=== PATIENT | female | born 1940 | race Caucasian/White ===

== ENCOUNTER 2017-05-31 19:53 | Observation (INO) | payer MEDICARE, SELFPAY | END 2017-06-02 09:30 | disposition home or self-care (01) | PROVIDERS: Admitting Provider Internal Medicine Adolescent Medicine; Emergency Provider Emergency Medicine; Family Provider Emergency Medicine; Visit Provider Internal Medicine Adolescent Medicine | DX: I10 Essential (primary) hypertension (principal); B34.9 Viral infection, unspecified; I73.9 Peripheral vascular disease, unspecified; Z95.820 Peripheral vascular angioplasty status with implants and grafts | CPT/HCPCS: 36415; 71010; 74176; 80048; 80053; 82150; 82550; 82553; 83605; 83690; 84484; 85025; 87040; 87070; 87077; 87186; 87205; 87275; 87276; 93005; 93041; 96365; 96367; 96375; 99285; G0378; J2405 ==

== ENCOUNTER → 2017-06-29 14:18 | Outpatient (CLI) | payer MEDICARE, SELFPAY ==
--- NOTE | 2017-06-29 | XR_ITS ---
XR chest 2V Ordering Physician: David Disla MD Patient Age: 77 years: Female HISTORY: ITS.REASON: COUGH/CONGESTION F/U TECHNIQUE: PA and lateral chest COMPARISON : May 31, 2017 CXR portable January 2015 2 view CXR August [address] abdomen which includes lung bases May 31, 2017 FINDINGS mild interstitial coarsening bilaterally most evident towards bases again seen. Subtle additional a vague focal focal density towards the right lung base. This Measures roughly & 14 mm projected over the anterior right sixth rib... Questioned that this possibly could reflect a tiny patchy area of infiltrate towards the RML lobe on the PA and lateral view. The May CT showed a breast nodular density which is remain fairly stable. I would however suggest mammography ongoing in this patient to confirm stability of these breast densities. Heart is normal in size with the barbara and mediastinal structures otherwise unremarkable. The generous aortic knob is similar to previous studies. Unchanged.. Mild coarsening markings infrahilar regions been seen previously reflecting some mild chronic changes and mild chronic airway thickening. Mild hyperexpansion No pleural effusion. No pneumothorax. IMPRESSION: --- Subtle focal density projected over the anterior sixth rib right lung base.. Of questionable significance. Question possible minor patchy area infiltrate towards right right lung base. (Unlikely, Doubt new nodular density given the May 2017 CT included this area showed no no significant lung nodule. Only a stable breast nodule. However Would recommend ongoing mammography for the nodularity in breast) Mild chronic changes bilaterally with mild hyperexpansion.....
== END ==
PROVIDERS: PCP Emergency Medicine; Visit Provider Emergency Medicine
DX: R06.02 Shortness of breath (principal)
CPT/HCPCS: 71046

== ENCOUNTER → 2017-07-05 13:39 | Outpatient (CLI) | payer MEDICARE, SELFPAY | PROVIDERS: PCP Emergency Medicine; Visit Provider Emergency Medicine | DX: R05 Cough (principal) | CPT/HCPCS: 87070; 87077; 87184; 87186; 87205 ==

== ENCOUNTER 2017-07-08 14:31 | Inpatient (IN) | payer MEDICARE, SELFPAY ==
[2017-07-08 14:32] VITALS: BP 121/66; PULSE 78; RESP 18; TEMP 36.8; O2SAT 92; BMI 29.2
--- NOTE | 2017-07-08 15:01 | XR_ITS ---
XR chest 2V Ordering Physician: David Disla MD Patient Age: 77 years: Female HISTORY: ITS.REASON: productive cough TECHNIQUE: PA lateral chest COMPARISON :Previous 2 view chest 01/27/2015 & 06/29/2017 Compared to the recent2017 CXR study there is interval increased markings towards the lung bases. Suggest recurrent basilar interstitial infiltrate compatible with minimal interstitial pneumonia superimposed on chronic changes. No pleural effusions evident the heart is normal in size but the pulmonary vascularity appears upper normal. Suggest correlating with BNP.. I could not exclude subtle interstitial edema or subtle CHF this appearance at lung bases.. Heart barbara and mediastinal structures otherwise unremarkable. The chest wall and T-spine intact. IMPRESSION------- : Bibasilar infiltrates superimposed upon chronic changes. Most likely bibasilar lower lobe pneumonia on right more so than left However Cannot exclude additional mild interstitial edema w/ subtle CHF.. Warrants correlation with BNP
[2017-07-08 15:34] LABS: Basophils # 0.1 K/mm3 (0-0.2); Basophils % 0.7 % (0.1-2.0); Eosinophils # 0.5 K/mm3 (0.0-0.4); Hematocrit 37.1 % (37.0-47.0); Hemoglobin 11.7 g/dL (12.2-16.2); Lymphocytes # 1.5 K/mm3 (0.7-4.5); Lymphocytes % 19.3 K/mm3 (10-50); Mean Corpuscular HGB Conc 31.5 g/dL (31.8-35.4); Mean Corpuscular Hemoglobin 26.9 pg (27.0-31.2); Mean Corpuscular Volume 85.4 fl (81-99); Mean Platelet Volume 7.8 fl (7.4-10.4); Monocytes # 0.4 K/mm3 (0.1-1.0); Monocytes % 5.8 % (1.7-9.3); Neutrophils # 5.2 K/mm3 (1.8-7.8); Neutrophils % 68.1 % (37.0-80.0); Platelet Count 392 K/mm3 (142-424); Red Blood Count 4.34 M/mm3 (4.20-5.40); Red Cell Distribution Width 14.2 % (11.5-17.5); White Blood Count 7.7 K/mm3 (4.8-10.8)
[2017-07-08 15:51] LABS: Lactic Acid 1.1 mmol/L (0.4-2.0)
--- NOTE | 2017-07-08 15:54 | HMH.EDSOB ---
ED Disposition Clinical Impression: CAP (community acquired pneumonia) Disposition: Admitted as Observation Condition on Discharge: Good Referrals: David Disla MD [Primary Care Provider] - - Critical Care Critical Care Time: No Attestation: On 07/08/17, the high probability of a clinically significant, sudden or life threatening deterioration of the following system(s) required my full and direct attention, intervention and personal management. The time I documented below is in addition to time spent performing reported procedures but includes the following listed in this critical care notation. Medical Decision Making - Medical Records Medical records reviewed: Yes: I reviewed the patient's medical records. Vital Signs: 07/08/17 14:32 Temperature 98.3 F Temperature Source Oral Pulse Rate [Right Brachial] 78 Respiratory Rate 18 Blood Pressure [Right Arm] 121/66 Blood Pressure Mean [Right Arm] 84 Blood Pressure Source [Right Arm] Automatic Cuff Blood Pressure Position [Right Arm] Sitting 02 Sat by Pulse Oximetry 92 L Oxygen Delivery Method Room Air - Lab Data Lab results reviewed: Yes: I reviewed the patient's lab results. Lab Results 07/08/17 15:10: WBC 7.7, RBC 4.34, Hgb 11.7 L, Hct 37.1, MCV 85.4, MCH 26.9 L, MCHC 31.5 L, RDW 14.2, Plt Count 392, MPV 7.8, Neut % (Auto) 68.1, Lymph % (Auto) 19.3, [place] % (Auto) 5.8, Eos % (Auto) 6.0, Baso % (Auto) 0.7, Neut # (Auto) 5.2, Lymph # (Auto) 1.5, [place] # (Auto) 0.4, Eos # (Auto) 0.5 H, Baso # (Auto) 0.1 07/08/17 15:10: Lactic Acid 1.1 Result diagrams: 07/08/17 15:10 Orders (Tests/Meds): ED MEDICATIONS Discontinued Medications Generic Name Dose Route Start Last Admin Trade Name Freq PRN Reason Stop Dose Admin Albuterol/Ipratropium 3 ml 07/08/17 15:48 Duoneb 3ml Neb IH 07/08/17 15:49 ONCE ONE Methylprednisolone Sodium Succinate 125 mg 07/08/17 15:48 07/08/17 15:52 Solu-Medrol 125mg/2ml Vial IV 07/08/17 15:49 125 mg ONCE ONE Administration ORDERS Category Date Time Status XR chest 2V Stat Exams 07/08/17 15:01 Taken B-Type Natriuretic Peptide Stat Lab 07/08/17 15:10 Received Cardiac Enzymes Stat Lab 07/08/17 15:10 Received Comprehensive Metabolic Panel Stat Lab 07/08/17 15:10 Received ESR [Erythrocyte Sedimentation Rate] Stat Lab 07/08/17 15:52 Ordered Blood Culture Stat Micro 07/08/17 15:10 Received Sputum Culture & Gram Stain Stat Micro 07/08/17 15:53 Ordered - Radiology Data #1 Image(s): Chest Image Reviewed: Yes I reviewed the patient's radiology image Preliminary Findings: Abnormal (bilat cap) - Donis Inquiry Pt receiving controlled substance: No Resp/SOB HPI - General Chief Complaint: Weakness Stated Complaint: poss pnuemonia Time Seen by Provider: 07/08/17 15:55 Mode of Arrival: Ambulatory Source of Information: Patient, Relative, Medical Record Limitations: No Limitations Description of Symptoms (Recalled from ER Triage Doc. by RN): PT c/o nausea and vomiting for the past couple of weeks with increased SOA, prouctive cough. - History of Present Illness this is a wf who has prod cough with sob w/o hemoptysis but has wt loss and dec po intake MD Complaint: shortness of breath, cough Onset (ago): day(s) Severity: moderate Relieving factors: nothing Exacerbating factors: exertion, coughing Associated symptoms: pain with inspiration, cough Treatment prior to arrival: none - Related Data Home Medications Medication Instructions Recorded Confirmed amlodipine 10 mg tablet 10 mg PO BID tab 06/06/17 aspirin 81 mg tablet,delayed 81 mg PO QDAY 06/06/17 release carvedilol 12.5 mg tablet 12.5 mg PO BID 06/06/17 lisinopril 20 1 tab PO BID tab 06/06/17 mg-hydrochlorothiazide 12.5 mg tablet nitroglycerin 0.4 mg sublingual 0.4 mg SUBLINGUAL Q5-15M PRN 06/06/17 tablet zolpidem 10 mg tablet 10 mg PO QHS PRN tab 06/06/17 Allergies
--- NOTE | 2017-07-08 15:58 | ED_ITS ---
ED Disposition Clinical Impression: CAP (community acquired pneumonia) Disposition: Admitted as Observation Condition on Discharge: Good Referrals: David Disla MD [Primary Care Provider] - - Critical Care Critical Care Time: No Attestation: On 07/08/17, the high probability of a clinically significant, sudden or life threatening deterioration of the following system(s) required my full and direct attention, intervention and personal management. The time I documented below is in addition to time spent performing reported procedures but includes the following listed in this critical care notation. Medical Decision Making - Medical Records Medical records reviewed: Yes: I reviewed the patient's medical records. Vital Signs: 07/08/17 14:32 Temperature 98.3 F Temperature Source Oral Pulse Rate [Right Brachial] 78 Respiratory Rate 18 Blood Pressure [Right Arm] 121/66 Blood Pressure Mean [Right Arm] 84 Blood Pressure Source [Right Arm] Automatic Cuff Blood Pressure Position [Right Arm] Sitting 02 Sat by Pulse Oximetry 92 L Oxygen Delivery Method Room Air - Lab Data Lab results reviewed: Yes: I reviewed the patient's lab results. Lab Results 07/08/17 15:10: WBC 7.7, RBC 4.34, Hgb 11.7 L, Hct 37.1, MCV 85.4, MCH 26.9 L, MCHC 31.5 L, RDW 14.2, Plt Count 392, MPV 7.8, Neut % (Auto) 68.1, Lymph % (Auto ) 19.3, [place] % (Auto) 5.8, Eos % (Auto) 6.0, Baso % (Auto) 0.7, Neut # (Auto) 5.2, Lymph # (Auto) 1.5, [place] # (Auto) 0.4, Eos # (Auto) 0.5 H, Baso # (Auto) 0.1 07/08/17 15:10: Lactic Acid 1.1 Result diagrams: 07/08/17 15:10 Orders (Tests/Meds): ED MEDICATIONS Discontinued Medications Generic Name Dose Route Start Last Admin Trade Name Freq PRN Reason Stop Dose Admin Albuterol/Ipratropium 3 ml 07/08/17 15:48 Duoneb 3ml Neb IH 07/08/17 15:49 ONCE ONE Methylprednisolone Sodium Succinate 125 mg 07/08/17 15:48 07/08/17 15:52 Solu-Medrol 125mg/2ml Vial IV 07/08/17 15:49 125 mg ONCE ONE Administration ORDERS Category Date Time Status XR chest 2V Stat Exams 07/08/17 15:01 Taken B-Type Natriuretic Peptide Stat Lab 07/08/17 15:10 Received Cardiac Enzymes Stat Lab 07/08/17 15:10 Received Comprehensive Metabolic Panel Stat Lab 07/08/17 15:10 Received ESR [Erythrocyte Sedimentation Rate] Stat Lab 07/08/17 15:52 Ordered Blood Culture Stat Micro 07/08/17 15:10 Received Sputum Culture & Gram Stain Stat Micro 07/08/17 15:53 Ordered - Radiology Data #1 Image(s): Chest Image Reviewed: Yes I reviewed the patient's radiology image Preliminary Findings: Abnormal (bilat cap) - Donis Inquiry Pt receiving controlled substance: No Resp/SOB HPI - General Chief Complaint: Weakness Stated Complaint: poss pnuemonia Time Seen by Provider: 07/08/17 15:55 Mode of Arrival: Ambulatory Source of Information: Patient, Relative, Medical Record Limitations: No Limitations Description of Symptoms (Recalled from ER Triage Doc. by RN): PT c/o nausea and vomiting for the past couple of weeks with increased SOA, prouctive cough. - History of Present Illness this is a wf who has prod cough with sob w/o hemoptysis but has wt loss and dec po intake MD Complaint: shortness of breath, cough
[2017-07-08 16:01] VITALS: PULSE 61; PULSE 65
[2017-07-08 16:02] VITALS: BP 136/73; PULSE 84; RESP 18; O2SAT 92
[2017-07-08 16:06] LABS: Alanine Aminotransferase 18 U/L (12-78); Albumin Level 2.9 gm/dL (3.4-5.0); Albumin/Globulin Ratio 0.6 (1.1-1.8); Alkaline Phosphatase 97 U/L (46-116); Anion Gap 13.8 mEq/L (5-15); Aspartate Amino Transferase 14 U/L (15-37); Bilirubin,Total 0.4 mg/dL (0.2-1.0); Blood Urea Nitrogen 29 mg/dL (7-18); Calcium 8.9 mg/dL (8.5-10.1); Carbon Dioxide 29 mmol/L (21.0-32.0); Chloride 103 mmol/L (98-107); Creatine Kinase 14 U/L (26-192); Creatinine Clearance Estimated 44 mL/min (0-300); Creatinine,Serum 1.35 mg/dL (0.55-1.02); Estimated Glomerular Filt Rate 38 ml/min (>60); GFR (African American) 46 ML/MIN (>60); Globulin 5.2 gm/dl (1.3-3.2); Glucose 134 mg/dL (74-106); Potassium 3.8 mmoL/L (3.5-5.1); Sodium 142 mmol/L (136-145); Total Protein,Serum 8.1 gm/dL (6.4-8.2); Troponin I < 0.02 ng/ml (0.00-0.06)
[2017-07-08 16:09] LABS: CKMB Relative Index 3.6 U/L (0-4.0); Creatine Kinase MB < 0.5 mg/ml (0.0-3.6)
[2017-07-08 16:31] VITALS: BP 113/76; PULSE 75; RESP 20; TEMP 36.8; O2SAT 92
[2017-07-08 16:44] VITALS: BMI 29.0
[2017-07-08 17:30] LABS: Erythrocyte Sedimentation Rate > 120 mm/hr (0-30)
[2017-07-08 19:45] VITALS: O2SAT 96
[2017-07-08 20:00] VITALS: BP 113/62; PULSE 68; RESP 18; TEMP 36.3; O2SAT 96
[2017-07-09] VITALS: BP 114/56
[2017-07-09 04:00] VITALS: BP 130/69; PULSE 61; RESP 18; TEMP 36.4; O2SAT 92
--- NOTE | 2017-07-09 06:55 | PC.NURSE ---
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 THIS HAS BEEN GOING ON AT HOME AND I USUALLY PUT ICE PACKS ON THOSE PLACES AND IT DOES HELP. RN ADMINISTERED TYLENOL AND PROVIDED PT WITH ICE PACKS. ON REASSESSMENT PT STILL C/O PAIN, RATING IT AT A 5/10 ON 0-[address] SALGUERO WAS NOTIFIED ON REASSESSMENT AROUND 2014, STATED I WILL PUT SOMETHING IN. AT 2229, ORDERS STILL NOT PUT IN, RN CALLED DR. SALGUERO AGAIN, NO RESPONSE AT THIS TIME. AT 2239, RN RECEIVED A CALL FROM DR. SALGUERO. PT WAS REQUESTING MEDICATION TO HELP WITH PAIN IN BETWEEN SHOULDER BLADES AND CHEST, FOR COUGH, AND FOR SLEEPING MEDICATION. WAS INFORMED THAT PATIENT TAKES AMBIEN 10MG AT HS FOR SLEEP. MD ORDERED NORCO 5MG-325MG AND AMBIEN 10 MG PO ONE TIME ONLY AND TESSLON PERLE Q4H PRN. MEDICATED PT FOLLOWING ORDERS RETRIEVED, ON REASSESSMENT PT NOTED SLEEPING. SCATTERED RHONCHI NOTED ON AUSCULTATION OF LUNG SOUNDS. TOLERATED RA WELL. VSS. WILL CONTINUE TO MONITOR.
[2017-07-09 07:25] LABS: Basophils % 0.2 % (0.1-2.0); Eosinophils % 0.2 % (0.1-12.0); Hematocrit 30.9 % (37.0-47.0); Lymphocytes # 0.8 K/mm3 (0.7-4.5); Lymphocytes % 17.2 K/mm3 (10-50); Mean Corpuscular HGB Conc 31.5 g/dL (31.8-35.4); Mean Corpuscular Hemoglobin 27.1 pg (27.0-31.2); Mean Platelet Volume 8.3 fl (7.4-10.4); Monocytes # 0.1 K/mm3 (0.1-1.0); Monocytes % 2.1 % (1.7-9.3); Neutrophils # 3.8 K/mm3 (1.8-7.8); Neutrophils % 80.2 % (37.0-80.0); Platelet Count 307 K/mm3 (142-424); Red Cell Distribution Width 14.2 % (11.5-17.5); White Blood Count 4.7 K/mm3 (4.8-10.8)
[2017-07-09 07:27] LABS: Anion Gap 12.3 mEq/L (5-15); Blood Urea Nitrogen 34 mg/dL (7-18); Carbon Dioxide 26 mmol/L (21.0-32.0); Chloride 106 mmol/L (98-107); Creatinine Clearance Estimated 43 mL/min (0-300); Creatinine,Serum 1.37 mg/dL (0.55-1.02); Estimated Glomerular Filt Rate 38 ml/min (>60); GFR (African American) 45 ML/MIN (>60); Glucose 210 mg/dL (74-106); Magnesium 2.1 mg/dL (1.4-2.2); Potassium 4.3 mmoL/L (3.5-5.1); Sodium 140 mmol/L (136-145)
[2017-07-09 07:49] LABS: Hemoglobin 9.8 g/dL (12.2-16.2)
[2017-07-09 08:43] VITALS: BP 141/71; PULSE 69; RESP 18; TEMP 36.3; O2SAT 94
--- NOTE | 2017-07-09 08:48 | HMH.HP ---
*Admission Date: 07/08/17 *Chief complaint: cough *History of present illness: this wf with progressive sob with prod cough over the last few days with dec po intake - she was seen in the ed and noted to have cap bilat on xray - she reports occ chest pain and has 31 lb wt loss since mar 26- [facility] History I have reviewed the patient's past medical history: Yes Medical History: Reports:: Hypertension, Myocardial Infarction Denies:: Cancer, Diabetes Mellitus Type 1, Diabetes Mellitus Type 2, Internal Pacemaker, MRSA Other Medical History: Reports: Thyroid Disease Laterality Cases: Left: Arthroscopy Shoulder, Other Other Surgeries: Yes: Hernia Repair, Other. No: Pacemaker Amputation: No Fractures: No - *Social History Educational Level: Attended High School Smoking Status: Former smoker Tobacco Type: cigarettes #Yrs smoked (if former smoker): 10 Alcohol Intake: never Substance Use Type: denies use Occupational Status: retired Housing: house Household Members: none - Psychiatric History Expresses thoughts of harming self/others: None Suicide Plan Description: No Plan *Family Hx:: Coronary Artery Disease, Heart Attack Review of Systems - Review of Systems Review of systems:: pertinent systems reviewed and negative unless documented below - Constitutional Reports lack of energy, Reports weight loss, Denies fever(s) - Eyes Denies change in vision - ENT Denies sore throat - *Cardiovascular Denies chest pain at rest - *Respiratory Reports cough, Reports shortness of breath, Reports pain with cough, Denies coughing up blood - *Gastrointestinal Denies abdominal pain, Denies nausea - *Musculoskeletal Denies joint pain, Denies joint swelling - Integumentary/Breasts Denies rash - *Neurologic Denies seizure-like activity Meds Home Medications Medication Instructions Recorded Confirmed Type amlodipine 10 mg tablet 10 mg PO BID tab 06/06/17 History aspirin 81 mg tablet,delayed 81 mg PO QDAY 06/06/17 History release carvedilol 12.5 mg tablet 12.5 mg PO BID 06/06/17 History lisinopril 20 1 tab PO BID tab 06/06/17 History mg-hydrochlorothiazide 12.5 mg tablet nitroglycerin 0.4 mg sublingual 0.4 mg SUBLINGUAL Q5-15M PRN 06/06/17 History tablet zolpidem 10 mg tablet 10 mg PO QHS PRN tab 06/06/17 History Allergies Allergy/AdvReac Type Severity Reaction Status Date / Time No Known Allergies Allergy Verified 06/11/17 15:56 Exam Vital signs and Labs for Last 24 Hours: Temp Pulse Resp BP Pulse Ox 97.4 F L 69 18 141/71 94 L 07/09/17 08:43 07/09/17 08:43 07/09/17 08:43 07/09/17 08:43 07/09/17 08:43 Laboratory Results - last 24 hr 07/09/17 06:20: WBC 4.7 L D, RBC 3.60 L, Hgb 9.8 L D, Hct 30.9 L, MCV 86.0, MCH 27.1, MCHC 31.5 L, RDW 14.2, Plt Count 307, MPV 8.3, Neut % (Auto) 80.2 H, Lymph % (Auto) 17.2, [place] % (Auto) 2.1, Eos % (Auto) 0.2, Baso % (Auto) 0.2, Neut # (Auto) 3.8, Lymph # (Auto) 0.8, [place] # (Auto) 0.1, Eos # (Auto) 0.0, Baso # (Auto) 0.0 07/09/17 06:20: Sodium 140, Potassium 4.3, Chloride 106, Carbon Dioxide 26, Anion Gap 12.3, BUN 34 H, Creatinine 1.37 H, Estimated Creat Clear 43, Estimated GFR 38 L, Est GFR ( Amer) 45 L, Glucose 210 H D, Magnesium 2.1 I & O for Last 24 hours: Intake & Output 07/06/17 07/07/17 07/08/17 07/09/17 11:59 11:59 11:59 11:59 Intake Total 1080 / 1080 Balance 1080 / 1080 Weight 169 lb 4 oz Microbiology Reports for the Last 24 Hours: Microbiology 07/08/17 22:55 Sputum - Expectorated Sputum Gram Stain - Final - Constitutional no acute distress - *Routine HEENT Exam Head: Present: normocephalic Eye: Present: EOMI, PERRL ENT: Present: mucous membranes dry - *Routine Neck Exam Present: supple. Absent: JVD - *Routine Respiratory Exam Present: decreased breath sounds, prolonged expiratory phase, distant breath sounds. Absent: respiratory distress - *Routine Cardiovascular Ex
--- NOTE | 2017-07-09 08:51 | P.HP_ITS ---
*Admission Date: 07/08/17 *Chief complaint: cough *History of present illness: this wf with progressive sob with prod cough over the last few days with dec po intake - she was seen in the ed and noted to have cap bilat on xray - she reports occ chest pain and has 31 lb wt loss since mar 26- [facility] History I have reviewed the patient's past medical history: Yes Medical History: Reports:: Hypertension, Myocardial Infarction Denies:: Cancer, Diabetes Mellitus Type 1, Diabetes Mellitus Type 2, Internal Pacemaker, MRSA Other Medical History: Reports: Thyroid Disease Laterality Cases: Left: Arthroscopy Shoulder, Other Other Surgeries: Yes: Hernia Repair, Other. No: Pacemaker Amputation: No Fractures: No - *Social History Educational Level: Attended High School Smoking Status: Former smoker Tobacco Type: cigarettes #Yrs smoked (if former smoker): 10 Alcohol Intake: never Substance Use Type: denies use Occupational Status: retired Housing: house Household Members: none - Psychiatric History Expresses thoughts of harming self/others: None Suicide Plan Description: No Plan *Family Hx:: Coronary Artery Disease, Heart Attack Review of Systems - Review of Systems Review of systems:: pertinent systems reviewed and negative unless documented below - Constitutional Reports lack of energy, Reports weight loss, Denies fever(s) - Eyes Denies change in vision - ENT Denies sore throat - *Cardiovascular Denies chest pain at rest - *Respiratory Reports cough, Reports shortness of breath, Reports pain with cough, Denies coughing up blood - *Gastrointestinal Denies abdominal pain, Denies nausea - *Musculoskeletal Denies joint pain, Denies joint swelling - Integumentary/Breasts Denies rash - *Neurologic Denies seizure-like activity Meds Home Medications Medication Instructions Recorded Confirmed Type amlodipine 10 mg tablet 10 mg PO BID tab 06/06/17 History aspirin 81 mg tablet,delayed 81 mg PO QDAY 06/06/17 History release carvedilol 12.5 mg tablet 12.5 mg PO BID 06/06/17 History lisinopril 20 1 tab PO BID tab 06/06/17 History mg-hydrochlorothiazide 12.5 mg tablet nitroglycerin 0.4 mg sublingual 0.4 mg SUBLINGUAL Q5-15M PRN 06/06/17 History tablet zolpidem 10 mg tablet 10 mg PO QHS PRN tab 06/06/17 History Allergies Allergy/AdvReac Type Severity Reaction Status Date / Time No Known Allergies Allergy Verified 06/11/17 15:56 Exam Vital signs and Labs for Last 24 Hours: Temp Pulse Resp BP Pulse Ox 97.4 F L 69 18 141/71 94 L 07/09/17 08:43 07/09/17 08:43 07/09/17 08:43 07/09/17 08:43 07/09/17 08:43 Laboratory Results - last 24 hr 07/09/17 06:20: WBC 4.7 L D, RBC 3.60 L, Hgb 9.8 L D, Hct 30.9 L, MCV 86.0, MCH 27.1, MCHC 31.5 L, RDW 14.2, Plt Count 307, MPV 8.3, Neut % (Auto) 80.2 H, Lymph % (Auto) 17.2, [place] % (Auto) 2.1, Eos % (Auto) 0.2, Baso % (Auto) 0.2, Neut # (Auto) 3.8, Lymph # (Auto) 0.8, [place] # (Auto) 0.1, Eos # (Auto) 0.0, Baso # (Auto) 0.0 07/09/17 06:20: Sodium 140, Potassium 4.3, Chloride 106, Carbon Dioxide 26, Anion Gap 12.3, BUN 34 H, Creatinine 1.37 H, Estimated Creat Clear 43, Estimated GFR 38 L, Est GFR ( Amer) 45 L, Glucose 210 H D, Magnesium 2.1 I & O for Last 24 hours: Intake & Output 07/06/17 07/07/17 07/08/17 07/09/17 1
--- NOTE | 2017-07-09 09:26 | P.CONPHA_ITS ---
[facility] Pharmacy VTE Monitoring - Patient Demographics Admission date: 07/08/17 Report Date: 07/09/17 Time: 09:26 Allergies/Adverse Reactions: Patient Allergies No Known Allergies Allergy (Verified 06/11/17 15:56) Height: 1.63 m Weight: 76.771 kg Patient Problems: Current Active Problems CAP (community acquired pneumonia) (Acute) - VTE Risk Labs: VTE Related Lab Results Hgb 9.8 g/dL (12.2-16.2) L D 07/09/17 06:20 Hct 30.9 % (37.0-47.0) L 07/09/17 06:20 Plt Count 307 K/mm3 (142-424) 07/09/17 06:20 BUN 34 mg/dL (7-18) H 07/09/17 06:20 Creatinine 1.37 mg/dL (0.55-1.02) H 07/09/17 06:20 Estimated Creat Clear 43 mL/min (0-300) 07/09/17 06:20 Was VTE Risk Assessment Performed: No VTE Score: 4 VTE Risk Level: Low Risk - Prophylaxis VTE Prophylaxis Ordered?: Yes Types of VTE Prophylaxis: TEDS Knee High Location of Applied Device: Bilateral Lower Extremeties - VTE Diagnosis Confirmed Treatment or plan recommended: Continue Current Treatment
[2017-07-09 12:00] VITALS: BP 113/71; PULSE 75; RESP 18; TEMP 36.4; O2SAT 96
[2017-07-09 16:15] VITALS: BP 125/61; PULSE 70; RESP 18; TEMP 36.7; O2SAT 95
--- NOTE | 2017-07-09 18:36 | PC.NURSE ---
PT HAS HAD NO CHANGES FROM PREVIOUS ASSESSMENT. IV PATENT. V/S/S. PT AMBULATED IN ROOM TODAY AND HAD SOME COUGHING AFTERWARDS AND SOME SHORTNESS OF AIR. CALL LIGHT IN REACH. WILL CONTINUE TO MONITOR PT CONDITION. WILL GIVE REPORT TO ONCOMING NURSE.
[2017-07-09 20:00] VITALS: BP 157/70; PULSE 76; RESP 22; TEMP 36.7; O2SAT 95
[2017-07-10] VITALS: BP 128/59; PULSE 70; RESP 18; TEMP 36.9; O2SAT 95
[2017-07-10 04:00] VITALS: BP 136/62; PULSE 68; RESP 20; TEMP 36.4; O2SAT 93
--- NOTE | 2017-07-10 04:38 | PC.NURSE ---
REQUESTED PRN COUGH AND SLEEPING MEDICATION, LOOSE COUGH NOTED, MEDICATED PER MAR. RESTED WELL THIS SHIFT FOLLOWING ADMINISTRATION OF SLEEPING MEDICATION. LUNG SOUNDS NOTED CLEAR PER AUSCULTATION. TOLERATED RA. VSS. WILL CONTINUE TO MONITOR.
--- NOTE | 2017-07-10 07:58 | PC.NURSE ---
ON LAST ROUND, PT NOTED COUGHING, C/O WOODY AND CHEST PRESSURE AND BEGAN TO GAG, PRN NAUSEA, COUGH AND PAIN MEDICATION ADMINISTERED PER MAR. PROVIDED PT WITH COLD WASH CLOTH FOR C/O WOODY, PT DENIED NEED FOR ICE PACKS. ON REASSESSMENT, PT STATED I FEEL BETTER AND I DO NOT HAVE THAT CHEST PRESSURE. REPORTED EVENTS TO ONCOMING RN AND WILL CONTINUE TO MONITOR.
[2017-07-10 08:00] VITALS: BP 146/69; PULSE 65; RESP 18; TEMP 36.5; O2SAT 94
--- NOTE | 2017-07-10 08:02 | PC.NURSE ---
REPORT GIVEN TO Rosita GARIBAY RN
--- NOTE | 2017-07-10 08:42 | CT_ITS ---
CT chest wo con HISTORY: Cough, abnormal chest x-ray follow-up ITS.REASON: abn cxr ORDERING PHYSICIAN: David Disla MD PATIENT AGE: 77 years TECHNIQUE: Axial images obtained. Sagittal and coronal reformatted images are also generated and reviewed. CONTRAST: None COMPARISON: X-ray of 07/08/[address] of 08/14/2016 FINDINGS: There is normal heart size. There are diffuse coronary artery calcification consistent with coronary artery disease. No mediastinal or hilar mass. Small hiatal hernia is present. Mild paraseptal emphysematous changes. There is hyperinflation with attenuation of the peripheral pulmonary vessels consistent with obstructive chronic bronchitis with bronchial thickening. There are scattered micronodular opacities in both lower lobes with some mild atelectatic changes in the lung bases posteriorly. Faint micronodular opacities also present in the right upper lobe. There is a stable 3 mm nodule in the left upper lobe. A new 5 mm nodular opacity is present in the superior segment of the left lower lobe nonspecific and could be due to an area of inflammation/atelectasis. No effusions. Upper abdominal images show a 5.4 cm left renal cyst. There is a 8 mm nodule in the superior right breast which may be better evaluated with mammogram and ultrasound clinically warranted. Spondylosis in the thoracic spine. IMPRESSION: 1. COPD with paraseptal emphysematous change. 2. Scattered micronodular densities more prominent in the lower lobes and may be related to underlying inflammatory/infectious process with atelectatic changes in the lung bases on both sides posteriorly. 3. 5 mm nodular opacity in the superior segment left upper lobe having developed in the interval. Stable 3 mm nodule in the left upper lobe. Recommend 6 month follow-up to confirm stability. 4. Coronary artery disease. 5. 8 mm right breast nodule superiorly
--- NOTE | 2017-07-10 08:44 | HMH.ACPN2 ---
Internal Medicine - PN: Subj *Date: 07/10/17 *Time: 08:44 Interval history: pt feels bad this am with coughing episode Exam Vital signs and Labs for Last 24 Hours: Temp Pulse Resp BP Pulse Ox 97.6 F 68 20 136/62 93 L 07/10/17 04:00 07/10/17 04:00 07/10/17 04:00 07/10/17 04:00 07/10/17 04:00 I & O for Last 24 hours: Intake & Output 07/07/17 07/08/17 07/09/17 07/10/17 11:59 11:59 11:59 11:59 Intake Total 1080 / 1080 3604 / 3604 Balance 1080 / 1080 3604 / 3604 Weight 169 lb 4 oz 174 lb 4 oz Microbiology Reports for the Last 24 Hours: Microbiology 07/08/17 22:55 Sputum - Expectorated Sputum Gram Stain - Final - Constitutional no acute distress - *Routine HEENT Exam Head: Present: normocephalic Eye: Present: EOMI, PERRL ENT: Present: mucous membranes dry - *Routine Neck Exam Present: supple - *Routine Respiratory Exam Present: decreased breath sounds. Absent: respiratory distress - *Routine Cardiovascular Exam Present: RRR, murmur - *Routine Abdominal Exam Present: soft - *Routine Extremities Exam Absent: edema, Piero's sign - *Routine Skin Exam Present: intact - *Routine Neurological Exam Present: alert, oriented X3, CN II-XII intact - Routine Psychiatric Exam Present: normal affect Assessment and Plan (1) CAP (community acquired pneumonia) Current visit: Yes Status: Acute Category: Medical Code(s): J18.9 - Pneumonia, unspecified organism (2) PAD (peripheral artery disease) Current visit: No Status: Chronic Category: Medical Code(s): I73.9 - Peripheral vascular disease, unspecified (3) HHD (hypertensive heart disease) Current visit: No Status: Acute Category: Medical Code(s): I11.9 - Hypertensive heart disease without heart failure
--- NOTE | 2017-07-10 08:53 | CA_ITS ---
PROCEDURE: 2-D M-mode and color Doppler study INDICATIONS FOR THE TEST: Chest pain COPD Heart Murmur Tobacco Smoking Palpitations Fatigue Syncope Edema HypertensionXDiabetes Mellitus Rheumatic Fever SOBXDOE Obesity HyperlipidemiaX Family History HD Additional History PNEUMONIA,CAD,PACER,PAD,HHD PATIENT INFORMATION HEIGHT: 64 WEIGHT:174 GENDER: Female B/P:136/62 2-D/M-MODE INTERPRETATION: 2-D MEASUREMENTS OBSERVED VALUES IN CMS Right Ventricular Dimension (RVDd) 1.9 Interventricular Septum (Thickness)(IVsd) .9 Left Ventricular Internal Dimensions(LVIDd) 5.7 Left Ventricular Posterior Wall (Thickness)(LVPWd) .9 Aortic Root 4.3 Aortic Cusp Separation 1.9 Left Atrial Dimensions (LAD) 3.0 2D 1. Left atrium is mildly enlarged, left ventricle is normal size, left ventricle wall thickness is upper normal, estimated ejection fraction 55% with no obvious regional wall motion abnormality. 2. The right atrium and right ventricle are normal size, there is a pacemaker lead seen in the right atrium and right ventricle. 3. The aortic valve is minimally thickened and fibrosed. 4. The mitral and tricuspid valve leaflets are minimally thickened. 5. The pulmonic valve is poorly visualized. 6. No significant pericardial effusion noted. DOPPLER INTERROGATION: Doppler interrogation of the aortic, mitral and tricuspid valvular presence of mild mitral and tricuspid regurgitation, tricuspid regurgitant jet velocity insufficient for calculation of the right ventricular systolic pressure, grade 1 diastolic dysfunction seen with tissue Doppler evidence of raised left atrial pressure. CONCLUSION: 1. Mildly enlarged left atrium, normal left ventricular size, visually estimated ejection fraction 55% with no obvious regional wall motion abnormality, grade 1 diastolic dysfunction seen with tissue Doppler evidence of raised left atrial pressure. 2. Mild mitral and tricuspid regurgitation 3. No significant pericardial effusion noted.
[2017-07-10 09:20] LABS: Basophils % 0.1 % (0.1-2.0); Eosinophils # 0.1 K/mm3 (0.0-0.4); Eosinophils % 0.7 % (0.1-12.0); Hemoglobin 11.3 g/dL (12.2-16.2); Lymphocytes # 1.5 K/mm3 (0.7-4.5); Lymphocytes % 6.8 K/mm3 (10-50); Mean Corpuscular HGB Conc 31.3 g/dL (31.8-35.4); Mean Corpuscular Volume 86.2 fl (81-99); Mean Platelet Volume 7.8 fl (7.4-10.4); Monocytes # 0.6 K/mm3 (0.1-1.0); Monocytes % 2.7 % (1.7-9.3); Neutrophils # 19.5 K/mm3 (1.8-7.8); Neutrophils % 89.7 % (37.0-80.0); Platelet Count 414 K/mm3 (142-424); Red Blood Count 4.18 M/mm3 (4.20-5.40); Red Cell Distribution Width 14.4 % (11.5-17.5); White Blood Count 21.7 K/mm3 (4.8-10.8)
[2017-07-10 09:25] LABS: MANUAL DIFFERENTIAL MANUAL DIFFERENTIAL (MANUAL DIFF)
[2017-07-10 09:42] LABS: Anion Gap 11.3 mEq/L (5-15); Blood Urea Nitrogen 30 mg/dL (7-18); Carbon Dioxide 26 mmol/L (21.0-32.0); Chloride 109 mmol/L (98-107); Creatinine Clearance Estimated 52 mL/min (0-300); Creatinine,Serum 1.16 mg/dL (0.55-1.02); Estimated Glomerular Filt Rate 46 ml/min (>60); GFR (African American) 55 ML/MIN (>60); Glucose 219 mg/dL (74-106); Sodium 142 mmol/L (136-145)
[2017-07-10 09:45] LABS: Lymphocytes % 3 % (10-50); Monocytes % 2 % (2-9); Neutrophils % 91 % (42-76); Platelet Estimate Normal; Total Cells Counted 100
[2017-07-10 09:48] LABS: Potassium 4.3 mmoL/L (3.5-5.1)
[2017-07-10 12:21] VITALS: BP 150/62; PULSE 59; RESP 18; TEMP 36.6; O2SAT 96
[2017-07-10 16:24] VITALS: BP 165/76; PULSE 63; RESP 16; TEMP 36.4; O2SAT 94
[2017-07-10 17:16] VITALS: BMI 29.7
--- NOTE | 2017-07-10 18:49 | PC.NURSE ---
new iv placed. v/s/s. no changes from previous assessment. pt ambulating in room today. call light in reach. pt has stated no pain this shift. will continue to monitor pt condition. report to be given to oncoming nurse.
[2017-07-10 20:00] VITALS: BP 160/67; PULSE 66; RESP 18; TEMP 36.4; O2SAT 96
[2017-07-11] VITALS: BP 130/59; PULSE 59; RESP 18; TEMP 36.4; O2SAT 95
[2017-07-11 04:00] VITALS: BP 147/69; PULSE 59; RESP 16; TEMP 36.2; O2SAT 95
--- NOTE | 2017-07-11 04:13 | PC.NURSE ---
PT WAS COOPERATIVE AND RESTED WELL DURING SHIFT. PT REFUSED TEDS, BILATERALLY. UPON AUSCULTATION BOWEL SOUNDS WERE HYPOACTIVE. WHEEZES WERE NOTED THROUGHOUT DURING LUNG AUSCULTATION. PT UP TO RESTROOM TOLERATED. HACKING COUGH WAS NOTED DURING SHIFT. VSS. A&O X3. NO ACUTE DISTRESS WAS NOTED, WILL CONTINUE TO MONITOR.
--- NOTE | 2017-07-11 07:31 | PC.NURSE ---
report given to jesus lees rn
[2017-07-11 08:00] VITALS: BP 155/66; PULSE 71; RESP 20; TEMP 36.6; O2SAT 91
--- NOTE | 2017-07-11 08:28 | HMH.DCSUM ---
General - General Admission date: 07/08/17 Discharge date: 07/11/17 HPI HPI: this wf with progressive sob with prod cough over the last few days with dec po intake - she was seen in the ed and noted to have cap bilat on xray - she reports occ chest pain and has 31 lb wt loss since mar 26- Objective Vital signs: Temp Pulse Resp BP Pulse Ox 97.1 F L 59 L 16 147/69 95 07/11/17 04:00 07/11/17 04:00 07/11/17 04:00 07/11/17 04:00 07/11/17 04:00 no acute distress - *Routine HEENT Exam Head: Present: normocephalic Eye: Present: PERRL ENT: Present: mucous membranes moist - *Routine Neck Exam Present: supple, full ROM - *Routine Respiratory Exam Present: CTA bilaterally - *Routine Cardiovascular Exam Present: RRR - *Routine Abdominal Exam Present: soft, normoactive bowel sounds - *Routine Skin Exam Present: intact - *Routine Neurological Exam Present: alert, oriented X3 - Routine Psychiatric Exam Present: normal affect, normal thought process Hospital Course Hospital Course: ct scan results: IMPRESSION: 1. COPD with paraseptal emphysematous change. 2. Scattered micronodular densities more prominent in the lower lobes and may be related to underlying inflammatory/infectious process with atelectatic changes in the lung bases on both sides posteriorly. 3. 5 mm nodular opacity in the superior segment left upper lobe having developed in the interval. Stable 3 mm nodule in the left upper lobe. Recommend 6 month follow-up to confirm stability.- ram consult 4. Coronary artery disease.- sees kourtney 5. 8 mm right breast nodule superiorly- mammagram ecoli and klebsiella pneumonia in sputum. pt states she feels better today and would rest better at home. Results Labs on day of discharge: Labs from last 24 hours 07/10/17 07/10/17 09:09 09:09 WBC 21.7 H* D RBC 4.18 L Hgb 11.3 L Hct 36.0 L MCV 86.2 MCH 27.0 MCHC 31.3 L RDW 14.4 Plt Count 414 D MPV 7.8 Neut % (Auto) 89.7 H Lymph % (Auto) 6.8 L Meagher % (Auto) 2.7 Eos % (Auto) 0.7 Baso % (Auto) 0.1 Neut # (Auto) 19.5 H Lymph # (Auto) 1.5 Meagher # (Auto) 0.6 Eos # (Auto) 0.1 Baso # (Auto) 0.0 Total Counted 100 Neutrophils % (Manual) 91 H Band Neutrophils % 4.0 Lymphocytes % (Manual) 3 L Monocytes % (Manual) 2 Platelet Estimate Normal Sodium 142 Potassium 4.3 Chloride 109 H Carbon Dioxide 26 Anion Gap 11.3 BUN 30 H Creatinine 1.16 H Estimated Creat Clear 52 Estimated GFR 46 L Est GFR ( Amer) 55 L D Glucose 219 H Preliminary micro results at discharge 07/08/17 22:55 Sputum Culture - Preliminary Sputum - Expectorated Sputum Klebsiella pneumoniae Escherichia coli Meds Home Medications Medication Instructions Recorded Confirmed Type amlodipine 10 mg tablet 10 mg PO BID tab 06/06/17 07/09/17 History carvedilol 12.5 mg tablet 12.5 mg PO BID 06/06/17 07/09/17 History lisinopril 20 1 tab PO BID tab 06/06/17 07/09/17 History mg-hydrochlorothiazide 12.5 mg tablet nitroglycerin 0.4 mg sublingual 0.4 mg SUBLINGUAL Q5-15M PRN 06/06/17 07/09/17 History tablet zolpidem 10 mg tablet 10 mg PO QHS PRN tab 06/06/17 07/09/17 History Aspirin [Aspirin 81mg chewable 81 mg PO DAILY 07/09/17 07/09/17 History tab] Clopidogrel Bisulfate [Plavix 75mg 75 mg PO DAILY 07/09/17 07/09/17 History Tab] levoFLOXacin [Levaquin 500mg 500 mg PO Q24H 07/09/17 07/09/17 History tab] Allergies Allergy/AdvReac Type Severity Reaction Status Date / Time No Known Allergies Allergy Verified 06/11/17 15:56 Discharge Plan - Patient Discharge Instructions ACTIVITY: Continue current activity DIET: continue same diet - Follow up Plan Follow up with: Antonio Pleitez MD [Staff Physician] - 2 weeks Jatinder Ram MD [Consulting Physician] - 1 week David Disla MD [Primary Care Pro
--- NOTE | 2017-07-11 08:33 | P.DS_ITS ---
General - General Admission date: 07/08/17 Discharge date: 07/11/17 HPI HPI: this wf with progressive sob with prod cough over the last few days with dec po intake - she was seen in the ed and noted to have cap bilat on xray - she reports occ chest pain and has 31 lb wt loss since mar 26- Objective Vital signs: Temp Pulse Resp BP Pulse Ox 97.1 F L 59 L 16 147/69 95 07/11/17 04:00 07/11/17 04:00 07/11/17 04:00 07/11/17 04:00 07/11/17 04:00 no acute distress - *Routine HEENT Exam Head: Present: normocephalic Eye: Present: PERRL ENT: Present: mucous membranes moist - *Routine Neck Exam Present: supple, full ROM - *Routine Respiratory Exam Present: CTA bilaterally - *Routine Cardiovascular Exam Present: RRR - *Routine Abdominal Exam Present: soft, normoactive bowel sounds - *Routine Skin Exam Present: intact - *Routine Neurological Exam Present: alert, oriented X3 - Routine Psychiatric Exam Present: normal affect, normal thought process Hospital Course Hospital Course: ct scan results: IMPRESSION: 1. COPD with paraseptal emphysematous change. 2. Scattered micronodular densities more prominent in the lower lobes and may be related to underlying inflammatory/infectious process with atelectatic changes in the lung bases on both sides posteriorly. 3. 5 mm nodular opacity in the superior segment left upper lobe having developed in the interval. Stable 3 mm nodule in the left upper lobe. Recommend 6 month follow-up to confirm stability.- ram consult 4. Coronary artery disease.- sees kourtney 5. 8 mm right breast nodule superiorly- mammagram ecoli and klebsiella pneumonia in sputum. pt states she feels better today and would rest better at home. Results Labs on day of discharge: Labs from last 24 hours 07/10/17 07/10/17 09:09 09:09 WBC 21.7 H* D RBC 4.18 L Hgb 11.3 L Hct 36.0 L MCV 86.2 MCH 27.0 MCHC 31.3 L RDW 14.4 Plt Count 414 D MPV 7.8 Neut % (Auto) 89.7 H Lymph % (Auto) 6.8 L Tift % (Auto) 2.7 Eos % (Auto) 0.7 Baso % (Auto) 0.1 Neut # (Auto) 19.5 H Lymph # (Auto) 1.5 Tift # (Auto) 0.6 Eos # (Auto) 0.1 Baso # (Auto) 0.0 Total Counted 100 Neutrophils % (Manual) 91 H Band Neutrophils % 4.0 Lymphocytes % (Manual) 3 L Monocytes % (Manual) 2 Platelet Estimate Normal Sodium 142 Potassium 4.3 Chloride 109 H Carbon Dioxide 26 Anion Gap 11.3 BUN 30 H Creatinine 1.16 H Estimated Creat Clear 52 Estimated GFR 46 L Est GFR ( Amer) 55 L D Glucose 219 H Preliminary micro results at discharge 07/08/17 22:55 Sputum Culture - Preliminary Sputum - Expectorated Sputum Klebsiella pneumoniae Escherichia coli Meds Home Medications Medication Instructions Recorded Confirmed Type amlodipine 10 mg tablet 10 mg PO BID tab 06/06/17 07/09/17 History carvedilol 12.5 mg tablet 12.5 mg PO BID 06/06/17 07/09/17 History lisinopril 20 1 tab PO BID tab 06/06/17 07/09/17 History mg-hyd
[2017-07-11 12:00] VITALS: BP 163/81; PULSE 70; RESP 18; TEMP 36.1; O2SAT 97
== END 2017-07-11 13:20 | disposition home or self-care (01) | DRG 195 ==
LOC: ER 15:07 → 2ND 16:07
PROVIDERS: Admitting Provider Emergency Medicine; Emergency Provider Emergency Medicine; Family Provider Emergency Medicine; PCP Emergency Medicine; Visit Provider Emergency Medicine
DX: J18.9 Pneumonia, unspecified organism (principal); I11.9 Hypertensive heart disease without heart failure; I73.9 Peripheral vascular disease, unspecified; R63.4 Abnormal weight loss; Z68.29 Body mass index [BMI] 29.0-29.9, adult; I25.2 Old myocardial infarction; Z79.82 Long term (current) use of aspirin; Z79.899 Other long term (current) drug therapy; Z87.891 Personal history of nicotine dependence; Z82.49 Family history of ischemic heart disease and other diseases of the circulatory system
CPT/HCPCS: 36415; 71046; 71250; 80048; 80053; 82550; 82553; 83605; 83735; 83880; 84484; 85007; 85025; 85651; 87040; 87070; 87077; 87184; 87186; 87205; 93306; 96365; 99284; J0456; J2405

== ENCOUNTER → 2017-07-12 10:00 | Outpatient (CLI) | payer MEDICARE, SELFPAY ==
--- NOTE | 2017-07-12 10:01 | MM_ITS ---
MM Dig screening mamm BI w/CAD CAD Screening COMPARISON: Outside Digital mammograms 12/25/2012 and additional views of both breast 01/07/2013 INDICATION: There is no personal or family history of breast cancer TECHNIQUE: Standard CC and MLO images were obtained. R2 CAD reviewed. FINDINGS: Scattered fibroglandular densities are seen in both breast. There are 2 and possibly 3 nodular densities in central portion of the right breast and there is mild nodularity in central portions and subareolar region of the left breast. There are benign-appearing calcination is in each breast. There are no suspicious microcalcifications. Recommended patient return for ultrasound examination of both breast. IMPRESSION: Fibrofatty parenchyma with nodularity in both breast and recommend ultrasound examination each breast for better evaluation BI-RADS Category: 0 Need Additional Imaging Evaluation RECOMMENDED FOLLOW-UP: IMM - IMMEDIATE FOLLOW-UP RECOMMENDED A letter has been sent to the patient regarding results of the study.)
== END ==
PROVIDERS: Family Provider Emergency Medicine; PCP Emergency Medicine; Visit Provider Emergency Medicine
DX: Z12.31 Encounter for screening mammogram for malignant neoplasm of breast (principal)
CPT/HCPCS: 77067

== ENCOUNTER → 2017-08-02 14:45 | Outpatient (CLI) | payer MEDICARE, SELFPAY ==
--- NOTE | 2017-08-02 14:49 | US_ITS ---
US breast RT complete COMPARISON: Mammogram of 2-18, 12/25/2012, INDICATION: Follow-up abnormal mammogram ORDERING PHYSICIAN: HUBERT Erickson PATIENT AGE: 77 years TECHNIQUE: Ultrasound the right breast FINDINGS: Multiple cystic lesions are present. This includes a 5 mm cyst at 12:00, a complex cystic lesion at 6:00 containing multiple small cysts measuring 1.4 x 1 and a 4 mm cyst at 12:00 near the nipple. This latter lesion is probably benign however, 6 month follow-up is recommended. No suspicious solid lesions IMPRESSION: Right breast cysts as described above BI-RADS Category: 3 Benign Finding Short Term Follow-up RECOMMENDED FOLLOW-UP: 6M - 6 MONTH FOLLOW-UP Recommend follow-up mammogram and ultrasound of the right breast in 6 months (A letter has been sent to the patient regarding results of the study.)
--- NOTE | 2017-08-02 14:49 | US_ITS ---
US breast LT complete COMPARISON: Digital mammograms 07/12/2017 and ultrasound right breast same date HISTORY: Nodular densities left breast TECHNIQUE: Targeted ultrasound left breast FINDINGS: There is an oval hypoechoic lesion with well-defined borders at 3:00 position mid breast measuring 1.0 x 0.6 x 0.3 cm. This appears to have internal echoes and likely is a fibroadenoma. There is another oval hypoechoic lesion with homogeneous internal echoes at the 6:00 position near the nipple measuring 1.0 x 1.3 x 0.4 cm and this likely is a fibroadenoma. Is a tiny hypoechoic cystic-appearing lesion 6:00 position near the nipple measuring 0.4 x 0.4 x 0.5 cm and this likely is a small benign cyst. There is no suspicious solid lesion seen. 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 Recommend the patient continue with yearly screening mammography
== END ==
PROVIDERS: Family Provider Emergency Medicine; PCP Emergency Medicine; Visit Provider Physician Assistant
DX: R92.8 Other abnormal and inconclusive findings on diagnostic imaging of breast (principal)
CPT/HCPCS: 76641

== ENCOUNTER → 2017-08-13 08:47 | Outpatient (CLI) | payer MEDICARE, SELFPAY ==
[2017-08-13 10:02] LABS: Anion Gap 9.2 mEq/L (5-15); Blood Urea Nitrogen 28 mg/dL (7-18); Carbon Dioxide 30 mmol/L (21.0-32.0); Chloride 107 mmol/L (98-107); Creatinine,Serum 1.77 mg/dL (0.55-1.02); Estimated Glomerular Filt Rate 28 ml/min (>60); GFR (African American) 34 ML/MIN (>60); Glucose 100 mg/dL (74-106); Potassium 4.2 mmoL/L (3.5-5.1); Sodium 142 mmol/L (136-145)
== END ==
PROVIDERS: Family Provider Emergency Medicine; PCP Emergency Medicine; Visit Provider Nurse Practitioner Family
DX: N18.2 Chronic kidney disease, stage 2 (mild) (principal); I73.9 Peripheral vascular disease, unspecified; I25.10 Atherosclerotic heart disease of native coronary artery without angina pectoris; R60.9 Edema, unspecified; I11.9 Hypertensive heart disease without heart failure; E78.4 Other hyperlipidemia
CPT/HCPCS: 36415; 80048

== ENCOUNTER → 2017-08-27 11:46 | Outpatient (CLI) | payer MEDICARE, SELFPAY ==
[2017-08-27 12:33] LABS: Anion Gap 11.1 mEq/L (5-15); Blood Urea Nitrogen 21 mg/dL (7-18); Carbon Dioxide 27 mmol/L (21.0-32.0); Chloride 110 mmol/L (98-107); Creatinine,Serum 1.22 mg/dL (0.55-1.02); Estimated Glomerular Filt Rate 43 ml/min (>60); GFR (African American) 52 ML/MIN (>60); Glucose 133 mg/dL (74-106); Potassium 4.1 mmoL/L (3.5-5.1); Sodium 144 mmol/L (136-145)
== END ==
PROVIDERS: Visit Provider Nurse Practitioner Family
DX: N18.2 Chronic kidney disease, stage 2 (mild) (principal)
CPT/HCPCS: 36415; 80048

== ENCOUNTER → 2018-01-15 08:29 | Outpatient (CLI) | payer MEDICARE, SELFPAY ==
--- NOTE | 2018-01-15 08:30 | US_ITS ---
US aorta HISTORY: Follow-up aneurysm ITS.REASON: AAA COMPARISON: 05/29/2017 FINDINGS: There is aneurysmal dilatation of the lower abdominal aorta measuring up to 3.3 cm in maximum AP and 3.4 cm in maximum transverse dimension. This is similar compared to the previous abdomen CT. Proximal common iliacs are unremarkable. There is a small amount plaque present within the abdominal aortic wall. IMPRESSION: Overall no change 3.3 x 3.4 cm lower abdominal aortic aneurysm
== END ==
PROVIDERS: Family Provider Emergency Medicine; PCP Emergency Medicine; Visit Provider Internal Medicine
DX: I71.4 Abdominal aortic aneurysm, without rupture (principal)
CPT/HCPCS: 76770

== ENCOUNTER → 2018-03-17 12:30 | Outpatient (CLI) | payer MEDICARE, SELFPAY ==
--- NOTE | 2018-03-17 12:38 | XR_ITS ---
XR hip RT 2-3V w/pelvis HISTORY: Right hip pain following injury ITS.REASON: FALL WITH PAIN IN RT HIP ORDERING PHYSICIAN: David Disla MD PATIENT AGE: 78 years COMPARISON: None FINDINGS: There are mild osteoarthritic changes of the right hip. Multiple tandem vascular stents are present. No fracture or dislocation. There are mild changes changes in the symphysis pubis. IMPRESSION: No acute finding
== END ==
PROVIDERS: Visit Provider Emergency Medicine
DX: M25.551 Pain in right hip (principal); W19.XXXA Unspecified fall, initial encounter
CPT/HCPCS: 73502

== ENCOUNTER → 2018-08-26 09:35 | Outpatient (CLI) | payer MEDICARE, SELFPAY ==
--- NOTE | 2018-08-26 09:38 | US_ITS ---
US Arterial Ankle Brachial Ind History: ITS.REASON: claudication, rest pain, claudication ORDERING PHYSICIAN: Saw Sheppard MD PATIENT AGE: 78 years TECHNIQUE: Segmental pressures obtained of both right and left leg. These are compared to brachial blood pressure to yield index at each level sampled including summary DMITRY. The data sheets from the procedure are available in PACS FINDINGS Rest study only performed today No prior studies available for comparison. Blood pressures reported are in millimeters mercury. RIGHT LEG DMITRY = .6. RIGHT LEG TBI=.4 Brachial BP: 163 Thigh BP: >254 Calf BP: 82 Ankle PT: 91 Ankle DP : 80 Digit =68 LEFT LEG DMITRY = .6 LEFT LEG TBI= .4 Brachial BPD: 153 Thigh BP: 148 Calf BP: 104 Ankle PT:100 Ankle DP: 92 Digit = 63 Pulses and waveforms: Waveforms are diminished at the ankles IMPRESSION: The ABIs and the TBI s are diminished bilaterally with an DMITRY of 0.6 on both sides indicating moderate peripheral arterial disease.
== END ==
PROVIDERS: PCP Emergency Medicine; Visit Provider Internal Medicine Cardiovascular Disease
DX: I73.9 Peripheral vascular disease, unspecified (principal)
CPT/HCPCS: 93922

== ENCOUNTER → 2018-10-17 10:25 | Outpatient (CLI) | payer MEDICARE, SELFPAY ==
[2018-10-17 12:00] LABS: Blood Urea Nitrogen 31 mg/dL (7-18); Creatinine,Serum 1.58 mg/dL (0.55-1.02); Estimated Glomerular Filt Rate 32 ml/min (>60); GFR (African American) 38 ML/MIN (>60)
== END ==
PROVIDERS: Visit Provider Urology
DX: E78.5 Hyperlipidemia, unspecified (principal); I11.9 Hypertensive heart disease without heart failure; I25.10 Atherosclerotic heart disease of native coronary artery without angina pectoris; I73.9 Peripheral vascular disease, unspecified; I99.8 Other disorder of circulatory system; M79.669 Pain in unspecified lower leg; N18.2 Chronic kidney disease, stage 2 (mild); R60.9 Edema, unspecified
CPT/HCPCS: 36415; 82565; 84520

== ENCOUNTER → 2018-10-21 09:35 | Outpatient (CLI) | payer MEDICARE, SELFPAY ==
--- NOTE | 2018-10-21 09:38 | CT_ITS ---
CT angio abdomen/femoral INDICATION: Rest pain, bilateral leg pain, right greater than left abnormal bilateral ankle brachial index ITS.REASON: PAD right leg greater than left leg pain ORDERING PHYSICIAN: Saw Sheppard MD PATIENT AGE: 78 years COMPARISON: None TECHNIQUE: Axial images are obtained without contrast. Sagittal and coronal reformatted images are reviewed as well. All CT scans at the facility use one or more dose reduction, viz: automated exposure control, ma/kV adjustment per patient size (including targeted exams where dose is matched to indication, i.e. head), or iterative reconstruction technique. Contrast: 120 mL's Omnipaque 350 IV FINDINGS: Abdominal aortogram: She's had 2 upper GI exam is there is a fusiform infrarenal abdominal aortic aneurysm measuring up to 3.6 cm AP and 3.4 cm transverse. Atheromatous changes involving the abdominal aorta and its branches. The aneurysm ends at the bifurcation. No significant stenosis of the abdominal aorta. There is a single renal artery to each kidney. There is 50% ostial stenosis of the right renal artery from underlying soft plaque. Celiac artery shows no significant stenosis. There is 40% stenosis of the ostium of the superior mesenteric artery. The inferior mesenteric artery is patent. Atheromatous changes involve the abdominal aorta and iliac arteries with no significant stenosis. Right lower extremity runoff: There is a stent in the right superficial femoral artery throughout its length. The stent is occluded in mid aspect. The stent does appear patent in its distal aspect and at the popliteal region. The distal aspect of the popliteal artery is small but patent. There is three-vessel runoff on the right. Runoff vessels on the right are very small but are patent to the ankle with a dorsalis pedis artery patent at the foot. Left lower extremity runoff: There is occlusion of proximal aspect of the superficial femoral artery. The SFA is occluded throughout its length with reconstitution of the distal SFA at the adductor canal. The distal SFA is a small vessel as is the popliteal artery. There is severe short segment stenosis of left popliteal artery of approximately 90%. The distal popliteal is unremarkable. The runoff vessels in the leg are very small but are patent. There is three-vessel runoff to the ankle. Patent dorsalis pedis artery is noted into the foot. Nonangiographic findings: The liver, spleen, adrenal glands, and pancreas have an unremarkable appearance. There are bilateral renal cysts. There is mild amount of retained colonic feces. There are bilateral inguinal hernias containing fat left larger than right. IMPRESSION: 1. 3.6 x 3.4 cm infrarenal abdominal aortic aneurysm 2. Atheromatous changes of the aorta and its branch vessels with 50% ostial stenosis of the right renal artery and 40% stenosis of the ostium of the superior mesenteric artery. 3. Occluded right superficial femoral artery stent 4. Occluded left superficial femoral artery with reconstitution at the adductor canal with severe stenosis of the mid aspect of the left popliteal artery of 90% 5. Small bilateral lower extremity runoff vessels within the legs
== END ==
PROVIDERS: PCP Emergency Medicine; Visit Provider Internal Medicine Cardiovascular Disease
DX: I11.9 Hypertensive heart disease without heart failure (principal)
CPT/HCPCS: 75635

== ENCOUNTER → 2018-11-10 10:11 | Outpatient (CLI) | payer MEDICARE, SELFPAY ==
--- NOTE | 2018-11-10 10:15 | XR_ITS ---
XR hip RT 2-3V w/pelvis HISTORY: ITS.REASON: pain ORDERING PHYSICIAN: Isa Lucero APRN PATIENT AGE: 78 years COMPARISON: 03/17/2018 FINDINGS: No fracture or dislocation is evident. There are minimal osteoarthritic changes of the right hip. No lytic or blastic change. Minimal degenerative change of the SI joint on the right and at the L5-S1 facets. There is a cyst long stent in the right SFA. IMPRESSION: 1. No change with no acute finding. 2. Minimal osteoarthritic change
== END ==
PROVIDERS: PCP Emergency Medicine; Visit Provider Nurse Practitioner Family
DX: M25.551 Pain in right hip (principal)
CPT/HCPCS: 73502

== ENCOUNTER → 2018-12-29 09:21 | Outpatient (POV) | payer MEDICARE, SELFPAY ==
[2018-12-29 09:30] VITALS: BP 145/77; PULSE 83; RESP 18; O2SAT 98; BMI 34.7
--- NOTE | 2018-12-29 10:02 | HMH.PMCON ---
Assessment and Plan (1) Right leg pain Current visit: Yes Status: Chronic Category: Medical Code(s): M79.604 - Pain in right leg (2) Right foot pain Current visit: Yes Status: Chronic Category: Medical Code(s): M79.671 - Pain in right foot - Assessment and plan all Dx Assessment and Plan for all problems:: Given the patient's symptomology, I feel she would be a good candidate for a spinal cord stimulator. We will send the patient for a psychological evaluation. We did thoroughly discuss spinal cord stimulation and intrathecal pain pump insertion. The patient is interested in discussing both. We will get imaging from Dr. Pleitez. we will follow-up with the patient after her psychological evaluation to discuss the plan of care at that time. She is not on any anticoagulation therapy. She is continuing with anti-inflammatories and says that she will also attempt to continue with physical therapy. She is been instructed to call the office if she has any concerns prior to her next appointment. Dr. Rivas has reviewed this note and agrees with this plan of care. This note was dictated using voice recognition software and make contain errors or omissions. HPI - Data of Consult Patient: new to practice Consult date: 12/29/18 Requesting Physician: Tianna Brown APRN Primary Care Provider: David Disla MD - Consult Narrative Reason for consult: Chronic pain History of present illness: Ms. Gandhi is a 78 year old female who presents today for referral by Dr. David Disla. Patient says that she has had multiple stents placed to her right lower extremity due to peripheral artery disease. She says that her pain has intensified over the last year, prohibiting her ability to walk. she has been seen by Dr. Pleitez who referred her to Dr. Corado cardiothoracic surgeon in [facility]. Dr. Corado did not feel that she was a good surgical candidate filling she was high risk. As a result, Dr. Dilsa did refer the patient to us. Patient says that she cannot hand for more than 5 minutes without excruciating pain from right hip to right foot . She describes the pain as throbbing and burning. The patient started physical therapy but was unable to complete it due to excruciating pain. The patient has tried anti-inflammatories, along with oral medication regimens from Dr. Nighat. She says nothing is working for her at this time she was referred for possible spinal cord stimulator or pain pump insertion. The patient is interested in both. CC: Tianna Brown APRN [facility] History I have reviewed the patient's past medical history: Yes Medical History: Reports:: Hypertension, Internal Pacemaker, Myocardial Infarction, Peripheral Artery Disease, Peripheral Vascular Disease Denies:: Cancer, Diabetes Mellitus Type 1, Diabetes Mellitus Type 2, MRSA *Have you ever received a pneumonia vaccine?: No *Have you received a flu vaccine this season?: No Other Medical History: Reports: Thyroid Disease Laterality Cases: Left: Arthroscopy Shoulder, Other Other Surgeries: Yes: Hernia Repair, Pacemaker, Other Amputation: No Fractures: No - *Social History Smoking Status: Never smoker #Yrs smoked (if former smoker): 10 Alcohol Intake: never Alcohol Intake Frequency:: other Substance Use Type: denies use *Occupational Status:: retired Housing: house Household Members: none *Travel in the last 8 weeks: None Family Hx:: Coronary Artery Disease, Heart Attack Review of Systems - Review of Systems Review of Systems General: No recent weight changes, no fever, no sleep disturbances Respiratory: No cough, no shortness of air, no recurring pulmonary infections Cardiovascular/peripheral vascular: No chest pain, no palpitations, no edema, no shortness of breath Gastrointestinal: No new onset incontinence, normal bowel movements reported Genitourinary: No new onset incontinence Musculoskeletal: Right hip pain, right
--- NOTE | 2018-12-29 10:06 | P.CONS_ITS ---
Assessment and Plan (1) Right leg pain Current visit: Yes Status: Chronic Category: Medical Code(s): M79.604 - Pain in right leg (2) Right foot pain Current visit: Yes Status: Chronic Category: Medical Code(s): M79.671 - Pain in right foot - Assessment and plan all Dx Assessment and Plan for all problems:: Given the patient's symptomology, I feel she would be a good candidate for a spinal cord stimulator. We will send the patient for a psychological evaluation. We did thoroughly discuss spinal cord stimulation and intrathecal pain pump insertion. The patient is interested in discussing both. We will get imaging from Dr. Pleitez. we will follow-up with the patient after her psychological evaluation to discuss the plan of care at that time. She is not on any anticoagulation therapy. She is continuing with anti-inflammatories and says that she will also attempt to continue with physical therapy. She is been instructed to call the office if she has any concerns prior to her next appointment. Dr. Rivas has reviewed this note and agrees with this plan of care. This note was dictated using voice recognition software and make contain errors or omissions. HPI - Data of Consult Patient: new to practice Consult date: 12/29/18 Requesting Physician: Tianna Brown APRN Primary Care Provider: David Disla MD - Consult Narrative Reason for consult: Chronic pain History of present illness: Ms. Gandhi is a 78 year old female who presents today for referral by Dr. David Disla. Patient says that she has had multiple stents placed to her right lower extremity due to peripheral artery disease. She says that her pain has intensified over the last year, prohibiting her ability to walk. she has been seen by Dr. Pleitez who referred her to Dr. Corado cardiothoracic surgeon in [facility]. Dr. Corado did not feel that she was a good surgical candidate filling she was high risk. As a result, Dr. Disla did refer the patient to us. Patient says that she cannot hand for more than 5 minutes without excruciating pain from right hip to right foot . She describes the pain as throbbing and burning. The patient started physical therapy but was unable to complete it due to excruciating pain. The patient has tried anti-inflammatories, along with oral medication regimens from Dr. Nighat. She says nothing is working for her at this time she was referred for possible spinal cord stimulator or pain pump insertion. The patient is interested in both. CC: Tianna Brown APRN [facility] History I have reviewed the patient's past medical history: Yes Medical History: Reports:: Hypertension, Internal Pacemaker, Myocardial Infarction, Peripheral Artery Disease, Peripheral Vascular Disease Denies:: Cancer, Diabetes Mellitus Type 1, Diabetes Mellitus Type 2, MRSA *Have you ever received a pneumonia vaccine?: No *Have you received a flu vaccine this season?: No Other Medical History: Reports: Thyroid Disease Laterality Cases: Left: Arthroscopy Shoulder, Other Other Surgeries: Yes: Hernia Repair, Pacemaker, Other Amputation: No Fractures: No - *Social History Smoking Status: Never smoker #Yrs smoked (if former smoker): 10 Alcohol Intake: never Alcohol Intake Frequency:: other Substance Use Type: denies use *Occupational Status:: retired Housing: house Household Members: none *Travel in the last 8 weeks: None Family Hx:: Coronary Artery Disease, Heart Attack Review of Systems - Review of Systems Review of Systems General: No recent weight changes, no fever, no sleep disturbanc
== END ==
PROVIDERS: PCP Emergency Medicine; Visit Provider Clinical Nurse Specialist Family Health
DX: M79.604 Pain in right leg (principal); M79.671 Pain in right foot
CPT/HCPCS: 99202

== ENCOUNTER → 2019-01-30 12:49 | Outpatient (CLI) | payer MEDICARE, SELFPAY ==
--- NOTE | 2019-01-30 12:50 | MR_ITS ---
PROCEDURE: MR LUMBAR SPINE WO CON CLINICAL INDICATION: back pain Low back pain, right buttock pain radiating into the leg and down to the foot with numbness [facility]/femoral from 10/21/2018 TECHNIQUE: Standard multiplanar multiecho sequences are performed without contrast. 3-D MIP and myelographic images are also rendered and reviewed FINDINGS: There is normal alignment. Spinal cord ends at the L1 level. In the pedicle on the right at T12 there is a T1 and T2 hypointensity which measures 11 mm and may be due to a bone island/small area of sclerosis. T12-L1: Unremarkable. L1-L2 and L2-L3 are unremarkable. L3-L4: Mild concentric bulging disc along with mild facet ligamentum hypertrophy with moderate left and mild right foraminal narrowing L4-5: Concentric bulging disc which is eccentric toward the right causing mild right lateral recess and moderate to severe right-sided foraminal narrowing. Facet and ligamentum hypertrophy also present at this level. There is some impingement upon the right L5 nerve root and the exiting L4 nerve root on the right. L5-S1: Degenerate disc disease with bulging disc with facet and ligamentum hypertrophy with moderate bilateral foraminal narrowing slightly greater on the left No canal stenosis or extruded herniated disc is evident. There are bilateral renal cysts IMPRESSION: 1. Sclerotic lesion involves the right T12 pedicle which may be due to bone island 2. L3-L4: Mild concentric bulging disc along with mild facet ligamentum hypertrophy with moderate left and mild right foraminal narrowing 3. L4-5: Concentric bulging disc which is eccentric toward the right causing mild right lateral recess and moderate to severe right-sided foraminal narrowing. Facet and ligamentum hypertrophy also present at this level. There is some impingement upon the right L5 nerve root and the exiting L4 nerve root on the right. 4. L5-S1: Degenerate disc disease with bulging disc with facet and ligamentum hypertrophy with moderate bilateral foraminal narrowing slightly greater on the left 5. No canal stenosis or extruded herniated disc Dictated by: Joselito Brambila MD 01/31/2019 08:16 Signed by: <Electronically signed by Joselito Brambila MD in [place]> 01/31/2019 08:16
== END ==
PROVIDERS: PCP Emergency Medicine; Visit Provider Emergency Medicine
DX: M54.17 Radiculopathy, lumbosacral region (principal); M54.5 Low back pain
CPT/HCPCS: 72148; 76376

== ENCOUNTER → 2019-02-10 11:55 | Outpatient (POV) | payer MEDICARE, SELFPAY ==
[2019-02-10 12:14] VITALS: BP 187/98; PULSE 82; RESP 18; O2SAT 98; BMI 33.7
--- NOTE | 2019-02-10 12:34 | HMH.PAINSOAP ---
[facility] Pain Management SOAP Note Subjective:: Patient is a very pleasant 78-year-old white female who presents today for follow-up. Patient was seen last time in the office and was worked up for intrathecal pain pump or a neurostimulator. She completed a psychological evaluation for this however since then she has had an updated MRI showing L4-L5 nerve impingement. Patient also has ligamentum flavum hypertrophy. Her pain gets worse when she is standing it is alleviated some when she is sitting. She also has peripheral artery disease. We talked about how different types of pain can present differently we also discussed utilizing some injective therapy to see if this would be beneficial before deciding if a neurostimulator intrathecal pain pump would be appropriate. Patient is not on any anticoagulation therapy. She is currently on Percocet from her primary care physician. She rates her pain today and 7 out of 10. ROS General: no recent weight change, no fever, no sleep disturbances Respiratory: no cough, no shortness of air, no recurring pulmonary infections Cardiovascular/Peripheral Vascular: No chest pain, No palpitations, no edema, no shortness of breath. Gastrointestinal: no incontinence, normal bowel movements reported Genitourinary: no incontinence Musculoskeletal: Back pain, leg pain Psychiatric: normal mood/ affect Neurological: Weakness bilateral lower extremities especially when standing and walking, [denies balance issues] Objective:: Physical Exam General: Alert and oriented x3, no acute distress, pleasant and cooperative, [on room air] Lungs: Resps E/U, Symmetrical chest expansion, [CTA bilateral] Eyes: PERRL Musculoskeletal: Flexion and extension of lumbar spine somewhat guarded secondary to pain, deep tendon reflexes normal, strength in upper and lower extremities [5/5], [abnormal gait noted] Neurological: speech clear, 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 I believe it was beneficial given her recent MRI. We will see if this is beneficial before deciding to move forward with anything else. Patient currently not on any anticoagulation therapy. I will follow-up with her in 2 weeks after her injection reassess her symptoms at that time. Dr. Rivas has reviewed this note and agrees with this plan of care. This note was dictated using voice recognition software and may contain errors or omissions Pain Management Hx Components *Have you ever received a pneumonia vaccine?: No *Have you received a flu vaccine this season?: No - *Social History *Occupational Status:: other *Travel in the last 8 weeks: None
== END ==
PROVIDERS: PCP Emergency Medicine; Visit Provider Clinical Nurse Specialist Family Health
DX: I73.9 Peripheral vascular disease, unspecified (principal); M51.16 Intervertebral disc disorders with radiculopathy, lumbar region; M46.06 Spinal enthesopathy, lumbar region
CPT/HCPCS: 99212

== ENCOUNTER → 2019-03-16 13:09 | Outpatient (POV) | payer MEDICARE, SELFPAY ==
[2019-03-16 13:21] VITALS: BP 193/79; PULSE 75; RESP 18; O2SAT 97; BMI 35.2
--- NOTE | 2019-03-17 08:35 | HMH.PAINSOAP ---
[facility] Pain Management SOAP Note Subjective:: Patient is a pleasant 79-year-old white female who presents today for follow-up after lumbar epidural steroid injection. Patient did not get any relief from her pain symptoms. She rates her pain a 7 out of 10. Patient was originally worked up for a neurostimulator intrathecal pain pump however at this time she is uninterested in moving forward due to potential cost. Patient and I did discuss utilizing a medial branch block and potentially a neurotomy however at this time she would like to think about this. She does have a positive facet joint loading of the lumbar spine along with positive Kemps test. Mostly on the right side. Patient is not on any anticoagulation therapy. She is continuing home stretching and trying to be as active as possible. She is currently on Percocet from her primary care physician. ROS General: no recent weight change, no fever, no sleep disturbances Respiratory: no cough, no shortness of air, no recurring pulmonary infections Cardiovascular/Peripheral Vascular: No chest pain, No palpitations, no edema, no shortness of breath. Gastrointestinal: no incontinence, normal bowel movements reported Genitourinary: no incontinence Musculoskeletal: Back pain Psychiatric: normal mood/ affect Neurological: [denies weakness in extremities], [denies balance issues] Objective:: Physical Exam General: Alert and oriented x3, no acute distress, pleasant and cooperative, [on room air] Lungs: Resps E/U, Symmetrical chest expansion, Eyes: PERRL Musculoskeletal: Flexion and extension of lumbar spine somewhat guarded secondary to pain, deep tendon reflexes normal, strength in upper and lower extremities [5/5], slightly antalgic gait noted 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 Patient is going to think about this I did provide her information in regards to this and answer questions. I will follow-up with her on an as-needed basis she is to call our office if she would like to move forward with an injection. If she does we will do the right side at L3-L4 L4-L5 L5-S1. We did discuss potential neurotomy. Dr. Rivas has reviewed this note and agrees with this plan of care. This note was dictated using voice recognition software and may contain errors or omissions [facility] History I have reviewed the patient's past medical history: Yes Medical History: Reports:: Hypertension, Internal Pacemaker, Myocardial Infarction, Peripheral Artery Disease, Peripheral Vascular Disease Denies:: Cancer, Diabetes Mellitus Type 1, Diabetes Mellitus Type 2, MRSA, Seizures *Have you ever received a pneumonia vaccine?: No *Have you received a flu vaccine this season?: No Other Medical History: Reports: Thyroid Disease Laterality Cases: Left: Arthroscopy Shoulder, Other Other Surgeries: Yes: Hernia Repair, Pacemaker, Other Amputation: No Fractures: No - *Social History Smoking Status: Never smoker #Yrs smoked (if former smoker): 10 Alcohol Intake: never Alcohol Intake Frequency:: other Substance Use Type: denies use *Occupational Status:: retired Housing: house Household Members: none *Travel in the last 8 weeks: None Family Hx:: Coronary Artery Disease, Heart Attack
== END ==
PROVIDERS: PCP Emergency Medicine; Visit Provider Clinical Nurse Specialist Family Health
DX: M51.36 Other intervertebral disc degeneration, lumbar region (principal); M54.06 Panniculitis affecting regions of neck and back, lumbar region
CPT/HCPCS: 99212

== ENCOUNTER → 2019-04-07 09:17 | Outpatient (POV) | payer MEDICARE, SELFPAY ==
[2019-04-07 10:22] LABS: Basophils % 0.4 % (0.1-2.0); Eosinophils # 0.3 K/mm3 (0.0-0.4); Eosinophils % 3.8 % (0.1-12.0); Hematocrit 36.2 % (37.0-47.0); Lymphocytes # 1.6 K/mm3 (0.7-4.5); Lymphocytes % 24.1 % (10-50); Mean Corpuscular HGB Conc 30.5 g/dL (31.8-35.4); Mean Corpuscular Hemoglobin 25.5 pg (27.0-31.2); Mean Corpuscular Volume 83.7 fl (81-99); Mean Platelet Volume 9.3 fl (7.4-10.4); Monocytes # 0.4 K/mm3 (0.1-1.0); Monocytes % 5.8 % (1.7-9.3); Neutrophils # 4.4 K/mm3 (1.8-7.8); Neutrophils % 65.9 % (37.0-80.0); Platelet Count 203 K/mm3 (142-424); Red Blood Count 4.33 M/mm3 (4.20-5.40); Red Cell Distribution Width 15.1 % (11.5-17.5); White Blood Count 6.8 K/mm3 (4.8-10.8)
[2019-04-07 11:27] LABS: Alanine Aminotransferase 15 U/L (12-78); Albumin Level 3.5 gm/dL (3.4-5.0); Alkaline Phosphatase 110 U/L (46-116); Anion Gap 10.1 mEq/L (5-15); Aspartate Amino Transferase 11 U/L (15-37); Bilirubin,Total 0.3 mg/dL (0.2-1.0); Blood Urea Nitrogen 21 mg/dL (7-18); Calcium 8.8 mg/dL (8.5-10.1); Carbon Dioxide 30 mmol/L (21.0-32.0); Chloride 105 mmol/L (98-107); Creatinine,Serum 1.29 mg/dL (0.55-1.02); Estimated Glomerular Filt Rate 40 ml/min (>60); GFR (African American) 48 ML/MIN (>60); Globulin 3.4 gm/dl (1.3-3.2); Glucose 112 mg/dL (74-106); Potassium 4.1 mmoL/L (3.5-5.1); Sodium 141 mmol/L (136-145); Total Protein,Serum 6.9 gm/dL (6.4-8.2)
[2019-04-21 09:51] LABS: Anti-DNA (DS) Ab Charge YES; Anti-DNA (DS) Ab Qn 3; Antinuclear Antibodies (ANA) POSITIVE
[2019-04-21 09:52] LABS: Anti-Jo-1 <0.2; Anti-Jo-1 Charge YES; Antichromatin Abs Charge YES; Antichromatin Antibodies 1.2; Antiscleroderma-70 Abs Charge YES; Antiscleroderma-70 Antibodies <0.2; RNP Antibodies <0.2; RNP Antibodies Charge YES; Sjogren's Anti-SS-A 6.1; Sjogren's Anti-SS-A Ab Charge YES; Sjogren's Anti-SS-B <0.2; Sjogren's Anti-SS-B Ab Charge YES; Smith Antibodies Charge YES
[2019-04-21 09:53] LABS: Anti-Centromere B Abs Charge YES; Anti-Centromere B Antibodies <0.2
== END ==
PROVIDERS: Visit Provider Dermatology
DX: L20.89 Other atopic dermatitis (principal); Z79.899 Other long term (current) drug therapy
CPT/HCPCS: 36415; 80053; 85025; 86038; 86225; 86235

== ENCOUNTER → 2019-10-19 16:38 | Outpatient (CLI) | payer MEDICARE, SELFPAY ==
[2019-10-19 17:30] LABS: Basophils # 0.1 K/mm3 (0-0.2); Basophils % 0.9 % (0.1-2.0); Eosinophils # 0.3 K/mm3 (0.0-0.4); Eosinophils % 4.6 % (0.1-12.0); Hemoglobin 8.8 g/dL (12.2-16.2); Lymphocytes # 1.4 K/mm3 (0.7-4.5); Mean Corpuscular HGB Conc 30.2 g/dL (31.8-35.4); Mean Corpuscular Hemoglobin 21.7 pg (27.0-31.2); Mean Corpuscular Volume 71.9 fl (81-99); Mean Platelet Volume 8.5 fl (7.4-10.4); Monocytes # 0.5 K/mm3 (0.1-1.0); Monocytes % 8.5 % (1.7-9.3); Neutrophils # 4.2 K/mm3 (1.8-7.8); Neutrophils % 65.1 % (37.0-80.0); Platelet Count 284 K/mm3 (142-424); Red Blood Count 4.03 M/mm3 (4.20-5.40); Red Cell Distribution Width 15.9 % (11.5-17.5); White Blood Count 6.4 K/mm3 (4.8-10.8)
[2019-10-19 17:31] LABS: Chloride 105 mmol/L (98-107); Potassium 4.3 mmoL/L (3.5-5.1); Sodium 138 mmol/L (136-145)
[2019-10-19 17:33] LABS: Blood Urea Nitrogen 21 mg/dl (7-17); Estimated Glomerular Filt Rate 54 ml/min (>60); GFR (African American) 65 ML/MIN (>60)
[2019-10-19 17:34] LABS: Alanine Aminotransferase 14 U/L (12-78); Albumin Level 4.4 g/dl (3.5-5.0); Albumin/Globulin Ratio 1.6 (1.1-1.8); Alkaline Phosphatase 85 U/L (38-126); Anion Gap 11.3 mEq/L (5-15); Aspartate Amino Transferase 22 U/L (14-36); Bilirubin,Total 0.2 mg/dl (0.2-1.3); Carbon Dioxide 26 mmol/L (22.0-30.0); Globulin 2.7 g/dL (1.3-3.2); Total Protein,Serum 7.1 g/dl (6.3-8.2)
[2019-10-19 17:40] LABS: Calcium 9.5 mg/dl (8.4-10.2)
[2019-10-19 18:05] LABS: Glucose 130 mg/dl (74-100)
[2019-10-23 16:25] LABS: Ferritin 11.1 ng/ml (11.1-264)
[2019-10-26 15:09] LABS: Iron 20 ug/dL (27-139); UIBC 405 ug/dL (118-369)
[2019-10-26 16:14] LABS: Iron Saturation 5 % (15-55)
== END ==
PROVIDERS: Visit Provider Emergency Medicine
DX: I73.9 Peripheral vascular disease, unspecified (principal); W19.XXXA Unspecified fall, initial encounter; D64.9 Anemia, unspecified
CPT/HCPCS: 80053; 82728; 83540; 83550; 85025

== ENCOUNTER → 2019-10-27 12:37 | Outpatient (CLI) | payer MEDICARE, SELFPAY ==
--- NOTE | 2019-10-27 12:38 | CA_ITS ---
APPROVED REPORT Dairy Technologist: Elif Kelly RVT Laterality: Bilateral Study Quality: Good Indications: dizziness Risk Factors Hypertension: Hyperlipidemia Doppler Spectral Velocity Analysis ECA (R) 118.10/8.70 cm/s ECA (L) 111.50/13.80 cm/s dICA (R) 93.00/21.90 cm/s dICA (L) 97.70/24.10 cm/s Manoj (R) 131.60/31.80 cm/s Manoj (L) 109.80/29.50 cm/s pICA (R) 73.30/16.50 cm/s pICA (L) 90.40/28.30 cm/s dCCA (R) 84.40/13.70 cm/s dCCA (L) 98.10/23.00 cm/s pCCA (R) 95.70/19.20 cm/s pCCA (L) 88.40/20.20 cm/s Vert (R) 49.30/9.70 cm/s Vert (L) 60.40/18.00 cm/s ICA/CCA 1.56 ICA/CCA 1.12 Conclusion Study suggests less than 20% stenosis of the right internal cartoid artery. Study suggests 20-49% stenosis of the left internal cartoid artery. Antegrade flow seen bilateral vertebral arteries. Tourtous arteries bilateral. Electronically signed by : Joselito Brambila MD 10/27/2019 17:28:44
== END ==
PROVIDERS: PCP Emergency Medicine; Visit Provider Emergency Medicine
DX: R42 Dizziness and giddiness (principal)
CPT/HCPCS: 93225; 93226; 93880

== ENCOUNTER 2019-11-30 13:29 | Outpatient (CLI) | payer MEDICARE, SELFPAY ==
[2019-11-30 13:47] VITALS: BP 199/83; PULSE 82; RESP 20; TEMP 36.8; O2SAT 98
[2019-11-30 14:25] VITALS: BP 201/79; PULSE 69; RESP 20; O2SAT 97
== END 2019-11-30 14:36 | disposition home or self-care (01) ==
LOC: INF 13:29
PROVIDERS: Visit Provider Internal Medicine Medical Oncology
DX: D50.9 Iron deficiency anemia, unspecified (principal); T45.4X5A Adverse effect of iron and its compounds, initial encounter
CPT/HCPCS: 96365; J1439

== ENCOUNTER 2019-12-07 13:31 | Outpatient (CLI) | payer MEDICARE, SELFPAY ==
[2019-12-07 14:25] VITALS: BP 142/84; PULSE 78; RESP 18; TEMP 36.6; O2SAT 98
[2019-12-07 14:45] VITALS: BP 148/79; PULSE 76; RESP 16; O2SAT 97
[2019-12-07 15:05] VITALS: BP 150/76; PULSE 74; RESP 18; TEMP 36.6; O2SAT 98
== END 2019-12-07 15:10 | disposition home or self-care (01) ==
LOC: INF 13:31
PROVIDERS: Visit Provider Internal Medicine Medical Oncology
DX: D50.9 Iron deficiency anemia, unspecified (principal); T45.4X5A Adverse effect of iron and its compounds, initial encounter
CPT/HCPCS: 96365; J1439

== ENCOUNTER → 2019-12-08 11:40 | Outpatient (CLI) | payer MEDICARE, SELFPAY ==
--- NOTE | 2019-12-08 | CA_ITS ---
APPROVED REPORT Exam: Pharmacologic Technologist: Michelle Caruso Ht: 5 ft 4 in Wt: 189 lbs BSA: 1.91 m2 HR: 73 bpm BP: 191/81 mmHg Indications: Shortness of Air Medical History Medications: Lisinopril,,,,, Aspirin,,,,, Albuterol,,,,, Zolpidem,,,,, OxYCODONE,,,,, Hydroxychloroquine,,,,, NifEDIPINE,,,,, Stress Test Details Test: LEXISCAN HR Resting HR: 75 bpm Max Heart Rate (APMHR): 143 bpm Max HR Achieved: 123 bpm Target HR (85% APMHR): 121 bpm % of APMHR: 86 Recovery HR: 80 bpm BP Resting BP: 191.0/81.0 mmHg Max BP: 191.0/81.0 mmHg Recovery BP: 174.0/71.0 mmHg ECG Clinical Exercise duration: 04:00 min Highest Stage Achieved: Exercise capacity: 1.0 METs Stress ECG Conclusion Resting ECG: Normal sinus rhythm, incomplete right bundle branch block, ST-T abnormalities inferiorly and laterally. Symptoms: Shortness of air, malaise, nausea and vomiting. No chest pain. Arrhythmias/Ectopy: Occasional PVC. ST-T Changes: Mild exaggeration of baseline ST-T abnormalities. Conclusion: Non-diagnostic Lexiscan stress. Mobile Pulseview images reported separately. Electronically signed by : Antonio Pleitez, 12/14/2019 12:57:53
--- NOTE | 2019-12-08 11:40 | NM_ITS ---
APPROVED REPORT Exam: Nuclear Stress Test Indication: short of breath Patient Location: Outpatient Stress Tech: Ida Tripp NM Tech:Dorene Nguyen ARRT, RT (R)(N) Ht: 5 ft 4 in Wt: 189 lbs Bra Size: 40b HR: 73 bpm BP: 191/81 mmHg BSA: 1.91 m2 BMI: 32.4 History: short of breath Procedure: Patient received a 0.4 mg of intravenous Lexiscan, resting heart rate 73 bpm, resting blood pressure 191/81 mmHg, with Lexiscan maximum heart rate achived was 85 bpm which is 85 % of the maximum predicted heart rate and blood pressure was 181/78 mmHg. With Lexiscan, patient denied any complaint of chest pain. Cardiac Stress and Resting SPECT Images: Cardiac Stress and Resting SPECT images were obtained using technetium 99m Myoview 32.0 mCi stress and 10.31 mCi at rest. EF 61% Fixed defect in the chrystal apical septal region No reversible defects Conclusion: EF 61% Fixed defect in the chrystal apical septal region No reversible defects Electronically signed by : Joselito Brambila MD 12/08/2019 18:55:07
--- NOTE | 2019-12-08 12:51 | HMH.ITSHM ---
Current Home Medications as stated by this patient Kim Gandhi or telesales representative. []OXYCODONE LISINOPRIL NITRO ASA ALBUTEROL ZOLPIDEM PLAQUENIL FLUOXETINE
== END ==
PROVIDERS: PCP Emergency Medicine; Visit Provider Urology
DX: E78.2 Mixed hyperlipidemia (principal); I11.9 Hypertensive heart disease without heart failure; I25.10 Atherosclerotic heart disease of native coronary artery without angina pectoris; I71.4 Abdominal aortic aneurysm, without rupture; I73.9 Peripheral vascular disease, unspecified; M79.661 Pain in right lower leg; Z01.810 Encounter for preprocedural cardiovascular examination
CPT/HCPCS: 78452; 93017; 93306; A9502; J2785

== ENCOUNTER → 2019-12-10 08:40 | Outpatient (CLI) | payer MEDICARE, SELFPAY ==
--- NOTE | 2019-12-10 09:00 | CT_ITS ---
Procedure: CT ANGIO ABDOMEN/FEMORAL CLINICAL HISTORY: aaa Follow-up abdominal aortic aneurysm, bilateral leg pain COMPARISON: [facility] angio abdomen/femoral from 10/21/2018 TECHNIQUE: IV Contrast: 100ml Optiray 350 Axial images obtained with sagittal and coronal reformats. All CT scans at the facility use one or more dose reduction, viz: automated exposure control, ma/kV adjustment per patient size (including targeted exams where dose is matched to indication, i.e. head), or iterative reconstruction technique. FINDINGS: There are diffuse atherosclerotic changes of the aorta and its branches. There is mild dilatation of the infrarenal abdominal aorta 3.5 x 3.6 cm transverse and AP previously 3.1 by 3.6 cm transverse and AP. There is tortuosity of the abdominal aorta. There is a single renal artery to each kidney with atheromatous changes. There is at least 50 percent stenosis suspected of the ostium of the right renal artery probably not significantly changed. There is mild stenosis of the ostium of the celiac artery of 30 percent and moderate stenosis of the proximal SMA of approximately 50 percent not significantly changed. Atheromatous changes involve the iliac arteries with less than 50 percent stenosis. Right lower extremity runoff: Scattered atheromatous changes. There is a long right superficial femoral artery stent in place which is occluded in its mid and distal aspect. There is reconstitution of the popliteal artery via collaterals. There is a small popliteal artery. The runoff vessels in the right leg are small but patent with 3 vessel patency to the ankle. Left lower extremity runoff: There is occlusion of the left superficial femoral artery. The profundus femora is patent. There is reconstitution of the distal SFA on the left beginning 13 cm above the knee. The popliteal artery is patent as is the tibial peroneal trunk. The runoff vessels in the left lower extremity are small. There is however 3 vessel patency to the ankle. Nonvascular findings: Bilateral renal cyst. Right nephrolithiasis. Colonic diverticulosis IMPRESSION: 1. 3.5 x 3.6 cm infrarenal abdominal aortic aneurysm slightly increased in size. 2. 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 Occluded right superficial femoral artery stent with reconstitution of the popliteal artery. 4. Occluded left SFA with reconstitution of the distal left SFA 5. Patent popliteal arteries bilaterally and patent 3 vessel runoff to the ankles with very small runoff vessels Dictated by: Joselito Brambila MD 12/11/2019 09:27 Electronically signed by Joselito Brambila MD in [place] 12/11/2019 09:29
[2019-12-10 09:23] LABS: Blood Urea Nitrogen 28 mg/dl (7-17); Estimated Glomerular Filt Rate 36 ml/min (>60); GFR (African American) 44 ML/MIN (>60)
== END ==
PROVIDERS: PCP Emergency Medicine; Visit Provider Urology
DX: E78.2 Mixed hyperlipidemia (principal); I11.9 Hypertensive heart disease without heart failure; I25.10 Atherosclerotic heart disease of native coronary artery without angina pectoris; I71.4 Abdominal aortic aneurysm, without rupture; I73.9 Peripheral vascular disease, unspecified; M79.661 Pain in right lower leg; Z01.810 Encounter for preprocedural cardiovascular examination
CPT/HCPCS: 36415; 75635; 82565; 84520; Q9967

== ENCOUNTER 2019-12-24 10:53 | Day surgery (SDC) | payer MEDICARE, SELFPAY ==
[2019-12-24] VITALS (11 sets, daily range): BP systolic 155–186; BP diastolic 68–87; PULSE 60–82; RESP 16–20; O2SAT 95–100; BMI 35.7
--- NOTE | 2019-12-24 10:00 | IR_ITS ---
APPROVED REPORT Patient Location: Outpatient Alarm Service Technician: ELISSA Bull RT (R) PROCEDURES Bilateral selective renal angiography INDICATION Renal artery stenosis, Abnormal CTA Informed consent was obtained prior to the procedure. COMPLICATIONS None Estimated Blood Loss: less than 10ml TECHNIQUE 1% lidocaine used to anesthetize the right femoral groin. The right femoral artery was accessed via the Seldinger technique. A 4 Niuean sheath was placed in the right femoral artery. The JR4 catheter was used to selectively intubate each renal artery. At the end of the diagnostic angiogram the patient was transferred to the postop holding area in stable condition for sheath removal. ANGIOGRAPHIC RESULTS Right renal artery singular normal Left renal artery singular normal IMPRESSION Normal renal arteries bilaterally PLAN 1. Continue medical management for essential hypertension Electronically signed by : Antonio Pleitez, 12/24/2019 12:18:16
[2019-12-24 11:52] LABS: Basophils # 0.1 K/mm3 (0-0.2); Basophils % 0.8 % (0.1-2.0); Eosinophils # 0.3 K/mm3 (0.0-0.4); Eosinophils % 4.3 % (0.1-12.0); Hematocrit 39.6 % (37.0-47.0); Hemoglobin 12.8 g/dL (12.2-16.2); Lymphocytes # 1.4 K/mm3 (0.7-4.5); Lymphocytes % 24.2 % (10-50); Mean Corpuscular HGB Conc 32.4 g/dL (31.8-35.4); Mean Corpuscular Hemoglobin 27.2 pg (27.0-31.2); Mean Corpuscular Volume 83.9 fl (81-99); Mean Platelet Volume 8.7 fl (7.4-10.4); Monocytes # 0.3 K/mm3 (0.1-1.0); Monocytes % 5.3 % (1.7-9.3); Neutrophils # 3.9 K/mm3 (1.8-7.8); Neutrophils % 65.3 % (37.0-80.0); Platelet Count 187 K/mm3 (142-424); Red Blood Count 4.71 M/mm3 (4.20-5.40); Red Cell Distribution Width 21.2 % (11.5-17.5); White Blood Count 5.9 K/mm3 (4.8-10.8)
[2019-12-24 12:08] LABS: Blood Urea Nitrogen 16 mg/dl (7-17); Calcium 9.3 mg/dl (8.4-10.2); Carbon Dioxide 30 mmol/L (22.0-30.0); Chloride 104 mmol/L (98-107); Creatinine Clearance Estimated 62 mL/min (50-200); Estimated Glomerular Filt Rate 54 ml/min (>60); GFR (African American) 65 ML/MIN (>60); Glucose 99 mg/dl (74-100); Sodium 142 mmol/L (136-145)
== END 2019-12-24 15:26 | disposition home or self-care (01) ==
LOC: CATHLAB 10:54
PROVIDERS: PCP Emergency Medicine; Visit Provider Internal Medicine
DX: I70.1 Atherosclerosis of renal artery (principal); N18.2 Chronic kidney disease, stage 2 (mild); I12.9 Hypertensive chronic kidney disease with stage 1 through stage 4 chronic kidney disease, or unspecified chronic kidney disease; I70.203 Unspecified atherosclerosis of native arteries of extremities, bilateral legs; Z95.0 Presence of cardiac pacemaker; I25.2 Old myocardial infarction; I25.10 Atherosclerotic heart disease of native coronary artery without angina pectoris; Z87.891 Personal history of nicotine dependence
CPT/HCPCS: 36252; 80048; 85025; 99152; C1725; C1769; J1644; Q9967

== ENCOUNTER → 2020-01-07 14:23 | Outpatient (POV) | payer MEDICARE, SELFPAY ==
[2020-01-07 14:42] VITALS: BP 159/85; PULSE 78; RESP 18; TEMP 36.6; O2SAT 98; BMI 31.9
--- NOTE | 2020-01-07 14:54 | HMH.PAINSOAP ---
[facility] Pain Management SOAP Note Subjective:: Patient is a 79-year-old white female who presents today for follow-up. She has been treated for low back pain with lumbar radiculopathy symptoms. Patient was here approximately 8 to 9 months ago and was seen for the same type of pain. She says that the pain is primarily today on the right side radiating into her right hip and right thigh area. She has undergone injective therapy in the past and did not get much relief. She also underwent a psychological evaluation at that time for possible spinal cord stimulator. Patient ended deciding against the implanted device and further injective therapy. She is here today with severe pain once again in the same areas. She is rate her pain a 10 out of 10 today. She has tried physical therapy in the past along with injective therapy and ice and heat therapies. She has not gotten any relief. Patient does says she gets relief if she leans forward. Review of Systems General: No recent weight changes, no fever, no sleep disturbances Respiratory: No cough, no shortness of air, no recurring pulmonary infections Cardiovascular/peripheral vascular: No chest pain, no palpitations, no edema, no shortness of breath Gastrointestinal: No new onset incontinence, normal bowel movements reported Genitourinary: No new onset incontinence Musculoskeletal: Low back pain, right hip and leg pain Psychiatric: Normal mood/affect Neurological: [Denies weakness in extremities], [denies balance issues] Objective:: Physical exam General: Alert and oriented x3, no acute distress, pleasant and cooperative, [on room air] Lungs: Respirations even and unlabored, symmetrical chest expansion Eyes: PERRL Musculoskeletal: Flexion and extension of lumbar spine somewhat guarded secondary to pain, deep tendon reflexes normal, strength in upper and lower extremities [5/5], [abnormal gait noted] Neurological: 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 From her MRI from last year, she does have some nerve root impingement at L4 and L5. We will proceed with a lumbar epidural steroid injection at L4-L5 see if we can get her some short-term relief until she can undergo a spinal cord stimulator trial. We will schedule her also for the [employer] spinal cord stimulator trial. We will see her back in the clinic after her injection to reassess her symptoms and discuss any questions she may have regarding the stimulator. She was given educational information and she along with her daughter and I discussed the stimulator today. The patient's greatest concern is being able to undergo MRIs with a device. Otherwise, the patient is ready to proceed with the trial. She has been instructed to contact clinic if she has any concerns before her next appointment. The patient and I specifically discussed risk factors for COVID19. These risks include, but are not limited to age greater than 60, heart or lung disease, diabetes, immunosuppression, and travel. We also discussed NSAIDs may worsen COVID19 infection or symptoms. Patient should not use NSAIDs to treat COVID19 signs or symptoms. Patient was also informed that any type of corticosteroid of any form (oral or injection) will decrease the patient's immune system response and may increase the likelihood of COVID19 infection [address] symptoms[address] Rivas has reviewed this note and agrees with this plan of care. This note was dictated using voice recognition software and make contain errors or omissions. [facility] History I have reviewed the patient's past medical history: Yes Medical History: Reports:: Aneurysm, Coronary Artery Disease, Hyperlipidemia, Hypertension, Internal Pacemaker, Myocardial Infarction, Peripheral Artery Disease, Peripheral Vascular Disease, Pulmonary Em
== END ==
PROVIDERS: PCP Emergency Medicine; Visit Provider Clinical Nurse Specialist Family Health
DX: M51.16 Intervertebral disc disorders with radiculopathy, lumbar region (principal); M12.88 Other specific arthropathies, not elsewhere classified, other specified site
CPT/HCPCS: 99212

== ENCOUNTER 2020-01-08 09:02 | Day surgery (SDC) | payer MEDICARE, SELFPAY ==
[2020-01-08 09:30] VITALS: BP 150/74; PULSE 77; RESP 18; TEMP 37.2; O2SAT 99; BMI 32.1
[2020-01-08 09:58] VITALS: BP 135/88; PULSE 89; RESP 18; O2SAT 98
[2020-01-08 09:59] VITALS: BP 148/78; PULSE 79; RESP 18; O2SAT 98
--- NOTE | 2020-01-08 10:03 | P.PCN_ITS ---
- Procedure Date: 01/08/20 Time: 10:03 Anesthesiologist:: Matt Rivas MD Complications:: None Pre-procedure Diagnosis:: Degenerative disc disease of lumbar spine with lumbar radiculopathy symptoms Post-procedure Diagnosis:: Same Indications for Procedure:: This patient is a pleasant 79-year-old white female who we have been treating for low back pain with degenerative disc disease of lumbar spine and lumbar radiculopathy symptoms in particular down the right leg. She does get some relief from these epidural steroid injections however is not long-lasting. We have previously talked her about spinal cord stimulation. She has had a psychological evaluation which is appropriate. She had decided to hold off on spinal cord stimulator trial. However after talking to her today she is amenable to talking to the [employer] paper sales representative concerning a spinal cord stimulator trial. We will set her up to talk to the [employer] paper sales representative and hopefully plan on a spinal cord stimulator trial in her future. Today we will do a lumbar pleural steroid injection under fluoroscopy to help with her low back and right leg pain. Procedure Details:: Lumbar epidural steroid injection under fluoroscopy Informed consent was obtained and the risk and benefits of the procedure was explained to the patient. The patient was taken to the procedure room. The patient was placed prone on the procedure table. The patient was prepped and draped in sterile fashion. C-arm fluoroscopy was used to view the lumbar spine. Skin and subcutaneous tissues were anesthetized using lidocaine. I placed an 18-gauge epidural needle and advanced into the L4-L5 interspace using fluoroscopic guidance and [id number] to air. After confirmation of needle placement in the epidural space with dye I injected 2 mL of lidocaine 1.5% with Depo-Medrol 80 mg. Patient tolerated the procedure well with no complications. Plan and Disposition:: We will follow-up with her in 2 weeks. Will reevaluate her symptoms. We will have the [employer] paper sales representative call her to discuss spinal cord stimulator trial. She already has a successful psychological evaluation. Hopefully we will plan on spinal cord stimulator trial in the future to help her with her right leg radiculopathy.
[2020-01-08 10:20] VITALS: BP 172/76; PULSE 77; RESP 20; O2SAT 99
== END 2020-01-08 10:20 | disposition home or self-care (01) ==
LOC: SC.PAINP 09:03
PROVIDERS: PCP Emergency Medicine; Visit Provider Anesthesiology
DX: M51.16 Intervertebral disc disorders with radiculopathy, lumbar region (principal); I11.9 Hypertensive heart disease without heart failure; I25.2 Old myocardial infarction; Z87.448 Personal history of other diseases of urinary system; Z87.39 Personal history of other diseases of the musculoskeletal system and connective tissue; I73.9 Peripheral vascular disease, unspecified; I25.10 Atherosclerotic heart disease of native coronary artery without angina pectoris; Z88.8 Allergy status to other drugs, medicaments and biological substances; Z79.899 Other long term (current) drug therapy
CPT/HCPCS: 62323; J1040; Q9966

== ENCOUNTER → 2020-01-20 14:07 | Outpatient (CLI) | payer MEDICARE, SELFPAY ==
--- NOTE | 2020-01-20 14:08 | MR_ITS ---
PROCEDURE: MR LUMBAR SPINE WO CON CLINICAL INDICATION: lumbosacral radiculopathy RT SIDED LBP. PAIN WORSE WHEN WALKING. RT LEG PAIN RADIATES FROM HIP IN GOES DOWN. [id number]. NO INJURY. PRIOR MRI 01-30-19 COMPARISON: MR MR LUMBAR SPINE WO CON from 01/30/2019 TECHNIQUE: Standard multiplanar multiecho sequences are performed without contrast. 3-D MIP and myelographic images are also rendered and reviewed FINDINGS: There is normal alignment. The spinal cord ends at the L1 level. T11-T12: Degenerative disc disease with anterior osteophytes. T12-L1: Small anterior osteophytes on the right. L1-L2: Unremarkable. L2-L3: Unremarkable. L3-L4: Degenerative disc disease with mild facet and ligamentum hypertrophy. The bulging disc is slightly eccentric toward the left with mild right foraminal narrowing and severe left foraminal narrowing overall not significantly changed. The facet hypertrophy is worse on the left compared to the right at this level but overall not significantly changed L4-5: Degenerative disc disease with mild bulging disc along with facet and ligamentum hypertrophy. Bulging disc is present slightly eccentric toward the right. There may be a small right foraminal disc osteophyte complex. There is severe right-sided foraminal narrowing. Overall not significantly changed. L5-S1: Degenerative disc disease with bulging disc along with facet and ligamentum hypertrophy with mild right and [id number] left foraminal narrowing not significantly changed. No extruded herniated disc or bony canal stenosis. There are multiple bilateral renal cysts. The hypointense lesion in the right pedicle at T12 is once again noted not significantly changed IMPRESSION: 1. L3-L4: Degenerative disc disease with mild facet and ligamentum hypertrophy. The bulging disc is slightly eccentric toward the left with mild right foraminal narrowing and severe left foraminal narrowing overall not significantly changed. The facet hypertrophy is worse on the left compared to the right at this level but overall not significantly changed 2. L4-5: Degenerative disc disease with mild bulging disc along with facet and ligamentum hypertrophy. Bulging disc is present slightly eccentric toward the right. There may be a small right foraminal disc osteophyte complex. There is severe right-sided foraminal narrowing. Overall not significantly changed. 3. L5-S1: Degenerative disc disease with bulging disc along with facet and ligamentum hypertrophy with mild right and [id number] left foraminal narrowing not significantly changed. 4. No extruded herniated disc or canal stenosis Dictated b Joselito Brambila MD 01/22/2020 09:23 Joselito Brambila MD in [place] 01/22/2020 09:23
== END ==
PROVIDERS: PCP Emergency Medicine; Visit Provider Specialist
DX: M54.17 Radiculopathy, lumbosacral region (principal)
CPT/HCPCS: 72148; 76376

== ENCOUNTER 2020-01-29 13:00 | Outpatient (RCR) | payer MEDICARE, SELFPAY ==
--- NOTE | 2020-01-20 16:36 | HMH.PTOPEV ---
PT Outpatient Evaluation Rehab PT Outpatient Evaluation Start: 01/20/20 15:23 Freq: Status: Active Protocol: Document 01/20/20 16:16 SHELTONCARSON (Rec: 01/20/20 16:29 SHELTONREGGIEJOSEPH [id number]) Electronically Signed By Jorgito Abid, PT 01/20/20 16:16 Outpatient Therapy Subjective History Subjective History Patient is a 79 year old female presenting to outpatient PT with reports chronic LBP with RLE radicular syptoms of insidious onset starting approx 5 years ago that have progressively gotten worse. 2 previous injections with no relief. Comorbidities include hx of HTN, anemia and RLE stents x 7 . Chief Complaint Pain Symptom Type Ache Symptoms Aggravated By Standing,Bending/Stooping, Physical Activity,Walking, Lifting Prior Functional Limitations None Current Functional Limitations Lifting,Housework,Sleeping, Standing,Sitting,Squatting, Recreation Activity,Walking, Stairs,Bending/Stooping Symptom Description Constant but Variable Level of pain today (0-10) 9 Pain scale - at its best (0-10) 6 Pain scale - at its worst (0-10) 10 Lumbopelvic Eval Posture Thoracic Spine Posture Standing Position Increased Kyphosis Lumbar Spine Posture Standing Position Decreased Lordosis Assistive device Assistive Devices None / NA Palapation tenderness right lumbar spinal tenderness Yes: 2/4 paraspinal tenderness Yes: 2/4 buttock tenderness Yes: 3/4 Accessory Movement L2 bilateral L3 bilateral L4 bilateral L5 bilateral S1 bilateral Range of Motion Lumbar Spine Active Flexion Range of 65 Motion (degrees) Lumbar Spine Active Extension Range of 22 Motion (degrees) Left Lumbar Spine Lateral Flexion Active 12 Range of Motion (degrees) Right Lumbar Spine Lateral Flexion 25 Active Range of Motion (degrees) Manual Muscle Test Left Knee Extension Strength Grade 4 Good Knee Flexion Strength Grade 4 Good Hip Flexion Strength Grade 4 Good Extensor Hallucis Longus Strength Grade 4 Good Ankle Dorsiflexion Strength Grade 4 Good Gastronemius/Soleus Strength Grade 4 Good Right Knee Extension Strength Grade 4- Good-
== END 2020-01-29 13:47 | disposition home or self-care (01) ==
LOC: PT 13:00
PROVIDERS: PCP Emergency Medicine; Visit Provider Specialist
DX: M54.17 Radiculopathy, lumbosacral region (principal)
CPT/HCPCS: 97113; 97163

== ENCOUNTER → 2020-02-08 09:54 | Outpatient (POV) | payer MEDICARE, SELFPAY ==
[2020-02-08 10:13] VITALS: BP 132/74; PULSE 85; RESP 18; O2SAT 98; BMI 32.1
--- NOTE | 2020-02-08 10:29 | HMH.PAINSOAP ---
[facility] Pain Management SOAP Note Subjective:: Patient is a 79-year-old white female who presents today for follow-up after lumbar epidural steroid injection. Patient has had multiple injections with no relief. She rates her pain a 6 out of 10. She has difficulty standing. Patient has pain from her mid back down into her bilateral feet. She has numbness and tingling. Patient and Dr. Rivas discussed a [employer] spinal cord stimulator at her last injection. Patient would like to move forward with this. She is had an appropriate psychological evaluation. We had a long discussion in regards to the trial and what to expect. Patient understands. ROS General: no recent weight change, no fever, no sleep disturbances Respiratory: no cough, no shortness of air, no recurring pulmonary infections Cardiovascular/Peripheral Vascular: No chest pain, No palpitations, no edema, no shortness of breath. Gastrointestinal: no new onset incontinence, normal bowel movements reported Genitourinary: no new onset incontinence Musculoskeletal: Back pain, leg pain Psychiatric: normal mood/ affect Neurological: [denies new onset weakness in extremities], [denies new onset balance issues] Objective:: Physical Exam General: Alert and oriented x3, no acute distress, pleasant and cooperative, [on room air] Lungs: Resps E/U, Symmetrical chest expansion, Eyes: PERRL Musculoskeletal: Flexion and extension of lumbar spine somewhat guarded secondary to pain, deep tendon reflexes normal, strength in upper and lower extremities [5/5], [abnormal gait noted] Neurological: speech clear, returns processor equal, no gross sensory deficits Assessment:: Degenerative disc disease lumbar spine lumbar radiculopathy Plan:: We will move forward with the [employer] neurostimulator trial. Patient's been instructed call the office if she has any issues prior to her next appointment. She is not on any anticoagulation therapy. She is failed all conservative measures including physical therapy which she is currently in, anti-inflammatories, medications, injection therapy. I will follow-up with her after her trial reassess her symptoms at that time she has been instructed to call the office if she has any issues prior to her next appointment. Dr. Rivas has reviewed this note and agrees with this plan of care. This note was dictated using voice recognition software and may contain errors or omissions [facility] History I have reviewed the patient's past medical history: Yes Medical History: Reports:: Aneurysm, Coronary Artery Disease, Cerebrovascular Accident, Hyperlipidemia, Hypertension, Internal Pacemaker, Myocardial Infarction, Peripheral Artery Disease, Peripheral Vascular Disease, Pulmonary Embolism Denies:: Cancer, Diabetes Mellitus Type 1, Diabetes Mellitus Type 2, MRSA, Seizures *Have you ever received a pneumonia vaccine?: Yes *Have you received a flu vaccine this season?: Yes Other Medical History: Reports: Anemia, Arthritis, Cataracts, Thyroid Disease Laterality Cases: Left: Arthroscopy Shoulder, Other Other Surgeries: Yes: Cardiac Catheterization, Cholecystectomy, Colonoscopy, Hernia Repair, Hysterectomy-Total, Pacemaker, Other Amputation: No Fractures: No - *Social History Smoking Status: Former smoker #Yrs smoked (if former smoker): 10 Alcohol Intake: never Alcohol Intake Frequency:: other Substance Use Type: denies use *Occupational Status:: other Housing: house Household Members: none *Travel in the last 8 weeks: None Family Hx:: Coronary Artery Disease, Heart Attack
== END ==
PROVIDERS: PCP Emergency Medicine; Visit Provider Clinical Nurse Specialist Family Health
DX: M51.16 Intervertebral disc disorders with radiculopathy, lumbar region (principal)
CPT/HCPCS: 99212

== ENCOUNTER → 2020-02-10 13:56 | Outpatient (CLI) | payer MEDICARE, SELFPAY ==
[2020-02-10 14:26] LABS: Basophils % 0.6 % (0.1-2.0); Eosinophils # 0.2 K/mm3 (0.0-0.4); Eosinophils % 2.4 % (0.1-12.0); Hematocrit 37.9 % (37.0-47.0); Hemoglobin 13.2 g/dL (12.2-16.2); Lymphocytes # 1.3 K/mm3 (0.7-4.5); Lymphocytes % 19.9 % (10-50); Mean Corpuscular HGB Conc 34.9 g/dL (31.8-35.4); Mean Corpuscular Hemoglobin 30.2 pg (27.0-31.2); Mean Corpuscular Volume 86.6 fl (81-99); Mean Platelet Volume 8.3 fl (7.4-10.4); Monocytes # 0.4 K/mm3 (0.1-1.0); Monocytes % 5.4 % (1.7-9.3); Neutrophils # 4.6 K/mm3 (1.8-7.8); Neutrophils % 71.7 % (37.0-80.0); Platelet Count 159 K/mm3 (142-424); Red Blood Count 4.38 M/mm3 (4.20-5.40); Red Cell Distribution Width 18.1 % (11.5-17.5); White Blood Count 6.4 K/mm3 (4.8-10.8)
[2020-02-10 14:39] LABS: Iron 50 ug/dL (37-170)
[2020-02-10 14:48] LABS: Total Iron Binding Capacity 319 ug/dL (265-497)
[2020-02-10 15:13] LABS: Ferritin 202 ng/ml (11.1-264)
== END ==
PROVIDERS: Visit Provider Internal Medicine Medical Oncology
DX: D50.9 Iron deficiency anemia, unspecified (principal)
CPT/HCPCS: 36415; 82728; 83540; 83550; 85025

== ENCOUNTER → 2020-02-18 11:00 | Outpatient (CLI) | payer MEDICARE, SELFPAY ==
[2020-02-18 11:27] LABS: Basophils # 0.1 K/mm3 (0-0.2); Basophils % 0.7 % (0.1-2.0); Eosinophils # 0.4 K/mm3 (0.0-0.4); Eosinophils % 4.9 % (0.1-12.0); Hematocrit 41.2 % (37.0-47.0); Hemoglobin 14.2 g/dL (12.2-16.2); Lymphocytes # 1.5 K/mm3 (0.7-4.5); Mean Corpuscular HGB Conc 34.5 g/dL (31.8-35.4); Mean Corpuscular Hemoglobin 30.3 pg (27.0-31.2); Mean Corpuscular Volume 87.9 fl (81-99); Mean Platelet Volume 9.5 fl (7.4-10.4); Monocytes # 0.3 K/mm3 (0.1-1.0); Monocytes % 4.4 % (1.7-9.3); Neutrophils # 5.5 K/mm3 (1.8-7.8); Platelet Count 143 K/mm3 (142-424); Red Blood Count 4.69 M/mm3 (4.20-5.40); Red Cell Distribution Width 17.5 % (11.5-17.5); White Blood Count 7.7 K/mm3 (4.8-10.8)
[2020-02-18 12:38] LABS: Anion Gap 15.2 mEq/L (5-15); Blood Urea Nitrogen 22 mg/dl (7-17); Calcium 9.5 mg/dl (8.4-10.2); Carbon Dioxide 27 mmol/L (22.0-30.0); Chloride 103 mmol/L (98-107); Estimated Glomerular Filt Rate 48 ml/min (>60); GFR (African American) 58 ML/MIN (>60); Glucose 98 mg/dl (74-100); Potassium 5.2 mmoL/L (3.5-5.1); Sodium 140 mmol/L (136-145)
[2020-02-18 12:51] LABS: Coronavirus 19 IgG Antibody Negative (Negative); Coronavirus 19 IgM Antibody Negative (Negative)
== END ==
PROVIDERS: Visit Provider Anesthesiology
DX: Z79.891 Long term (current) use of opiate analgesic (principal); I10 Essential (primary) hypertension; Z20.828 Contact with and (suspected) exposure to other viral communicable diseases
CPT/HCPCS: 36415; 80048; 85025; 86328

== ENCOUNTER 2020-02-19 10:32 | Day surgery (SDC) | payer MEDICARE, SELFPAY ==
[2020-02-17 11:15] VITALS: BMI 33.5
[2020-02-19] VITALS (7 sets, daily range): BP systolic 145–219; BP diastolic 70–104; PULSE 50–74; RESP 18; TEMP 36.2–36.6; O2SAT 96–99
--- NOTE | 2020-02-19 11:18 | HMH.ANESCL ---
[facility] Anesthesia Checklist - Patient Identification Patient Identification: Arm Band - Structural Data Admitted From: Home Planned Operative Procedure/s: neurostimulator trial lead placement under fluoroscopy Consent for Planned Operative Procedure(s) Verified: Yes Verified Documents: Surgical Consent, History and Physical - NPO Status Verified Time NPO: 00:00 - Additional verifications Anesthesia Reactions: No Hx Blood Transfusions: No Blood Transfusion Reaction: No - Airway Assessment C-Spine Mobility Assessed: Yes (mp2) TMJ Mobility Assessed: Yes Dentition: Edentulous - Neurological Assessment Level of Consciousness: Awake, Alert - Anesthesia Plan Anesthesia Risk discussed: Yes Anesthesia Plan: Verified ASA Class: III Anesthesia Type: MAC [facility] History I have reviewed the patient's past medical history: Yes Medical History: Reports:: Aneurysm, Coronary Artery Disease, Cerebrovascular Accident, Hyperlipidemia, Hypertension, Internal Pacemaker, Myocardial Infarction, Peripheral Artery Disease, Peripheral Vascular Disease, Pulmonary Embolism Denies:: Cancer, Diabetes Mellitus Type 1, Diabetes Mellitus Type 2, MRSA, Seizures *Have you ever received a pneumonia vaccine?: No *Have you received a flu vaccine this season?: Yes Other Medical History: Reports: Anemia, Arthritis, Cataracts, Thyroid Disease. Denies: Blood Transfusion Reaction Anesthesia experience/problems:: nac Laterality Cases: Left: Arthroscopy Shoulder, Other Other Surgeries: Yes: Cardiac Catheterization, Cholecystectomy, Colonoscopy, Hernia Repair, Hysterectomy-Total, Pacemaker, Other Amputation: No Fractures: No - *Social History Last grade of school completed: 9th or 10th Smoking Status: Former smoker #Yrs smoked (if former smoker): 10 Smoking End Date: 02/08/2002 Alcohol Intake: never Alcohol Intake Frequency:: other Substance Use Type: denies use *Occupational Status:: other Housing: house Household Members: none *Travel in the last 8 weeks: None Family Hx:: Coronary Artery Disease, Heart Attack
--- NOTE | 2020-02-19 14:21 | HMH.OPNOTE ---
Date of procedure: 02/19/20 Pre-op Diagnosis:: Degenerative disc disease of lumbar spine with lumbar radiculopathy symptoms Post-op Diagnosis:: Same Procedure performed:: Spinal cord stimulator lead placement epidural x2 Surgeon:: Matt Rivas MD METAL MILLING MACHINE OPERATOR:: Dante Trevino Anesthesia: MAC Estimated blood loss (mL): 1 Clinical Note:: Patient is a pleasant 79-year-old white female who we are treating for low back pain with lumbar radiculopathy symptoms. She has failed all previous conservative therapy including physical therapy, oral medications and injections. She is not a surgical candidate. She has had an appropriate psychological evaluation. She presents for spinal cord stimulator trial today. This will be with a [employer] system. Operative findings:: None Operative note:: Informed consent was obtained and the risk and benefits of the procedure was explained to the patient. The patient was taken to the operating room placed prone on the procedure table. The patient was prepped and draped in sterile fashion. C-arm fluoroscopy was used to view the lumbar spine. The skin and subcutaneous tissues were anesthetized using lidocaine. A 17-gauge epidural needle was inserted and advanced into the L2-L3 interspace. After confirmation of needle placement in the epidural space stimulating lead was inserted and advanced very easily to the T8-T9 interspace. Lead placement was checked in AP and lateral views. A second needle was then inserted and advanced again into the L2-L3 interspace. Again after confirmation of needle placement in the epidural space a stimulator lead was inserted and advanced again very easily to the T9-T10 interspace. Both of these leads were staggered. Again this lead was checked in AP and lateral views. The needles and stylets were removed. The leads were secured in place. The patient was taken to recovery in stable condition. Patient tolerated the procedure well with no complications. Patient was programmed by the [employer] freight representative with good relief of pain symptoms. Patient was placed on DTM programming Patient was discharged home neurologically intact and with good relief of pain symptoms. Plan and disposition: We will follow-up with this patient in 3 days for reprogramming. We will follow-up in 1 week for lead pull. If the patient has any problems or questions they are to call us in the pain clinic. Condition: stable Disposition: PACU Complications:: None
--- NOTE | 2020-02-19 14:44 | SUR.PHASEII ---
Dr. Rivas at bedside and ordered for Phenergan 25mg po for continued n/v. Medication given per order.
== END 2020-02-19 15:20 | disposition home or self-care (01) ==
LOC: OR 10:33
PROVIDERS: PCP Emergency Medicine; Visit Provider Anesthesiology
PROC: (CPT 63650; principal; 2020-02-19 12:00)
DX: M51.16 Intervertebral disc disorders with radiculopathy, lumbar region (principal); I25.10 Atherosclerotic heart disease of native coronary artery without angina pectoris; Z86.73 Personal history of transient ischemic attack (TIA), and cerebral infarction without residual deficits; E78.5 Hyperlipidemia, unspecified; I10 Essential (primary) hypertension; Z95.0 Presence of cardiac pacemaker; I25.2 Old myocardial infarction; I73.9 Peripheral vascular disease, unspecified; I26.99 Other pulmonary embolism without acute cor pulmonale; Z86.79 Personal history of other diseases of the circulatory system; D64.9 Anemia, unspecified; M19.90 Unspecified osteoarthritis, unspecified site
CPT/HCPCS: 63650 ×2; 96374; C1897; J2405; J3370

== ENCOUNTER → 2020-02-24 12:01 | Outpatient (POV) | payer MEDICARE, SELFPAY ==
[2020-02-24 12:12] VITALS: BP 128/71; PULSE 66; RESP 18; O2SAT 98; BMI 32.4
--- NOTE | 2020-02-24 15:43 | HMH.PAINSOAP ---
[facility] Pain Management SOAP Note Subjective:: The patient is a pleasant 79-year-old white female who we are treating for low back pain with lumbar radiculopathy symptoms. Most of her pain is over the right hip. She is currently undergoing a [employer] spinal cord stimulator trial. She has not done very well with this. It is not relieved her pain at all. We did look at her leads under fluoroscopy and the right lead was found superiorly approximately 2-3 vertebral bodies. We did pull this lead down to the T8-T9 vertebral bodies. We will switch her over to a [employer] system today to see if this will help better with her pain symptoms. Objective:: Alert and oriented x3 no acute distress. Patient does have an antalgic gait. Motor strength of the lower extremities is 5/5. There is no gross sensory deficit. Assessment:: Degenerative disc disease of lumbar spine with lumbar radiculopathy symptoms Plan:: The right lead was pulled out approximately 2 vertebral bodies. Now she does have both leads at the T7-T8-T9 vertebral bodies. Both leads are posterior. We will switch her over to a [employer] system today to see if this gives her better relief with the trial. We will schedule lead pull for Saturday. [facility] History Medical History: Reports:: Aneurysm, Coronary Artery Disease, Cerebrovascular Accident, Hyperlipidemia, Hypertension, Internal Pacemaker, Myocardial Infarction, Peripheral Artery Disease, Peripheral Vascular Disease, Pulmonary Embolism Denies:: Cancer, Diabetes Mellitus Type 1, Diabetes Mellitus Type 2, MRSA, Seizures *Have you ever received a pneumonia vaccine?: Yes *Have you received a flu vaccine this season?: Yes Other Medical History: Reports: Anemia, Arthritis, Cataracts, Thyroid Disease. Denies: Blood Transfusion Reaction Laterality Cases: Left: Arthroscopy Shoulder, Other Other Surgeries: Yes: Cardiac Catheterization, Cholecystectomy, Colonoscopy, Hernia Repair, Hysterectomy-Total, Pacemaker, Other Amputation: No Fractures: No - *Social History Smoking Status: Former smoker #Yrs smoked (if former smoker): 10 Alcohol Intake: never Alcohol Intake Frequency:: other Substance Use Type: denies use *Occupational Status:: retired Housing: house Household Members: none *Travel in the last 8 weeks: None Family Hx:: Coronary Artery Disease, Heart Attack
== END ==
PROVIDERS: PCP Emergency Medicine; Visit Provider Anesthesiology
DX: M51.16 Intervertebral disc disorders with radiculopathy, lumbar region (principal)
CPT/HCPCS: 99212

== ENCOUNTER → 2020-02-26 10:56 | Outpatient (POV) | payer MEDICARE, SELFPAY ==
[2020-02-26 11:15] VITALS: BP 150/88; PULSE 66; RESP 18; TEMP 36.1; O2SAT 98; BMI 32.4
--- NOTE | 2020-02-26 12:32 | HMH.PAINSOAP ---
[facility] Pain Management SOAP Note Subjective:: Patient is a pleasant 79-year-old white female who we have been treating for low back pain with lumbar radiculopathy symptoms. She underwent spinal cord stimulation trial with a [employer] system and over the last few days it was a [employer] system. She had some relief recently with her [employer] system however she is unsure whether she wants to proceed with permanent placement or look at other options. We will remove her leads today. We will plan on intrathecal pump trial to see if this gives her better relief and compared the pump trial versus the stimulator trial to see which option she may prefer for long-term treatment. Objective:: Alert and oriented x3 no acute distress. Patient does have an antalgic gait. Motor strength of the lower extremities is 5/5. There is no gross sensory deficit. Stimulator leads were removed intact with no signs of redness or infection. Assessment:: Degenerative disc disease of lumbar spine with lumbar radiculopathy symptoms Plan:: We removed her stimulator leads intact. She did get some relief of her right hip pain with this latest change to [employer] stimulator under her trial. She is unsure as to whether to proceed or not at this time. She wants to wait and try intrathecal pump therapy to see if this may be a better option. We will plan on an intrathecal pump trial to see if this gives her better relief of her right hip pain. [facility] History Medical History: Reports:: Aneurysm, Coronary Artery Disease, Cerebrovascular Accident, Hyperlipidemia, Hypertension, Internal Pacemaker, Myocardial Infarction, Peripheral Artery Disease, Peripheral Vascular Disease, Pulmonary Embolism Denies:: Cancer, Diabetes Mellitus Type 1, Diabetes Mellitus Type 2, MRSA, Seizures *Have you ever received a pneumonia vaccine?: No *Have you received a flu vaccine this season?: No Other Medical History: Reports: Anemia, Arthritis, Cataracts, Thyroid Disease. Denies: Blood Transfusion Reaction Laterality Cases: Left: Arthroscopy Shoulder, Other Other Surgeries: Yes: Cardiac Catheterization, Cholecystectomy, Colonoscopy, Hernia Repair, Hysterectomy-Total, Pacemaker, Other Amputation: No Fractures: No - *Social History Smoking Status: Former smoker #Yrs smoked (if former smoker): 10 Alcohol Intake: never Alcohol Intake Frequency:: other Substance Use Type: denies use *Occupational Status:: retired Housing: house Household Members: none *Travel in the last 8 weeks: None Family Hx:: Coronary Artery Disease, Heart Attack
== END ==
PROVIDERS: PCP Emergency Medicine; Visit Provider Anesthesiology
DX: M51.16 Intervertebral disc disorders with radiculopathy, lumbar region (principal)
CPT/HCPCS: 99212

== ENCOUNTER → 2020-03-04 08:25 | Day surgery (SDC) | payer MEDICARE, SELFPAY ==
[2020-03-04] VITALS (7 sets, daily range): BP systolic 136–166; BP diastolic 71–104; PULSE 59–77; RESP 18–20; TEMP 36.8; O2SAT 99; BMI 31.9
--- NOTE | 2020-03-04 09:49 | P.PCN_ITS ---
- Procedure Date: 03/04/20 Time: 09:50 Anesthesiologist:: Matt Rivas MD Complications:: None Pre-procedure Diagnosis:: Degenerative disc disease of lumbar spine with lumbar radiculopathy symptoms and right-sided hip pain Post-procedure Diagnosis:: Same Indications for Procedure:: This patient is a pleasant 80-year-old white female who we have been treating for low back pain with lumbar radiculopathy symptoms and right-sided hip pain. She did undergo a [employer] followed by a [employer] spinal cord stimulator trial with equivocal results. She did get some relief on the last day so it is unsure whether this was completely successful and she wants to proceed with permanent placement. We have had a long discussion and decided to pursue intrathecal pump trial to see if this may give her better relief of her pain symptoms. Procedure Details:: l Pain pump trial Informed consent was obtained and the risk and benefits of the procedure was exp lained to the patient. The patient was taken to the procedure room and placed prone on the procedure table. Patient was prepped and draped in sterile fashion. C-arm fluoroscopy was used to view the lumbar spine. The skin and subcutaneous tissues were anesthetized using lidocaine. I placed a 18-gauge spinal needle into the L4-5 interspace and advanced until clear CSF was obtained. After this intrathecal catheter was inserted and advanced very easily to the L1 vertebral body. The needle was withdrawn. We were able to freely withdraw clear CSF through the catheter. We then injected intrathecal fentanyl single shot bolus of 25 mcg followed by saline and followed by the previous CSF that was withdrawn. The needle and catheter were then removed and a Band-Aid was placed. Patient tolerated the procedure well with no complications. We reevaluated the patient after 30 minutes to 1 hour. She was also reassessed by physical therapy. Plan and Disposition:: Patient did very well and this was a successful intrathecal pain pump trial. We will plan on permanent placement of intrathecal pain pump with intrathecal morphine 5 mg per ml to start at 0.25 mg/day. Catheter tip will be at the L1 vertebral body.
--- NOTE | 2020-03-04 11:57 | PC.NURSE ---
0930-physical therapy at bedside for evaluation. 0940-pt returned to bay, ambulatory, accompanied by nursing staff. VSS, no c/o pain. family member at bedside. no needs or concerns at this time. 0952-pt c/o itching. medicated per prn order. 0955-pt resting in chair, vss. no c/o pain. family remains at bedside. tolerating PO. no needs or concerns at this time. 1010-pt resting in chair.vss, no c/o pain. family at beside. no needs or concerns at this time. 1025-pt resting in chair, vss, no c/o pain. family at beside. 1030-pt ambulated to nursing station accompanied by nursing staff. gait steady. c/o pain in right knee and right hip. unable to rate pain on pain scale. pt states pain with ambulation is decreased significantly. pt returned to bay. no needs or concerns at this time 1045- physical therapy at bedside for evaluation. 1058-MD at bedside.
== END ==
PROVIDERS: PCP Emergency Medicine; Visit Provider Anesthesiology
DX: M51.16 Intervertebral disc disorders with radiculopathy, lumbar region (principal); M25.551 Pain in right hip; I10 Essential (primary) hypertension; I25.10 Atherosclerotic heart disease of native coronary artery without angina pectoris; I73.9 Peripheral vascular disease, unspecified; Z87.39 Personal history of other diseases of the musculoskeletal system and connective tissue; Z79.899 Other long term (current) drug therapy
CPT/HCPCS: 62323; 96365

== ENCOUNTER → 2020-03-11 12:39 | Outpatient (POV) | payer MEDICARE, SELFPAY ==
[2020-03-11 12:44] VITALS: BP 154/79; PULSE 75; RESP 18; TEMP 36.7; O2SAT 98; BMI 32.4
--- NOTE | 2020-03-11 13:10 | P.CONS_ITS ---
[facility] Pain Management SOAP Note Subjective:: Patient is a pleasant 80-year-old white female who we have been treating for low back pain with lumbar radiculopathy symptoms and right-sided hip pain. She did better with her intrathecal pump trial than she did with her stimulator trial. She wants to proceed with permanent placement of her intrathecal pain pump. I have talked her extensively about weaning down on her Percocet. We will substitute tramadol 50 mg 3 times a day short-term as she comes down off of her Percocet. I told her she needs to be completely off her Percocet prior to pump implant. We will plan on permanent placement of her intrathecal pain pump on March 30. This will be with intrathecal morphine 5 mg/mL to start at 0.25 mg/day. Objective:: Alert and oriented x3 no acute distress. Patient does have an antalgic gait. Motor strength of the lower extremities is 5/5. There is no gross sensory deficit. Assessment:: Degenerative disease of lumbar spine with lumbar radiculopathy symptoms and right-sided hip pain Plan:: We will prescribe her tramadol 50 mg 3 times a day for the short-term. She is to wean down and completely off of her Percocet prior to pump implant. We will plan on permanent placement of intrathecal pain pump with intrathecal morphine 5 mg per ml to start at 0.25 mg/day. Catheter tip will be at the L1 vertebral body. [facility] History Medical History: Reports:: Aneurysm, Coronary Artery Disease, Cerebrovascular Accident, Hyperlipidemia, Hypertension, Internal Pacemaker, Myocardial Infarction, Peripheral Artery Disease, Peripheral Vascular Disease, Pulmonary Embolism Denies:: Cancer, Diabetes Mellitus Type 1, Diabetes Mellitus Type 2, MRSA, Seizures *Have you ever received a pneumonia vaccine?: No *Have you received a flu vaccine this season?: No Other Medical History: Reports: Anemia, Arthritis, Cataracts, Thyroid Disease. Denies: Blood Transfusion Reaction Laterality Cases: Left: Arthroscopy Shoulder, Other Other Surgeries: Yes: Cardiac Catheterization, Cholecystectomy, Colonoscopy, Hernia Repair, Hysterectomy-Total, Pacemaker, Other Amputation: No Fractures: No - *Social History Smoking Status: Former smoker #Yrs smoked (if former smoker): 10 Alcohol Intake: never Alcohol Intake Frequency:: other Substance Use Type: denies use *Occupational Status:: unemployed Housing: house Household Members: family *Travel in the last 8 weeks: None Family Hx:: Coronary Artery Disease, Heart Attack
== END ==
PROVIDERS: PCP Emergency Medicine; Visit Provider Anesthesiology
DX: M51.16 Intervertebral disc disorders with radiculopathy, lumbar region (principal); M25.551 Pain in right hip
CPT/HCPCS: 99212

== ENCOUNTER 2020-03-15 23:10 | Observation (INO) | payer MEDICARE, SELFPAY ==
[2020-03-15 23:24] VITALS: BP 156/70; PULSE 88; RESP 18; TEMP 36.4; O2SAT 96; BMI 33.5
--- NOTE | 2020-03-15 23:40 | XR_ITS ---
PROCEDURE: XR CHEST 2V CLINICAL HISTORY: Edema Cough COMPARISON: CR CXR2V XR chest 2V from 06/29/2017 CR CXR2V XR chest 2V from 07/08/[address] chest wo con from 07/10/2017 CR CXR1VP XR chest portable from 05/19/2018 FINDINGS: The cardiomediastinal silhouette and pulmonary vascularity are within normal limits. The lungs are clear without infiltrates, suspicious nodules, or pleural effusions. No acute bony abnormalities. IMPRESSION: No acute findings. Dictated by: Joselito Brambila MD 03/16/2020 05:00 Joselito Brambila MD in [place] 03/16/2020 05:00
[2020-03-15 23:48] LABS: Microscopic, Urine URINE MICROSCOPIC (MICROSCOPIC)
[2020-03-15 23:49] LABS: Appearance,Urine CLEAR (Clear); Bilirubin,Urine Negative (Negative); Blood, Urine Negative (Negative); Color,Urine YELLOW (Yellow); Glucose,Urine (UA) Negative (Negative); Ketones,Urine Negative (Negative); Leukocyte Esterase,Urine Negative (Negative); Nitrate,Urine Negative (Negative); PH,Urine 5.5 (5.0-8.5); Protein,Urine Negative (Negative); Specific Gravity, Urine 1.015 (1.005-1.030); Urobilinogen,Urine 0.2 EU/dl (0.2)
--- NOTE | 2020-03-15 23:54 | HMH.EDSOB ---
ED Disposition Clinical Impression: Lower extremity edema, Obesity (BMI 30-39.9), AMALIA (acute kidney injury) Disposition: Admitted as Observation Condition on Discharge: Good Referrals: David Disla MD [Primary Care Provider] - - Critical Care Critical Care Time: No Attestation: On 03/15/20, the high probability of a clinically significant, sudden or life threatening deterioration of the following system(s) required my full and direct attention, intervention and personal management. The time I documented below is in addition to time spent performing reported procedures but includes the following listed in this critical care notation. Medical Decision Making - Medical Records Medical records reviewed: Yes: I reviewed the patient's medical records. - Donis Inquiry Pt receiving controlled substance: No Vital Signs: 03/15/20 23:24 Temperature 97.5 F L Temperature Source Oral Pulse Rate [Right] 88 Respiratory Rate 18 Blood Pressure [Right Arm] 156/70 H Blood Pressure Mean [Right Arm] 98 Blood Pressure Source [Right Arm] Automatic Cuff Blood Pressure Position [Right Arm] Supine 02 Sat by Pulse Oximetry 96 Oxygen Delivery Method Room Air - Lab Data Lab Results 03/15/20 23:40: Urine Color Yellow, Urine Appearance Clear, Urine pH 5.5, Ur Specific [place] 1.015, Urine Protein Negative, Urine Glucose (UA) Negative, Urine Ketones Negative, Urine Blood Negative, Urine Nitrate Negative, Urine Bilirubin Negative, Urine Urobilinogen 0.2, Ur Leukocyte Esterase Negative, Urine WBC 3-5, Ur Squamous Epith Cells 3-5, Urine Bacteria 1+, Urine Mucus 1+ 03/16/20 00:40: WBC 6.0, RBC 4.13 L, Hgb 12.3, Hct 37.6, MCV 91.1, MCH 29.7, MCHC 32.6, RDW 15.4, Plt Count 174, MPV 8.8, Neut % (Auto) 60.6, Lymph % (Auto) 26.9, [place] % (Auto) 6.2, Eos % (Auto) 5.5, Baso % (Auto) 0.8, Neut # (Auto) 3.6, Lymph # (Auto) 1.6, [place] # (Auto) 0.4, Eos # (Auto) 0.3, Baso # (Auto) 0.1, ESR 54 H 03/16/20 00:40: Sodium 141, Potassium 3.8, Chloride 104, Carbon Dioxide 30, Anion Gap 10.8, BUN 29 H, Creatinine 1.50 H, Estimated Creat Clear 42, Estimated GFR 34 L, Est GFR ( Amer) 41 L, Glucose 127 H, Calcium 9.5, Total Bilirubin 0.4, AST 26, ALT 18, Alkaline Phosphatase 88, C-Reactive Protein 4.7 H, NT-Pro-B Natriuret Pep 642 H, Total Protein 7.1, Albumin 4.0, Globulin 3.1, Albumin/Globulin Ratio 1.3, TSH 5.69 H, Thyroxine (T4) 8.9 Result diagrams: 03/16/20 00:40 03/16/20 00:40 Orders (Tests/Meds): ORDERS Category Date Time Status Chest XR 2 view (NOT portable) [XR chest 2V] Stat Exams 03/15/20 23:40 Taken - Radiology Data #1 Image(s): Chest Image Reviewed: Yes I reviewed the patient's radiology image Resp/SOB HPI - General Chief Complaint: Extremity Problem,Nontraumatic Stated Complaint: Unstable,swelling in feet Time Seen by Provider: 03/15/20 23:45 Mode of Arrival: Wheelchair Source of Information: Patient, Medical Record Limitations: No Limitations Description of Symptoms (Recalled from ER Triage Doc. by RN): Pt c/o lower ext edema, for a few days, worse tonight. Cap refill WNL pulses palpable - History of Present Illness sob and increased lower ext edema MD Complaint: shortness of breath Onset (ago): day(s) Severity: moderate Known history of: congestive heart failure Associated symptoms: cough Treatment prior to arrival: none - Related Data Home oxygen amount: none Home Medications Medication Instructions Recorded Confirmed nitroglycerin 0.4 mg sublingual 0.4 mg SUBLINGUAL Q5-15M PRN 06/06/17 03/04/20 tablet Oxycodone HCl/Acetaminophen 1 each PO TID 02/17/20 03/04/20 [Oxycodone-Acetaminophen 10-325] Pregabalin 75 mg PO BID 02/17/20 03/04/20 lisinopriL [Prinivil 20mg Tablet] 20 mg PO DAILY 02/17/20 03/04/20 Sulfamethoxazole/Trimethoprim 1 each PO BID 02/24/20 03/04/20 [Bactrim DS tablet] Previous Rx's Medication Instructions Recorded hydroxychloroquine 200 mg tablet 200 mg PO BID 90 Day
[2020-03-16] VITALS (11 sets, daily range): BP systolic 130–182; BP diastolic 65–89; PULSE 40–63; RESP 14–20; TEMP 36.4–36.8; O2SAT 96–98; BMI 32.6
[2020-03-16 00:09] LABS: Bacteria,Urine 1+ /lpf; Mucus,Urine 1+ /lpf
[2020-03-16 00:48] LABS: Basophils # 0.1 K/mm3 (0-0.2); Basophils % 0.8 % (0.1-2.0); Eosinophils # 0.3 K/mm3 (0.0-0.4); Eosinophils % 5.5 % (0.1-12.0); Hematocrit 37.6 % (37.0-47.0); Hemoglobin 12.3 g/dL (12.2-16.2); Lymphocytes # 1.6 K/mm3 (0.7-4.5); Lymphocytes % 26.9 % (10-50); Mean Corpuscular HGB Conc 32.6 g/dL (31.8-35.4); Mean Corpuscular Hemoglobin 29.7 pg (27.0-31.2); Mean Corpuscular Volume 91.1 fl (81-99); Mean Platelet Volume 8.8 fl (7.4-10.4); Monocytes # 0.4 K/mm3 (0.1-1.0); Monocytes % 6.2 % (1.7-9.3); Neutrophils # 3.6 K/mm3 (1.8-7.8); Neutrophils % 60.6 % (37.0-80.0); Platelet Count 174 K/mm3 (142-424); Red Blood Count 4.13 M/mm3 (4.20-5.40); Red Cell Distribution Width 15.4 % (11.5-17.5)
[2020-03-16 00:55] LABS: Alanine Aminotransferase 18 U/L (12-78); Albumin/Globulin Ratio 1.3 (1.1-1.8); Alkaline Phosphatase 88 U/L (38-126); Anion Gap 10.8 mEq/L (5-15); Aspartate Amino Transferase 26 U/L (14-36); Bilirubin,Total 0.4 mg/dl (0.2-1.3); Blood Urea Nitrogen 29 mg/dl (7-17); Calcium 9.5 mg/dl (8.4-10.2); Carbon Dioxide 30 mmol/L (22.0-30.0); Chloride 104 mmol/L (98-107); Creatinine Clearance Estimated 42 mL/min (50-200); Estimated Glomerular Filt Rate 34 ml/min (>60); GFR (African American) 41 ML/MIN (>60); Globulin 3.1 g/dL (1.3-3.2); Glucose 127 mg/dl (74-100); Potassium 3.8 mmoL/L (3.5-5.1); Sodium 141 mmol/L (136-145); Total Protein,Serum 7.1 g/dl (6.3-8.2)
[2020-03-16 01:01] LABS: C-Reactive Protein 4.7 mg/L (0-4)
[2020-03-16 01:07] LABS: NT Pro Brain Natriuretic Pep. 642 pg/mL (0-450)
[2020-03-16 01:15] LABS: T4 (Thyroxine) 8.9 ug/dl (5.53-11.0)
[2020-03-16 01:27] LABS: Erythrocyte Sedimentation Rate 54 mm/hr (0-30)
[2020-03-16 01:28] LABS: Thyroid Stimulating Hormone 5.69 uIU/mL (0.465-4.68)
--- NOTE | 2020-03-16 02:53 | PC.NURSE ---
PT ARRIVED TO THE FLOOR VIA W/C FROM ED WITH STAFF AT 0252
[2020-03-16 06:40] LABS: Basophils % 0.6 % (0.1-2.0); Eosinophils # 0.3 K/mm3 (0.0-0.4); Eosinophils % 5.1 % (0.1-12.0); Hematocrit 36.4 % (37.0-47.0); Hemoglobin 11.7 g/dL (12.2-16.2); Lymphocytes % 34.2 % (10-50); Mean Corpuscular HGB Conc 32.1 g/dL (31.8-35.4); Mean Corpuscular Hemoglobin 29.8 pg (27.0-31.2); Mean Corpuscular Volume 92.8 fl (81-99); Mean Platelet Volume 8.4 fl (7.4-10.4); Monocytes # 0.3 K/mm3 (0.1-1.0); Monocytes % 5.2 % (1.7-9.3); Neutrophils # 3.2 K/mm3 (1.8-7.8); Neutrophils % 54.8 % (37.0-80.0); Platelet Count 143 K/mm3 (142-424); Red Blood Count 3.92 M/mm3 (4.20-5.40); Red Cell Distribution Width 15.3 % (11.5-17.5); White Blood Count 5.9 K/mm3 (4.8-10.8)
[2020-03-16 07:03] LABS: Chloride 104 mmol/L (98-107)
[2020-03-16 07:04] LABS: Potassium 4.1 mmoL/L (3.5-5.1); Sodium 141 mmol/L (136-145)
[2020-03-16 07:06] LABS: Blood Urea Nitrogen 28 mg/dl (7-17); Creatinine Clearance Estimated 42 mL/min (50-200); Estimated Glomerular Filt Rate 34 ml/min (>60); GFR (African American) 41 ML/MIN (>60)
[2020-03-16 07:07] LABS: Anion Gap 8.1 mEq/L (5-15); Carbon Dioxide 33 mmol/L (22.0-30.0); Glucose 99 mg/dl (74-100); Magnesium 2.3 mg/dl (1.6-2.3); Phosphorous 4.4 mg/dl (2.5-4.5)
--- NOTE | 2020-03-16 07:34 | P.CONPHA_ITS ---
[facility] Pharmacy VTE Monitoring - Patient Demographics Admission date: 03/15/20 Report Date: 03/16/20 Time: 07:34 Allergies/Adverse Reactions: Patient Allergies No Known Allergies Allergy (Verified 03/04/20 09:17) Height: 1.63 m Weight: 86.353 kg Patient Problems: Current Active Problems Lower extremity edema (Acute) AMALIA (acute kidney injury) (Acute) Obesity (BMI 30-39.9) (Acute) - VTE Risk Labs: VTE Related Lab Results Hgb 11.7 g/dL (12.2-16.2) L 03/16/20 06:15 Hct 36.4 % (37.0-47.0) L 03/16/20 06:15 Plt Count 143 K/mm3 (142-424) 03/16/20 06:15 BUN 28 mg/dl (7-17) H 03/16/20 06:15 Creatinine 1.50 mg/dl (0.52-1.04) H 03/16/20 06:15 Estimated Creat Clear 42 mL/min (50-200) 03/16/20 06:15 Was VTE Risk Assessment Performed: Yes VTE Score: 4 VTE Risk Level: Low Risk - Prophylaxis VTE Prophylaxis Ordered?: Yes Types of VTE Prophylaxis: TEDS Knee High Location of Applied Device: Bilateral Lower Extremeties
--- NOTE | 2020-03-16 07:42 | PC.NURSE ---
pt arrived to floor without IV access, after multiple attempts made in ED, was advised that this would be reevaluated this morning
--- NOTE | 2020-03-16 08:00 | CA_ITS ---
APPROVED REPORT EXAM: Comprehensive 2D, Doppler, and color-flow Echocardiogram Edi Manager: Tana Royal CRT Ht: 5 ft 3 in Wt: 189lbs BSA: 1.89 BP: 156/70 mmHg Indications: CVA/TIA, Peripheral Edema, CAD, Hyperlipidemia, Hypertension/HDD, ex smoker, PAD, PVD, PE, pacer 2D Dimensions LVOT 1.79 cm (M/F) 1.5-2.5 M-Mode Dimensions RVDd 2.63 cm (0.9-2.6) LVDd 6.45 cm (3.5-5.7) LVDs 4.73 cm (3.5-5.7) IVSd 1.10 cm (0.6-1.1) PWd 0.76 cm (0.6-1.1) EF (Teich) 51.00% FS 26.70% EDV (Teich) 212.20 mL ESV (Teich) 103.90 mL Left Ventricle Left atrium is mildly enlarged, left ventricle is normal size, mild concentric left ventricular hypertrophy, visually estimated ejection fraction 55% with no regional wall motion abnormality, grade 1 diastolic dysfunction seen without tissue Doppler evidence of raise left atrial pressure. Right Ventricle Right atrium and right ventricular normal size and contractility. Aortic Valve Aortic valve is minimally thickened and fibrosed, there is no aortic stenosis or aortic insufficiency. Mitral Valve Mitral valve is grossly normal, there is mild mitral regurgitation. Tricuspid Valve Tricuspid valve grossly normal, there is mild tricuspid regurgitation tricuspid regurgitation jet velocity is inadequate for calculation of the right ventricular systolic pressure. Pulmonic Valve Pulmonic valve is poorly visualized. Great Vessels Aortic root is normal size. Pericardium No significant pericardial effusion noted. Conclusion 1. Mildly enlarged left atrium, normal left ventricular size, mild concentric left ventricular hypertrophy, visually estimated ejection fraction 55% with no regional wall motion abnormality, grade 1 diastolic dysfunction seen without tissue Doppler evidence of raise left atrial pressure. 2. Mild mitral and tricuspid regurgitation. 3. No significant pericardial effusion noted. Electronically signed by : Saw Sheppard, 03/17/2020 14:57:51
--- NOTE | 2020-03-16 08:30 | PC.NURSE ---
Notified Dr. Disla pt would like something for pain. He stated he would take care of it.
--- NOTE | 2020-03-16 10:02 | XR_ITS ---
PROCEDURE: XR FOOT LT MIN 3V CLINICAL INDICATION: left foot edema COMPARISON: CR FTL3 FOOT-LT-3 VIEWS from 07/07/2015 CR FTR3 FOOT-RT-3 VIEWS from 04/24/2017 CR FTL3 FOOT-LT-3 VIEWS from 04/24/2017 FINDINGS: Status post prior bunionectomy. There is good alignment. No fracture or dislocation. Mild osteoarthritic change 1st metatarsophalangeal joint. Other findings:None. IMPRESSION: Good alignment prior bunionectomy with no acute finding Dictated by: Joselito Brambila MD 03/16/2020 15:58 Joselito Brambila MD in [place] 03/16/2020 15:58
--- NOTE | 2020-03-16 10:03 | HMH.CNCARD ---
History of Present Illness Consult date: 03/16/20 Requesting physician: David Disla Consult reason: known to you Chief complaint: edema History of present illness: This is a 80-year-old white female who was admitted to the hospital with worsening bilateral lower extremity edema. The patient states that over the last several days her edema in her bilateral lower extremities got severe. She denies any chest pain or pressure. She denies any shortness of breath. She denies any fever, chills, nausea, vomiting, diarrhea, PND or orthopnea. She states that she was given Lasix last night and her edema improved in her bilateral lower extremities except for and her left foot. She states that she has never had edema like that in her left foot before. She states that she is supposed to get a stimulator in her back for her back pain which is severe and she typically has radiculopathy in her right lower extremity with swelling. She states that it is not unusual for her to have edema and the right lower extremity but she hardly ever has the edema in the left lower extremity and this is concerning for her. The patient denies any recent injury to the left lower extremity. [facility] History I have reviewed the patient's past medical history: Yes Medical History: Reports:: Aneurysm, Coronary Artery Disease, Cerebrovascular Accident, Hyperlipidemia, Hypertension, Internal Pacemaker, Myocardial Infarction, Peripheral Artery Disease, Peripheral Vascular Disease, Pulmonary Embolism Denies:: Cancer, Diabetes Mellitus Type 1, Diabetes Mellitus Type 2, MRSA, Seizures *Have you ever received a pneumonia vaccine?: No *Have you received a flu vaccine this season?: No Other Medical History: Reports: Anemia, Arthritis, Cataracts, Thyroid Disease. Denies: Blood Transfusion Reaction Laterality Cases: Left: Arthroscopy Shoulder, Other Other Surgeries: Yes: Cardiac Catheterization, Cholecystectomy, Colonoscopy, Hernia Repair, Hysterectomy-Total, Pacemaker, Other Amputation: No Fractures: No - *Social History Last grade of school completed: 9th or 10th Smoking Status: Former smoker Tobacco Type: cigarettes #Yrs smoked (if former smoker): 40 Alcohol Intake: never Alcohol Intake Frequency:: other Substance Use Type: denies use *Occupational Status:: retired Housing: house Household Members: family *Travel in the last 8 weeks: None Family Hx:: Asthma Meds Home Medications Medication Instructions Recorded Confirmed Type hydroxychloroquine 200 mg tablet 200 mg PO BID 90 Days #180 tab 02/10/20 03/16/20 Rx nifedipine 60 mg tablet,extended 60 mg PO DAILY #90 tab 02/10/20 03/16/20 Rx release zolpidem 10 mg tablet 10 mg PO QHS #30 tab 02/11/20 03/16/20 Rx Pregabalin 75 mg PO BID 02/17/20 03/16/20 History lisinopriL [Prinivil 20mg Tablet] 20 mg PO DAILY 02/17/20 03/16/20 History Tramadol HCl [Tramadol 50mg 50 mg PO TID 03/16/20 03/16/20 History Tab] Allergies Allergy/AdvReac Type Severity Reaction Status Date / Time No Known Allergies Allergy Verified 03/04/20 09:17 Exam Vital signs and Labs for Last 24 Hours: Temp Pulse Resp BP Pulse Ox 98.3 F 63 18 165/82 H 96 03/16/20 03:00 03/16/20 04:00 03/16/20 04:00 03/16/20 03:00 03/16/20 04:00 Laboratory Results - last 24 hr 03/15/20 23:40: Urine Color Yellow, Urine Appearance Clear, Urine pH 5.5, Ur Specific [place] 1.015, Urine Protein Negative, Urine Glucose (UA) Negative, Urine Ketones Negative, Urine Blood Negative, Urine Nitrate Negative, Urine Bilirubin Negative, Urine Urobilinogen 0.2, Ur Leukocyte Esterase Negative, Urine WBC 3-5, Ur Squamous Epith Cells 3-5, Urine Bacteria 1+, Urine Mucus 1+ 03/16/20 00:40: WBC 6.0, RBC 4.13 L, Hgb 12.3, Hct 37.6, MCV 91.1, MCH 29.7, MCHC 32.6, RDW 15.4, Plt Count 174, MPV 8.8, Neut % (Auto) 60.6, Lymph % (Auto) 26.9, [place] % (Auto) 6.2, Eos % (Auto) 5.5, Baso % (Auto) 0.8, Neut # (Auto) 3.6, Lymph # (Auto) 1.6, [place] # (Auto) 0.4, Eos # (Auto) 0.3
--- NOTE | 2020-03-16 10:23 | HMH.PHAINT ---
HOME MEDICATION RECONCILIATION COMPLETED AFTER CALLING [facility] AND SPEAKING WITH ZANE SOFIA
[2020-03-16 11:19] LABS: Troponin I < 0.01 ng/ml (0.00-0.034)
--- NOTE | 2020-03-16 11:34 | PC.NURSE ---
Called and spoke with Bette Jerome in Dr. Disla's office in regards to a diet order for lunch/snack. as well as patient requesting something else for pain. These orders were addressed during am rounds per Primary RN, but new orders we not given at that time. Bette states that she will address requests with Dr Disla.
--- NOTE | 2020-03-16 11:57 | HMH.HP ---
*Admission Date: 03/15/20 *Chief complaint: Lower Extremity Swelling *History of present illness: This is a 80-year-old white female who was admitted to the hospital with worsening bilateral lower extremity edema. The patient states that over the last several days her edema in her bilateral lower extremities got severe. She denies any chest pain or pressure. She denies any shortness of breath. She denies any fever, chills, nausea, vomiting, diarrhea, PND or orthopnea. She states that she was given Lasix last night and her edema improved in her bilateral lower extremities except for and her left foot. She states that she has never had edema like that in her left foot before. She states that she is supposed to get a stimulator in her back for her back pain which is severe and she typically has radiculopathy in her right lower extremity with swelling. She states that it is not unusual for her to have edema and the right lower extremity but she hardly ever has the edema in the left lower extremity and this is concerning for her. The patient denies any recent injury to the left lower extremity (Per Rosita Diaz APRN). Sodium 141, potassium 4.1, bun 29, Creatinine 1.5, H/H 11.7/36.4 Chest x-ray reveals no acute findings Cardiology has seen and rec: Plan: 1. This is a 80-year-old white female who was admitted to the hospital with lower extremity edema that has been worsening for the last several days. She states that her edema did improve in her bilateral lower extremities after she was given a dose of Lasix but she still has persistent edema in the left foot which is very unusual for her. We will give her another one-time dose of Lasix 40 mg IV to see if this improves the edema. 2. We will also get an x-ray of the left lower foot to make sure there is no sort of injury or arthritis contributing to this edema. 3. We could also consider a left lower extremity venous duplex as well if her x-ray is negative. 4. The patient does have a history of coronary artery disease. She denies any chest pain or chest pressure. We will get a troponin. As long as this is negative no plans for invasive cardiac testing at this time. 5. Her preliminary echocardiogram shows a normal ejection fraction with mild TR. Awaiting the official read. 6. Her blood pressure is elevated this morning. We do anticipate that her blood pressure will improve with the dose of Lasix. 7. Her LDL goal is less than 55. 8. Further recommendations will be made pending the patient's response to treatment. [facility] History Medical History: Reports:: Aneurysm, Coronary Artery Disease, Cerebrovascular Accident, Hyperlipidemia, Hypertension, Internal Pacemaker, Myocardial Infarction, Peripheral Artery Disease, Peripheral Vascular Disease, Pulmonary Embolism Denies:: Cancer, Diabetes Mellitus Type 1, Diabetes Mellitus Type 2, MRSA, Seizures *Have you ever received a pneumonia vaccine?: No *Have you received a flu vaccine this season?: No Other Medical History: Reports: Anemia, Arthritis, Cataracts, Thyroid Disease. Denies: Blood Transfusion Reaction Laterality Cases: Left: Arthroscopy Shoulder, Other Other Surgeries: Yes: Cardiac Catheterization, Cholecystectomy, Colonoscopy, Hernia Repair, Hysterectomy-Total, Pacemaker, Other Amputation: No Fractures: No - *Social History Last grade of school completed: 9th or 10th Smoking Status: Former smoker Tobacco Type: cigarettes #Yrs smoked (if former smoker): 40 Alcohol Intake: never Alcohol Intake Frequency:: other Substance Use Type: denies use *Occupational Status:: retired Housing: house Household Members: family *Travel in the last 8 weeks: None Family Hx:: Asthma Review of Systems - Constitutional Denies anorexia, Denies fever(s) - Eyes Denies blurry vision, Denies double vision - ENT Denies dizziness, Denies difficulty swallowing - *Cardiovascular Denies chest pain, Denies shortness of breath - *Respiratory Denies chest congest
--- NOTE | 2020-03-16 14:15 | PC.NURSE ---
Called Dr. Disla's office to see if patient could have some pain medication. She's rating her pain 10/10 after having tramadol. Spoke w/ Min. He called back shortly after and said norco 5/325mg was ordered. Gave pain medication per AUG.
--- NOTE | 2020-03-16 16:10 | PC.NURSE ---
A&OX4. PT HAS TOLERATED ROOM AIR WELL THROUGHOUT SHIFT. RESPIRATIONS REGULAR AND UNLABORED. LUNG SOUNDS BILATERALLY CLEAR. HAND DISPLAY MAKER EQUAL. NONPITTING EDEMA NOTED IN L FOOT. ACTIVE BOWEL SOUNDS HEARD IN ALL 4 QUADRANTS. SOFT AND NONTENDER ABDOMEN. NO BM THUS FAR. PT VOIDS PER BATHROOM INDEPENDENTLY. PT HAS HAD A LOT OF PAIN THIS SHIFT IN HER R HIP DOWN HER LEG. PT IS RECEIVING TRAMADOL AND NORCO PER AUG TO HELP W THE PAIN. +2 PULSES NOTED THROUGHOUT. PT IS CURRENTLY SITTING IN BED. CALL LIGHT WITHIN REACH. BED IN LOWEST POSITION. VSS. WILL CONTINUE TO MONITOR.
--- NOTE | 2020-03-17 03:18 | PC.NURSE ---
Pt A&OX4 lungs CTA pt denies SOA. pt c/o back pain radiating down to hip medicated per MAR. Pt ambulates independently to BR. pt has rested quietly this shift
[2020-03-17 06:29] VITALS: BMI 32.3
[2020-03-17 06:54] LABS: Basophils % 0.6 % (0.1-2.0); Eosinophils # 0.3 K/mm3 (0.0-0.4); Eosinophils % 6.4 % (0.1-12.0); Hematocrit 34.6 % (37.0-47.0); Hemoglobin 10.9 g/dL (12.2-16.2); Lymphocytes # 1.5 K/mm3 (0.7-4.5); Lymphocytes % 33.2 % (10-50); Mean Corpuscular HGB Conc 31.5 g/dL (31.8-35.4); Mean Corpuscular Hemoglobin 29.7 pg (27.0-31.2); Mean Corpuscular Volume 94.3 fl (81-99); Mean Platelet Volume 8.6 fl (7.4-10.4); Monocytes # 0.4 K/mm3 (0.1-1.0); Neutrophils # 2.3 K/mm3 (1.8-7.8); Neutrophils % 51.8 % (37.0-80.0); Platelet Count 135 K/mm3 (142-424); Red Blood Count 3.67 M/mm3 (4.20-5.40); Red Cell Distribution Width 15.3 % (11.5-17.5); White Blood Count 4.4 K/mm3 (4.8-10.8)
[2020-03-17 06:59] LABS: Chloride 105 mmol/L (98-107); Potassium 4.4 mmoL/L (3.5-5.1); Sodium 142 mmol/L (136-145)
[2020-03-17 07:02] LABS: Anion Gap 8.4 mEq/L (5-15); Blood Urea Nitrogen 36 mg/dl (7-17); Calcium 8.7 mg/dl (8.4-10.2); Carbon Dioxide 33 mmol/L (22.0-30.0); Creatinine Clearance Estimated 35 mL/min (50-200); Estimated Glomerular Filt Rate 27 ml/min (>60); GFR (African American) 33 ML/MIN (>60); Glucose 107 mg/dl (74-100)
[2020-03-17 07:56] VITALS: BP 139/77; PULSE 54; RESP 18; TEMP 36.5; O2SAT 99
[2020-03-17 08:00] VITALS: O2SAT 99
--- NOTE | 2020-03-17 08:30 | PC.NURSE ---
ALL CHARTING AND CARE DONE UNDER MY DIRECT SUPERVISION
--- NOTE | 2020-03-17 09:48 | HMH.PNCARD ---
Subjective Date: 03/17/20 Time: 09:48 Principal diagnosis: chf Interval history: This is a 80-year-old white female admitted to the hospital for worsening bilateral lower extremity edema. She has been treated for an acute exacerbation of diastolic congestive heart failure. Her edema has resolved. She denies any shortness of breath. She denies any chest pain, pressure, fever, chills, nausea, vomiting, diarrhea, PND or orthopnea. Exam Vital signs and Labs for Last 24 Hours: Temp Pulse Resp BP Pulse Ox 97.7 F 54 L 18 139/77 99 03/17/20 07:56 03/17/20 07:56 03/17/20 07:56 03/17/20 07:56 03/17/20 08:00 Laboratory Results - last 24 hr 03/16/20 10:30: Troponin I < 0.01 03/17/20 06:10: Sodium 142, Potassium 4.4, Chloride 105, Carbon Dioxide 33 H, Anion Gap 8.4, BUN 36 H D, Creatinine 1.80 H, Estimated Creat Clear 35, Estimated GFR 27 L, Est GFR ( Amer) 33 L, Glucose 107 H, Calcium 8.7 03/17/20 06:10: WBC 4.4 L D, RBC 3.67 L, Hgb 10.9 L, Hct 34.6 L, MCV 94.3, MCH 29.7, MCHC 31.5 L, RDW 15.3, Plt Count 135 L, MPV 8.6, Neut % (Auto) 51.8, Lymph % (Auto) 33.2, [place] % (Auto) 8.0, Eos % (Auto) 6.4, Baso % (Auto) 0.6, Neut # (Auto) 2.3, Lymph # (Auto) 1.5, [place] # (Auto) 0.4, Eos # (Auto) 0.3, Baso # (Auto) 0.0 I & O for Last 24 hours: Intake & Output 03/14/20 03/15/20 03/16/20 03/17/20 23:59 23:59 23:59 23:59 Intake Total 1115 / 1115 920 / 920 Output Total 1575 / 1575 350 / 350 Balance -460 / -460 570 / 570 Weight 189 lb 190 lb 6 oz 189 lb 3 oz Narrative: Foot x-ray shows: Good alignment prior bunionectomy with no acute finding - Constitutional no acute distress, obese - *Routine HEENT Exam Head: Present: normocephalic, atraumatic Eye: Present: EOMI, PERRL ENT: Present: mucous membranes moist - *Routine Neck Exam Present: supple, full ROM, normal carotid upstroke. Absent: JVD, carotid bruit, lymphadenopathy - *Routine Respiratory Exam Present: CTA bilaterally - *Routine Cardiovascular Exam Present: RRR, Normal S1, Normal S2. Absent: murmur - *Routine Abdominal Exam Present: soft, normoactive bowel sounds. Absent: tenderness, distended - *Routine Extremities Exam Present: full ROM, pulses intact, normal capillary refill. Absent: cyanosis, clubbing, edema - *Routine Skin Exam Present: intact, warm. Absent: erythema, rash - *Routine Neurological Exam Present: alert, oriented X3, CN II-XII intact. Absent: sensory deficit, motor deficit Progress Note: A&P (1) Edema Status: Acute (2) Right renal artery stenosis Status: Acute (3) Abdominal aortic aneurysm (AAA) Status: Chronic (4) CAD (coronary artery disease) Status: Chronic (5) PAD (peripheral artery disease) Status: Chronic (6) HHD (hypertensive heart disease) Status: Chronic (7) HLD (hyperlipidemia) Status: Chronic (8) CKD (chronic kidney disease) stage 2, GFR 60-89 ml/min Status: Chronic (9) Acute on chronic diastolic (congestive) heart failure Status: Acute Assessment and Plan for All Diagnoses:: Plan: 1. This is a 80-year-old white female admitted for an acute exacerbation of diastolic congestive heart failure. She was diuresed with Lasix and her symptoms have resolved. The patient will need to go home on her regular dose of Lasix which she states is Lasix 40 mg p.o. twice daily. 2. Her creatinine did bump from 1.5-1.8 which is expected with IV diuresis. 3. Her coronary artery disease is likely stable. She denies any chest pain or pressure. No plans for invasive cardiac testing at this time. 4. Her blood pressure is acceptable. 5. Her LDL goal is less than 55. 6. No further recommendations at this time from a cardiac standpoint. The patient is stable for discharge home from a cardiac standpoint. She is to follow-up in 1 to 2 weeks on an outpatient basis. Thank you for the opportunity to help participate in the care of this patient.
--- NOTE | 2020-03-17 13:55 | XR_ITS ---
PROCEDURE: XR CHEST 2V CLINICAL HISTORY: cough COMPARISON: CR CXR2V XR chest 2V from 06/29/2017 CR CXR2V XR chest 2V from 07/08/2017 CR CXR1VP XR chest portable from 05/19/2018 CR XR CHEST 2V from 03/15/2020 FINDINGS: The cardiomediastinal silhouette and pulmonary vascularity are within normal limits. COPD. Patchy density noted in the right lower lobe medially suggesting an area of atelectasis or infiltrate. This has developed since the previous exam. The remaining lungs are clear. No acute bony abnormalities. IMPRESSION: COPD with patchy infiltrate in the right lower lobe medially Dictated by: Joselito Brambila MD 03/17/2020 15:32 Joselito Brambila MD in [place] 03/17/2020 15:32
--- NOTE | 2020-03-17 15:41 | HMH.PULMCON ---
*Admission Date: 03/15/20 *Reason for consult:: Cough *History of present illness: Ms. Gandhi is a pleasant 80-year-old female with a history of lupus on hydroxychloroquine, hypertension, chronic kidney disease, chronic anemia, following with hematology receiving iron transfusions, chronic low back pain with right lower extremity neuropathic pain, atherosclerotic artery disease with significant atherosclerosis in her mesenteric arteries and femoral arteries status post stenting was presented to the emergency department 2 days ago complaining of worsening lower extremity swelling. Pulmonary was consulted today for new onset nonproductive cough. On further questioning patient states that she has been coughing since this morning which is nonproductive, patient denies any change in her respiratory status, breathing at her baseline, patient saturating 99% on room air. Patient denies any prior respiratory complaints, not on any inhalers. Not on long-term oxygen therapy. [facility] History Medical History: Reports:: Aneurysm, Coronary Artery Disease, Cerebrovascular Accident, Hyperlipidemia, Hypertension, Internal Pacemaker, Myocardial Infarction, Peripheral Artery Disease, Peripheral Vascular Disease, Pulmonary Embolism Denies:: Cancer, Diabetes Mellitus Type 1, Diabetes Mellitus Type 2, MRSA, Seizures *Have you ever received a pneumonia vaccine?: No *Have you received a flu vaccine this season?: No Other Medical History: Reports: Anemia, Arthritis, Cataracts, Thyroid Disease. Denies: Blood Transfusion Reaction Laterality Cases: Left: Arthroscopy Shoulder, Other Other Surgeries: Yes: Cardiac Catheterization, Cholecystectomy, Colonoscopy, Hernia Repair, Hysterectomy-Total, Pacemaker, Other Amputation: No Fractures: No - *Social History Last grade of school completed: 9th or 10th Smoking Status: Former smoker Tobacco Type: cigarettes #Yrs smoked (if former smoker): 40 Alcohol Intake: never Alcohol Intake Frequency:: other Substance Use Type: denies use *Occupational Status:: retired Housing: house Household Members: family *Travel in the last 8 weeks: None Family Hx:: Asthma [facility] Pulmonology ROS - Constitutional Denies daytime sleepiness, Denies fatigue, Denies fever(s) - *Cardiovascular Reports leg pain with activity, Reports shortness of breath with activity, Reports leg swelling, Denies chest pain, Denies chest pain at rest - *Respiratory Respiratory: Yes shortness of breath, No chest congestion, Yes non-productive cough, Yes dyspnea on exertion, No excessive phlegm production, No coughing up blood, No pain on inspiration, No pain with cough, No cough with sputum production - *Gastrointestinal Gastrointestingal: Reports: system reviewed and no additional complaints, except as docu - *Musculoskeletal Musculoskeletal: Reports system reviewed and no additional complaints, except as docu, Reports back pain - *Neurologic Denies dizziness, Denies localized weakness, Denies seizure-like activity Meds Home Medications Medication Instructions Recorded Confirmed Type hydroxychloroquine 200 mg tablet 200 mg PO BID 90 Days #180 tab 02/10/20 03/16/20 Rx nifedipine 60 mg tablet,extended 60 mg PO DAILY #90 tab 02/10/20 03/16/20 Rx release Pregabalin 75 mg PO BID 02/17/20 03/16/20 History lisinopriL [Prinivil 20mg Tablet] 20 mg PO DAILY 02/17/20 03/16/20 History Tramadol HCl [Tramadol 50mg 50 mg PO TID 03/16/20 03/16/20 History Tab] Zolpidem Tartrate 10 mg PO HS 03/16/20 03/16/20 History Furosemide [Lasix 40mg tab] 40 - 80 mg PO NEEDED PRN 03/17/20 03/17/20 History Allergies Allergy/AdvReac Type Severity Reaction Status Date / Time No Known Allergies Allergy Verified 03/04/20 09:17 Exam Vital signs and Labs for Last 24 Hours: Temp Pulse Resp BP Pulse Ox 97.7 F 54 L 18 139/77 99 03/17/20 07:56 03/17/20 07:56 03/17/20 07:56 03/17/20 07:56 03/17/20 08:00 Laboratory Results - last 24 hr 03/17/20
[2020-03-17 16:00] VITALS: BP 148/72; PULSE 52; RESP 18; TEMP 36.6; O2SAT 96
--- NOTE | 2020-03-17 16:15 | PC.NURSE ---
No change this shift. Patient taken to x-ray for films of chest this afternoon. Non-productive cough noted. Lungs clear in all griffin, bowel sounds normoactive. No edema noted. Some right hip pain this shift, controlled by medications. Will continue to monitor.
--- NOTE | 2020-03-17 17:06 | HMH.DCSUM ---
General - General Admission date:: 03/16/20 Discharge date: 03/17/20 HPI HPI: This is a 80-year-old white female who was admitted to the hospital with worsening bilateral lower extremity edema. The patient states that over the last several days her edema in her bilateral lower extremities got severe. She denies any chest pain or pressure. She denies any shortness of breath. She denies any fever, chills, nausea, vomiting, diarrhea, PND or orthopnea. She states that she was given Lasix last night and her edema improved in her bilateral lower extremities except for and her left foot. She states that she has never had edema like that in her left foot before. She states that she is supposed to get a stimulator in her back for her back pain which is severe and she typically has radiculopathy in her right lower extremity with swelling. She states that it is not unusual for her to have edema and the right lower extremity but she hardly ever has the edema in the left lower extremity and this is concerning for her. The patient denies any recent injury to the left lower extremity (Per Rosita Diaz APRN). Sodium 141, potassium 4.1, bun 29, Creatinine 1.5, H/H 11.7/36.4 Chest x-ray reveals no acute findings Cardiology has seen and rec: Plan: 1. This is a 80-year-old white female who was admitted to the hospital with lower extremity edema that has been worsening for the last several days. She states that her edema did improve in her bilateral lower extremities after she was given a dose of Lasix but she still has persistent edema in the left foot which is very unusual for her. We will give her another one-time dose of Lasix 40 mg IV to see if this improves the edema. 2. We will also get an x-ray of the left lower foot to make sure there is no sort of injury or arthritis contributing to this edema. 3. We could also consider a left lower extremity venous duplex as well if her x-ray is negative. 4. The patient does have a history of coronary artery disease. She denies any chest pain or chest pressure. We will get a troponin. As long as this is negative no plans for invasive cardiac testing at this time. 5. Her preliminary echocardiogram shows a normal ejection fraction with mild TR. Awaiting the official read. 6. Her blood pressure is elevated this morning. We do anticipate that her blood pressure will improve with the dose of Lasix. 7. Her LDL goal is less than 55. 8. Further recommendations will be made pending the patient's response to treatment. Hospital Course Hospital Course: Laboratory Tests 03/15/20 03/16/20 03/16/20 23:40 00:40 00:40 WBC 6.0 RBC 4.13 L Hgb 12.3 Hct 37.6 MCV 91.1 MCH 29.7 MCHC 32.6 RDW 15.4 Plt Count 174 MPV 8.8 Neut % (Auto) 60.6 Lymph % (Auto) 26.9 [place] % (Auto) 6.2 Eos % (Auto) 5.5 Baso % (Auto) 0.8 Neut # (Auto) 3.6 Lymph # (Auto) 1.6 [place] # (Auto) 0.4 Eos # (Auto) 0.3 Baso # (Auto) 0.1 ESR 54 H Sodium 141 Potassium 3.8 Chloride 104 Carbon Dioxide 30 Anion Gap 10.8 BUN 29 H Creatinine 1.50 H Estimated Creat Clear 42 Estimated GFR 34 L Est GFR ( Amer) 41 L Glucose 127 H Calcium 9.5 Phosphorus Magnesium Total Bilirubin 0.4 AST 26 ALT 18 Alkaline Phosphatase 88 Troponin I C-Reactive Protein 4.7 H NT-Pro-B Natriuret Pep 642 H Total Protein 7.1 Albumin 4.0 Globulin 3.1 Albumin/Globulin Ratio 1.3 TSH 5.69 H Thyroxine (T4) 8.9 Urine Color Yellow Urine Appearance Clear Urine pH 5.5 Ur Specific [place] 1.015 Urine Protein Negative Urine Glucose (UA) Negative Urine Ketones Negative Urine Blood Negative Urine Nitrate Negative Urine Bilirubin Negative Urine Urobilinogen 0.2 Ur Leukocyte Esterase Negative Urine WBC 3-5 Ur Squamous Epith Cells 3-5 Urine Bacteria 1+ Urine Mucus 1+
== END 2020-03-17 18:00 | disposition home or self-care (01) ==
LOC: ER 03-16 02:00 → 2ND 03-16 02:42
PROVIDERS: Nurse Practitioner Family; Admitting Provider Emergency Medicine; Emergency Provider Emergency Medicine; PCP Emergency Medicine; Visit Provider Emergency Medicine
DX: I50.33 Acute on chronic diastolic (congestive) heart failure (principal); N17.9 Acute kidney failure, unspecified; N18.2 Chronic kidney disease, stage 2 (mild); I13.0 Hypertensive heart and chronic kidney disease with heart failure and stage 1 through stage 4 chronic kidney disease, or unspecified chronic kidney disease; E78.5 Hyperlipidemia, unspecified; I71.4 Abdominal aortic aneurysm, without rupture; I70.1 Atherosclerosis of renal artery; Z79.899 Other long term (current) drug therapy; M32.9 Systemic lupus erythematosus, unspecified
CPT/HCPCS: 36415; 71046; 73630; 80048; 80053; 81001; 83735; 83880; 84100; 84436; 84443; 84484; 85025; 85651; 86140; 93306; 96374; 99284; G0378; J2405

== ENCOUNTER → 2020-03-21 15:26 | Outpatient (CLI) | payer MEDICARE, SELFPAY ==
--- NOTE | 2020-03-21 15:32 | XR_ITS ---
PROCEDURE: XR CHEST 2V CLINICAL HISTORY: cough COMPARISON: CT CHESTWO CT chest wo con from 07/10/2017 CR CXR1VP XR chest portable from 05/19/2018 CR XR CHEST 2V from 03/15/2020 DX XR CHEST 2V from 03/17/2020 FINDINGS: Borderline cardiomegaly. No CHF. Hyperinflation with increased AP dimension of the chest The lungs are clear without infiltrates, suspicious nodules, or pleural effusions. Degenerative changes thoracic spine IMPRESSION: As above, no acute finding. Suspect mild COPD Dictated by: Joselito Brambila MD 03/21/2020 17:12 Joselito Brambila MD in [place] 03/21/2020 17:12
== END ==
PROVIDERS: PCP Emergency Medicine; Visit Provider Internal Medicine Pulmonary Disease
DX: R05 Cough (principal); R06.2 Wheezing
CPT/HCPCS: 71046; 87070; 87205

== ENCOUNTER → 2020-03-25 18:46 | Outpatient (CLI) | payer MEDICARE, SELFPAY ==
[2020-03-25 19:39] LABS: Anion Gap 11.4 mEq/L (5-15); Blood Urea Nitrogen 34 mg/dl (7-17); Carbon Dioxide 34 mmol/L (22.0-30.0); Chloride 102 mmol/L (98-107); Estimated Glomerular Filt Rate 26 ml/min (>60); GFR (African American) 31 ML/MIN (>60); Glucose 92 mg/dl (74-100); Potassium 4.4 mmoL/L (3.5-5.1); Sodium 143 mmol/L (136-145)
== END ==
PROVIDERS: Visit Provider Emergency Medicine
DX: N28.9 Disorder of kidney and ureter, unspecified (principal)
CPT/HCPCS: 80048

== ENCOUNTER → 2020-03-29 13:42 | Outpatient (CLI) | payer MEDICARE, SELFPAY ==
[2020-03-29 14:13] LABS: Basophils % 0.5 % (0.1-2.0); Eosinophils # 0.4 K/mm3 (0.0-0.4); Eosinophils % 4.5 % (0.1-12.0); Hematocrit 37.9 % (37.0-47.0); Hemoglobin 12.5 g/dL (12.2-16.2); Lymphocytes # 1.9 K/mm3 (0.7-4.5); Lymphocytes % 22.8 % (10-50); Mean Corpuscular Hemoglobin 30.2 pg (27.0-31.2); Mean Corpuscular Volume 91.6 fl (81-99); Mean Platelet Volume 9.2 fl (7.4-10.4); Monocytes # 0.6 K/mm3 (0.1-1.0); Neutrophils # 5.3 K/mm3 (1.8-7.8); Neutrophils % 65.2 % (37.0-80.0); Platelet Count 178 K/mm3 (142-424); Red Blood Count 4.14 M/mm3 (4.20-5.40); Red Cell Distribution Width 14.9 % (11.5-17.5); White Blood Count 8.2 K/mm3 (4.8-10.8)
[2020-03-29 14:49] LABS: Chloride 101 mmol/L (98-107)
[2020-03-29 14:50] LABS: Potassium 3.9 mmoL/L (3.5-5.1); Sodium 143 mmol/L (136-145)
[2020-03-29 14:52] LABS: Blood Urea Nitrogen 41 mg/dl (7-17); Estimated Glomerular Filt Rate 29 ml/min (>60); GFR (African American) 35 ML/MIN (>60)
[2020-03-29 14:53] LABS: Anion Gap 11.9 mEq/L (5-15); Calcium 8.8 mg/dl (8.4-10.2); Carbon Dioxide 34 mmol/L (22.0-30.0); Glucose 92 mg/dl (74-100)
[2020-03-29 15:56] LABS: Coronavirus 19 IgG Antibody Negative (Negative); Coronavirus 19 IgM Antibody Negative (Negative)
[2020-03-29 16:29] LABS: Barbiturates Screen,Urine Negative ng/ml (<200)
[2020-03-29 16:30] LABS: Amphetamine/Metha Screen,Urine Negative ng/ml (<1000); Benzodiazepines Screen,Urine Negative ng/ml (<200)
[2020-03-29 16:31] LABS: Cannabinoid Screen,Urine Negative ng/ml (<50); Cocaine Screen,Urine Negative ng/ml (<300)
[2020-03-29 16:32] LABS: Methadone Screen,Urine Negative ng/ml (<300)
[2020-03-29 16:33] LABS: Opiate Screen,Urine Negative ng/ml (<300)
[2020-03-29 16:34] LABS: Phencyclidine Screen,Urine Negative ng/ml (<25)
== END ==
PROVIDERS: Visit Provider Anesthesiology
DX: Z01.818 Encounter for other preprocedural examination (principal); M51.36 Other intervertebral disc degeneration, lumbar region
CPT/HCPCS: 36415; 80048; 80305; 85025; 86328

== ENCOUNTER 2020-03-30 08:31 | Day surgery (SDC) | payer MEDICARE, SELFPAY ==
[2020-03-28 14:03] VITALS: BMI 32.4
[2020-03-30] VITALS (8 sets, daily range): BP systolic 114–187; BP diastolic 52–84; PULSE 45–77; RESP 16–18; TEMP 36.1–36.2; O2SAT 95–100
--- NOTE | 2020-03-30 10:48 | HMH.PMCON ---
Assessment and Plan - Assessment and plan all Dx Assessment and Plan for all problems:: Impression-degenerative disc disease of the lumbar spine with radiculopathy Plan-placement of intrathecal pain pump generator HPI - Data of Consult Patient: new to practice Consult date: 03/30/20 Requesting Physician: Matt Rivas MD Primary Care Provider: David Disla MD - Consult Narrative Reason for consult: Chronic back pain History of present illness: Ms. Gandhi is a 80 year old female with degenerative disc disease of the lumbar spine with radiculopathy. Patient had a pain pump trial with success and comes in today for placement of that system. CC: Matt Rivas MD [facility] History Medical History: Reports:: Aneurysm, Coronary Artery Disease, Cerebrovascular Accident, Hyperlipidemia, Hypertension, Internal Pacemaker, Myocardial Infarction, Peripheral Artery Disease, Peripheral Vascular Disease, Pulmonary Embolism Denies:: Cancer, Diabetes Mellitus Type 1, Diabetes Mellitus Type 2, MRSA, Seizures *Have you ever received a pneumonia vaccine?: No *Have you received a flu vaccine this season?: No Other Medical History: Reports: Anemia, Arthritis, Cataracts, Thyroid Disease. Denies: Blood Transfusion Reaction Comment:: Illnesses-hypertension, hyperlipidemia, coronary artery disease with history of SD, peripheral vascular disease, Hutson's palsy, history of congestive heart failure, abdominal aneurysm, chronic kidney disease, chronic back pain Laterality Cases: Left: Arthroscopy Shoulder, Other Other Surgeries: Yes: Cardiac Catheterization, Cholecystectomy, Colonoscopy, Hernia Repair, Hysterectomy-Total, Pacemaker, Other Amputation: No Fractures: No Comment: Operations, cardiac cath, left shoulder arthroscopy, cholecystectomy, hernia repair, hysterectomy - *Social History Last grade of school completed: 9th or 10th Smoking Status: Former smoker Tobacco Type: cigarettes #Yrs smoked (if former smoker): 40 Alcohol Intake: never Alcohol Intake Frequency:: other Substance Use Type: denies use *Occupational Status:: retired Housing: house Household Members: family *Travel in the last 8 weeks: None Family Hx:: Asthma Review of Systems - Review of Systems Review of systems:: pertinent systems reviewed and negative unless documented below Meds Home Medications Medication Instructions Recorded Confirmed Type hydroxychloroquine 200 mg tablet 200 mg PO BID 90 Days #180 tab 02/10/20 03/28/20 Rx Pregabalin 75 mg PO BID 02/17/20 03/28/20 History Tramadol HCl [Tramadol 50mg 50 mg PO TID 03/16/20 03/28/20 History Tab] Zolpidem Tartrate 10 mg PO HS 03/16/20 03/28/20 History Furosemide [Lasix 40mg tablet] 40 mg PO BID 03/28/20 03/28/20 History Metoprolol Succinate [Toprol XL 50 mg PO DAILY 03/28/20 03/28/20 History 50mg Tablet] Allergies Allergy/AdvReac Type Severity Reaction Status Date / Time No Known Allergies Allergy Verified 03/25/20 14:04 Objective Vital signs: Temp Pulse Resp BP Pulse Ox 97.1 F L 53 L 18 187/61 H 95 03/30/20 09:06 03/30/20 09:06 03/30/20 09:06 03/30/20 09:06 03/30/20 09:06 Comments: Pale white female in no distress - *Routine Respiratory Exam Present: CTA bilaterally - *Routine Cardiovascular Exam Present: RRR - *Routine Abdominal Exam Present: soft
--- NOTE | 2020-03-30 12:15 | HMH.ANESCL ---
[facility] Anesthesia Checklist - Structural Data Admitted From: Home Planned Operative Procedure/s: pain pump insertion Consent for Planned Operative Procedure(s) Verified: Yes - Additional verifications Anesthesia Reactions: No Hx Blood Transfusions: No Blood Transfusion Reaction: No - Airway Assessment C-Spine Mobility Assessed: Yes TMJ Mobility Assessed: Yes Dentition: Edentulous - Neurological Assessment Level of Consciousness: Awake, Alert, Appropriate - Anesthesia Plan Anesthesia Risk discussed: Yes Anesthesia Plan: Verified ASA Class: II Anesthesia Type: MAC [facility] History I have reviewed the patient's past medical history: Yes Medical History: Reports:: Aneurysm, Coronary Artery Disease, Cerebrovascular Accident, Hyperlipidemia, Hypertension, Internal Pacemaker, Myocardial Infarction, Peripheral Artery Disease, Peripheral Vascular Disease, Pulmonary Embolism Denies:: Cancer, Diabetes Mellitus Type 1, Diabetes Mellitus Type 2, MRSA, Seizures *Have you ever received a pneumonia vaccine?: No *Have you received a flu vaccine this season?: No Other Medical History: Reports: Anemia, Arthritis, Cataracts, Thyroid Disease. Denies: Blood Transfusion Reaction Anesthesia experience/problems:: none Laterality Cases: Left: Arthroscopy Shoulder, Other Other Surgeries: Yes: Cardiac Catheterization, Cholecystectomy, Colonoscopy, Hernia Repair, Hysterectomy-Total, Pacemaker, Other Amputation: No Fractures: No - *Social History Last grade of school completed: 9th or 10th Smoking Status: Former smoker Tobacco Type: cigarettes #Yrs smoked (if former smoker): 40 Alcohol Intake: never Alcohol Intake Frequency:: other Substance Use Type: denies use *Occupational Status:: retired Housing: house Household Members: family *Travel in the last 8 weeks: None Family Hx:: Asthma
--- NOTE | 2020-03-30 13:38 | P.OP_ITS ---
Date of procedure: 03/30/20 Pre-op Diagnosis:: Degenerative disc disease of the lumbar spine with radiculopathy Post-op Diagnosis:: Same Procedure performed:: Placement of intrathecal pain pump generator Surgeon:: Thaddeus Granger MD SHOW DOG TRAINER:: Danet Trevino, Lonny Crews, Vishnu Botello, Brett Evans, Other Anesthesia: MAC Estimated blood loss (mL): 5 Operative findings:: Not applicable Operative note:: Patient was placed prone on the operating table and her back and flank regions were prepped and draped in sterile fashion. Patient underwent IV sedation via anesthesia and local anesthesia was 1% Xylocaine with epinephrine. Paraspinal incision made by Dr. Rivas there which an intrathecal catheter was passed into the intrathecal space desired by Evelyn. The catheter was fixed to the paraspinal fascia with fixation devices and 2-0 Prolene suture. A left flank incision was then made under which made a pocket for placement of the reservoir. Utilizing the tunneling device the catheter was passed from the paraspinal incision to the pocket incision. Both pockets irrigated with antibiotic solution. Catheter fixed the generator which was placed in the pocket. CSF was aspirated from the generator noting patency of the system. Generator sutured to the underlying fascia with 2-0 Prolene suture. Subcutaneous tissues closed with 2-0 Vicryl and skin closed with interrupted stitches of 4-0 nylon wound VAC dressings and a binder applied to the wound. The patient taught procedure well was taken to the recovery room in stable condition. Upon recovery the patient will be discharged home and will follow up in 1 week for removal of the wound VAC system and in 2 weeks for removal of the sutures. Antibiotic x1 week p.o. per protocol. The patient tolerated procedure well Condition: stable Disposition: PACU Complications:: None
--- NOTE | 2020-03-30 13:58 | P.OP_ITS ---
Date of procedure: 03/30/20 Pre-op Diagnosis:: Degenerative disc disease of the lumbar spine with lumbar radiculopathy symptoms and right-sided hip pain Post-op Diagnosis:: Same Procedure performed:: Permanent placement of intrathecal catheter with tunneling for permanent placement of intrathecal pain pump Surgeon:: Matt Rivas MD GEOGRAPHIC INFORMATION SCIENTIST:: Brett Evans Anesthesia: GETA Estimated blood loss (mL): 5 Clinical Note:: This patient is a pleasant 80-year-old white female who we have been treating for low back pain with lumbar radiculopathy symptoms and right-sided hip pain. She has failed all previous conservative therapy including injections, oral medications, physical therapy and a previous spinal cord stimulator trial. She is not a surgical candidate. She has had a successful psychological evaluation. She has come off of her Percocet completely. She presents for permanent placement of intrathecal pain pump today. Operative findings:: None Operative note:: Informed consent was obtained and the risk and benefits of the procedure were explained to the patient. Patient was taken to the operating room placed prone on the procedure table. She was prepped and draped in sterile fashion. C-arm fluoroscopy was used to view the lumbar spine. The skin and subcutaneous tissues adjacent to the L4-5 interspace were anesthetized using lidocaine. I made an incision and dissected down to the lumbar paraspinous fascia. A 14- gauge spinal needle was inserted and advanced into the L4-5 interspace until clear CSF was obtained. After this intrathecal catheter was inserted and advanced very easily to the L1 vertebral body. The stylette of the catheter and the needle were withdrawn. The catheter was secured to the fascia with 2 anchoring devices and 2-0 Prolene. I tunneled the catheter from the back to the battery pocket created by Dr. Granger. I attached the catheter to the pump. The pump was placed in the pocket and secured to the fascia with 2-0 Prolene. We were able to freely withdraw clear CSF through the side-port. The pump was placed in the pocket and both incisions were closed with 2-0 Vicryl followed by 4-0 nylon. A wound VAC was placed over both incisions. The patient was placed in an abdominal binder taken recovery in stable condition. The pump was progra mmed and started at 0.25 mg/day of intrathecal morphine. Patient tolerated the procedure well with no complications. Patient was discharged home neurologically intact and with good relief of pain symptoms. Plan and disposition: We will follow-up with this patient in 1 week for wound check. We will follow-up in 2 weeks for suture removal. If patient has any problems or questions she is to call us back in the pain clinic. Make adjustments to her pain pump at either visit. Condition: stable Disposition: PACU Complications:: None
== END 2020-03-30 15:12 | disposition home or self-care (01) ==
LOC: OR 08:32
PROVIDERS: PCP Emergency Medicine; Visit Provider Anesthesiology
PROC: (CPT 62350; principal; 2020-03-30 10:00)
DX: M51.16 Intervertebral disc disorders with radiculopathy, lumbar region (principal); I10 Essential (primary) hypertension; E78.5 Hyperlipidemia, unspecified; I25.10 Atherosclerotic heart disease of native coronary artery without angina pectoris; I25.2 Old myocardial infarction; Z95.0 Presence of cardiac pacemaker; I73.9 Peripheral vascular disease, unspecified; Z86.711 Personal history of pulmonary embolism; Z86.79 Personal history of other diseases of the circulatory system; Z86.73 Personal history of transient ischemic attack (TIA), and cerebral infarction without residual deficits; D64.9 Anemia, unspecified; M19.90 Unspecified osteoarthritis, unspecified site
CPT/HCPCS: 62350; 62362; 96374; C1755; C1772; J3370

== ENCOUNTER → 2020-04-07 11:56 | Outpatient (POV) | payer MEDICARE, SELFPAY ==
[2020-04-07 12:26] VITALS: BP 136/77; PULSE 85; RESP 18; O2SAT 98; BMI 32.4
--- NOTE | 2020-04-07 12:32 | HMH.PMPROC ---
- Procedure Date: 04/07/20 Time: 12:32 Anesthesiologist:: Kina Sandra APRN Complications:: None Pre-procedure Diagnosis:: Degenerative disc disease lumbar spine with lumbar radiculopathy symptoms, right-sided hip pain Post-procedure Diagnosis:: Same Indications for Procedure:: Patient is a 80-year-old white female who presents today for intrathecal pain pump adjustment. Patient recently had an intrathecal pain pump placed for chronic low back pain with lumbar radiculopathy symptoms. Since having the pump implanted, the patient has had severe nausea and vomiting. The patient did have her intrathecal pain pump dosing decreased. She initially started with morphine at 0.25 mg. Her dose was decreased to 0.1 mg/day. She says that the nausea and vomiting has gotten better. She is still having some occasional nausea, however, she says her pain is a 5 out of 10 at this time. She says she was getting pain relief though she was having nausea and vomiting and now is having more pain than nausea. She would like an increase today to see if this helps with the pain. Patient I discussed going slow with her intrathecal dosing to see if this helps with the nausea and vomiting. The patient's last episode of emesis was approximately 3 days ago. She was able to eat toast and juice this morning. She says she did have some nausea afterwards, however, no emesis. She denies any further symptoms. The patient's Donis #[id number] has been reviewed. Patient is on Lyrica as prescribed by Dr. Jimenes. The patient was given 25 tablets of [place] [address] VALERIE Membreno following the surgery for postoperative pain. Physical exam General: Alert and oriented x3, no acute distress, pleasant and cooperative, [on room air] Lungs: Respirations even and unlabored, symmetrical chest expansion Eyes: PERRL Musculoskeletal: Flexion and extension of lumbar spine somewhat guarded secondary to pain, deep tendon reflexes normal, strength in upper and lower extremities [5/5], [abnormal gait noted] Neurological: Speech clear, studio data analyst equal, no gross sensory deficit Procedure Details:: Informed consent was obtained and the risk and benefits of the procedure were explained to the patient. Patient was taken to the procedure room where noninvasive monitoring was placed including noninvasive blood pressure cuff and pulse oximeter. Patient's pump was interrogated and was reprogrammed to morphine at 0.13 mg/day. The patient tolerated the procedure well with no complications. Plan and Disposition:: We will see if the patient is able to tolerate a small increase in her intrathecal therapy. If the patient is unable to tolerate increasing the medicine, we may need to change the patient's medication in her intrathecal pump. She has been instructed if her symptoms resume with nausea and vomiting, to contact the clinic, as we will need to turn the intrathecal pump off until we can change out her medication. Patient is in agreement. We will follow-up with her in 1 week otherwise to reassess her pain and her symptoms. She has been instructed to contact clinic if she has any concerns before next appointment. The patient and I specifically discussed risk factors for COVID19. These risks include, but are not limited to age greater than 60, heart or lung disease, diabetes, immunosuppression, and travel. We also discussed NSAIDs may worsen COVID19 infection or symptoms. Patient should not use NSAIDs to treat COVID19 signs or symptoms. Patient was also informed that any type of corticosteroid of any form (oral or injection) will decrease the patient's immune system response and may increase the likelihood of COVID19 infection [address] symptoms[address] Rivas has reviewed this note and agrees with this plan of care. This note was dictated using voice recognition software and make contain errors or omissions.
== END ==
PROVIDERS: PCP Emergency Medicine; Visit Provider Clinical Nurse Specialist Family Health
DX: M51.16 Intervertebral disc disorders with radiculopathy, lumbar region (principal); M25.551 Pain in right hip
CPT/HCPCS: 62368

== ENCOUNTER → 2020-04-14 11:11 | Outpatient (POV) | payer MEDICARE, SELFPAY ==
--- NOTE | 2020-04-14 11:54 | HMH.PMPROC ---
- Procedure Date: 04/14/20 Time: 11:54 Anesthesiologist:: Kina Sandra APRN Complications:: None Pre-procedure Diagnosis:: deGenerative disc disease lumbar spine with lumbar radiculopathy symptoms, right-sided hip pain Post-procedure Diagnosis:: Same Indications for Procedure:: Patient is a pleasant 80-year-old white female who presents today for intrathecal pain pump adjustment. 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 Patient has morphine at 0.13 mg/day. She was initially started at 0.25 mg/day, however, had severe nausea and vomiting. As result, the patient was decreased to 0.1 mg/day. She did come into the clinic and was increased and tolerated the increase without any difficulty. She denies any nausea or vomiting. She would like an increase today. Patient's incision is red today. There is no swelling or drainage noted. Patient is accompanied by her daughter who does work in a pulmonology clinic local. We did discuss starting Bactrim. The patient does admit she did not take the full dose of Bactrim that was prescribed to her in the past. I have encouraged her to take the medication to prevent any type of infection to her incision site. She also admits that she has been scratching the incision site daily. I have also educated the patient regarding itching and the healing process. Patient says she will refrain from scratching the area. The daughter has requested that we also order the patient Diflucan. She has had to take it in the past when she takes Bactrim. It does rate her pain a 7 out of 10 today. We will increase her to see if she gets relief. Physical exam General: Alert and oriented x3, no acute distress, pleasant and cooperative, [on room air] Lungs: Respirations even and unlabored, symmetrical chest expansion Eyes: PERRL Musculoskeletal: Flexion and extension of lumbar spine somewhat guarded secondary to pain, deep tendon reflexes normal, strength in upper and lower extremities [5/5], [abnormal gait noted] Neurological: Speech clear, senior civil engineer equal, no gross sensory deficit Procedure Details:: Informed consent was obtained and the risk and benefits of the procedure were explained to the patient. Patient was taken to the procedure room where noninvasive monitoring was placed including noninvasive blood pressure cuff and pulse oximeter. Patient's pump was interrogated and was reprogrammed to morphine at 0.15 mg/day. The patient tolerated the procedure well with no complications. Plan and Disposition:: We will see the patient back in a week to reassess her symptoms. We will order the patient Bactrim DS 1 tablet p.o. twice daily for 7 days. We will also order her Diflucan 150 mg 1 tablet once. We will plan to remove her stitches at her next visit. I have encouraged her to take the entire dose to prevent any infection at her incision site. Patient has been instructed to contact clinic if she has any concerns for next appointment. The patient and I specifically discussed risk factors for COVID19. These risks include, but are not limited to age greater than 60, heart or lung disease, diabetes, immunosuppression, and travel. We also discussed NSAIDs may worsen COVID19 infection or symptoms. Patient should not use NSAIDs to treat COVID19 signs or symptoms. Patient was also informed that any type of corticosteroid of any form (oral or injection) will decrease the patient's immune system response and may increase the likelihood of COVID19 infection and symptoms[address] Rivas has reviewed this note and agrees with this plan of care. This note was dictated using voice recognition software and make contain errors or omissions.
[2020-04-14 12:33] VITALS: BP 133/74; PULSE 85; RESP 18; O2SAT 98; BMI 33.5
== END ==
PROVIDERS: PCP Emergency Medicine; Visit Provider Clinical Nurse Specialist Family Health
DX: M51.16 Intervertebral disc disorders with radiculopathy, lumbar region (principal); M25.551 Pain in right hip
CPT/HCPCS: 62368

== ENCOUNTER → 2020-04-21 11:25 | Outpatient (POV) | payer MEDICARE, SELFPAY ==
[2020-04-21 12:30] VITALS: BP 132/72; PULSE 84; RESP 20; TEMP 36.7; O2SAT 95; BMI 32.5
--- NOTE | 2020-04-21 13:05 | P.PCN_ITS ---
- Procedure Date: 04/21/20 Time: 13:05 Anesthesiologist:: Tianna Brown APRN Complications:: None Pre-procedure Diagnosis:: Degenerative disc disease lumbar spine lumbar radiculopathy Post-procedure Diagnosis:: Same Indications for Procedure:: Patient is a pleasant 80-year-old white female who presents today for intrathecal pain pump adjustment. She is being treated for pain secondary to degenerative disc disease lumbar spine lumbar radiculopathy symptoms. Patient rates her pain today 6 out of 10 much improved from her last visit. Patient is still having some nausea however she believes it may be coming from the Bactrim. Patient's last day of Bactrim is today. Patient stitches have been removed she has slight redness over the horizontal incision however it looks to be i rritation from her stitches. We will continue to monitor this. Physical Exam General: Alert and oriented x3, no acute distress, pleasant and cooperative, [on room air] Lungs: Resps E/U, Symmetrical chest expansion, Eyes: PERRL Musculoskeletal: Flexion and extension of lumbar spine somewhat guarded secondary to pain, deep tendon reflexes normal, strength in upper and lower extremities [5/5], [abnormal gait noted] Neurological: speech clear, manager packaging equal, no gross sensory deficits Procedure Details:: Informed consent was obtained and the risk and benefits of the procedure were explained to the patient. The patient was taken to the procedure room where noninvasive monitoring was placed including noninvasive blood pressure cuff and pulse oximeter. Patient's pump was interrogated and reprogrammed. The infusion rate was was continued at 0.15 mg of morphine a day and his PTC was set up at 0.015 mg every 6 hours as needed. The patient tolerated the procedure well. Plan and Disposition:: We will see the patient back in 2 weeks reassess her symptoms at that time she has been instructed to call the office if she has any issues prior to her next appointment. Dr. Rivas has reviewed this note and agrees with this plan of care. This note was dictated using voice recognition software and may contain errors or omissions
== END ==
PROVIDERS: PCP Emergency Medicine; Visit Provider Clinical Nurse Specialist Family Health
DX: M51.16 Intervertebral disc disorders with radiculopathy, lumbar region (principal)
CPT/HCPCS: 62368

== ENCOUNTER → 2020-05-02 13:00 | Outpatient (POV) | payer MEDICARE, SELFPAY ==
[2020-05-02 13:11] VITALS: BP 168/54; PULSE 58; RESP 18; TEMP 36.4; O2SAT 98; BMI 25.7
--- NOTE | 2020-05-02 13:21 | HMH.PAINSOAP ---
[facility] Pain Management SOAP Note Subjective:: Patient is a pleasant 80-year-old white female who presents today for follow-up. Patient had intrathecal pain pump placed. She is currently going at 0.15 mg of morphine a day. Patient denies pain today and states she is only had to use her bolus one time. Patient does have some nausea at times. We will give her a short-term prescription for Zofran. Overall patient doing well. Her incision has healed well no sign symptoms of infection. ROS General: no recent weight change, no fever, no sleep disturbances Respiratory: no cough, no shortness of air, no recurring pulmonary infections Cardiovascular/Peripheral Vascular: No chest pain, No palpitations, no edema, no shortness of breath. Gastrointestinal: no new onset incontinence, normal bowel movements reported Genitourinary: no new onset incontinence Musculoskeletal: Back pain, leg pain Psychiatric: normal mood/ affect Neurological: [denies new onset weakness in extremities], [denies new onset balance issues] Objective:: Physical Exam General: Alert and oriented x3, no acute distress, pleasant and cooperative, [on room air] Lungs: Resps E/U, Symmetrical chest expansion, Eyes: PERRL Musculoskeletal: Flexion and extension of lumbar spine somewhat guarded secondary to pain, deep tendon reflexes normal, strength in upper and lower extremities [5/5], [abnormal gait noted] Neurological: speech clear, premium service representative equal, no gross sensory deficits Assessment:: Degenerative disc disease lumbar spine lumbar radiculopathy Plan:: We will see the patient back at her next intrathecal pain pump refill and reprogram she has been instructed to call the office if she has any issues prior to her next appointment. We will give her Zofran 4 mg 1 daily as needed for nausea dispensing [address] Rivas has reviewed this note and agrees with this plan of care. This note was dictated using voice recognition software and may contain errors or omissions [facility] History I have reviewed the patient's past medical history: Yes Medical History: Reports:: Aneurysm, Coronary Artery Disease, Cerebrovascular Accident, Hyperlipidemia, Hypertension, Internal Pacemaker, Myocardial Infarction, Peripheral Artery Disease, Peripheral Vascular Disease, Pulmonary Embolism Denies:: Cancer, Diabetes Mellitus Type 1, Diabetes Mellitus Type 2, MRSA, Seizures *Have you ever received a pneumonia vaccine?: Yes *Have you received a flu vaccine this season?: Yes Other Medical History: Reports: Anemia, Arthritis, Cataracts, Thyroid Disease. Denies: Blood Transfusion Reaction Laterality Cases: Left: Arthroscopy Shoulder, Other Other Surgeries: Yes: Cardiac Catheterization, Cholecystectomy, Colonoscopy, Hernia Repair, Hysterectomy-Total, Pacemaker, Other Amputation: No Fractures: No - *Social History Smoking Status: Former smoker Tobacco Type: cigarettes #Yrs smoked (if former smoker): 40 Alcohol Intake: never Alcohol Intake Frequency:: other Substance Use Type: denies use *Occupational Status:: other Housing: house Household Members: family *Travel in the last 8 weeks: None Family Hx:: Asthma
== END ==
PROVIDERS: PCP Emergency Medicine; Visit Provider Clinical Nurse Specialist Family Health
DX: M51.16 Intervertebral disc disorders with radiculopathy, lumbar region (principal)
CPT/HCPCS: 99212

== ENCOUNTER → 2020-05-16 13:50 | Outpatient (POV) | payer MEDICARE, SELFPAY ==
[2020-05-16 14:16] VITALS: BP 199/99; PULSE 58; RESP 18; O2SAT 99; BMI 32.4
--- NOTE | 2020-05-16 15:48 | HMH.PMPROC ---
- Procedure Date: 05/16/20 Time: 15:48 Anesthesiologist:: Tianna Brown APRN Complications:: None Pre-procedure Diagnosis:: Degenerative disc disease lumbar spine lumbar radiculopathy Post-procedure Diagnosis:: Same Indications for Procedure:: Patient is a 80-year-old white female who presents today for intrathecal pain pump adjustment. Patient intrathecal pain pump was placed several months ago she was doing well until a few days ago. Patient states all of her pain has returned. Patient rates her pain today an 8 out of 10. Patient was given a one-time bolus of 0. 01 5 mg of morphine to which she became nauseous however she stated it did help with her pain. Patient states she has nausea with her boluses. We will increase her daily dose and leave her boluses as is because they are at the lowest available amount per her concentration. Patient may need her medication changed if she continues to have nausea. Procedure Details:: Pain pump adjustment informed consent was obtained and the risk and benefits of the procedure were explained to the patient. The patient was taken to the procedure room where noninvasive monitoring was placed including noninvasive blood pressure cuff and pulse oximeter. Patient's pump was interrogated and reprogrammed. The infusion rate was increased to 0.175 mg of morphine a day. The patient tolerated the procedure well. Plan and Disposition:: We will see the patient back in 1 week reassess her symptoms at that time she has been instructed to call the office if she has any issues prior to her next appointment. Dr. Rivas has reviewed this note and agrees with this plan of care. This note was dictated using voice recognition software and may contain errors or omissions
== END ==
PROVIDERS: PCP Emergency Medicine; Visit Provider Clinical Nurse Specialist Family Health
DX: M51.16 Intervertebral disc disorders with radiculopathy, lumbar region (principal); Z45.1 Encounter for adjustment and management of infusion pump
CPT/HCPCS: 62368

== ENCOUNTER → 2020-05-23 10:43 | Outpatient (POV) | payer MEDICARE, SELFPAY ==
[2020-05-23 10:56] VITALS: BP 132/88; PULSE 74; RESP 18; TEMP 36.8; O2SAT 98; BMI 33.6
--- NOTE | 2020-05-23 11:09 | HMH.PMPROC ---
- Procedure Date: 05/23/20 Time: 11:10 Anesthesiologist:: Tianna Brown APRN Complications:: None Pre-procedure Diagnosis:: Degenerative disc disease lumbar spine lumbar radiculopathy Post-procedure Diagnosis:: Same Indications for Procedure:: Patient is a 80-year-old female who presents today for medication discussion. Patient is on a 0.175 mg a day of morphine she states that her pain is as bad as it was prior to her implant. Patient states she is getting no relief she states she is nauseous at all times. We will change her medication to Dilaudid. We will decrease her 30% today. Procedure Details:: Informed consent was obtained and the risk and benefits of the procedure were explained to the patient. The patient was taken to the procedure room where noninvasive monitoring was placed including noninvasive blood pressure cuff and pulse oximeter. Patient's pump was interrogated and reprogrammed. The infusion rate was decreased to 0.12 milligrams per day. The patient tolerated the procedure well. Plan and Disposition:: See the patient back next week and change her over to Dilaudid. She has been instructed to call the office if she has any issues prior to her next appointment. Dr. Rivas has reviewed this note and agrees with this plan of care. This note was dictated using voice recognition software and may contain errors or omissions
== END ==
PROVIDERS: PCP Emergency Medicine; Visit Provider Clinical Nurse Specialist Family Health
DX: M51.16 Intervertebral disc disorders with radiculopathy, lumbar region (principal)
CPT/HCPCS: 62368

== ENCOUNTER 2020-05-30 15:25 | Day surgery (SDC) | payer MEDICARE, SELFPAY ==
[2020-05-30 15:40] VITALS: BP 226/102; PULSE 72; RESP 18; TEMP 36.8; O2SAT 98; BMI 33.6
[2020-05-30 15:56] VITALS: BP 148/88; PULSE 65; RESP 18; O2SAT 97
[2020-05-30 16:03] VITALS: BP 142/74; PULSE 61; RESP 18; O2SAT 97
[2020-05-30 16:05] VITALS: BP 199/78; PULSE 72; RESP 18; O2SAT 98
--- NOTE | 2020-05-30 16:05 | HMH.PMPROC ---
- Procedure Date: 05/30/20 Time: 16:05 Anesthesiologist:: Tianna Brown APRN Complications:: None Pre-procedure Diagnosis:: Degenerative disc disease lumbar spine lumbar radiculopathy symptoms Post-procedure Diagnosis:: Same Indications for Procedure:: Patient is a 80-year-old white female who presents today for medication refill and reprogram of her intrathecal pain pump. Patient is currently on 0.125 mg of morphine a day. She states that she is continue with nausea along with increased pain she rates her pain today and 10 out of 10. She states that she is at the point she would like to talk somebody out. Patient is being switched to Dilaudid today. Physical Exam General: Alert and oriented x3, no acute distress, pleasant and cooperative, [on room air] Lungs: Resps E/U, Symmetrical chest expansion, Eyes: PERRL Musculoskeletal: Flexion and extension of lumbar spine somewhat guarded secondary to pain, deep tendon reflexes normal, strength in upper and lower extremities [5/5], [abnormal gait noted] Neurological: speech clear, dentofacial orthopedics dentist equal, no gross sensory deficits Procedure Details:: Informed consent was obtained and the risk and benefits of the procedure were explained to the patient. The patient was taken to the procedure room where noninvasive monitoring was placed including noninvasive blood pressure cuff and pulse oximeter. Patient's pump was interrogated. The area over the pump was cleansed with chlorhexidine as a cleansing solution. In sterile fashion the pump was accessed with a 22-gauge needle. Approximately 17.5 mL's were removed of the pump solution and discarded appropriately. The pump was then refilled with 20 mL's of Dilaudid 5 mg/mL. The needle was withdrawn and a bandage was placed over the puncture site. The infusion rate was reprogrammed to start at 0.1 mg/day. The patient tolerated the procedure well. Plan and Disposition:: We will see the patient back in 2 weeks to reassess her symptoms at that time she has been instructed to call the office if she has any issues prior to her next appointment. Dr. Rivas has reviewed this note and agrees with this plan of care. This note was dictated using voice recognition software and may contain errors or omissions
== END 2020-05-30 16:05 | disposition home or self-care (01) ==
LOC: SC.PAINP 15:27
PROVIDERS: PCP Emergency Medicine; Visit Provider Clinical Nurse Specialist Family Health
DX: M51.16 Intervertebral disc disorders with radiculopathy, lumbar region (principal)
CPT/HCPCS: 62370

== ENCOUNTER → 2020-06-23 13:27 | Outpatient (POV) | payer MEDICARE, SELFPAY ==
[2020-06-23 13:52] VITALS: BP 128/88; PULSE 71; RESP 18; TEMP 36.8; O2SAT 98; BMI 35.4
--- NOTE | 2020-06-23 13:54 | HMH.PAINSOAP ---
[facility] Pain Management SOAP Note Subjective:: Patient is a pleasant 80-year-old white female who presents today for follow-up. Patient had an intrathecal pain pump medication changed to 0.1 mg of Dilaudid a day. She is doing extremely well rating her pain a 0 out of 10. She states she is much more functional and almost walking a mile a day. ROS General: no recent weight change, no fever, no sleep disturbances Respiratory: no cough, no shortness of air, no recurring pulmonary infections Cardiovascular/Peripheral Vascular: No chest pain, No palpitations, no edema, no shortness of breath. Gastrointestinal: no new onset incontinence, normal bowel movements reported Genitourinary: no new onset incontinence Musculoskeletal: Back pain, leg pain Psychiatric: normal mood/ affect Neurological: [denies new onset weakness in extremities], [denies new onset balance issues] Objective:: Physical Exam General: Alert and oriented x3, no acute distress, pleasant and cooperative, [on room air] Lungs: Resps E/U, Symmetrical chest expansion, Eyes: PERRL Musculoskeletal: Flexion and extension of lumbar spine somewhat guarded secondary to pain, deep tendon reflexes normal, strength in upper and lower extremities [5/5], antalgic gait noted Neurological: speech clear, textile machinery sales representative equal, no gross sensory deficits Assessment:: Degenerative disc disease lumbar spine lumbar radiculopathy Plan:: We will see the patient back in 3 months reassess her symptoms at that time we will refill her intrathecal pain pump. Patient's been instructed to call the office if she has any issues prior to her next appointment. Dr. Rivas has reviewed this note and agrees with this plan of care. This note was dictated using voice recognition software and may contain errors or omissions [facility] History I have reviewed the patient's past medical history: Yes Medical History: Reports:: Aneurysm (abdominal), Coronary Artery Disease, Cerebrovascular Accident, Hyperlipidemia, Hypertension, Internal Pacemaker, Myocardial Infarction, Peripheral Artery Disease, Peripheral Vascular Disease, Pulmonary Embolism Denies:: Cancer, Diabetes Mellitus Type 1, Diabetes Mellitus Type 2, MRSA, Seizures *Have you ever received a pneumonia vaccine?: No *Have you received a flu vaccine this season?: No Other Medical History: Reports: Anemia, Arthritis, Cataracts, Thyroid Disease. Denies: Blood Transfusion Reaction Laterality Cases: Left: Arthroscopy Shoulder, Other Other Surgeries: Yes: Cardiac Catheterization, Cholecystectomy, Colonoscopy, Hernia Repair, Hysterectomy-Total, Pacemaker, Other Amputation: No Fractures: No - *Social History Smoking Status: Former smoker Tobacco Type: cigarettes #Yrs smoked (if former smoker): 40 Alcohol Intake: never Alcohol Intake Frequency:: other Substance Use Type: denies use *Occupational Status:: retired Housing: house Household Members: family *Travel in the last 8 weeks: None Family Hx:: Asthma
== END ==
PROVIDERS: PCP Emergency Medicine; Visit Provider Clinical Nurse Specialist Family Health
DX: M51.16 Intervertebral disc disorders with radiculopathy, lumbar region (principal)
CPT/HCPCS: 99212; G0463

== ENCOUNTER → 2020-09-14 16:55 | Outpatient (CLI) | payer MEDICARE, SELFPAY ==
[2020-09-14 17:33] LABS: Basophils # 0.1 K/mm3 (0-0.2); Basophils % 0.7 % (0.1-2.0); Eosinophils # 0.3 K/mm3 (0.0-0.4); Eosinophils % 3.8 % (0.1-12.0); Hematocrit 34.9 % (37.0-47.0); Hemoglobin 11.3 g/dL (12.2-16.2); Lymphocytes % 25.5 % (10-50); Mean Corpuscular HGB Conc 32.5 g/dL (31.8-35.4); Mean Corpuscular Volume 83.1 fl (81-99); Mean Platelet Volume 8.3 fl (7.4-10.4); Monocytes # 0.4 K/mm3 (0.1-1.0); Monocytes % 5.8 % (1.7-9.3); Neutrophils # 4.9 K/mm3 (1.8-7.8); Neutrophils % 64.3 % (37.0-80.0); Platelet Count 205 K/mm3 (142-424); Red Cell Distribution Width 13.9 % (11.5-17.5); White Blood Count 7.7 K/mm3 (4.8-10.8)
[2020-09-14 18:14] LABS: Alanine Aminotransferase 11 U/L (12-78); Albumin Level 4.1 g/dl (3.5-5.0); Albumin/Globulin Ratio 1.6 (1.1-1.8); Alkaline Phosphatase 85 U/L (38-126); Aspartate Amino Transferase 23 U/L (14-36); Bilirubin,Total 0.4 mg/dl (0.2-1.3); Blood Urea Nitrogen 26 mg/dl (7-17); Carbon Dioxide 24 mmol/L (22.0-30.0); Chloride 107 mmol/L (98-107); Estimated Glomerular Filt Rate 34 ml/min (>60); GFR (African American) 41 ML/MIN (>60); Globulin 2.5 g/dL (1.3-3.2); Glucose 108 mg/dl (74-100); Sodium 142 mmol/L (136-145); Total Protein,Serum 6.6 g/dl (6.3-8.2)
[2020-09-14 18:29] LABS: 25-OH Vitamin D, Total 23.6 ng/mL (30-100); T4 (Thyroxine) 9.1 ug/dl (5.53-11.0)
[2020-09-14 18:42] LABS: Thyroid Stimulating Hormone 6.15 uIU/mL (0.465-4.68)
== END ==
PROVIDERS: Visit Provider Emergency Medicine
DX: R53.83 Other fatigue (principal); E55.9 Vitamin D deficiency, unspecified
CPT/HCPCS: 36415; 80053; 82306; 84436; 84443; 85025

== ENCOUNTER 2020-09-19 12:53 | Day surgery (SDC) | payer MEDICARE, SELFPAY ==
[2020-09-19 13:00] VITALS: BP 169/81; BP 185/78; PULSE 60; PULSE 62; RESP 18; O2SAT 97; O2SAT 98
[2020-09-19 13:05] VITALS: BP 169/64; PULSE 60; RESP 18; TEMP 36.6; BMI 32.2
--- NOTE | 2020-09-19 13:21 | P.PCN_ITS ---
- Procedure Date: 09/19/20 Time: 13:21 Anesthesiologist:: Tianna Brown APRN Complications:: None Pre-procedure Diagnosis:: Degenerative disc disease lumbar spine lumbar radiculopathy and back pain Post-procedure Diagnosis:: Same Indications for Procedure:: Patient is a pleasant 80-year-old white female who presents today for intrathecal pain pump refill and reprogram. Patient overall doing extremely well at this time. She denies any pain. She does not need any changes to her current 0.1 mg daily dose of Dilaudid. She denies side effects [facility] #[id number] reviewed and appropriate. Procedure Details:: Informed consent was obtained and the risk and benefits of the procedure were explained to the patient. The patient was taken to the procedure room where noninvasive monitoring was placed including noninvasive blood pressure cuff and pulse oximeter. Patient's pump was interrogated. The area over the pump was cleansed with chlorhexidine as a cleansing solution. In sterile fashion the pump was accessed with a 22-gauge needle. Approximately 17.5 mL's were removed of the pump solution and discarded appropriately. The pump was then refilled with 20 mL's of hydromorphone 5 mg/mL. The needle was withdrawn and a bandage was placed over the puncture site. The infusion rate was reprogrammed to 0.1 mg/day. The patient tolerated the procedure well. Plan and Disposition:: We will see the patient back at her next intrathecal pain pump refill and reprogram she has been instructed to call the office if she has any issues prior to her next appointment. Dr. Rivas has reviewed this note and agrees with this plan of care. This note was dictated using voice recognition software and may contain errors or omissions
[2020-09-19 13:35] VITALS: BP 182/70; PULSE 58; RESP 20; O2SAT 98
== END 2020-09-19 13:35 | disposition home or self-care (01) ==
LOC: SC.PAINP 12:55
PROVIDERS: PCP Emergency Medicine; Visit Provider Clinical Nurse Specialist Family Health
DX: M51.16 Intervertebral disc disorders with radiculopathy, lumbar region (principal); Z45.1 Encounter for adjustment and management of infusion pump; I25.2 Old myocardial infarction; I10 Essential (primary) hypertension; E78.5 Hyperlipidemia, unspecified; D64.9 Anemia, unspecified; M19.90 Unspecified osteoarthritis, unspecified site; Z88.5 Allergy status to narcotic agent; Z86.73 Personal history of transient ischemic attack (TIA), and cerebral infarction without residual deficits
CPT/HCPCS: 62370

== ENCOUNTER → 2020-12-13 18:33 | Outpatient (CLI) | payer MEDICARE, SELFPAY ==
[2020-12-13 18:57] LABS: Anion Gap 16.3 mEq/L (5-15); Blood Urea Nitrogen 20 mg/dl (7-17); Carbon Dioxide 26 mmol/L (22.0-30.0); Chloride 105 mmol/L (98-107); Estimated Glomerular Filt Rate 40 ml/min (>60); GFR (African American) 48 ML/MIN (>60); Glucose 98 mg/dl (74-100); Potassium 4.3 mmoL/L (3.5-5.1); Sodium 143 mmol/L (136-145)
== END ==
PROVIDERS: Visit Provider Emergency Medicine
DX: M79.89 Other specified soft tissue disorders (principal); R60.0 Localized edema
CPT/HCPCS: 80048

== ENCOUNTER 2020-12-26 14:45 | Day surgery (SDC) | payer MEDICARE, SELFPAY ==
[2020-12-26 14:56] VITALS: BP 182/94; PULSE 84; RESP 18; TEMP 36.6; O2SAT 98; BMI 33.1
[2020-12-26 15:16] VITALS: BP 146/89; PULSE 62; RESP 18; O2SAT 95
[2020-12-26 15:18] VITALS: BP 146/89; PULSE 65; RESP 18; O2SAT 98
--- NOTE | 2020-12-26 15:23 | HMH.PMPROC ---
- Procedure Date: 12/26/20 Time: 15:24 Anesthesiologist:: Kina Sandra APRN Complications:: None Pre-procedure Diagnosis:: Degenerative disc disease lumbar spine with lumbar radiculopathy symptoms Post-procedure Diagnosis:: Same Indications for Procedure:: Patient is a pleasant 80-year-old white female who presents today for intrathecal pain pump refill and reprogram. She has been treated for degenerative disc disease lumbar spine with lumbar radiculopathy symptoms. She is doing well overall and does not need any changes. She rates her pain a 0 to a 2 out of 10. Patient's Donis [id number] has been reviewed and is appropriate. Morphine equivalent is 0. She is currently on a dose of Dilaudid at 0.1 mg/day. 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 The patient was taken to the procedure room where noninvasive monitoring was placed including noninvasive blood pressure cuff and pulse oximeter. Patient's pump was interrogated. The area over the pump was cleansed with chlorhexidine as a cleansing solution. In sterile fashion the pump was accessed with a 22-gauge needle. Approximately 10 mls of the pump solution was removed and discarded appropriately. The pump was then refilled with 20 mL's of Dilaudid 5 mg per male. The needle was withdrawn and a bandage was placed over the puncture site. The infusion rate was reprogrammed at Dilaudid 0.1 mg/day. The patient tolerated well with no complication. Plan and Disposition:: We will see the patient back at her next intrathecal refill. She has been instructed to contact clinic if she has an concerns for next appointment t. Patient has been instructed to contact the clinic with any concerns before the next appointment. Dr. Rivas has reviewed this note and agrees with this plan of care. This note was dictated using voice recognition software and make contain errors or omissions.
[2020-12-26 15:29] VITALS: BP 144/78; PULSE 68; RESP 18; O2SAT 97
== END 2020-12-26 15:30 | disposition home or self-care (01) ==
LOC: SC.PAINP 14:46
PROVIDERS: PCP Emergency Medicine; Visit Provider Clinical Nurse Specialist Family Health
DX: M51.16 Intervertebral disc disorders with radiculopathy, lumbar region (principal); Z45.1 Encounter for adjustment and management of infusion pump
CPT/HCPCS: 95991

== ENCOUNTER → 2021-03-03 16:03 | Outpatient (CLI) | payer MEDICARE, SELFPAY ==
[2021-03-03 17:16] LABS: Chloride 106 mmol/L (98-107)
[2021-03-03 17:17] LABS: Potassium 4.3 mmoL/L (3.5-5.1); Sodium 140 mmol/L (136-145)
[2021-03-03 17:20] LABS: Anion Gap 14.3 mEq/L (5-15); Blood Urea Nitrogen 24 mg/dl (7-17); Calcium 8.7 mg/dl (8.4-10.2); Carbon Dioxide 24 mmol/L (22.0-30.0); Estimated Glomerular Filt Rate 31 ml/min (>60); GFR (African American) 38 ML/MIN (>60); Glucose 118 mg/dl (74-100)
== END ==
PROVIDERS: Visit Provider Nurse Practitioner Family
DX: N17.9 Acute kidney failure, unspecified (principal)
CPT/HCPCS: 36415; 80048

== ENCOUNTER → 2021-03-20 13:35 | Outpatient (CLI) | payer MEDICARE, SELFPAY ==
[2021-03-20 13:55] LABS: Basophils # 0.1 K/mm3 (0-0.2); Basophils % 0.7 % (0.1-2.0); Eosinophils # 0.2 K/mm3 (0.0-0.4); Eosinophils % 3.3 % (0.1-12.0); Hematocrit 28.2 % (37.0-47.0); Lymphocytes # 1.7 K/mm3 (0.7-4.5); Lymphocytes % 27.2 % (10-50); Mean Corpuscular HGB Conc 28.3 g/dL (31.8-35.4); Mean Corpuscular Hemoglobin 19.8 pg (27.0-31.2); Monocytes # 0.5 K/mm3 (0.1-1.0); Monocytes % 7.9 % (1.7-9.3); Neutrophils # 3.7 K/mm3 (1.8-7.8); Neutrophils % 60.9 % (37.0-80.0); Platelet Count 164 K/mm3 (142-424); Red Blood Count 4.02 M/mm3 (4.20-5.40); White Blood Count 6.1 K/mm3 (4.8-10.8)
[2021-03-20 16:18] LABS: Anion Gap 14.2 mEq/L (5-15); Blood Urea Nitrogen 25 mg/dl (7-17); Carbon Dioxide 25 mmol/L (22.0-30.0); Chloride 106 mmol/L (98-107); Estimated Glomerular Filt Rate 33 ml/min (>60); GFR (African American) 41 ML/MIN (>60); Glucose 113 mg/dl (74-100); Potassium 4.2 mmoL/L (3.5-5.1); Sodium 141 mmol/L (136-145)
== END ==
PROVIDERS: Visit Provider Physician Assistant
DX: E78.5 Hyperlipidemia, unspecified (principal); I11.9 Hypertensive heart disease without heart failure; I25.10 Atherosclerotic heart disease of native coronary artery without angina pectoris; I71.4 Abdominal aortic aneurysm, without rupture; I73.9 Peripheral vascular disease, unspecified; M79.669 Pain in unspecified lower leg; N18.2 Chronic kidney disease, stage 2 (mild); R60.9 Edema, unspecified
CPT/HCPCS: 36415; 80048; 85025

== ENCOUNTER 2021-03-21 08:35 | Outpatient (CLI) | payer MEDICARE, SELFPAY ==
[2021-03-21] VITALS (19 sets, daily range): BP systolic 145–196; BP diastolic 51–76; PULSE 51–72; RESP 18–20; TEMP 36–36.9; O2SAT 95–98; BMI 34.0
[2021-03-21 16:21] LABS: Hematocrit 29.7 % (37.0-47.0); Hemoglobin 9.1 g/dL (12.2-16.2)
== END 2021-03-21 16:00 | disposition home or self-care (01) ==
LOC: INF 08:37
PROVIDERS: PCP Emergency Medicine; Visit Provider Internal Medicine
DX: D64.9 Anemia, unspecified (principal)
CPT/HCPCS: 36415; 36430; 85014; 85018; 86850; P9016

== ENCOUNTER → 2021-03-28 15:09 | Outpatient (CLI) | payer MEDICARE, SELFPAY ==
[2021-03-28 16:00] LABS: Basophils # 0.1 K/mm3 (0-0.2); Basophils % 1.2 % (0.1-2.0); Eosinophils # 0.3 K/mm3 (0.0-0.4); Eosinophils % 3.9 % (0.1-12.0); Hematocrit 36.6 % (37.0-47.0); Hemoglobin 10.7 g/dL (12.2-16.2); Lymphocytes # 2.1 K/mm3 (0.7-4.5); Lymphocytes % 27.2 % (10-50); Mean Corpuscular HGB Conc 29.2 g/dL (31.8-35.4); Mean Corpuscular Hemoglobin 22.4 pg (27.0-31.2); Mean Corpuscular Volume 76.8 fl (81-99); Mean Platelet Volume 7.7 fl (7.4-10.4); Monocytes # 0.5 K/mm3 (0.1-1.0); Monocytes % 5.8 % (1.7-9.3); Neutrophils # 4.8 K/mm3 (1.8-7.8); Neutrophils % 61.9 % (37.0-80.0); Platelet Count 213 K/mm3 (142-424); Red Blood Count 4.77 M/mm3 (4.20-5.40); Red Cell Distribution Width 18.2 % (11.5-17.5); White Blood Count 7.8 K/mm3 (4.8-10.8)
[2021-03-28 16:47] LABS: Chloride 103 mmol/L (98-107); Sodium 141 mmol/L (136-145)
[2021-03-28 16:50] LABS: Blood Urea Nitrogen 27 mg/dl (7-17); Estimated Glomerular Filt Rate 40 ml/min (>60); GFR (African American) 48 ML/MIN (>60); Iron 49 ug/dL (37-170)
[2021-03-28 16:51] LABS: Calcium 9.2 mg/dl (8.4-10.2); Carbon Dioxide 27 mmol/L (22.0-30.0); Glucose 105 mg/dl (74-100)
[2021-03-28 17:00] LABS: Total Iron Binding Capacity 519 ug/dL (265-497)
== END ==
PROVIDERS: Visit Provider Physician Assistant
DX: D64.9 Anemia, unspecified (principal); I71.4 Abdominal aortic aneurysm, without rupture; I63.9 Cerebral infarction, unspecified; I73.9 Peripheral vascular disease, unspecified; N18.2 Chronic kidney disease, stage 2 (mild); R00.1 Bradycardia, unspecified
CPT/HCPCS: 36415; 80048; 83540; 83550; 85025

== ENCOUNTER 2021-04-17 12:58 | Day surgery (SDC) | payer MEDICARE, SELFPAY ==
[2021-04-17 13:01] VITALS: BP 215/83; PULSE 78; RESP 18; TEMP 36.2; O2SAT 98; BMI 34.0
--- NOTE | 2021-04-17 13:09 | P.PCN_ITS ---
- Procedure Date: 04/17/21 Time: 13:09 Anesthesiologist:: Kina Sandra APRN Complications:: None Pre-procedure Diagnosis:: Degenerative disc disease lumbar spine with lumbar radiculopathy symptoms, low back pain Post-procedure Diagnosis:: Same Indications for Procedure:: Patient is a pleasant 81-year-old white who presents today for intrathecal pain pump [refill] [and reprogram]. The patient is being treated for i degenerative disc disease lumbar spine with lumbar radiculopathy symptoms. Patient rates pain a 2 out of 10. Drug screen is appropriate. She is doing well with her intrathecal therapy and denies any side effects. Donis [ ] has been reviewed and is appropriate. Screens have been appropriate. She is currently on Dilaudid at 0.1 mg/day. She is currently on a concentration of 5 mg per mill. We will decrease the patient's concentration to 3 mg/mL at her next intrathecal refill. Physical exam General: Alert and oriented x3, no acute distress, pleasant and cooperative, [on room air] Lungs: Respirations even and unlabored, symmetrical chest expansion Eyes: PERRL Musculoskeletal: Flexion and extension of lumbar [spine] somewhat guarded secondary to pain, [antalgic gait noted] Neurological: Speech clear, no gross sensory deficit Procedure Details:: Informed consent was obtained and the risk and benefits of the procedure were explained to the patient. The patient was taken to the procedure room where noninvasive monitoring was placed including noninvasive blood pressure cuff and pulse oximeter. Patient's pump was interrogated. The area over the pump was cleansed with chlorhexidine as a cleansing solution. In sterile fashion the pump was accessed with a 22-gauge needle. Approximately 17 mls of the pump wilmar ution was removed and discarded appropriately. The pump was then refilled with 20 mL's of Dilaudid 5 mg/mL. The needle was withdrawn and a bandage was placed over the puncture site. The infusion rate was reprogrammed at Dilaudid 0.1 mg/day. The patient tolerated well with no complication. Plan and Disposition:: We will decrease the patient's intrathecal centration to Dilaudid at 3 mg per mill next visit. She had 17 mL of volume this refill. We will see the patient back in the clinic at the next intrathecal refill. Patient has been instructed to contact the clinic with any concerns before the next appointment. Dr. Rivas has reviewed this note and agrees with this plan of care. This note was dictated using voice recognition software and make contain errors or omissions.
[2021-04-17 13:30] VITALS: PULSE 70; RESP 18; O2SAT 99
[2021-04-17 13:31] VITALS: PULSE 79; RESP 18; O2SAT 97
[2021-04-17 13:45] VITALS: BP 202/82; PULSE 20; PULSE 67; O2SAT 98
== END 2021-04-17 13:45 | disposition home or self-care (01) ==
LOC: SC.PAINP 12:59
PROVIDERS: PCP Emergency Medicine; Visit Provider Clinical Nurse Specialist Family Health
DX: M51.16 Intervertebral disc disorders with radiculopathy, lumbar region (principal); Z45.1 Encounter for adjustment and management of infusion pump
CPT/HCPCS: 95991

== ENCOUNTER → 2021-05-11 07:24 | Outpatient (CLI) | payer MEDICARE, SELFPAY ==
[2021-05-11 07:26] VITALS: BMI 30.9
[2021-05-11 08:02] LABS: Influenza A, PCR Not Detected (NotDetected); Influenza B, PCR Not Detected (NotDetected)
[2021-05-11 08:24] LABS: Coronavirus 19, PCR Detected (NotDetected)
== END ==
PROVIDERS: Visit Provider Emergency Medicine
DX: U07.1 COVID-19 (principal)
CPT/HCPCS: C9803; U0003; U0005

== ENCOUNTER 2021-05-15 23:44 | Observation (INO) | payer MEDICARE, SELFPAY ==
--- NOTE | 2021-05-15 00:01 | XR_ITS ---
PROCEDURE INFORMATION: Exam: XR Chest Exam date and time: 05/15/2021 12:01 AM Age: 81 years old Clinical indication: Cough and shortness of breath; Patient HX: SOA, cough. Covid + 05/11/2021 TECHNIQUE: Imaging protocol: XR of the chest. Views: 1 view. COMPARISON: CR XR CHEST 2V 03/21/2020 3:53 PM FINDINGS: Lungs: Mild right basilar opacity, possibly pneumonia. Pleural spaces: No pleural effusion. No pneumothorax. Heart/Mediastinum: Stable cardiomediastinal silhouette. Bones/joints: No acute osseous findings. IMPRESSION: Mild right basilar opacity, possibly pneumonia. Recommend imaging follow-up until complete resolution.
[2021-05-15 23:44] VITALS: BP 210/104; PULSE 79; RESP 27; TEMP 36.6; O2SAT 87; BMI 32.5
--- NOTE | 2021-05-15 23:56 | HMH.EDGENADL ---
ED Disposition Clinical Impression: COVID-19, Pneumonia due to 2019-nCoV Disposition: Admitted As Inpatient Condition on Discharge: Serious Referrals: David Disla MD [Primary Care Provider] - Time of Disposition: 02:37 - Critical Care Critical Care Time: Yes Attestation: On 05/15/21, the high probability of a clinically significant, sudden or life threatening deterioration of the following system(s) required my full and direct attention, intervention and personal management. The time I documented below is in addition to time spent performing reported procedures but includes the following listed in this critical care notation. Vital system(s) involved:: Respiratory Failure My critical care processes included: Assessment & monitoring of V/S, Initial and Re-exams, Data Review/Interpretation, Coordinating Care, Medication Orders and management, Documentation Medical Decision Making - Medical Records Medical records reviewed: Yes: I reviewed the patient's medical records. - Donis Inquiry Pt receiving controlled substance: No Vital Signs: 05/15/21 23:44 Temperature 97.9 F Temperature Source Oral Pulse Rate [Right] 79 Respiratory Rate 27 H Blood Pressure [Right Arm] 210/104 H Blood Pressure Mean [Right Arm] 139 02 Sat by Pulse Oximetry 87 L Oxygen Delivery Method Room Air - Lab Data Lab Results 05/15/21 23:51: SARS-CoV-2 (PCR) Detected A, Influenza A Untype (PCR) Not detected, Influenza Type B (PCR) Not detected 05/15/21 23:54: VBG pH 7.49 H, VBG pCO2 26.7 L, VBG pO2 194.9 H, VBG HCO3 20.0 L, VBG Total CO2 20.8 L, VBG O2 Saturation 99.3 H, VBG Base Excess -3.3 L 05/16/21 00:09: Ferritin 17.7 D 05/16/21 00:26: WBC 3.6 L, RBC 4.22, Hgb 9.2 L, Hct 29.7 L, MCV 70.5 L, MCH 21.8 L, MCHC 30.9 L, RDW 18.8 H, Plt Count 254, MPV 8.0, Neut % (Auto) 78.7, Lymph % (Auto) 12.2, [place] % (Auto) 8.4, Eos % (Auto) 0.1, Baso % (Auto) 0.6, Neut # (Auto) 2.8, Lymph # (Auto) 0.4 L, [place] # (Auto) 0.3, Eos # (Auto) 0.0, Baso # (Auto) 0.0 05/16/21 00:26: D-Dimer 1.34 H 05/16/21 00:26: Sodium 136, Potassium 4.8, Chloride 107, Carbon Dioxide 23, Anion Gap 10.8, BUN 36 H, Creatinine 1.30 H, Estimated Creat Clear 48, Estimated GFR 40 L, Est GFR ( Amer) 48 L, Glucose 143 H, Calcium 8.6, Total Bilirubin 0.4, AST 65 H, ALT 43, Alkaline Phosphatase 70, C-Reactive Protein 3.3, Total Protein 6.8, Albumin 3.9, Globulin 2.9, Albumin/Globulin Ratio 1.3, Procalcitonin 0.092 05/16/21 00:49: Lactate 1.2 Result diagrams: 05/16/21 00:26 05/16/21 00:26 Orders (Tests/Meds): ED MEDICATIONS Generic Name Dose Route Start Last Admin Trade Name Freq PRN Reason Stop Dose Admin Benzonatate 100 mg 05/16/21 02:00 05/16/21 02:09 Benzonatate 100mg Capsule PO 06/15/21 01:59 100 mg ONCE TIFFANIE Administration Discontinued Medications Generic Name Dose Route Start Last Admin Trade Name Freq PRN Reason Stop Dose Admin Acetaminophen 650 mg 05/16/21 01:59 05/16/21 02:09 Acetaminophen 325mg Tab PO 05/16/21 02:00 650 mg ONCE ONE Administration Dexamethasone Sodium Phosphate 8 mg 05/16/21 00:00 05/16/21 00:13 Dexamethasone 4mg/Ml 1ml Vial IV 05/16/21 00:01 8 mg ONCE ONE Administration Ondansetron HCl 4 mg 05/16/21 02:08 05/16/21 02:10 Ondansetron 4mg/2ml Vial IV 05/16/21 02:09 4 mg ONCE ONE Administration ORDERS Category Date Time Status XR chest portable Stat Exams 05/15/21 00:01 Taken Medical Decision Narrative: In summary this is a 81-year-old female on day 6 of Covid virus presenting to the emergency department with fatigue, cough, shortness of breath. Patient appears unwell on arrival. Generally ill. Initial oxygen saturation is 88%. Placed on 2 L by nasal cannula. Concern for worsening COVID-19, dehydration, renal insufficiency, pneumonia, respiratory failure. Will obtain CBC, CMP, chest x-ray, ferritin, CRP, D-dimer. Patient given 8 mg IV dexamethasone Initial laboratory results
[2021-05-16] VITALS (8 sets, daily range): BP systolic 144–197; BP diastolic 75–94; PULSE 49–87; RESP 16–29; TEMP 36.3–36.7; O2SAT 94–100; BMI 32.4
[2021-05-16 00:47] LABS: Alanine Aminotransferase 43 U/L (12-78); Albumin Level 3.9 g/dl (3.5-5.0); Albumin/Globulin Ratio 1.3 (1.1-1.8); Alkaline Phosphatase 70 U/L (38-126); Anion Gap 10.8 mEq/L (5-15); Aspartate Amino Transferase 65 U/L (14-36); Bilirubin,Total 0.4 mg/dl (0.2-1.3); Blood Urea Nitrogen 36 mg/dl (7-17); Calcium 8.6 mg/dl (8.4-10.2); Carbon Dioxide 23 mmol/L (22.0-30.0); Chloride 107 mmol/L (98-107); Creatinine Clearance Estimated 48 mL/min (50-200); Estimated Glomerular Filt Rate 40 ml/min (>60); GFR (African American) 48 ML/MIN (>60); Globulin 2.9 g/dL (1.3-3.2); Glucose 143 mg/dl (74-100); Potassium 4.8 mmoL/L (3.5-5.1); Sodium 136 mmol/L (136-145); Total Protein,Serum 6.8 g/dl (6.3-8.2)
[2021-05-16 00:53] LABS: Basophils % 0.6 % (0.1-2.0); C-Reactive Protein 3.3 mg/L (0-4); D-Dimer 1.34 ug/mL (0.0-0.5); Eosinophils % 0.1 % (0.1-12.0); Hematocrit 29.7 % (37.0-47.0); Hemoglobin 9.2 g/dL (12.2-16.2); Lymphocytes # 0.4 K/mm3 (0.7-4.5); Lymphocytes % 12.2 % (10-50); Mean Corpuscular HGB Conc 30.9 g/dL (31.8-35.4); Mean Corpuscular Hemoglobin 21.8 pg (27.0-31.2); Mean Corpuscular Volume 70.5 fl (81-99); Monocytes # 0.3 K/mm3 (0.1-1.0); Monocytes % 8.4 % (1.7-9.3); Neutrophils # 2.8 K/mm3 (1.8-7.8); Neutrophils % 78.7 % (37.0-80.0); Platelet Count 254 K/mm3 (142-424); Red Blood Count 4.22 M/mm3 (4.20-5.40); Red Cell Distribution Width 18.8 % (11.5-17.5); White Blood Count 3.6 K/mm3 (4.8-10.8)
[2021-05-16 01:03] LABS: Lactic Acid 1.2 mmol/L (0.7-2.1)
[2021-05-16 01:07] LABS: Procalcitonin 0.092 ng/mL (0.0-2.0)
[2021-05-16 01:14] LABS: Influenza A, PCR Not Detected (NotDetected); Influenza B, PCR Not Detected (NotDetected)
[2021-05-16 01:42] LABS: Coronavirus 19, PCR Detected (NotDetected)
[2021-05-16 02:00] LABS: VBG Base Excess -3.3 mmol/L (-2.4-2.3); VBG Oxygen Saturation 99.3 % (50-70); VBG PCO2 26.7 mmol/L (35-51); VBG PH 7.49 mmol/L (7.31-7.41); VBG PO2 194.9 mmol/L (28-40); VBG Total CO2 20.8 mmol/L (23-27)
[2021-05-16 02:24] LABS: Ferritin 17.7 ng/ml (11.1-264)
--- NOTE | 2021-05-16 02:45 | PC.NURSE ---
patient up to floor via wheelchair.
--- NOTE | 2021-05-16 07:29 | HMH.PHAVTE ---
[facility] Pharmacy VTE Monitoring - Patient Demographics Admission date: 05/16/21 Report Date: 05/16/21 Time: 07:29 Allergies/Adverse Reactions: Patient Allergies morphine Allergy (Intermediate, Verified 04/17/21 13:49) Height: 1.63 m Weight: 86.183 kg Patient Problems: Current Active Problems COVID-19 (Acute) Pneumonia due to 2019-nCoV (Acute) - VTE Risk Labs: VTE Related Lab Results Hgb 9.2 g/dL (12.2-16.2) L 05/16/21 00:26 Hct 29.7 % (37.0-47.0) L 05/16/21 00:26 Plt Count 254 K/mm3 (142-424) 05/16/21 00:26 BUN 36 mg/dl (7-17) H 05/16/21 00:26 Creatinine 1.30 mg/dl (0.52-1.04) H 05/16/21 00:26 Estimated Creat Clear 48 mL/min (50-200) 05/16/21 00:26 Clinical Trial Participant: No - Prophylaxis VTE Prophylaxis Ordered?: Yes Types of VTE Prophylaxis: TEDS Knee High
--- NOTE | 2021-05-16 07:32 | HMH.PHAINT ---
home medication list verified using list from [facility]
--- NOTE | 2021-05-16 08:48 | HMH.HP ---
*Admission Date: 05/16/21 *Chief complaint: Shortness of Breath *History of present illness: 81-year-old female presenting to the emergency department with cough, shortness of breath, fatigue. She tested positive for COVID-19 5 days ago. Since then she has had worsening symptoms. Low appetite. Body aches. Feels very lightheaded going from seated to standing. Has been stumbling through her house. Also complaining of cough and shortness of breath. No prior history of lung problems, COPD or emphysema. No particular chest pain. She was not vaccinated for COVID-19. Has not received antibody infusion. Is taking prednisone and azithromycin (Per Rosita Staples MD). 05/15/21 CXR: FINDINGS: Lungs: Mild right basilar opacity, possibly pneumonia. Pleural spaces: No pleural effusion. No pneumothorax. Heart/Mediastinum: Stable cardiomediastinal silhouette. Bones/joints: No acute osseous findings. IMPRESSION: Mild right basilar opacity, possibly pneumonia. Recommend imaging follow-up until complete resolution. Electronically signed by Luis Sorto MD Pulmonology consulted [facility] History I have reviewed the patient's past medical history: Yes Medical History: Reports:: Aneurysm, Coronary Artery Disease, Cerebrovascular Accident, Hyperlipidemia, Hypertension, Internal Pacemaker, Myocardial Infarction, Peripheral Artery Disease, Peripheral Vascular Disease, Pulmonary Embolism Denies:: Cancer, Diabetes Mellitus Type 1, Diabetes Mellitus Type 2, MRSA, Seizures *Have you ever received a pneumonia vaccine?: No *Have you received a flu vaccine this season?: No Other Medical History: Reports: Anemia, Arthritis, Cataracts, Thyroid Disease. Denies: Blood Transfusion Reaction Laterality Cases: Left: Arthroscopy Shoulder, Other Other Surgeries: Yes: Cardiac Catheterization, Cholecystectomy, Colonoscopy, Hernia Repair, Hysterectomy-Total, Pacemaker, Other (stent placement in legs x&) Amputation: No Fractures: No - *Social History Smoking Status: Former smoker Tobacco Type: cigarettes #Yrs smoked (if former smoker): 40 Alcohol Intake: never Alcohol Intake Frequency:: other Substance Use Type: denies use *Occupational Status:: retired Housing: house Household Members: none *Travel in the last 8 weeks: None Family Hx:: Unable to obtain Review of Systems - Review of Systems Review of systems:: pertinent systems reviewed and negative unless documented below - Constitutional Reports fatigue, Reports fever(s), Reports lack of energy, Reports weakness - Eyes Denies blurry vision, Denies double vision - ENT Denies bleeding gums, Denies hearing loss - *Cardiovascular Reports shortness of breath, Reports shortness of breath with activity, Denies chest pain - *Respiratory Reports cough, Reports shortness of breath, Reports shortness of breath with activity, Denies change in phlegm color - *Gastrointestinal Denies abdominal pain, Denies change in stools - *Musculoskeletal Reports body aches, Denies abnormal walking, Denies radiating pain into limb - Integumentary/Breasts Denies hair loss, Denies yellowing of the skin - *Neurologic Reports weakness (Generalized), Denies headache(s), Denies numbness - Psychiatric Reports confusion, Denies lack of enjoyment - Endocrine Denies cold intolerance, Denies rapid, pounding, or irregular heartbeat - Hematologic/Lymphatic Denies easy bleeding, Denies easy bruising - Allergic/Immunologic Denies GI upset with certain foods, Denies throat swelling Meds Home Medications Medication Instructions Recorded Confirmed Type Losartan Potassium [Cozaar 50mg 50 mg PO DAILY 03/21/21 05/16/21 History Tablets] Metoprolol Succinate [Metoprolol 100 mg PO DAILY 03/21/21 05/16/21 History Succinate 100mg Tablet*] Spironolactone [Spironolactone 25 mg PO DAILY 03/21/21 05/16/21 History 25mg Tablet] levothyroxine 25 mcg capsule 25 mcg PO DAILY #90 cap 03/23/21 05/16/21 Rx Hydroxychloro
--- NOTE | 2021-05-16 09:37 | HMH.PULMCON ---
*Admission Date: 05/16/21 *History of present illness: Ms. Gandhi is a pleasant 81-year-old female no prior respiratory complaints not on any inhalers at come diagnosed with COVID-19 pneumonia 4 days ago remain at home and eventually brought to the hospital with worsening respiratory distress and pulmonary was called for further management. Ms. Gandhi did not receive any monoclonal antibody infusions. She has received azithromycin completed the course yesterday. [facility] History Medical History: Reports:: Aneurysm, Coronary Artery Disease, Cerebrovascular Accident, Hyperlipidemia, Hypertension, Internal Pacemaker, Myocardial Infarction, Peripheral Artery Disease, Peripheral Vascular Disease, Pulmonary Embolism Denies:: Cancer, Diabetes Mellitus Type 1, Diabetes Mellitus Type 2, MRSA, Seizures *Have you ever received a pneumonia vaccine?: No *Have you received a flu vaccine this season?: No Other Medical History: Reports: Anemia, Arthritis, Cataracts, Thyroid Disease. Denies: Blood Transfusion Reaction Laterality Cases: Left: Arthroscopy Shoulder, Other Other Surgeries: Yes: Cardiac Catheterization, Cholecystectomy, Colonoscopy, Hernia Repair, Hysterectomy-Total, Pacemaker, Other (stent placement in legs x&) Amputation: No Fractures: No - *Social History Smoking Status: Former smoker Tobacco Type: cigarettes #Yrs smoked (if former smoker): 40 Alcohol Intake: never Alcohol Intake Frequency:: other Substance Use Type: denies use *Occupational Status:: retired Housing: house Household Members: none *Travel in the last 8 weeks: None Family Hx:: Unable to obtain ROS - Cons Reports anorexia, Reports body ache(s), Denies chills - Card Reports shortness of breath, Reports shortness of breath with activity - Resp Respiratory: Reports shortness of breath, Reports chest congestion, Reports cough, Reports dyspnea on exertion, Denies excessive phlegm production, Denies coughing up blood - GI Gastrointestingal: Denies: abdominal pain, vomiting - Psych Denies thoughts of hurting/killing others, Denies thoughts of hurting/killing yourself Meds Home Medications Medication Instructions Recorded Confirmed Type Losartan Potassium [Cozaar 50mg 50 mg PO DAILY 03/21/21 05/16/21 History Tablets] Metoprolol Succinate [Metoprolol 100 mg PO DAILY 03/21/21 05/16/21 History Succinate 100mg Tablet*] Spironolactone [Spironolactone 25 mg PO DAILY 03/21/21 05/16/21 History 25mg Tablet] levothyroxine 25 mcg capsule 25 mcg PO DAILY #90 cap 03/23/21 05/16/21 Rx Hydroxychloroquine Sulfate 200 mg PO BID 05/16/21 05/16/21 History [Plaquenil] Zolpidem Tartrate 10 mg PO HS 05/16/21 05/16/21 History Allergies Allergy/AdvReac Type Severity Reaction Status Date / Time morphine Allergy Intermediate Verified 04/17/21 13:49 Exam - Constitutional Constitutional:: Present: no acute distress, comfortable - HENMT Exam HENMT: Present: normocephalic, atraumatic - Eye Exam Eyes:: Present: normal appearance both eyes and related structures - Neck Exam Neck:: Present: normal visual inspection - Respiratory Exam Respiratory:: Present: able to speak in complete sentences, no respiratory distress, wheezing - Cardiovascular Exam Cardiac:: Present: S1, S2 - GI Exam GI:: Present: soft, no hepatosplenomegaly, no tenderness - Skin Exam Skin: Present: warm, no rash - Neurological Exam Neurological: Present: alert, awake, normal cognition - Extremities Exam Extremities: Present: no cyanosis, no clubbing - Psychiatric Exam Psychiatric: Present: normal affect Internal Medicine - CN: Reslt - Labs CBC & Chem 7: 05/16/21 14:05 05/16/21 14:05 Labs: Short CBC 05/16/21 Range/Units 00:26 WBC 3.6 L (4.8-10.8) K/mm3 Hgb 9.2 L (12.2-16.2) g/dL Hct 29.7 L (37.0-47.0) % Plt Count 254 (142-424) K/mm3 [facility] 05/16/21 00:26 Sodium 136 Potassium 4.8 Chloride 107 Carbon Dioxide 23 BUN 36 H Cre
--- NOTE | 2021-05-16 11:09 | CA_ITS ---
APPROVED REPORT Bilateral Lower Extremity Venous Study for DVT. 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 Indications elevated D-Dimer, COVID + Risk Factors Obesity Vein Imaging CFV (R): compressive, spontaneous, phasic, augmentation SFJ (R): compressive, spontaneous, phasic, augmentation FEM (R): compressive, spontaneous, phasic, augmentation POP (R): compressive, spontaneous, phasic, augmentation DFV (R): compressive, spontaneous, phasic, augmentation PTV (R): compressive, spontaneous, phasic, augmentation GSV (R): compressive, spontaneous, phasic, augmentation Peroneals (R):compressive, spontaneous, phasic, augmentation GAS (R): compressive, spontaneous, phasic, augmentation CFV (L): compressive, spontaneous, phasic, augmentation SFJ (L): compressive, spontaneous, phasic, augmentation FEM (L): compressive, spontaneous, phasic, augmentation POP (L): compressive, spontaneous, phasic, augmentation DFV (L): compressive, spontaneous, phasic, augmentation PTV (L): compressive, spontaneous, phasic, augmentation GSV (L): compressive, spontaneous, phasic, augmentation Peroneals (L):compressive, spontaneous, phasic, augmentation GAS (L): compressive, spontaneous, phasic, augmentation Findings Bilateral venous negative for DVT/SVT Vessels Compressible No reflux noted. Conclusion Bilateral venous negative for DVT/SVT Vessels Compressible No reflux noted. Electronically signed by : Joselito Brambila MD 05/16/2021 16:41:07
[2021-05-16 14:18] LABS: Basophils % 0.5 % (0.1-2.0); Eosinophils # 0.1 K/mm3 (0.0-0.4); Eosinophils % 1.1 % (0.1-12.0); Hematocrit 34.3 % (37.0-47.0); Lymphocytes # 0.6 K/mm3 (0.7-4.5); Lymphocytes % 13.2 % (10-50); Mean Corpuscular HGB Conc 30.3 g/dL (31.8-35.4); Mean Corpuscular Hemoglobin 21.5 pg (27.0-31.2); Mean Platelet Volume 8.7 fl (7.4-10.4); Monocytes # 0.4 K/mm3 (0.1-1.0); Monocytes % 8.4 % (1.7-9.3); Neutrophils # 3.7 K/mm3 (1.8-7.8); Neutrophils % 76.7 % (37.0-80.0); Platelet Count 264 K/mm3 (142-424); Red Blood Count 4.83 M/mm3 (4.20-5.40); White Blood Count 4.8 K/mm3 (4.8-10.8)
[2021-05-16 14:35] LABS: Hemoglobin 10.5 g/dL (12.2-16.2)
[2021-05-16 14:42] LABS: Anion Gap 12.6 mEq/L (5-15); Blood Urea Nitrogen 33 mg/dl (7-17); Calcium 9.2 mg/dl (8.4-10.2); Carbon Dioxide 23 mmol/L (22.0-30.0); Chloride 107 mmol/L (98-107); Creatinine Clearance Estimated 44 mL/min (50-200); Estimated Glomerular Filt Rate 36 ml/min (>60); GFR (African American) 44 ML/MIN (>60); Glucose 159 mg/dl (74-100); Potassium 4.6 mmoL/L (3.5-5.1); Sodium 138 mmol/L (136-145)
--- NOTE | 2021-05-16 18:56 | PC.NURSE ---
Pt alert and oriented and able to make needs known. No c/os at this time. Sats remain WNL on RA and pt in NAD. Have offered pt lloyd hose and she doesn't want to wear at this time. Have encouraged po intake. IVF's infusing per mar. CB in reach. Pt has been up ad jennifer to the bathroom.
[2021-05-17] VITALS: BP 164/64; PULSE 46; RESP 16; TEMP 36.4; O2SAT 100
[2021-05-17 04:00] VITALS: BP 106/41; BP 146/45; PULSE 49; PULSE 57; RESP 16; RESP 17; TEMP 36.5; TEMP 36.6; O2SAT 99
[2021-05-17 05:21] VITALS: BMI 30.7
--- NOTE | 2021-05-17 06:10 | PC.NURSE ---
Pt remains on room air with O2 sats 98-100%. Pt voiced no c/o of pain or SOA t/o shift. Placed teds on BLE. Pt is able to make needs known to staff, call light within reach.
[2021-05-17 08:00] VITALS: BP 167/81; PULSE 58; RESP 18; TEMP 36.4; O2SAT 98; O2SAT 99
[2021-05-17 08:06] LABS: Basophils % 0.3 % (0.1-2.0); Eosinophils % 0.4 % (0.1-12.0); Hematocrit 30.8 % (37.0-47.0); Hemoglobin 9.5 g/dL (12.2-16.2); Lymphocytes # 1.8 K/mm3 (0.7-4.5); Lymphocytes % 20.6 % (10-50); Mean Corpuscular HGB Conc 30.8 g/dL (31.8-35.4); Mean Corpuscular Volume 71.6 fl (81-99); Mean Platelet Volume 7.9 fl (7.4-10.4); Monocytes # 0.6 K/mm3 (0.1-1.0); Monocytes % 6.8 % (1.7-9.3); Neutrophils # 6.1 K/mm3 (1.8-7.8); Neutrophils % 71.8 % (37.0-80.0); Platelet Count 279 K/mm3 (142-424); White Blood Count 8.5 K/mm3 (4.8-10.8)
--- NOTE | 2021-05-17 08:48 | HMH.DCSUM ---
General - General Admission date:: 05/16/21 Discharge date: 05/17/21 HPI HPI: 81-year-old female presenting to the emergency department with cough, shortness of breath, fatigue. She tested positive for COVID-19 5 days ago. Since then she has had worsening symptoms. Low appetite. Body aches. Feels very lightheaded going from seated to standing. Has been stumbling through her house. Also complaining of cough and shortness of breath. No prior history of lung problems, COPD or emphysema. No particular chest pain. She was not vaccinated for COVID-19. Has not received antibody infusion. Is taking prednisone and azithromycin (Per Rosita Staples MD). 05/15/21 CXR: FINDINGS: Lungs: Mild right basilar opacity, possibly pneumonia. Pleural spaces: No pleural effusion. No pneumothorax. Heart/Mediastinum: Stable cardiomediastinal silhouette. Bones/joints: No acute osseous findings. IMPRESSION: Mild right basilar opacity, possibly pneumonia. Recommend imaging follow-up until complete resolution. Electronically signed by Luis Sorto MD Pulmonology consulted Hospital Course Hospital Course: Laboratory Tests 05/15/21 05/15/21 05/16/21 23:51 23:54 00:09 WBC RBC Hgb Hct MCV MCH MCHC RDW Plt Count MPV Neut % (Auto) Lymph % (Auto) [place] % (Auto) Eos % (Auto) Baso % (Auto) Neut # (Auto) Lymph # (Auto) [place] # (Auto) Eos # (Auto) Baso # (Auto) D-Dimer VBG pH 7.49 H VBG pCO2 26.7 L VBG pO2 194.9 H VBG HCO3 20.0 L VBG Total CO2 20.8 L VBG O2 Saturation 99.3 H VBG Base Excess -3.3 L Sodium Potassium Chloride Carbon Dioxide Anion Gap BUN Creatinine Estimated Creat Clear Estimated GFR Est GFR ( Amer) Glucose Lactate Calcium Ferritin 17.7 D Total Bilirubin AST ALT Alkaline Phosphatase C-Reactive Protein Total Protein Albumin Globulin Albumin/Globulin Ratio Procalcitonin SARS-CoV-2 (PCR) Detected A Influenza A Untype (PCR) Not detected Influenza Type B (PCR) Not detected 05/16/21 05/16/21 05/16/21 00:26 00:26 00:26 WBC 3.6 L RBC 4.22 Hgb 9.2 L Hct 29.7 L MCV 70.5 L MCH 21.8 L MCHC 30.9 L RDW 18.8 H Plt Count 254 MPV 8.0 Neut % (Auto) 78.7 Lymph % (Auto) 12.2 [place] % (Auto) 8.4 Eos % (Auto) 0.1 Baso % (Auto) 0.6 Neut # (Auto) 2.8 Lymph # (Auto) 0.4 L [place] # (Auto) 0.3 Eos # (Auto) 0.0 Baso # (Auto) 0.0 D-Dimer 1.34 H VBG pH VBG pCO2 VBG pO2 VBG HCO3 VBG Total CO2 VBG O2 Saturation VBG Base Excess Sodium 136 Potassium 4.8 Chloride 107 Carbon Dioxide 23 Anion Gap 10.8 BUN 36 H Creatinine 1.30 H Estimated Creat Clear 48 Estimated GFR 40 L Est GFR ( Amer) 48 L Glucose 143 H Lactate Calcium 8.6 Ferritin Total Bilirubin 0.4 AST 65 H ALT 43 Alkaline Phosphatase 70 C-Reactive Protein 3.3 Total Protein 6.8 Albumin 3.9 Globulin 2.9 Albumin/Globulin Ratio 1.3 Procalcitonin 0.092 SARS-CoV-2 (PCR) Influenza A Untype (PCR) Influenza Type B (PCR) 05/16/21 05/16/21 05/16/21 00:49 14:05 14:05 WBC 4.8 D RBC 4.83 Hgb 10.5 L D Hct 34.3 L MCV 71.0 L MCH 21.5 L MCHC 30.3 L RDW 19.0 H Plt Count 264 MPV 8.7 Neut % (Auto) 76.7 Lymph % (Auto) 13.2 [place] % (Auto) 8.4 Eos % (Auto) 1.1 Baso % (Auto) 0.5 Neut # (Auto) 3.7 Lymph # (Auto) 0.6 L [place] # (Auto) 0.4 Eos # (Auto) 0.1 Baso # (Auto) 0.0 D-Dimer VBG pH VBG pCO2 VBG pO2 VBG HCO3 VBG Total CO2 VBG O2 Saturation VBG Base Excess Sodium 138 Potassium 4.6 Chloride 107 Carbon Dioxide 23 Anion Gap 12.6 BUN 33 H Creatinine 1.40 H Estimated Creat Clear 44 Es
[2021-05-17 10:35] LABS: Anion Gap 8.3 mEq/L (5-15); Blood Urea Nitrogen 35 mg/dl (7-17); Calcium 8.2 mg/dl (8.4-10.2); Carbon Dioxide 26 mmol/L (22.0-30.0); Chloride 108 mmol/L (98-107); Creatinine Clearance Estimated 42 mL/min (50-200); Estimated Glomerular Filt Rate 36 ml/min (>60); GFR (African American) 44 ML/MIN (>60); Glucose 127 mg/dl (74-100); Potassium 4.3 mmoL/L (3.5-5.1); Sodium 138 mmol/L (136-145)
== END 2021-05-17 10:15 | disposition home or self-care (01) ==
LOC: ER 05-16 02:37 → 2ND 05-16 02:47
PROVIDERS: Nurse Practitioner Family; Admitting Provider Family Medicine; Emergency Provider Emergency Medicine; PCP Emergency Medicine; Visit Provider Emergency Medicine
DX: U07.1 COVID-19 (principal); J12.82 Pneumonia due to coronavirus disease 2019; Z79.899 Other long term (current) drug therapy; I25.10 Atherosclerotic heart disease of native coronary artery without angina pectoris; I10 Essential (primary) hypertension; Z95.0 Presence of cardiac pacemaker; D64.9 Anemia, unspecified; R06.02 Shortness of breath; Z87.891 Personal history of nicotine dependence
CPT/HCPCS: G0378; 36415; 71045; 80048; 80053; 82728; 82803; 83605; 84145; 85025; 85378; 86140; 93970; 94640; 96374; 96375; 99284; C9803; J2405; U0003; U0005

== ENCOUNTER 2021-05-22 18:06 | Inpatient (IN) | payer MEDICARE, SELFPAY ==
[2021-05-22 18:07] VITALS: BP 200/82; PULSE 101; RESP 22; TEMP 36.8; O2SAT 83; BMI 32.5
[2021-05-22 18:30] VITALS: BP 160/92; PULSE 74; RESP 17; O2SAT 96
[2021-05-22 18:32] VITALS: BMI 32.5
--- NOTE | 2021-05-22 18:34 | XR_ITS ---
PROCEDURE INFORMATION: Exam: XR Chest Exam date and time: 05/22/2021 6:34 PM Age: 81 years old Clinical indication: Shortness of breath; Additional info: Covid + AMS TECHNIQUE: Imaging protocol: XR of the chest. Views: 1 view. COMPARISON: CR XR CHEST PORTABLE 05/16/2021 12:10 AM FINDINGS: Lungs: Mild bibasilar ground-glass and linear opacities, increased from comparison study, likely areas of atelectasis and pneumonitis. Pleural spaces: Unremarkable. No pleural effusion. No pneumothorax. Heart/Mediastinum: Normal. Vasculature: Atherosclerotic disease of the thoracic aorta. Bones/joints: No acute abnormality. IMPRESSION: Mild bibasilar ground-glass and linear opacities, increased from comparison study, likely areas of atelectasis and pneumonitis.
[2021-05-22 18:58] LABS: Influenza A, PCR Not Detected (NotDetected); Influenza B, PCR Not Detected (NotDetected)
[2021-05-22 19:00] VITALS: BP 188/99; PULSE 110; RESP 17; O2SAT 96
--- NOTE | 2021-05-22 19:33 | PC.NURSE ---
at bedside, placing US guided IV
[2021-05-22 19:58] LABS: Coronavirus 19, PCR Detected (NotDetected)
--- NOTE | 2021-05-22 21:32 | HMH.EDAMS ---
ED Disposition Clinical Impression: Obesity (BMI 30-39.9), Pneumonia due to 2019-nCoV, Acute respiratory failure due to COVID-19 Anemia Qualifiers: Anemia type: unspecified type Qualified Code(s): D64.9 - Anemia, unspecified CRF (chronic renal failure) Qualifiers: Chronic kidney disease stage: stage 3 (moderate) Chronic kidney disease stage 3 subtype: unspecified whether 3a or 3b Qualified Code(s): N18.30 - Chronic kidney disease, stage 3 unspecified Hypertension Qualifiers: Hypertension type: primary hypertension Qualified Code(s): I10 - Essential (primary) hypertension Disposition: Admitted as Observation Condition on Discharge: Fair - Critical Care Critical Care Time: No Attestation: On 05/22/21, the high probability of a clinically significant, sudden or life threatening deterioration of the following system(s) required my full and direct attention, intervention and personal management. The time I documented below is in addition to time spent performing reported procedures but includes the following listed in this critical care notation. Medical Decision Making - Medical Records Medical records reviewed: Yes: I reviewed the patient's medical records. - Donis Inquiry Pt receiving controlled substance: No Vital Signs: 05/22/21 18:07 05/22/21 18:30 05/22/21 19:00 Temperature 98.2 F Temperature Source Oral Pulse Rate 74 110 H Pulse Rate [Right] 101 H Respiratory Rate 22 17 17 Blood Pressure 160/92 H 188/99 H Blood Pressure [Right Arm] 200/82 H Blood Pressure Mean 114 117 Blood Pressure Mean [Right Arm] 121 Blood Pressure Source [Right Arm] Automatic Cuff Blood Pressure Position [Right Arm] Sitting 02 Sat by Pulse Oximetry 83 L 96 96 Oxygen Delivery Method Room Air - Lab Data Lab results reviewed: Yes: I reviewed the patient's lab results. Lab Results 05/22/21 18:08: SARS-CoV-2 (PCR) Detected A, Influenza A Untype (PCR) Not detected, Influenza Type B (PCR) Not detected 05/22/21 21:44: WBC 6.8, RBC 4.11 L, Hgb 9.0 L, Hct 30.0 L, MCV 73.0 L, MCH 22.0 L, MCHC 30.1 L, RDW 19.1 H, Plt Count 189, MPV 7.8, Neut % (Auto) 81.4 H, Lymph % (Auto) 11.6, [place] % (Auto) 5.9, Eos % (Auto) 0.7, Baso % (Auto) 0.5, Neut # (Auto) 5.5, Lymph # (Auto) 0.8, [place] # (Auto) 0.4, Eos # (Auto) 0.1, Baso # (Auto) 0.0 05/22/21 21:44: Sodium 137, Potassium 4.7, Chloride 106, Carbon Dioxide 24, Anion Gap 11.7, BUN 67 H, Creatinine 1.50 H, Estimated Creat Clear 41, Estimated GFR 33 L, Est GFR ( Amer) 41 L, Glucose 107 H, Calcium 8.3 L, Total Bilirubin 0.6, AST 38 H, ALT 29, Alkaline Phosphatase 81, Total Protein 6.4, Albumin 3.3 L, Globulin 3.1, Albumin/Globulin Ratio 1.1 05/22/21 21:44: Lactate 1.1 Result diagrams: 05/22/21 21:44 05/22/21 21:44 Orders (Tests/Meds): ED MEDICATIONS Generic Name Dose Route Start Last Admin Trade Name Freq PRN Reason Stop Dose Admin Sodium Chloride 3 ml 05/22/21 18:45 Sodium Chloride 3% 15ml Neb IH 06/21/21 18:44 ONCE PRN INDUCE SPUTUM COLLECTION Discontinued Medications Generic Name Dose Route Start Last Admin Trade Name Freq PRN Reason Stop Dose Admin Diazepam 5 mg 05/22/21 21:48 05/22/21 21:49 Diazepam 10mg/2ml Syringe IV 05/22/21 21:49 5 mg ONCE ONE Administration ORDERS Category Date Time Status Blood Culture Stat Micro 05/22/21 20:27 Ordered Sputum Culture & Gram Stain Stat Micro 05/22/21 18:45 Received - Radiology Data #1 Image(s): Chest Image Reviewed: Yes I have reviewed radiologist's interpretation Preliminary Findings: Abnormal (see report ) Medical Decision Narrative: has covid-19 and increased sx and altered mental status - will need admitted and eval Altered Mental Status HPI - General Chief Complaint: Altered Mental Status Stated Complaint: altered mental status Time Seen by Provider: 05/22/21 21:32 Mode of Arrival: Wheelchair Source of Information: Patient, Medical Record Limitat
[2021-05-22 21:52] LABS: Basophils % 0.5 % (0.1-2.0); Eosinophils # 0.1 K/mm3 (0.0-0.4); Eosinophils % 0.7 % (0.1-12.0); Lymphocytes # 0.8 K/mm3 (0.7-4.5); Lymphocytes % 11.6 % (10-50); Mean Corpuscular HGB Conc 30.1 g/dL (31.8-35.4); Mean Platelet Volume 7.8 fl (7.4-10.4); Monocytes # 0.4 K/mm3 (0.1-1.0); Monocytes % 5.9 % (1.7-9.3); Neutrophils # 5.5 K/mm3 (1.8-7.8); Neutrophils % 81.4 % (37.0-80.0); Platelet Count 189 K/mm3 (142-424); Red Blood Count 4.11 M/mm3 (4.20-5.40); Red Cell Distribution Width 19.1 % (11.5-17.5); White Blood Count 6.8 K/mm3 (4.8-10.8)
[2021-05-22 22:00] LABS: Alanine Aminotransferase 29 U/L (12-78); Albumin Level 3.3 g/dl (3.5-5.0); Albumin/Globulin Ratio 1.1 (1.1-1.8); Alkaline Phosphatase 81 U/L (38-126); Anion Gap 11.7 mEq/L (5-15); Aspartate Amino Transferase 38 U/L (14-36); Bilirubin,Total 0.6 mg/dl (0.2-1.3); Blood Urea Nitrogen 67 mg/dl (7-17); Calcium 8.3 mg/dl (8.4-10.2); Carbon Dioxide 24 mmol/L (22.0-30.0); Chloride 106 mmol/L (98-107); Creatinine Clearance Estimated 41 mL/min (50-200); Estimated Glomerular Filt Rate 33 ml/min (>60); GFR (African American) 41 ML/MIN (>60); Globulin 3.1 g/dL (1.3-3.2); Glucose 107 mg/dl (74-100); Lactic Acid 1.1 mmol/L (0.7-2.1); Potassium 4.7 mmoL/L (3.5-5.1); Sodium 137 mmol/L (136-145); Total Protein,Serum 6.4 g/dl (6.3-8.2)
--- NOTE | 2021-05-22 22:12 | PC.NURSE ---
Patient admitted to 264 with acute delirium
[2021-05-22 22:30] VITALS: BMI 32.9
[2021-05-23] VITALS (10 sets, daily range): BP systolic 133–173; BP diastolic 55–75; PULSE 50–81; RESP 16–22; TEMP 36.2–37.1; O2SAT 90–98
--- NOTE | 2021-05-23 00:41 | PC.NURSE ---
pt admitted to 262 from ED, will continue to monitor
--- NOTE | 2021-05-23 07:46 | HMH.PHAVTE ---
[facility] Pharmacy VTE Monitoring - Patient Demographics Admission date: 05/23/21 Report Date: 05/23/21 Time: 07:46 Allergies/Adverse Reactions: Patient Allergies morphine Allergy (Intermediate, Verified 04/17/21 13:49) Height: 1.62 m Weight: 86.36 kg Patient Problems: Current Active Problems Pneumonia due to 2019-nCoV (Acute) Acute respiratory failure due to COVID-19 (Acute) CRF (chronic renal failure) (Acute) Anemia (Acute) Hypertension (Chronic) Obesity (BMI 30-39.9) (Acute) - VTE Risk Labs: VTE Related Lab Results Hgb 9.0 g/dL (12.2-16.2) L 05/22/21 21:44 Hct 30.0 % (37.0-47.0) L 05/22/21 21:44 Plt Count 189 K/mm3 (142-424) 05/22/21 21:44 BUN 67 mg/dl (7-17) H 05/22/21 21:44 Creatinine 1.50 mg/dl (0.52-1.04) H 05/22/21 21:44 Estimated Creat Clear 41 mL/min (50-200) 05/22/21 21:44 Clinical Trial Participant: No - Prophylaxis VTE Prophylaxis Ordered?: Yes Types of VTE Prophylaxis: TEDS Knee High
--- NOTE | 2021-05-23 08:00 | XR_ITS ---
PROCEDURE: XR CHEST PORTABLE CLINICAL HISTORY: sob COMPARISON: CT CHESTWO CT chest wo con from 07/10/2017 CR XR CHEST 2V from 03/21/2020 CR XR CHEST PORTABLE from 05/16/2021 CR XR CHEST PORTABLE from 05/22/2021 FINDINGS: Normal heart size which may be related to aortic tortuosity/ectasia. There is prominence of the mediastinum Patchy areas of increased density are present in the right upper lobe in the right lower lobe consistent with pneumonia. This is slightly worse. Degenerative changes are present in the shoulders. IMPRESSION: Slight progression right-sided pneumonia Dictated by: Joselito Brambila MD 05/23/2021 10:12 Joselito Brambila MD in [facility] 05/23/2021 10:12
--- NOTE | 2021-05-23 08:18 | CA_ITS ---
APPROVED REPORT Bilateral Lower Extremity Venous Study for DVT. Mobility Manager: SAL Indications Lower Extremity Edema: Bilateral Shortness of breath History of Smoking BLE Edema, COVID, increased edema. Vein Imaging CFV (R): compressive, spontaneous, phasic, augmentation FEM (R): compressive, spontaneous, phasic, augmentation POP (R): compressive, spontaneous, phasic, augmentation PTV (R): Compressible GSV (R): compressive, spontaneous, phasic, augmentation Peroneals (R):Compressible GAS (R): Compressible CFV (L): compressive, spontaneous, phasic, augmentation FEM (L): compressive, spontaneous, phasic, augmentation POP (L): compressive, spontaneous, phasic, augmentation PTV (L): Compressible GSV (L): compressive, spontaneous, phasic, augmentation Peroneals (L):Compressible GAS (L): Compressible Findings No evidence of DVT or superficial thrombophlebitis in the veins scanned of the right lower extremity. No evidence of DVT or superficial thrombophlebitis in the veins scanned of the left lower extremity. Conclusion No evidence of DVT or superficial thrombophlebitis in the veins scanned of the right lower extremity. No evidence of DVT or superficial thrombophlebitis in the veins scanned of the left lower extremity. Electronically signed by : Joselito Brambila MD 05/23/2021 17:18:56
--- NOTE | 2021-05-23 08:19 | CA_ITS ---
APPROVED REPORT EXAM: Comprehensive 2D, Doppler, and color-flow Echocardiogram Communications Marketing Intern: Rebekah Mosley RT(R) Ht: 5 ft 4 in Wt: 190lbs BSA: 1.91 BP: 188/99 mmHg Indications: ex smoker, HTN, hyperlipidemia, CAD, CVA, pacemaker, old NH, PAD, PVD, PE 2D Dimensions Aortic Root 2.06 cm F: 2.7 - 3.3 LVEF (Gutierrez's) 57.70 % F: 54 - 74 LV Volume 102.40 mL F: 46 - 106 LV Volume Index 53.61 mL/m2 F: 29 - 61 LA Volume 19.40 mL LA Volume Index 10.15 mL/m2 (M/F) 16-34 M-Mode Dimensions RVDd 2.44 cm (0.9-2.6) LA Diam 2.78 cm (1.9-4.0) LVDd 5.17 cm (3.5-5.7) Ao Diam 3.19 cm (2.0-3.7) LVDs 4.01 cm (3.5-5.7) IVSd 1.00 cm (0.6-1.1) PWd 0.96 cm (0.6-1.1) EF (Teich) 44.90% FS 22.40% EDV (Teich) 127.80 mL ESV (Teich) 70.40 mL LV Diastology E Decel Time 207.00 (160-240 msec) E/A Ratio 0.5 MED E' 8.90 (< 7 cm/sec) E'/MED E' Ratio 6.06 (>14) LAT E' 8.10 (<10 cm/sec) E/LAT E' Ratio 6.65 (>14) Mitral Valve MV E Max Leo. 54.00 (40-130 cm/s) MV A Velocity 108.00 (40-130 cm/s) E/A Ratio 0.50 MV Decel. Time 207.00 (160-240 ms) MV PHT 61.00 ms Tricuspid Valve TR P. Velocity 220.00 cm/s RAP Estimate 10.00 mmHg RVSP 29.40 mmHg Left Ventricle Left atrium is mildly enlarged, left ventricle is normal size, mild concentric left ventricular hypertrophy, visually estimated ejection fraction 55% with no regional wall motion abnormality, grade 1 diastolic dysfunction seen without tissue Doppler evidence of raise left atrial pressure. Right Ventricle Right atrium and right ventricle are normal size and contractility. Aortic Valve Aortic valve is thickened and calcified without Doppler evidence of aortic stenosis or aortic insufficiency. Mitral Valve Mitral valve grossly normal, there is trace mitral regurgitation. Tricuspid Valve Tricuspid valve grossly normal, there is trace tricuspid regurgitation, tricuspid regurgitation jet velocity is inadequate for calculation of the right ventricular systolic pressure. Pulmonic Valve Pulmonic valve is poorly visualized. Great Vessels Aortic root is normal size. Inferior vena cava normal size with normal inspiratory collapse. Pericardium No significant pericardial effusion noted. Conclusion 1. Mildly enlarged left atrium, normal left ventricular size, mild concentric left ventricular hypertrophy, visually estimated ejection fraction 55% with no regional wall motion abnormality, grade 1 diastolic dysfunction seen without tissue Doppler evidence of raise left atrial pressure. 2. Thickened and calcified aortic valve without aortic stenosis or aortic insufficiency. 3. Trace mitral and tricuspid regurgitation. 4. No significant pericardial effusion noted. 5. Inferior vena cava normal size with normal inspiratory collapse. Electronically signed by : Saw Sheppard MD 05/23/2021 19:14:59
[2021-05-23 08:59] LABS: ABG Base Excess -4.7 mmol/L (-2.4-2.3); ABG HCO3 19.2 mmhg (22.0-26.0); ABG Oxygen Saturation 93 % (90-100); ABG PCO2 30.8 mmhg (35.0-45.0); ABG PH 7.41 mmol/L (7.35-7.45); ABG PO2 67.4 mmhg (80-100); ABG TCO2 20.2 mmhg (23-27)
[2021-05-23 09:00] LABS: Allen's Test Non Applicable; Oxygen 5LPM NC %; Source Right Brachial
--- NOTE | 2021-05-23 09:55 | HMH.HP ---
*Admission Date: 05/23/21 *Chief complaint: Shortness of Breath *History of present illness: 81 YOF presented to [facility] ED for increased SOA and altered mental status. She was positive for covid on 05/11 was admitted 05/15. Today she reports worsening symptoms including SOA, AMS, swelling, weakness. 05/22/21 CXR: FINDINGS: Lungs: Mild bibasilar ground-glass and linear opacities, increased from comparison study, likely areas of atelectasis and pneumonitis. Pleural spaces: Unremarkable. No pleural effusion. No pneumothorax. Heart/Mediastinum: Normal. Vasculature: Atherosclerotic disease of the thoracic aorta. Bones/joints: No acute abnormality. IMPRESSION: Mild bibasilar ground-glass and linear opacities, increased from comparison study, likely areas of atelectasis and pneumonitis. Electronically signed by Ayaan Perez MD 81 YOF lying in bed, she reports some SOA during night and denies CP. She also denies nausea at present. She is unable to answer several answers and will change subject when unsure of answer. She does not know how long she has been sick or what day it is. [facility] History I have reviewed the patient's past medical history: Yes Medical History: Reports:: Aneurysm, Coronary Artery Disease, Cerebrovascular Accident, Hyperlipidemia, Hypertension, Internal Pacemaker, Myocardial Infarction, Peripheral Artery Disease, Peripheral Vascular Disease, Pulmonary Embolism Denies:: Cancer, Diabetes Mellitus Type 1, Diabetes Mellitus Type 2, MRSA, Seizures *Have you ever received a pneumonia vaccine?: No *Have you received a flu vaccine this season?: No Other Medical History: Reports: Anemia, Arthritis, Cataracts, Thyroid Disease. Denies: Blood Transfusion Reaction Laterality Cases: Left: Arthroscopy Shoulder, Other Other Surgeries: Yes: Cardiac Catheterization, Cholecystectomy, Colonoscopy, Hernia Repair, Hysterectomy-Total, Pacemaker, Other (stent placement in legs x&) Amputation: No Fractures: No - *Social History Smoking Status: Former smoker Tobacco Type: cigarettes #Yrs smoked (if former smoker): 40 Alcohol Intake: never Alcohol Intake Frequency:: other Substance Use Type: denies use *Occupational Status:: retired Housing: house Household Members: none *Travel in the last 8 weeks: None Family Hx:: Unable to obtain Review of Systems - Review of Systems Review of systems:: pertinent systems reviewed and negative unless documented below - Constitutional Reports body ache(s), Reports chills, Reports fatigue - Eyes Denies change in vision, Denies dry eyes - ENT Denies change in voice, Denies difficulty swallowing - *Cardiovascular Reports shortness of breath, Reports shortness of breath with activity, Reports leg swelling, Denies chest pain - *Respiratory Reports change in phlegm color, Reports chest congestion, Reports cough, Reports shortness of breath, Reports shortness of breath with activity, Denies coughing up blood - *Gastrointestinal Reports abdominal pain, Reports heartburn, Denies bright, red blood in stools - *Musculoskeletal Reports muscle weakness, Denies joint pain - Integumentary/Breasts Denies change in hair - *Neurologic Reports confusion, Reports weakness, Denies abnormal speech, Denies localized weakness, Denies seizure-like activity - Psychiatric Denies anxiety - Endocrine Denies cold intolerance, Denies excessive sweating - Hematologic/Lymphatic Denies easy bleeding - Allergic/Immunologic Reports GI upset with certain foods, Denies lip swelling, Denies tongue swelling Meds Home Medications Medication Instructions Recorded Confirmed Type Losartan Potassium [Cozaar 50mg 50 mg PO DAILY 03/21/21 05/16/21 History Tablets] Metoprolol Succinate [Metoprolol 100 mg PO DAILY 03/21/21 05/16/21 History Succinate 100mg Tablet*] Spironolactone [Spironolactone 25 mg PO DAILY 03/21/21 05/16/21 History 25mg Tablet] levothyroxine 25 mcg c
--- NOTE | 2021-05-23 12:07 | HMH.PULMCON ---
*Admission Date: 05/23/21 *Reason for consult:: COVID-19 pneumonia, acute hypoxic respiratory failure *History of present illness: Ms. Gandhi is a 81-year-old female no significant smoking history no prior respiratory complaint diagnosed with COVID-19 pneumonia 05/11/2021 recently admitted to the hospital during which she was saturating 98% on room air with a negative lower extremity Doppler discharge to the home presented hospital with worsening respiratory distress and needing oxygen requirements to maintain her saturations greater than 90 and pulmonary was called for further management. [facility] History Medical History: Reports:: Aneurysm, Coronary Artery Disease, Cerebrovascular Accident, Hyperlipidemia, Hypertension, Internal Pacemaker, Myocardial Infarction, Peripheral Artery Disease, Peripheral Vascular Disease, Pulmonary Embolism Denies:: Cancer, Diabetes Mellitus Type 1, Diabetes Mellitus Type 2, MRSA, Seizures *Have you ever received a pneumonia vaccine?: No *Have you received a flu vaccine this season?: No Other Medical History: Reports: Anemia, Arthritis, Cataracts, Thyroid Disease. Denies: Blood Transfusion Reaction Laterality Cases: Left: Arthroscopy Shoulder, Other Other Surgeries: Yes: Cardiac Catheterization, Cholecystectomy, Colonoscopy, Hernia Repair, Hysterectomy-Total, Pacemaker, Other (stent placement in legs x&) Amputation: No Fractures: No - *Social History Smoking Status: Former smoker Tobacco Type: cigarettes #Yrs smoked (if former smoker): 40 Alcohol Intake: never Alcohol Intake Frequency:: other Substance Use Type: denies use *Occupational Status:: retired Housing: house Household Members: none *Travel in the last 8 weeks: None Family Hx:: Unable to obtain ROS - Cons Reports body ache(s), Reports fatigue, Reports weakness - ENT Denies bleeding gums - Card Reports shortness of breath, Reports shortness of breath with activity - Resp Respiratory: Reports shortness of breath, Reports chest congestion, Reports cough, Reports excessive phlegm production - GI Gastrointestingal: Reports: nausea - Psych Denies thoughts of hurting/killing others, Denies thoughts of hurting/killing yourself Meds Home Medications Medication Instructions Recorded Confirmed Type Losartan Potassium [Cozaar 50mg 50 mg PO DAILY 03/21/21 05/16/21 History Tablets] Metoprolol Succinate [Metoprolol 100 mg PO DAILY 03/21/21 05/16/21 History Succinate 100mg Tablet*] Spironolactone [Spironolactone 25 mg PO DAILY 03/21/21 05/16/21 History 25mg Tablet] levothyroxine 25 mcg capsule 25 mcg PO DAILY #90 cap 03/23/21 05/16/21 Rx Hydroxychloroquine Sulfate 200 mg PO BID 05/16/21 05/16/21 History [Plaquenil] Zolpidem Tartrate 10 mg PO HS 05/16/21 05/16/21 History Allergies Allergy/AdvReac Type Severity Reaction Status Date / Time morphine Allergy Intermediate Unknown Verified 05/23/21 07:58 allergy reaction Exam - Constitutional Constitutional:: Present: no acute distress, comfortable - HENMT Exam HENMT: Present: normocephalic - Eye Exam Eyes:: Present: normal appearance both eyes and related structures - Neck Exam Neck:: Present: normal visual inspection - Respiratory Exam Respiratory:: Present: able to speak in complete sentences, no respiratory distress, wheezing - Cardiovascular Exam Cardiac:: Present: S1, S2 - GI Exam GI:: Present: soft - Skin Exam Skin: Present: warm, rash - Neurological Exam Neurological: Present: alert, awake, normal cognition - Extremities Exam Extremities: Present: no cyanosis, no clubbing, edema - Psychiatric Exam Psychiatric: Present: normal affect Internal Medicine - CN: Reslt - Labs CBC & Chem 7: 05/22/21 21:44 05/22/21 21:44 Labs: Short CBC 05/22/21 Range/Units 21:44 WBC 6.8 (4.8-10.8) K/mm3 Hgb 9.0 L (12.2-16.2) g/dL Hct 30.0 L (37.0-47.0) % Plt Count 189 (142-424) K/mm3 [facility] 05/22/21 21:44
[2021-05-23 13:54] LABS: Chloride 110 mmol/L (98-107); Potassium 4.5 mmoL/L (3.5-5.1); Sodium 138 mmol/L (136-145)
[2021-05-23 13:57] LABS: Anion Gap 10.5 mEq/L (5-15); Blood Urea Nitrogen 53 mg/dl (7-17); Calcium 7.3 mg/dl (8.4-10.2); Carbon Dioxide 22 mmol/L (22.0-30.0); Creatinine Clearance Estimated 48 mL/min (50-200); Estimated Glomerular Filt Rate 40 ml/min (>60); GFR (African American) 48 ML/MIN (>60); Glucose 96 mg/dl (74-100); Magnesium 2.7 mg/dl (1.6-2.3)
[2021-05-23 14:02] LABS: C-Reactive Protein 101.6 mg/L (0-4)
[2021-05-23 14:03] LABS: Basophils % 0.4 % (0.1-2.0); Eosinophils # 0.1 K/mm3 (0.0-0.4); Hematocrit 26.9 % (37.0-47.0); Lymphocytes # 0.9 K/mm3 (0.7-4.5); Lymphocytes % 17.8 % (10-50); Mean Corpuscular HGB Conc 29.9 g/dL (31.8-35.4); Mean Corpuscular Hemoglobin 21.6 pg (27.0-31.2); Mean Corpuscular Volume 72.3 fl (81-99); Mean Platelet Volume 7.7 fl (7.4-10.4); Monocytes # 0.3 K/mm3 (0.1-1.0); Neutrophils # 3.9 K/mm3 (1.8-7.8); Neutrophils % 74.8 % (37.0-80.0); Platelet Count 173 K/mm3 (142-424); Red Blood Count 3.71 M/mm3 (4.20-5.40); Red Cell Distribution Width 18.6 % (11.5-17.5); White Blood Count 5.2 K/mm3 (4.8-10.8)
[2021-05-23 14:55] LABS: Lactate Dehydrogenase 256 U/L (313-618)
--- NOTE | 2021-05-23 18:57 | PC.NURSE ---
Pt has rested/slept most of the shift. she has had several family members check on her. lung sounds are diminished with occasional rhonchi. bowel sounds are active in all quads. 1+ edema in ble. nad noted
[2021-05-24] VITALS (7 sets, daily range): BP systolic 143–170; BP diastolic 59–74; PULSE 50–61; RESP 16–18; TEMP 36.5–36.9; O2SAT 91–96; BMI 32.4
--- NOTE | 2021-05-24 03:02 | PC.NURSE ---
PT HAS REMAINED A&OX4 THIS SHIFT. PT IS NOW ON 2LNC, TOLERATING WELL. PT STANDBY ASSIST TO BEDSIDE COMMODE. HAS SLEPT MAJORITY OF SHIFT. HAVE TRIED TO GET PT TO EAT SOMETHING THIS SHIFT, BUT HAS REFUSED. NO C/O THUS FAR, VSS WILL CONTINUE TO MONITOR.
--- NOTE | 2021-05-24 05:31 | PC.NURSE ---
PT AWOKE SLIGHTLY CONFUSED THIS MORNING. IN BED RESTING AT THIS TIME.
--- NOTE | 2021-05-24 12:06 | HMH.PULMPN ---
Internal Medicine - PN: Subj *Date: 05/24/21 *Time: 12:06 Interval history: Denies any new complaints. Admits improvement in breathing. No acute respiratory events in the last 24 hours. Exam - Constitutional Constitutional:: Present: no acute distress, comfortable - HENMT Exam HENMT: Present: normocephalic - Eye Exam Eyes:: Present: normal appearance both eyes and related structures - Neck Exam Neck:: Present: normal visual inspection - Respiratory Exam Respiratory:: Present: able to speak in complete sentences, no respiratory distress, decreased breath sounds. Absent: wheezing - Cardiovascular Exam Cardiac:: Present: S1, S2 - GI Exam GI:: Present: soft - Skin Exam Skin: Present: warm - Neurological Exam Neurological: Present: alert, awake, normal cognition - Extremities Exam Extremities: Present: no cyanosis, no clubbing, edema Assessment and Plan (1) Lower extremity edema Status: Acute Category: Medical Code(s): R60.0 - Localized edema (2) Pneumonia due to 2019-nCoV Status: Acute Category: Medical Code(s): U07.1 - COVID-19; J12.82 - Pneumonia due to coronavirus disease 2019 (3) Acute respiratory failure due to COVID-19 Status: Acute Category: Medical Code(s): U07.1 - COVID-19; J96.00 - Acute respiratory failure, unspecified whether with hypoxia or hypercapnia (4) Altered mental status Status: Acute Qualifiers: Altered mental status type: unspecified Qualified Code(s): R41.82 - Altered mental status, unspecified Category: Medical Code(s): R41.82 - Altered mental status, unspecified (5) Obesity (BMI 30-39.9) Status: Acute Category: Medical Code(s): E66.9 - Obesity, unspecified - Assessment and plan all Dx Assessment and Plan for all problems:: #Acute hypoxic respiratory failure: Is COVID-19 pneumonia: 81-year-old F to be vaccinated. No prior respiratory complaints. Diagnosed with COVID-19 pneumonia on 05/11/2021. Presented for worsening respiratory along with cough and productive phlegm. Chest x-ray bilateral worsening infiltrates compared to recent chest x-ray from a week ago. Auscultation continued some mild expiratory wheeze. Afebrile. No evidence of leukocytosis. Renal function stable. Patient was initiated on remdesivir on admission. Interval update: Patient admits improvement in her symptoms. She was on RA this morning saturating 93 to 94%. Auscultation improved with no wheezing today. Continue to receive Advair. Ms. Gandhi also continue to receive remdesivir along with dexamethasone and Augmentin. Her repeat CRP was increased to 100, while it was normal with her most recent admission a week ago Doppler no evidence of DVT. Plan: -Incentive spirometry every hour. -Continue Augmentin 500 mg 3 times daily x5 days, sputum culture growing few gram-positive diplococci. -Continue oxygen as needed to maintain O2 saturation goal of 90% and above. -Continue remdesivir for 5 days along with dexamethasone 6 mg days -Continue Advair 250 twice daily -Encourage p.o. intake. #Thank you for involving pulmonary in this patient care. We will continue to follow.
--- NOTE | 2021-05-24 12:17 | CT_ITS ---
PROCEDURE: CT HEAD/BRAIN WO CON CLINICAL INDICATION: ams COMPARISON: CT HEADWO CT head/brain wo con from 05/19/2018 TECHNIQUE: Axial images obtained. All CT scans at the facility use one or more dose reduction, viz: automated exposure control, ma/kV adjustment per patient size (including targeted exams where dose is matched to indication, i.e. head), or iterative reconstruction technique. FINDINGS: No midline shift, mass effect, intracranial hemorrhage, hydrocephalus, or extra-axial fluid collection is evident. There is generalized atrophy with hypoattenuation of the periventricular white matter consistent with microangiopathic changes.. Old small lacunar infarctions are present in the sub insular region on the right and in the right putamen. The calvarium has an unremarkable appearance. No mastoid effusion. There is sclerosis of the left mastoid sinus. No paranasal sinus air-fluid level. There does appear to be an old fracture of the anterior arch of C1. IMPRESSION: No acute intracranial finding Dictated by: Joselito Brambila MD 05/24/2021 13:11 Joselito Brambila MD in [facility] 05/24/2021 13:11
--- NOTE | 2021-05-24 12:17 | CT_ITS ---
PROCEDURE: CT ABDOMEN PELVIS WO CON CLINICAL INDICATION: ams COMPARISON: CT CT ANGIO ABDOMEN/FEMORAL from 12/10/2019 TECHNIQUE: Axial images obtained with sagittal and coronal reformats. All CT scans at the facility use one or more dose reduction, viz: automated exposure control, ma/kV adjustment per patient size (including targeted exams where dose is matched to indication, i.e. head), or iterative reconstruction technique. FINDINGS: LOWER THORAX: There is consolidation/atelectatic changes in both lower lobes posteriorly. Coronary artery calcifications are noted. ABDOMEN & PELVIS: The liver, spleen, adrenal glands, and pancreas have an unremarkable appearance aside from diffuse pancreatic atrophy. There are bilateral renal cysts measuring up to 5 cm on the left. Fusiform infrarenal abdominal aortic aneurysm at 4 x 4 cm has increased in size previously measuring 3 x 3.6 cm. No evidence of retroperitoneal hemorrhage. The aneurysm ends above the aortic bifurcation. No intestinal obstruction or free air. There is colonic diverticulosis. No evidence of diverticulitis. There has been a prior hysterectomy and reported appendectomy. Small to medium-sized left inguinal hernia containing fat. Small right inguinal hernia containing fat. Vascular stent is present in the right SFA proximally. Degenerative changes are present in the thoracic and lumbar spine. There is an epidural catheter entering at the L5-S1 region with the tip at the T11 area. IMPRESSION: No acute finding in the abdomen or pelvis. Enlarging infrarenal abdominal aortic aneurysm at 4 x 4 cm previously 3 x 3.6 cm. No evidence of retroperitoneal hemorrhage. Consolidation/atelectatic changes in the lower lobes posteriorly Bilateral inguinal hernias Dictated by: Joselito Brambila MD 05/24/2021 13:21 Joselito Brambila MD in [facility] 05/24/2021 13:21
--- NOTE | 2021-05-24 12:36 | PC.NURSE ---
Pt down for ct scans at this time.
--- NOTE | 2021-05-24 12:50 | CT_ITS ---
PROCEDURE: CT CHEST WO CON CLINICAL INDICATION: COVID COMPARISON: CT CHESTWO CT chest wo con from 07/10/2017 TECHNIQUE: Axial images obtained with sagittal and coronal reformats. All CT scans at the facility use one or more dose reduction, viz: automated exposure control, ma/kV adjustment per patient size (including targeted exams where dose is matched to indication, i.e. head), or iterative reconstruction technique. FINDINGS: HEART AND MEDIASTINAL STRUCTURES: There is mild dilatation of the proximal descending thoracic aorta 3.6 cm. Scattered small nodes are present in the mediastinum. There are severe coronary artery calcifications. Small hiatal hernia. LUNGS AND PLEURAL SPACES: There are few scattered peripheral ground-glass opacities in the upper lobes. Consolidation is present in the right lower lobe posteriorly and laterally with atelectatic changes in the lung bases posteriorly. No effusions. No evidence of pneumothorax. There are mild atelectatic changes around the mildly dilated thoracic aorta BONY STRUCTURES: A sclerotic focus is present involving the right posterior aspect of the T12 vertebral body and pedicle region not significantly changed. Linear sclerotic areas present along the inferior aspect of the left 8th rib laterally UPPER ABDOMEN: Please see abdomen report from the same day ADDITIONAL FINDINGS: No other significant abnormalities. IMPRESSION: Scattered multifocal peripheral ground-glass opacities in the upper lobes with consolidation and atelectatic changes in the lower lobes posteriorly. These findings may be seen with Covid19 pneumonia. No change mild fusiform dilatation proximal descending thoracic aorta at 3.6 cm. Dictated by: Joselito Brambila MD 05/24/2021 14:42 Joselito Brambila MD in [facility] 05/24/2021 14:42
--- NOTE | 2021-05-24 13:43 | HMH.PHAINT ---
MEDICATION RECONCILIATION COMPLETED ON PATIENT USING EXTERNAL FILL HISTORY FROM PHARMACY. -CARMELA AL, DAVIDD
--- NOTE | 2021-05-24 14:25 | PC.NURSE ---
RESPIRATORY CARE: PT STATED THAT SHE IS CURRENTLY NOT COUGHING UP ANYTHING AT THIS TIME. GAVE HER A CUP AND INSTRUCTED HER TO GIVE SAMPLE IF POSSIBLE.
--- NOTE | 2021-05-24 16:13 | HMH.ACPN2 ---
Internal Medicine - PN: Subj *Date: 05/25/21 *Time: 06:25 Interval history: more alert - still with sig cough Exam Vital signs and Labs for Last 24 Hours: Temp Pulse Resp BP Pulse Ox 98.4 F 58 L 17 155/65 H 95 05/24/21 14:57 05/24/21 14:57 05/24/21 14:57 05/24/21 14:57 05/24/21 14:57 I & O for Last 24 hours: Intake & Output 05/22/21 05/23/21 05/24/21 05/25/21 11:59 11:59 11:59 11:59 Intake Total 470 / 470 1900 / 1900 0 / 0 Output Total 150 / 150 Balance 320 / 320 1900 / 1900 0 / 0 Weight 190 lb 6.259 oz 190 lb Microbiology Reports for the Last 24 Hours: Microbiology 05/22/21 18:26 Sputum - Expectorated Sputum Gram Stain - Final 05/22/21 18:26 Sputum - Expectorated Sputum Sputum Culture - Preliminary - Constitutional no acute distress, obese - *Routine HEENT Exam Head: Present: normocephalic Eye: Present: EOMI, PERRL ENT: Present: mucous membranes dry - *Routine Neck Exam Absent: JVD - *Routine Respiratory Exam Present: decreased breath sounds - *Routine Cardiovascular Exam Present: RRR, murmur - *Routine Abdominal Exam Present: soft - *Routine Extremities Exam Absent: calf tenderness - *Routine Skin Exam Present: intact - *Routine Neurological Exam Present: alert, CN II-XII intact - Routine Psychiatric Exam Present: cooperative Assessment and Plan (1) Lower extremity edema Status: Acute Category: Medical Code(s): R60.0 - Localized edema (2) Pneumonia due to 2019-nCoV Status: Acute Category: Medical Code(s): U07.1 - COVID-19; J12.82 - Pneumonia due to coronavirus disease 2019 (3) Acute respiratory failure due to COVID-19 Status: Acute Category: Medical Code(s): U07.1 - COVID-19; J96.00 - Acute respiratory failure, unspecified whether with hypoxia or hypercapnia (4) Altered mental status Status: Acute Qualifiers: Altered mental status type: unspecified Qualified Code(s): R41.82 - Altered mental status, unspecified Category: Medical Code(s): R41.82 - Altered mental status, unspecified (5) Obesity (BMI 30-39.9) Status: Acute Category: Medical Code(s): E66.9 - Obesity, unspecified
--- NOTE | 2021-05-24 16:33 | PC.NURSE ---
1539 - Consent obtained via phone from pt's daughter for PICC line, witnessed by Radha Caruso RN. 1555 - Time out performed After RN had gained access and was attempting to insert guide wire, pt stated that it was pinching her. Pt then began to raise her arm as to strike nurse and pulled sterile drape off, along w/ supplies that were at bedside. Sterile field compromised. MAYRA Hunt at bedside @ this time. Sterile field taken down and wire removed from patient that had been contaminated. Pt repositioned and sitting up in bed attempting to leave. Pt's daughter called to make aware of situation. Pt still has no access at this time, and is refusing to be stuck. Primary RN made aware.
--- NOTE | 2021-05-24 19:35 | PC.NURSE ---
Pt more combative and agitated this afternoon and difficultly with PICC insertion. Daughter, Marylu aware of pt's status, as well as september. Called several RN's to see if they were able to come in this evening and attempt PICC, they were not. Dr. Rodrigues ( instructional assistant) did order haldol per aug, which did help allow pt to calm down. Pt refused valium. which was attempted first. Dr. Rodrigues also made aware that pt doesnt have IV assess and is ok with this until primary rounds in am and stated to hold IV meds at this time. Have encouraged po intake on pt. Clean urine cup is at bedside and this RN made Primary RN for this evening, aware of need for urine sample. Clip alarm in place for safety purposes. VSS. Has apperared to be sinus darci on tele.
[2021-05-25] VITALS (7 sets, daily range): BP systolic 111–160; BP diastolic 44–69; PULSE 41–60; RESP 14–18; TEMP 36.4–36.6; O2SAT 91–95; BMI 32.4
--- NOTE | 2021-05-25 02:41 | PC.NURSE ---
PT HAS BEEN ALERT TO SELF T/O SHIFT, IS STILL HAVING CONFUSION. TOLERATING RA WELL. PT HAS SLEPT MAJORITY OF SHIFT. HAS HAD NO C/O THUS FAR. HAVE SITUATED PT IN BED MULTIPLE TIMES. WHILE ASLEEP, HR HAS GOTTEN LOW 42. BUT AWAKENS EASILY AND HR IS UP IN MID 60S. VSS WILL CONTINUE TO MONITOR.
--- NOTE | 2021-05-25 06:38 | PC.NURSE ---
PT IS VERY UNSTEADY THIS AM. DID HELP PT TO BEDSIDE COMMODE. SHE HAD A SMALL BM IN THE BED, BUT PEED IN HER BC. URINE SAMPLE COLLECTED AND SENT TO LAB. PT CLEANED, NEW LINENS APPLIED. RESTING IN BED AT THIS TIME.
[2021-05-25 07:02] LABS: Appearance,Urine CLEAR (Clear); Bilirubin,Urine Negative (Negative); Blood, Urine 2+ (Negative); Color,Urine YELLOW (Yellow); Glucose,Urine (UA) Negative (Negative); Ketones,Urine Negative (Negative); Leukocyte Esterase,Urine Negative (Negative); Microscopic, Urine URINE MICROSCOPIC (MICROSCOPIC); Nitrate,Urine Negative (Negative); PH,Urine 5.5 (5.0-8.5); Protein,Urine Negative (Negative); Specific Gravity, Urine >= 1.030 (1.005-1.030); Urobilinogen,Urine 0.2 EU/dl (0.2)
[2021-05-25 08:00] LABS: Other Crystals,Urine 1+ /lpf
--- NOTE | 2021-05-25 12:35 | PC.NURSE ---
Attempted PICC placement x4 sticks. Not successful getting guide wire to thread with any stick. Was able to get IV but not able to get guide wire to advance. Pt tolerated the proceedure. Nurse was notified and was going to call PCP to see about getting another type of access.
--- NOTE | 2021-05-25 13:21 | HMH.ACPN2 ---
Internal Medicine - PN: Subj *Date: 05/25/21 *Time: 18:08 Interval history: Issues with confusion/agitation. Haldol IM available IV access per surgery required as picc placement not feasible Saturations low 90's on RA/NC lucy [address] abdomen=AAA measuring 4x4 cm, increasing in size but w/o signs of bleeding CT brain=no acute changes Duplex=no dvt Sequential chest imaging shows patchy infiltrative changes c/w covid Hgb this morning 8.0 will transfuse 2 units prbc with interval lasix Confused this morning but was resting calmly CRP elevated Lactic 1.1 Exam Vital signs and Labs for Last 24 Hours: Temp Pulse Resp BP Pulse Ox 97.8 F 52 L 18 153/64 H 91 L 05/25/21 12:00 05/25/21 12:00 05/25/21 12:00 05/25/21 12:00 05/25/21 12:00 Laboratory Results - last 24 hr 05/25/21 06:15: Urine Color Yellow, Urine Appearance Clear, Urine pH 5.5, Ur Specific [place] >= 1.030, Urine Protein Negative, Urine Glucose (UA) Negative, Urine Ketones Negative, Urine Blood 2+, Urine Nitrate Negative, Urine Bilirubin Negative, Urine Urobilinogen 0.2, Ur Leukocyte Esterase Negative, Urine RBC 5-10, Urine WBC 3-5, Ur Squamous Epith Cells 3-5, Other Crystals 1+, Urine Bacteria None I & O for Last 24 hours: Intake & Output 05/22/21 05/23/21 05/24/21 05/25/21 23:59 23:59 23:59 23:59 Intake Total 2009 360 / 360 Output Total 150 / 150 Balance 1860 / 1860 360 / 360 Weight 190 lb 6.259 oz 190 lb 190 lb 0.016 oz Microbiology Reports for the Last 24 Hours: Microbiology 05/22/21 18:26 Sputum - Expectorated Sputum Gram Stain - Final 05/22/21 18:26 Sputum - Expectorated Sputum Sputum Culture - Preliminary - Constitutional no acute distress - *Routine HEENT Exam Head: Present: normocephalic Eye: Present: EOMI, PERRL ENT: Present: mucous membranes moist - *Routine Neck Exam Present: supple. Absent: lymphadenopathy - *Routine Respiratory Exam Present: crackles. Absent: accessory muscle use, respiratory distress, wheezes - *Routine Cardiovascular Exam Present: RRR - *Routine Abdominal Exam Present: soft. Absent: tenderness - *Routine Extremities Exam Absent: cyanosis, clubbing, edema - *Routine Skin Exam Present: warm. Absent: rash - *Routine Neurological Exam Absent: oriented X3, tremors Assessment and Plan (1) Lower extremity edema Status: Acute Category: Medical Code(s): R60.0 - Localized edema (2) Pneumonia due to 2019-nCoV Status: Acute Category: Medical Code(s): U07.1 - COVID-19; J12.82 - Pneumonia due to coronavirus disease 2019 (3) Acute respiratory failure due to COVID-19 Status: Acute Category: Medical Code(s): U07.1 - COVID-19; J96.00 - Acute respiratory failure, unspecified whether with hypoxia or hypercapnia (4) Altered mental status Status: Acute Qualifiers: Altered mental status type: unspecified Qualified Code(s): R41.82 - Altered mental status, unspecified Category: Medical Code(s): R41.82 - Altered mental status, unspecified (5) Obesity (BMI 30-39.9) Status: Acute Category: Medical Code(s): E66.9 - Obesity, unspecified (6) Anemia Status: Acute Qualifiers: Anemia type: unspecified type Qualified Code(s): D64.9 - Anemia, unspecified Category: Medical Code(s): D64.9 - Anemia, unspecified (7) Hypertension Status: Chronic Qualifiers: Hypertension type: primary hypertension Qualified Code(s): I10 - Essential (primary) hypertension Category: Medical Code(s): I10 - Essential (primary) hypertension (8) Abdominal aneurysm Status: Chronic Category: Medical Code(s): I71.4 - Abdominal aortic aneurysm, without rupture - Assessment and plan all Dx Assessment and Plan for all problems:: sputum culture growth pending will continue with regimen delineated by pulmonary golf tournament consultant will transfuse 2 units prbc slowly and look at post-transfusion hgb subcla
--- NOTE | 2021-05-25 15:19 | XR_ITS ---
PROCEDURE INFORMATION: Exam: XR Chest Exam date and time: 05/25/2021 3:19 PM Age: 81 years old Clinical indication: Device placement; Other: Evaluate central line placement. TECHNIQUE: Imaging protocol: XR of the chest. Views: 1 view. COMPARISON: CT CHEST WO CON 05/24/2021 1:42 PM FINDINGS: Tubes, catheters and devices: Central venous catheter via the left subclavian approach with the tip projecting over the superior vena cava. Lungs: Patchy diffuse interstitial and alveolar airspace disease right lung greater than left Edema and/or pneumonia. Pleural spaces: Unremarkable. No pleural effusion. No pneumothorax. Heart/Mediastinum: Cardiomegaly. Tortuous aorta. Bones/joints: Unremarkable. IMPRESSION: Patchy diffuse interstitial and alveolar airspace disease right lung greater than left Edema and/or pneumonia. Covid within the differential diagnosis and of concern.
--- NOTE | 2021-05-25 15:22 | P.OP_ITS ---
Date of procedure: 05/25/21 Pre-op Diagnosis:: Inadequate venous access Post-op Diagnosis:: Same Procedure performed:: 7 Jamaican triple-lumen catheter placement (left subclavian vein) Surgeon:: Rubin Ellis MD Anesthesia: local Estimated blood loss (mL): 5 Operative findings:: Attempts at left internal jugular venous access unsuccessful. Left subclavian vein accessed with minimal difficulty. Catheter anchored at 17 cm. Operative note:: After informed consent was obtained the patient was maintained in the supine position. Her left neck and upper chest was prepped and draped in a sterile fashion. After infiltration local anesthetic attempts to access the left internal jugular vein were unsuccessful. The decision was made to proceed with subclavian access. After infiltration local anesthetic the left subclavian vein was accessed with minimal difficulty. Utilizing a modified Seldinger technique a 7 Jamaican triple-lumen catheter was secured at 17 cm. Dressings were applied. The brown and blue port flushed without difficulty. The white port did not access. Chest x-ray is pending. Condition: stable Disposition: no change Specimens:: None Complications:: No immediate. Chest x-ray pending.
[2021-05-25 17:33] LABS: Chloride 114 mmol/L (98-107); Sodium 140 mmol/L (136-145)
[2021-05-25 17:34] LABS: Potassium 4.9 mmoL/L (3.5-5.1)
[2021-05-25 17:36] LABS: Alanine Aminotransferase 19 U/L (12-78); Albumin Level 2.8 g/dl (3.5-5.0); Alkaline Phosphatase 63 U/L (38-126); Anion Gap 10.9 mEq/L (5-15); Aspartate Amino Transferase 25 U/L (14-36); Bilirubin,Total 0.3 mg/dl (0.2-1.3); Blood Urea Nitrogen 52 mg/dl (7-17); Carbon Dioxide 20 mmol/L (22.0-30.0); Creatinine Clearance Estimated 52 mL/min (50-200); Estimated Glomerular Filt Rate 43 ml/min (>60); GFR (African American) 52 ML/MIN (>60); Globulin 2.9 g/dL (1.3-3.2); Total Protein,Serum 5.7 g/dl (6.3-8.2)
[2021-05-25 17:37] LABS: Calcium 7.8 mg/dl (8.4-10.2); Glucose 117 mg/dl (74-100)
[2021-05-25 18:12] LABS: Basophils % 0.2 % (0.1-2.0); Hematocrit 27.7 % (37.0-47.0); Hemoglobin 8.5 g/dL (12.2-16.2); Lymphocytes # 0.7 K/mm3 (0.7-4.5); Lymphocytes % 6.1 % (10-50); Mean Corpuscular HGB Conc 30.8 g/dL (31.8-35.4); Mean Corpuscular Hemoglobin 21.8 pg (27.0-31.2); Mean Corpuscular Volume 70.9 fl (81-99); Mean Platelet Volume 9.6 fl (7.4-10.4); Monocytes # 0.5 K/mm3 (0.1-1.0); Monocytes % 4.3 % (1.7-9.3); Neutrophils # 10.7 K/mm3 (1.8-7.8); Neutrophils % 89.3 % (37.0-80.0); Platelet Count 285 K/mm3 (142-424); Red Blood Count 3.91 M/mm3 (4.20-5.40); Red Cell Distribution Width 19.4 % (11.5-17.5)
[2021-05-25 18:15] LABS: MANUAL DIFFERENTIAL MANUAL DIFFERENTIAL (MANUAL DIFF)
[2021-05-25 19:42] LABS: Anisocytosis 2+; Lymphocytes % 16 % (10-50); Monocytes % 12 % (2-9); Neutrophils % 72 % (42-76); Platelet Estimate P; Total Cells Counted 100
[2021-05-25 19:43] LABS: Burr Cells 1+; Hypochromasia 2+; Microcytosis 2+
[2021-05-26] VITALS (29 sets, daily range): BP systolic 131–192; BP diastolic 56–89; PULSE 55–76; RESP 14–22; TEMP 35.9–37.1; O2SAT 92–98; BMI 32.4
[2021-05-26 09:09] LABS: Chloride 113 mmol/L (98-107); Sodium 140 mmol/L (136-145)
[2021-05-26 09:11] LABS: Blood Urea Nitrogen 45 mg/dl (7-17); Creatinine Clearance Estimated 52 mL/min (50-200); Estimated Glomerular Filt Rate 43 ml/min (>60); GFR (African American) 52 ML/MIN (>60)
[2021-05-26 09:12] LABS: Alanine Aminotransferase 21 U/L (12-78); Albumin Level 3.1 g/dl (3.5-5.0); Alkaline Phosphatase 67 U/L (38-126); Aspartate Amino Transferase 27 U/L (14-36); Bilirubin,Total 0.4 mg/dl (0.2-1.3); Carbon Dioxide 20 mmol/L (22.0-30.0); Globulin 3.1 g/dL (1.3-3.2); Total Protein,Serum 6.2 g/dl (6.3-8.2)
[2021-05-26 09:13] LABS: Calcium 7.9 mg/dl (8.4-10.2); Glucose 133 mg/dl (74-100)
[2021-05-26 09:14] LABS: Basophils % 0.3 % (0.1-2.0); Eosinophils % 0.2 % (0.1-12.0); Hematocrit 36.8 % (37.0-47.0); Hemoglobin 11.5 g/dL (12.2-16.2); Lymphocytes # 0.7 K/mm3 (0.7-4.5); Lymphocytes % 5.8 % (10-50); Mean Corpuscular HGB Conc 31.3 g/dL (31.8-35.4); Mean Corpuscular Hemoglobin 23.1 pg (27.0-31.2); Mean Corpuscular Volume 73.8 fl (81-99); Mean Platelet Volume 8.2 fl (7.4-10.4); Monocytes # 0.7 K/mm3 (0.1-1.0); Monocytes % 5.7 % (1.7-9.3); Neutrophils # 10.9 K/mm3 (1.8-7.8); Neutrophils % 88.1 % (37.0-80.0); Platelet Count 264 K/mm3 (142-424); Red Blood Count 4.98 M/mm3 (4.20-5.40); Red Cell Distribution Width 19.4 % (11.5-17.5); White Blood Count 12.3 K/mm3 (4.8-10.8)
[2021-05-26 09:18] LABS: C-Reactive Protein 26.6 mg/L (0-4)
[2021-05-26 09:32] LABS: MANUAL DIFFERENTIAL MANUAL DIFFERENTIAL (MANUAL DIFF)
--- NOTE | 2021-05-26 11:31 | PC.NURSE ---
Pt has refused anything to eat or drink. At one point pt did agree to drink hot tea, when hot tea was brought to pt, she then refused. Tea left of bedside table in case pt changes her mind. Pt has been on RA since 729- o2 sats have been between 91-96%.
[2021-05-26 11:36] LABS: Hematocrit 35.7 % (37.0-47.0); Hemoglobin 11.2 g/dL (12.2-16.2)
--- NOTE | 2021-05-26 11:51 | HMH.ACPN2 ---
Internal Medicine - PN: Subj *Date: 05/26/21 *Time: 08:00 Interval history: pt laying in bed states doing well, blood infusing Exam Vital signs and Labs for Last 24 Hours: Temp Pulse Resp BP Pulse Ox 98.8 F 60 18 131/79 95 05/26/21 10:55 05/26/21 10:55 05/26/21 10:55 05/26/21 10:55 05/26/21 10:55 Laboratory Results - last 24 hr 05/24/21 17:08: WBC 12.0 H D, RBC 3.91 L, Hgb 8.5 L, Hct 27.7 L, MCV 70.9 L, MCH 21.8 L, MCHC 30.8 L, RDW 19.4 H, Plt Count 285 D, MPV 9.6, Neut % (Auto) 89.3 H, Lymph % (Auto) 6.1 L, [place] % (Auto) 4.3, Eos % (Auto) 0.0 L, Baso % (Auto) 0.2, Neut # (Auto) 10.7 H, Lymph # (Auto) 0.7, [place] # (Auto) 0.5, Eos # (Auto) 0.0, Baso # (Auto) 0.0, Total Counted 100, Neutrophils % (Manual) 72, Lymphocytes % (Manual) 16, Monocytes % (Manual) 12 H, Platelet Estimate P, Hypochromasia 2+, Anisocytosis 2+, Microcytosis 2+, Hallie Cells 1+ 05/25/21 17:08: Sodium 140, Potassium 4.9, Chloride 114 H, Carbon Dioxide 20 L, Anion Gap 10.9, BUN 52 H, Creatinine 1.20 H, Estimated Creat Clear 52, Estimated GFR 43 L, Est GFR ( Amer) 52 L, Glucose 117 H, Calcium 7.8 L, Total Bilirubin 0.3, AST 25 D, ALT 19 D, Alkaline Phosphatase 63, Total Protein 5.7 L, Albumin 2.8 L, Globulin 2.9, Albumin/Globulin Ratio 1.0 L 05/25/21 17:08: Blood Type A Positive, Antibody Screen Negative, Crossmatch (AHG) See Detail 05/26/21 08:40: Sodium 140, Potassium 5.0, Chloride 113 H, Carbon Dioxide 20 L, Anion Gap 12.0, BUN 45 H, Creatinine 1.20 H, Estimated Creat Clear 52, Estimated GFR 43 L, Est GFR ( Amer) 52 L, Glucose 133 H, Calcium 7.9 L, Total Bilirubin 0.4, AST 27, ALT 21, Alkaline Phosphatase 67, C-Reactive Protein 26.6 H D, Total Protein 6.2 L, Albumin 3.1 L D, Globulin 3.1, Albumin/Globulin Ratio 1.0 L 05/26/21 08:40: WBC 12.3 H, RBC 4.98 D, Hgb 11.5 L, Hct 36.8 L, MCV 73.8 L, MCH 23.1 L, MCHC 31.3 L, RDW 19.4 H, Plt Count 264, MPV 8.2, Neut % (Auto) 88.1 H, Lymph % (Auto) 5.8 L, [place] % (Auto) 5.7, Eos % (Auto) 0.2, Baso % (Auto) 0.3, Neut # (Auto) 10.9 H, Lymph # (Auto) 0.7, [place] # (Auto) 0.7, Eos # (Auto) 0.0, Baso # (Auto) 0.0 05/26/21 11:00: Hgb 11.2 L, Hct 35.7 L I & O for Last 24 hours: Intake & Output 05/23/21 05/24/21 05/25/21 05/26/21 11:59 11:59 11:59 11:59 Intake Total 470 / 470 1900 / 1900 0 / 0 800 / 800 Output Total 150 / 150 1200 / 1200 Balance 320 / 320 1900 / 1900 0 / 0 -400 / -400 Weight 190 lb 6.259 oz 190 lb 190 lb 0.016 oz 189 lb 15.91 oz Microbiology Reports for the Last 24 Hours: Microbiology 05/22/21 18:26 Sputum - Expectorated Sputum Gram Stain - Final 05/22/21 18:26 Sputum - Expectorated Sputum Sputum Culture - Preliminary - Constitutional no acute distress - *Routine HEENT Exam Head: Present: normocephalic Eye: Present: PERRL ENT: Present: mucous membranes moist - *Routine Neck Exam Present: supple. Absent: lymphadenopathy - *Routine Respiratory Exam Present: CTA bilaterally - *Routine Cardiovascular Exam Present: RRR - *Routine Abdominal Exam Present: soft, normoactive bowel sounds. Absent: tenderness - *Routine Extremities Exam Absent: cyanosis, clubbing, edema - *Routine Skin Exam Present: warm. Absent: rash - *Routine Neurological Exam Present: alert, oriented X3 Assessment and Plan (1) Lower extremity edema Status: Acute Category: Medical Code(s): R60.0 - Localized edema (2) Pneumonia due to 2019-nCoV Status: Acute Category: Medical Code(s): U07.1 - COVID-19; J12.82 - Pneumonia due to coronavirus disease 2019 (3) Acute respiratory failure due to COVID-19 Status: Acute Category: Medical Code(s): U07.1 - COVID-19; J96.00 - Acute respiratory failure, unspecified whether with hypoxia or hypercapnia (4) Altered mental status Status: Acute Qualifiers: Altered mental status type: unspecified Qualified Code(s): R41.82 - Altered mental status, unspecified Category: Medical Code(s): R41.82 - Altered mental
[2021-05-26 12:16] LABS: Anisocytosis 1+; Hypochromasia 1+; Lymphocytes % 3 % (10-50); Microcytosis 1+; Monocytes % 7 % (2-9); Neutrophils % 90 % (42-76); Platelet Estimate Normal; Total Cells Counted 100
--- NOTE | 2021-05-26 14:55 | P.PN_ITS ---
Internal Medicine - PN: Subj *Date: 05/26/21 *Time: 14:55 Interval history: No acute respite events in the last 48 hours. Exam - Constitutional Constitutional:: Present: no acute distress, comfortable - HENMT Exam HENMT: Present: normocephalic, atraumatic - Eye Exam Eyes:: Present: normal appearance both eyes and related structures - Neck Exam Neck:: Present: normal visual inspection - Respiratory Exam Respiratory:: Present: able to speak in complete sentences, no respiratory distress. Absent: wheezing - Cardiovascular Exam Cardiac:: Present: S1, S2 - GI Exam GI:: Present: soft, no hepatosplenomegaly - Skin Exam Skin: Present: warm, rash - Neurological Exam Neurological: Present: alert, awake - Extremities Exam Extremities: Present: no cyanosis, no clubbing, no edema Assessment and Plan (1) Lower extremity edema Status: Acute Category: Medical Code(s): R60.0 - Localized edema (2) Pneumonia due to 2019-nCoV Status: Acute Category: Medical Code(s): U07.1 - COVID-19; J12.82 - Pneumonia due to coronavirus disease 2019 (3) Acute respiratory failure due to COVID-19 Status: Acute Category: Medical Code(s): U07.1 - COVID-19; J96.00 - Acute respiratory failure, unspecified whether with hypoxia or hypercapnia (4) Altered mental status Status: Acute Qualifiers: Altered mental status type: unspecified Qualified Code(s): R41.82 - Altered mental status, unspecified Category: Medical Code(s): R41.82 - Altered mental status, unspecified (5) Obesity (BMI 30-39.9) Status: Acute Category: Medical Code(s): E66.9 - Obesity, unspecified (6) Anemia Status: Acute Qualifiers: Anemia type: unspecified type Qualified Code(s): D64.9 - Anemia, unspecified Category: Medical Code(s): D64.9 - Anemia, unspecified (7) Hypertension Status: Chronic Qualifiers: Hypertension type: primary hypertension Qualified Code(s): I10 - Essential (primary) hypertension Category: Medical Code(s): I10 - Essential (primary) hypertension (8) Abdominal aneurysm Status: Chronic Category: Medical Code(s): I71.4 - Abdominal aortic aneurysm, without rupture - Assessment and plan all Dx Assessment and Plan for all problems:: #Acute hypoxic respiratory failure: #COVID-19 pneumonia: 81-year-old F to be vaccinated. No prior respiratory complaints. Diagnosed with COVID-19 pneumonia on 05/11/2021. Presented for worsening respiratory along with cough and productive phlegm. Chest x-ray bilateral worsening infiltrates compared to recent chest x-ray from a week ago. Repeat Doppler no evidence of DVT. Patient was initiated on remdesevir along with dexamethasone. Repeat CRP improved after dexamethasone now at 26. Respiratory symptoms continue to improve, she is on 0 to 2 L nasal cannula satur ating 94 to 95%. Mentation improved from prior. Inadequate oral intake. Leukocytosis relatively stable at 12. No worsening infiltrates on chest x-ray. Plan: -Incentive spirometry every hour. -Encourage p.o. intake. -Continue Augmentin 500 mg 3 times daily x5 days, sputum culture growing few gram-positive diplococci. -Continue oxygen as needed to maintain O2 saturation goal of 90% and above. -Continue remdesivir for 5 days along with dexamethasone 6 mg [id number] days -Continue Advair 250 twice daily #Thank you for involving pulmonary in this patient care. We will continue to follow.
--- NOTE | 2021-05-26 17:27 | PC.NURSE ---
Pt has slept most of this shift. Pt remains on RA o2 sats this afternoon between 92-96%. Pt has refused most meals no matter what is offered. Pt did eat a bite of food and a sip of a milkshake that her daughter brought in. Pt has turned herself in bed w/o difficulty. Pt has refused to use IS this shift. Pt gets up to BSC w/ x1 assist from staff. Active bowel sounds noted in all 4 quads, no BM noted this shift. Lung sounds remain diminished w/ fine crackles heard at bilateral bases. Central line dressing changes using sterile technique this shift. All hubs were changed as well-out of all lumens, only 1 is able to draw back from. All others are able to be flushed, but no blood return noted. No other acute changes or complaints at this time.
[2021-05-27] VITALS: BP 159/82; PULSE 59; PULSE 60; RESP 15; TEMP 36.7; O2SAT 93
[2021-05-27 04:00] VITALS: BP 181/69; PULSE 50; PULSE 55; RESP 23; TEMP 36.4; O2SAT 95
--- NOTE | 2021-05-27 06:47 | PC.NURSE ---
No acute events thus far in this RN's shift.
[2021-05-27 07:18] LABS: Basophils % 0.1 % (0.1-2.0); Eosinophils % 0.1 % (0.1-12.0); Hematocrit 34.5 % (37.0-47.0); Lymphocytes # 0.6 K/mm3 (0.7-4.5); Lymphocytes % 6.7 % (10-50); Mean Corpuscular HGB Conc 31.9 g/dL (31.8-35.4); Mean Corpuscular Hemoglobin 22.9 pg (27.0-31.2); Mean Corpuscular Volume 71.8 fl (81-99); Mean Platelet Volume 9.4 fl (7.4-10.4); Monocytes # 0.6 K/mm3 (0.1-1.0); Monocytes % 6.6 % (1.7-9.3); Neutrophils # 7.3 K/mm3 (1.8-7.8); Neutrophils % 86.5 % (37.0-80.0); Platelet Count 232 K/mm3 (142-424); Red Blood Count 4.81 M/mm3 (4.20-5.40); Red Cell Distribution Width 19.1 % (11.5-17.5); White Blood Count 8.4 K/mm3 (4.8-10.8)
[2021-05-27 07:24] LABS: Chloride 113 mmol/L (98-107); Potassium 4.4 mmoL/L (3.5-5.1); Sodium 140 mmol/L (136-145)
[2021-05-27 07:27] LABS: Alanine Aminotransferase 19 U/L (12-78); Albumin Level 2.8 g/dl (3.5-5.0); Alkaline Phosphatase 57 U/L (38-126); Anion Gap 10.4 mEq/L (5-15); Aspartate Amino Transferase 30 U/L (14-36); Bilirubin,Total 0.4 mg/dl (0.2-1.3); Blood Urea Nitrogen 38 mg/dl (7-17); Calcium 7.6 mg/dl (8.4-10.2); Carbon Dioxide 21 mmol/L (22.0-30.0); Creatinine Clearance Estimated 62 mL/min (50-200); Estimated Glomerular Filt Rate 53 ml/min (>60); GFR (African American) 65 ML/MIN (>60); Globulin 2.9 g/dL (1.3-3.2); Glucose 98 mg/dl (74-100); Total Protein,Serum 5.7 g/dl (6.3-8.2)
[2021-05-27 07:27] LABS: MANUAL DIFFERENTIAL MANUAL DIFFERENTIAL (MANUAL DIFF)
[2021-05-27 08:00] VITALS: BP 156/68; PULSE 53; PULSE 62; RESP 18; TEMP 36.6; O2SAT 94
[2021-05-27 08:55] LABS: Lymphocytes % 9 % (10-50); Monocytes % 8 % (2-9); Neutrophils % 83 % (42-76); Total Cells Counted 100
[2021-05-27 08:56] LABS: Hypochromasia 2+; Microcytosis 1+
[2021-05-27 09:02] LABS: Anisocytosis 1+; Platelet Estimate Normal
--- NOTE | 2021-05-27 09:09 | XR_ITS ---
PROCEDURE INFORMATION: Exam: XR Chest Exam date and time: 05/27/2021 9:09 AM Age: 81 years old Clinical indication: Shortness of breath; Additional info: SOB, in covid unit TECHNIQUE: Imaging protocol: XR of the chest. Views: 1 view. COMPARISON: CR XR CHEST PORTABLE 05/25/2021 3:31 PM FINDINGS: Tubes, catheters and devices: Left subclavian central venous catheter terminates in the region of the brachiocephalic vein. Lungs: Similar bilateral interstitial and airspace opacities. Pleural spaces: No substantial pleural effusion. No pneumothorax. Heart/Mediastinum: Mild cardiomegaly. Bones/joints: Unremarkable. IMPRESSION: No substantial interval change. Similar bilateral interstitial and airspace opacities.
--- NOTE | 2021-05-27 11:32 | HMH.ACPN2 ---
Internal Medicine - PN: Subj *Date: 05/27/21 *Time: 11:32 Interval history: doing better overall- feels depressed and cxr pending - labs ok - on room air - dec po intake Exam Vital signs and Labs for Last 24 Hours: Temp Pulse Resp BP Pulse Ox 97.9 F 62 18 156/68 H 94 L 05/27/21 08:00 05/27/21 08:00 05/27/21 08:00 05/27/21 08:00 05/27/21 08:00 Laboratory Results - last 24 hr 05/26/21 08:40: Total Counted 100, Neutrophils % (Manual) 90 H, Lymphocytes % (Manual) 3 L, Monocytes % (Manual) 7, Platelet Estimate Normal, Hypochromasia 1+, Anisocytosis 1+, Microcytosis 1+ 05/26/21 11:00: Hgb 11.2 L, Hct 35.7 L 05/27/21 05:00: Sodium 140, Potassium 4.4, Chloride 113 H, Carbon Dioxide 21 L, Anion Gap 10.4, BUN 38 H, Creatinine 1.00, Estimated Creat Clear 62, Estimated GFR 53 L, Est GFR ( Amer) 65 D, Glucose 98 D, Calcium 7.6 L, Total Bilirubin 0.4, AST 30, ALT 19, Alkaline Phosphatase 57, Total Protein 5.7 L, Albumin 2.8 L, Globulin 2.9, Albumin/Globulin Ratio 1.0 L 05/27/21 05:15: WBC 8.4 D, RBC 4.81, Hgb 11.0 L, Hct 34.5 L, MCV 71.8 L, MCH 22.9 L, MCHC 31.9, RDW 19.1 H, Plt Count 232, MPV 9.4, Neut % (Auto) 86.5 H, Lymph % (Auto) 6.7 L, [place] % (Auto) 6.6, Eos % (Auto) 0.1, Baso % (Auto) 0.1, Neut # (Auto) 7.3, Lymph # (Auto) 0.6 L, [place] # (Auto) 0.6, Eos # (Auto) 0.0, Baso # (Auto) 0.0, Total Counted 100, Neutrophils % (Manual) 83 H, Lymphocytes % (Manual) 9 L, Monocytes % (Manual) 8, Platelet Estimate Normal, Hypochromasia 2+, Anisocytosis 1+, Microcytosis 1+ I & O for Last 24 hours: Intake & Output 05/24/21 05/25/21 05/26/21 05/27/21 11:59 11:59 11:59 11:59 Intake Total 1900 / 1900 0 / 0 800 / 800 1165 / 1165 Output Total 1200 / 1200 1100 / 1100 Balance 1900 / 1900 0 / 0 -400 / -400 65 / 65 Weight 190 lb 190 lb 0.016 oz 189 lb 15.91 oz Microbiology Reports for the Last 24 Hours: Microbiology 05/22/21 18:26 Sputum - Expectorated Sputum Gram Stain - Final 05/22/21 18:26 Sputum - Expectorated Sputum Sputum Culture - Preliminary Gram Negative Rods - Constitutional no acute distress, obese - *Routine HEENT Exam Head: Present: normocephalic Eye: Present: EOMI, PERRL ENT: Present: mucous membranes dry - *Routine Neck Exam Absent: JVD - *Routine Respiratory Exam Present: decreased breath sounds, rhonchi - *Routine Cardiovascular Exam Present: RRR, murmur. Absent: rubs - *Routine Abdominal Exam Present: soft - *Routine Extremities Exam Absent: calf tenderness - *Routine Skin Exam Present: intact - *Routine Neurological Exam Present: alert, CN II-XII intact. Absent: motor deficit - Routine Psychiatric Exam Present: depressed Assessment and Plan (1) Lower extremity edema Status: Acute Category: Medical Code(s): R60.0 - Localized edema (2) Pneumonia due to 2019-nCoV Status: Acute Category: Medical Code(s): U07.1 - COVID-19; J12.82 - Pneumonia due to coronavirus disease 2019 (3) Acute respiratory failure due to COVID-19 Status: Acute Category: Medical Code(s): U07.1 - COVID-19; J96.00 - Acute respiratory failure, unspecified whether with hypoxia or hypercapnia (4) Altered mental status Status: Acute Qualifiers: Altered mental status type: unspecified Qualified Code(s): R41.82 - Altered mental status, unspecified Category: Medical Code(s): R41.82 - Altered mental status, unspecified (5) Obesity (BMI 30-39.9) Status: Acute Category: Medical Code(s): E66.9 - Obesity, unspecified (6) Anemia Status: Acute Qualifiers: Anemia type: unspecified type Qualified Code(s): D64.9 - Anemia, unspecified Category: Medical Code(s): D64.9 - Anemia, unspecified (7) Hypertension Status: Chronic Qualifiers: Hypertension type: primary hypertension Qualified Code(s): I10 - Essential (primary) hypertension Category: Medical Code(s): I10 - Essential (primary) hypertension
[2021-05-27 12:00] VITALS: BP 173/78; PULSE 52; PULSE 56; RESP 21; TEMP 36.9; O2SAT 94
[2021-05-27 14:35] VITALS: BP 165/89; PULSE 61; RESP 19; TEMP 36.9; O2SAT 95
[2021-05-27 20:00] VITALS: BP 155/74; PULSE 54; RESP 15; TEMP 36.3; O2SAT 92
[2021-05-28] VITALS (7 sets, daily range): BP systolic 153–202; BP diastolic 71–102; PULSE 54–64; RESP 14–22; TEMP 36.4–36.8; O2SAT 92–95; BMI 29.8
[2021-05-28 06:52] LABS: Basophils % 0.1 % (0.1-2.0); Eosinophils % 0.2 % (0.1-12.0); Hematocrit 34.6 % (37.0-47.0); Hemoglobin 10.8 g/dL (12.2-16.2); Lymphocytes % 9.3 % (10-50); Mean Corpuscular HGB Conc 31.2 g/dL (31.8-35.4); Mean Corpuscular Hemoglobin 23.2 pg (27.0-31.2); Mean Corpuscular Volume 74.2 fl (81-99); Mean Platelet Volume 8.8 fl (7.4-10.4); Monocytes # 0.8 K/mm3 (0.1-1.0); Monocytes % 7.8 % (1.7-9.3); Neutrophils # 8.5 K/mm3 (1.8-7.8); Neutrophils % 82.7 % (37.0-80.0); Platelet Count 218 K/mm3 (142-424); Red Blood Count 4.66 M/mm3 (4.20-5.40); Red Cell Distribution Width 19.6 % (11.5-17.5); White Blood Count 10.3 K/mm3 (4.8-10.8)
[2021-05-28 06:54] LABS: Chloride 113 mmol/L (98-107); Potassium 4.5 mmoL/L (3.5-5.1); Sodium 138 mmol/L (136-145)
[2021-05-28 06:56] LABS: Alanine Aminotransferase 19 U/L (12-78); Aspartate Amino Transferase 24 U/L (14-36); Bilirubin,Total 0.5 mg/dl (0.2-1.3); Blood Urea Nitrogen 32 mg/dl (7-17); Creatinine Clearance Estimated 57 mL/min (50-200); Estimated Glomerular Filt Rate 53 ml/min (>60); GFR (African American) 65 ML/MIN (>60)
[2021-05-28 06:57] LABS: Albumin Level 2.7 g/dl (3.5-5.0); Albumin/Globulin Ratio 0.9 (1.1-1.8); Alkaline Phosphatase 50 U/L (38-126); Anion Gap 9.5 mEq/L (5-15); Calcium 7.9 mg/dl (8.4-10.2); Carbon Dioxide 20 mmol/L (22.0-30.0); Globulin 2.9 g/dL (1.3-3.2); Glucose 85 mg/dl (74-100); Total Protein,Serum 5.6 g/dl (6.3-8.2)
--- NOTE | 2021-05-28 07:27 | PC.NURSE ---
Report given to KENDRA Ang. Pt had no acute events during my shift.
--- NOTE | 2021-05-28 15:00 | HMH.ACPN2 ---
Internal Medicine - PN: Subj *Date: 05/28/21 *Time: 15:01 Interval history: doing well alert/clear no resp distress Exam Vital signs and Labs for Last 24 Hours: Temp Pulse Resp BP Pulse Ox 97.6 F 62 20 186/90 H 95 05/28/21 08:00 05/28/21 12:00 05/28/21 12:00 05/28/21 12:00 05/28/21 12:00 Laboratory Results - last 24 hr 05/28/21 06:01: Sodium 138, Potassium 4.5, Chloride 113 H, Carbon Dioxide 20 L, Anion Gap 9.5, BUN 32 H, Creatinine 1.00, Estimated Creat Clear 57, Estimated GFR 53 L, Est GFR ( Amer) 65, Glucose 85, Calcium 7.9 L, Total Bilirubin 0.5, AST 24, ALT 19, Alkaline Phosphatase 50, Total Protein 5.6 L, Albumin 2.7 L, Globulin 2.9, Albumin/Globulin Ratio 0.9 L 05/28/21 06:01: WBC 10.3, RBC 4.66, Hgb 10.8 L, Hct 34.6 L, MCV 74.2 L, MCH 23.2 L, MCHC 31.2 L, RDW 19.6 H, Plt Count 218, MPV 8.8, Neut % (Auto) 82.7 H, Lymph % (Auto) 9.3 L, [place] % (Auto) 7.8, Eos % (Auto) 0.2, Baso % (Auto) 0.1, Neut # (Auto) 8.5 H, Lymph # (Auto) 1.0, [place] # (Auto) 0.8, Eos # (Auto) 0.0, Baso # (Auto) 0.0 I & O for Last 24 hours: Intake & Output 05/25/21 05/26/21 05/27/21 05/28/21 23:59 23:59 23:59 23:59 Intake Total 1437 / 1437 588 / 588 800 / 800 Output Total 2049 / 2049 550 / 550 Balance -613 / -613 38 / 38 800 / 800 Weight 190 lb 0.016 oz 189 lb 15.91 oz 174 lb 9.6 oz Microbiology Reports for the Last 24 Hours: Microbiology 05/22/21 18:26 Sputum - Expectorated Sputum Gram Stain - Final 05/22/21 18:26 Sputum - Expectorated Sputum Sputum Culture - Final Pseudomonas putida - Constitutional no acute distress - *Routine HEENT Exam Head: Present: normocephalic Eye: Present: EOMI, PERRL ENT: Present: mucous membranes moist - *Routine Neck Exam Present: supple. Absent: lymphadenopathy - *Routine Respiratory Exam Present: rhonchi. Absent: accessory muscle use, wheezes - *Routine Cardiovascular Exam Present: RRR - *Routine Abdominal Exam Present: soft, normoactive bowel sounds. Absent: tenderness - *Routine Extremities Exam Absent: cyanosis, clubbing, edema - *Routine Skin Exam Present: warm. Absent: rash - *Routine Neurological Exam Present: alert, oriented X3 Assessment and Plan (1) Lower extremity edema Status: Acute Category: Medical Code(s): R60.0 - Localized edema (2) Pneumonia due to 2019-nCoV Status: Acute Category: Medical Code(s): U07.1 - COVID-19; J12.82 - Pneumonia due to coronavirus disease 2019 (3) Acute respiratory failure due to COVID-19 Status: Acute Category: Medical Code(s): U07.1 - COVID-19; J96.00 - Acute respiratory failure, unspecified whether with hypoxia or hypercapnia (4) Altered mental status Status: Acute Qualifiers: Altered mental status type: unspecified Qualified Code(s): R41.82 - Altered mental status, unspecified Category: Medical Code(s): R41.82 - Altered mental status, unspecified (5) Obesity (BMI 30-39.9) Status: Acute Category: Medical Code(s): E66.9 - Obesity, unspecified (6) Anemia Status: Acute Qualifiers: Anemia type: unspecified type Qualified Code(s): D64.9 - Anemia, unspecified Category: Medical Code(s): D64.9 - Anemia, unspecified (7) Hypertension Status: Chronic Qualifiers: Hypertension type: primary hypertension Qualified Code(s): I10 - Essential (primary) hypertension Category: Medical Code(s): I10 - Essential (primary) hypertension (8) Abdominal aneurysm Status: Chronic Category: Medical Code(s): I71.4 - Abdominal aortic aneurysm, without rupture (9) CAD (coronary artery disease) Status: Acute Qualifiers: Coronary Disease-Associated Artery/Lesion type: [place] artery [place] vs. transplanted heart: [place] heart Associated angina: with stable angina Qualified Code(s): I25.118 - Atherosclerotic heart disease of [place] coronary artery with other forms of angina pectoris Categor
--- NOTE | 2021-05-28 17:12 | PC.NURSE ---
Pt 1600 BP 202/102. MD Aldana radiation monitor for MD Disla notified. Give additional dose of Irbesartan 75mg and d/c maintenance fluids. Orders received and carried out.
[2021-05-29] VITALS: BP 143/89; PULSE 62; RESP 18; TEMP 36.5; O2SAT 93
[2021-05-29 04:00] VITALS: BP 145/76; PULSE 57; RESP 14; TEMP 36.6; O2SAT 91
[2021-05-29 06:00] VITALS: BMI 29.0
--- NOTE | 2021-05-29 06:18 | PC.NURSE ---
Pt has been on RA and maintaining O2 sat above 90%. Pt has slept majority of the night. Bed alarm on for safety.
[2021-05-29 08:00] VITALS: BP 164/74; PULSE 65; RESP 18; TEMP 36.4; O2SAT 94
--- NOTE | 2021-05-29 10:31 | HMH.OTEV ---
OT Inpatient Evaluation Rehab OT IP Evaluation Start: 05/29/21 09:48 Freq: ONCE Status: Complete Protocol: Document 05/29/21 10:23 [facility] (Rec: 05/29/21 10:31 [facility] [id number]) Rehab OT IP Assessment Subjective History Pt oriented x 2 on arrival. Pt agreeable to engage in therapy evaluation. Pt was admitted via ED on 05/23/21 due to worsening symptoms of COVID. The following information was copied from PCP's history and physical report: 81 YOF presented to [facility] ED for increased SOA and altered mental status. She was positive for covid on 05/11 was admitted 05/15. Today she reports worsening symptoms including SOA, AMS, swelling, weakness Pt has a past medical history of Aneurysm, Coronary Artery Disease, Cerebrovascular Accident, Hyperlipidemia, Hypertension, Internal Pacemaker, Myocardial Infarction, Peripheral Artery Disease, Peripheral Vascular Disease, Pulmonary Embolism Pt reports prior to being in the hosptial she lived at home alone. Pt claims she was independent with dressing and feeding. Her daugther would check on her often and assist with bathing. Pt claims she did minimal cooking and cleaning; family assisted with this. Pt did have a walker at home but admits she does not use it often. Subjective I am ready to go home. Pt resting in bed on arrival. Pt completed bed mobility and went from supine to sitting at eob with cga. Pt stood from eob with min assist. Pt engaged in functional tranfer from bed to chair with min assist. Pt did
--- NOTE | 2021-05-29 10:47 | HMH.PTEV ---
Physical Therapy Evaluation Rehab PT IP Evaluation Start: 05/29/21 09:48 Freq: ONCE Status: Active Protocol: Document 05/29/21 10:43 [facility] (Rec: 05/29/21 10:47 [facility] [id number]) Subjective/History History History 81 YOF presented to [facility] ED for increased SOA and altered mental status. She was positive for covid on 05/11 was admitted 05/15. Today she reports worsening symptoms including SOA, AMS, swelling, weakness. Subjective Subjective Pt has no complaints - states she lives at home alone and has family check on her Rehab PT IP Eval Objective Appearance Patient Behavior Appropriate,Cooperative Patient Orientation Place,Name,Birthday Difficulty following instructions none Speech Pattern Clear,Appropriate Ambulation Patient Able to Ambulate Yes Ambulation Observation IP General Gait Pattern Observation Wide Based Gait Ambulation Distance (feet) 10 Ambulation Assistive Device None Ambulation Ability Contact Guard/Hand Hold Balance Ability to Arise Able, uses arms to help Sitting Balance Steady, safe Standing Balance Unsteady Dynamic Sitting Balance Ability Fair Dynamic Standing Balance Ability Poor Transfers Bed Transfer Ability Independent Chair Transfer Ability Independent Sit to Stand Bed Transfer Ability Contact Guard/Hand Hold Sit to Stand Chair Transfer Ability Contact Guard/Hand Hold Rehab PT IP prob,goals,plan Problems Date of Evaluation: 05/29/21 PT IP Problems Transfers,Gait,Balance,Self care,Safety Rehab Potential Rehab Potential Fair Equipment Needs Assistive Devices Rolling / Wheeled Walker Plan PT Intervention Plan Transfers,Gait,Balance, Therapeutic Exercise PT Plan Frequency BID Duration LOS Discharge Goals Bed Transfer Ability Independent Sit to Stand Chair Transfer Ability Contact Guard/Hand Hold Ambulation Assistive Device Rolling Walker Ambulation Distance (feet) 15 Discharge Plan PT Discharge Plan Pt is alert and oriented but displays poor dynamic balance during gait requiring assistance to prevent falls. At this time pt will need short term rehab to allow
--- NOTE | 2021-05-29 11:08 | HMH.PULMPN ---
Internal Medicine - PN: Subj *Date: 05/29/21 *Time: 11:08 Interval history: No acute respiratory vents over the weekend. Exam - Constitutional Constitutional:: Present: no acute distress, comfortable - HENMT Exam HENMT: Present: normocephalic, atraumatic - Eye Exam Eyes:: Present: normal appearance both eyes and related structures - Neck Exam Neck:: Present: normal visual inspection - Respiratory Exam Respiratory:: Present: able to speak in complete sentences, no respiratory distress, normal respiratory effort, rales. Absent: rhonchi, wheezing - Cardiovascular Exam Cardiac:: Present: S1, S2 - GI Exam GI:: Present: soft - Skin Exam Skin: Present: warm - Neurological Exam Neurological: Present: alert, awake, normal cognition - Extremities Exam Extremities: Present: no cyanosis, no clubbing, edema - Psychiatric Exam Psychiatric: Present: normal affect Assessment and Plan (1) Lower extremity edema Status: Acute Category: Medical Code(s): R60.0 - Localized edema (2) Pneumonia due to 2019-nCoV Status: Acute Category: Medical Code(s): U07.1 - COVID-19; J12.82 - Pneumonia due to coronavirus disease 2019 (3) Acute respiratory failure due to COVID-19 Status: Acute Category: Medical Code(s): U07.1 - COVID-19; J96.00 - Acute respiratory failure, unspecified whether with hypoxia or hypercapnia (4) Altered mental status Status: Acute Qualifiers: Altered mental status type: unspecified Qualified Code(s): R41.82 - Altered mental status, unspecified Category: Medical Code(s): R41.82 - Altered mental status, unspecified (5) Obesity (BMI 30-39.9) Status: Acute Category: Medical Code(s): E66.9 - Obesity, unspecified (6) Anemia Status: Acute Qualifiers: Anemia type: unspecified type Qualified Code(s): D64.9 - Anemia, unspecified Category: Medical Code(s): D64.9 - Anemia, unspecified (7) Hypertension Status: Chronic Qualifiers: Hypertension type: primary hypertension Qualified Code(s): I10 - Essential (primary) hypertension Category: Medical Code(s): I10 - Essential (primary) hypertension (8) Abdominal aneurysm Status: Chronic Category: Medical Code(s): I71.4 - Abdominal aortic aneurysm, without rupture (9) CAD (coronary artery disease) Status: Acute Qualifiers: Coronary Disease-Associated Artery/Lesion type: [place] artery [place] vs. transplanted heart: [place] heart Associated angina: with stable angina Qualified Code(s): I25.118 - Atherosclerotic heart disease of [place] coronary artery with other forms of angina pectoris Category: Medical Code(s): I25.10 - Atherosclerotic heart disease of [place] coronary artery without angina pectoris (10) Hiatal hernia Status: Acute Category: Medical Code(s): K44.9 - Diaphragmatic hernia without obstruction or gangrene (11) Depression Status: Acute Qualifiers: Depression Type: reactive depression Qualified Code(s): F32.9 - Major depressive disorder, single episode, unspecified Category: Medical Code(s): F32.A - Depression, unspecified (12) Depression Status: Acute Qualifiers: Depression Type: reactive depression Qualified Code(s): F32.9 - Major depressive disorder, single episode, unspecified Category: Medical Code(s): F32.A - Depression, unspecified - Assessment and plan all Dx Assessment and Plan for all problems:: #Acute hypoxic respiratory failure: #COVID-19 pneumonia: 81-year-old F yet to be vaccinated. No prior respiratory complaints. Diagnosed with COVID-19 pneumonia on 05/11/2021. Presented for worsening respiratory along with cough and productive phlegm. Chest x-ray on admission bilateral worsening infiltrates compared to recent chest x-ray from a week ago. Repeat Doppler no evidence of DVT. Patient was initiated on remdesevir along with dexamethasone. Repeat CRP improved after dexamethasone to 26 from 101. Respir
[2021-05-29 12:00] VITALS: BP 146/82; PULSE 65; RESP 16; TEMP 36.7; O2SAT 94
--- NOTE | 2021-05-29 12:08 | SW/DCPLANNER ---
Addendum entered by Tere Hinkle 05/29/21 13:21: Cady w/ [facility] stated that services will begin this week for this patient. Addendum entered by Tere Hinkle 05/29/21 12:26: Elida w/ [facility] has stated that rolling walker will be delivered to [facility] for this patient. Original Note: I spoke with this patients daughter (Marylu) regarding discharge plans. PT/OT evaluated this patient and recommended SNF level of care vs home w/ home health services w/ 31/12 supervision. Marylu has stated that this patient will discharge home with home health services (prefers [facility]) and will have 31/12 supervision. Marylu has also requested a rolling walker for this patient: order/information will be faxed to [facility]. The plan is for this patient to discharge home later today.
--- NOTE | 2021-05-29 12:09 | HMH.DCSUM ---
General - General Admission date:: 05/23/21 Discharge date: 05/29/21 HPI HPI: 81 YOF presented to [facility] ED for increased SOA and altered mental status. She was positive for covid on 05/11 was admitted 05/15. Today she reports worsening symptoms including SOA, AMS, swelling, weakness. 05/22/21 CXR: FINDINGS: Lungs: Mild bibasilar ground-glass and linear opacities, increased from comparison study, likely areas of atelectasis and pneumonitis. Pleural spaces: Unremarkable. No pleural effusion. No pneumothorax. Heart/Mediastinum: Normal. Vasculature: Atherosclerotic disease of the thoracic aorta. Bones/joints: No acute abnormality. IMPRESSION: Mild bibasilar ground-glass and linear opacities, increased from comparison study, likely areas of atelectasis and pneumonitis. Electronically signed by Ayaan Perez MD 81 YOF lying in bed, she reports some SOA during night and denies CP. She also denies nausea at present. She is unable to answer several answers and will change subject when unsure of answer. She does not know how long she has been sick or what day it is. Hospital Course Hospital Course: Laboratory Tests 05/22/21 05/22/21 05/22/21 18:08 21:44 21:44 WBC 6.8 RBC 4.11 L Hgb 9.0 L Hct 30.0 L MCV 73.0 L MCH 22.0 L MCHC 30.1 L RDW 19.1 H Plt Count 189 MPV 7.8 Neut % (Auto) 81.4 H Lymph % (Auto) 11.6 [place] % (Auto) 5.9 Eos % (Auto) 0.7 Baso % (Auto) 0.5 Neut # (Auto) 5.5 Lymph # (Auto) 0.8 [place] # (Auto) 0.4 Eos # (Auto) 0.1 Baso # (Auto) 0.0 Total Counted Neutrophils % (Manual) Lymphocytes % (Manual) Monocytes % (Manual) Platelet Estimate Hypochromasia Anisocytosis Microcytosis Art Cells Specimen Source O2 % ABG pH ABG pCO2 ABG pO2 ABG HCO3 ABG Total CO2 ABG O2 Saturation ABG Base Excess Joselito Test Sodium 137 Potassium 4.7 Chloride 106 Carbon Dioxide 24 Anion Gap 11.7 BUN 67 H Creatinine 1.50 H Estimated Creat Clear 41 Estimated GFR 33 L Est GFR ( Amer) 41 L Glucose 107 H Lactate Calcium 8.3 L Magnesium Total Bilirubin 0.6 AST 38 H ALT 29 Alkaline Phosphatase 81 Lactate Dehydrogenase C-Reactive Protein Total Protein 6.4 Albumin 3.3 L Globulin 3.1 Albumin/Globulin Ratio 1.1 Urine Color Urine Appearance Urine pH Ur Specific [place] Urine Protein Urine Glucose (UA) Urine Ketones Urine Blood Urine Nitrate Urine Bilirubin Urine Urobilinogen Ur Leukocyte Esterase Urine RBC Urine WBC Ur Squamous Epith Cells Other Crystals Urine Bacteria SARS-CoV-2 (PCR) Detected A Influenza A Untype (PCR) Not detected Influenza Type B (PCR) Not detected Blood Type Antibody Screen Crossmatch (AHG) 05/22/21 05/23/21 05/23/21 21:44 08:18 13:45 WBC 5.2 RBC 3.71 L Hgb 8.0 L D Hct 26.9 L MCV 72.3 L MCH 21.6 L MCHC 29.9 L RDW 18.6 H Plt Count 173 MPV 7.7 Neut % (Auto) 74.8 Lymph % (Auto) 17.8 [place] % (Auto) 6.0 Eos % (Auto) 1.0 Baso % (Auto) 0.4 Neut # (Auto) 3.9 Lymph # (Auto) 0.9 [place] # (Auto) 0.3 Eos # (Auto) 0.1 Baso # (Auto) 0.0 Total Counted Neutrophils % (Manual) Lymphocytes % (Manual) Monocytes % (Manual) Platelet Estimate Hypochromasia Anisocytosis Microcytosis Art Cells Specimen Source Right brachial O2 % 5lpm nc ABG pH 7.41 ABG pCO2 30.8 L ABG pO2 67.4 L ABG HCO3 19.2 L ABG Total CO2 20.2 L ABG O2 Saturation 93 ABG Base Excess -4.7 L Joselito Test Non applicable Sodium Potassium Chloride Carbon Dioxide Anion Gap BUN Creatinine Estimated Creat Clear Estimated GFR Est GFR ( Amer) Glucose Lactate 1.1
--- NOTE | 2021-05-29 12:11 | PC.NURSE ---
Pt will need a rolling walker rather than than a cane, due to gait/mobility issues.
[2021-05-29 13:01] LABS: Basophils % 0.1 % (0.1-2.0); Eosinophils # 0.1 K/mm3 (0.0-0.4); Eosinophils % 0.6 % (0.1-12.0); Hematocrit 38.5 % (37.0-47.0); Hemoglobin 11.9 g/dL (12.2-16.2); Lymphocytes # 0.4 K/mm3 (0.7-4.5); Lymphocytes % 4.1 % (10-50); Mean Corpuscular Hemoglobin 23.1 pg (27.0-31.2); Mean Corpuscular Volume 74.3 fl (81-99); Mean Platelet Volume 8.2 fl (7.4-10.4); Monocytes # 0.4 K/mm3 (0.1-1.0); Monocytes % 4.3 % (1.7-9.3); Neutrophils # 8.2 K/mm3 (1.8-7.8); Platelet Count 185 K/mm3 (142-424); Red Blood Count 5.18 M/mm3 (4.20-5.40); Red Cell Distribution Width 19.1 % (11.5-17.5)
[2021-05-29 13:05] LABS: MANUAL DIFFERENTIAL MANUAL DIFFERENTIAL (MANUAL DIFF)
[2021-05-29 13:06] LABS: Chloride 110 mmol/L (98-107); Potassium 4.7 mmoL/L (3.5-5.1); Sodium 137 mmol/L (136-145)
[2021-05-29 13:09] LABS: Alanine Aminotransferase 20 U/L (12-78); Albumin Level 3.1 g/dl (3.5-5.0); Alkaline Phosphatase 58 U/L (38-126); Anion Gap 12.7 mEq/L (5-15); Aspartate Amino Transferase 27 U/L (14-36); Bilirubin,Total 0.7 mg/dl (0.2-1.3); Blood Urea Nitrogen 24 mg/dl (7-17); Carbon Dioxide 19 mmol/L (22.0-30.0); Creatinine Clearance Estimated 56 mL/min (50-200); Estimated Glomerular Filt Rate 60 ml/min (>60); GFR (African American) 73 ML/MIN (>60); Total Protein,Serum 6.1 g/dl (6.3-8.2)
[2021-05-29 13:10] LABS: Calcium 8.2 mg/dl (8.4-10.2); Glucose 148 mg/dl (74-100)
[2021-05-29 14:13] LABS: Hypochromasia 2+; Lymphocytes % 1 % (10-50); Monocytes % 2 % (2-9); Neutrophils % 97 % (42-76); Platelet Estimate Normal; Total Cells Counted 100
[2021-05-29 14:15] LABS: Microcytosis 1+
[2021-05-29 14:16] LABS: Burr Cells 1+
[2021-05-29 15:02] LABS: C-Reactive Protein 42.2 mg/L (0-4)
[2021-05-29 16:00] VITALS: BP 175/76; PULSE 68; RESP 16; TEMP 36.6; O2SAT 96
== END 2021-05-29 16:55 | disposition home or self-care (01) | DRG 177 ==
LOC: ER 22:08 → ICU 22:16 → 2ND 05-27 14:05
PROVIDERS: Emergency Medicine; Internal Medicine Pulmonary Disease; Nurse Practitioner Family; Admitting Provider Emergency Medicine; Emergency Provider Emergency Medicine; PCP Emergency Medicine; Visit Provider Emergency Medicine
DX: U07.1 COVID-19 (principal); J12.82 Pneumonia due to coronavirus disease 2019; J96.01 Acute respiratory failure with hypoxia; I13.0 Hypertensive heart and chronic kidney disease with heart failure and stage 1 through stage 4 chronic kidney disease, or unspecified chronic kidney disease; I25.10 Atherosclerotic heart disease of native coronary artery without angina pectoris; Z86.73 Personal history of transient ischemic attack (TIA), and cerebral infarction without residual deficits; E78.5 Hyperlipidemia, unspecified; Z95.0 Presence of cardiac pacemaker; Z86.711 Personal history of pulmonary embolism; N18.9 Chronic kidney disease, unspecified; M19.90 Unspecified osteoarthritis, unspecified site; G89.29 Other chronic pain; M54.9 Dorsalgia, unspecified; I25.2 Old myocardial infarction; Z95.5 Presence of coronary angioplasty implant and graft; Z87.891 Personal history of nicotine dependence; E66.9 Obesity, unspecified; Z68.29 Body mass index [BMI] 29.0-29.9, adult; D63.1 Anemia in chronic kidney disease; I71.9 Aortic aneurysm of unspecified site, without rupture; F32.9 Major depressive disorder, single episode, unspecified
CPT/HCPCS: 36415; 36569; 70450; 71045; 71250; 74176; 80048; 80053; 81001; 82803; 83605; 83615; 83735; 85007; 85014; 85018; 85025; 86140; 86850; 87070; 87077; 87186; 87205; 93306; 93970; 94761; 97162; 97166; 97530; 99281; 99285; C1751; C9803; J1956; P9016; U0003; U0005

== ENCOUNTER → 2021-06-05 13:17 | Outpatient (CLI) | payer MEDICARE, SELFPAY ==
--- NOTE | 2021-06-05 13:22 | XR_ITS ---
PROCEDURE: XR CHEST 2V CLINICAL HISTORY: Pneumonia COMPARISON: CR XR CHEST PORTABLE from 05/23/[address] CHEST WO CON from 05/24/2021 CR XR CHEST PORTABLE from 05/25/2021 CR XR CHEST PORTABLE from 05/27/2021 FINDINGS: Mild patient rotation. Borderline cardiomegaly. Mild prominence of the mediastinum. Left subclavian central line is been removed. Patchy peripheral areas of infiltrate are present in the left upper lobe, right lower lobe, and left lower lobe. Probably unchanged given difference in technique. No obvious effusions. No acute bony findings. IMPRESSION: No change bilateral pneumonia Dictated by: Joselito Brambila MD 06/05/2021 13:43 Joselito Brambila MD in [place] 06/05/2021 13:43
== END ==
PROVIDERS: PCP Emergency Medicine; Visit Provider Internal Medicine Pulmonary Disease
DX: R06.02 Shortness of breath (principal)
CPT/HCPCS: 71046

== ENCOUNTER → 2021-06-08 09:56 | Outpatient (CLI) | payer MEDICARE, SELFPAY ==
--- NOTE | 2021-06-08 09:56 | FL_ITS ---
PROCEDURE: FL BARIUM ENEMA CLINICAL INDICATION: abdominal pain COMPARISON: CT CT ABDOMEN PELVIS WO CON from 05/24/2021 FINDINGS: [employer] exam shows a pain pump present projecting over the left mid abdominal region with the tip of the catheter at the T11 area. The colon is visualized from rectum to cecum. No annular constricting lesions or fixed polypoid filling defects are apparent. There is moderate diverticulosis of the sigmoid colon. No mucosal abnormalities apparent. IMPRESSION: Sigmoid diverticulosis otherwise negative air-contrast barium enema Dictated by: Joselito Brambila MD 06/08/2021 14:39 Joselito Brambila MD in [place] 06/08/2021 14:39
[2021-06-08 12:00] LABS: Basophils # 0.2 K/mm3 (0-0.2); Basophils % 2.1 % (0.1-2.0); Eosinophils # 0.3 K/mm3 (0.0-0.4); Eosinophils % 3.5 % (0.1-12.0); Hematocrit 40.8 % (37.0-47.0); Hemoglobin 12.8 g/dL (12.2-16.2); Lymphocytes # 1.2 K/mm3 (0.7-4.5); Lymphocytes % 13.5 % (10-50); Mean Corpuscular HGB Conc 31.2 g/dL (31.8-35.4); Mean Corpuscular Hemoglobin 23.8 pg (27.0-31.2); Mean Corpuscular Volume 76.2 fl (81-99); Mean Platelet Volume 9.1 fl (7.4-10.4); Monocytes # 0.6 K/mm3 (0.1-1.0); Monocytes % 6.4 % (1.7-9.3); Neutrophils # 6.4 K/mm3 (1.8-7.8); Neutrophils % 74.5 % (37.0-80.0); Platelet Count 226 K/mm3 (142-424); Red Blood Count 5.36 M/mm3 (4.20-5.40); Red Cell Distribution Width 22.1 % (11.5-17.5); White Blood Count 8.6 K/mm3 (4.8-10.8)
[2021-06-08 14:07] LABS: Chloride 107 mmol/L (98-107); Potassium 4.2 mmoL/L (3.5-5.1); Sodium 141 mmol/L (136-145)
[2021-06-08 14:10] LABS: Anion Gap 14.2 mEq/L (5-15); Blood Urea Nitrogen 33 mg/dl (7-17); Calcium 8.9 mg/dl (8.4-10.2); Carbon Dioxide 24 mmol/L (22.0-30.0); Estimated Glomerular Filt Rate 33 ml/min (>60); GFR (African American) 41 ML/MIN (>60); Glucose 97 mg/dl (74-100)
== END ==
PROVIDERS: PCP Emergency Medicine; Visit Provider Surgery
DX: R10.9 Unspecified abdominal pain (principal)
CPT/HCPCS: 36415; 74270; 80048; 85025

== ENCOUNTER → 2021-06-08 11:36 | Outpatient (CLI) | payer MEDICARE, SELFPAY | PROVIDERS: PCP Emergency Medicine; Visit Provider Surgery | DX: R10.11 Right upper quadrant pain (principal) | CPT/HCPCS: 36415; 80048; 85025 ==

== ENCOUNTER 2021-06-20 06:54 | Day surgery (SDC) | payer MEDICARE, SELFPAY ==
[2021-06-16 13:19] VITALS: BMI 28.7
[2021-06-20 07:18] VITALS: BP 190/79; PULSE 76; RESP 18; TEMP 36.7; O2SAT 95
--- NOTE | 2021-06-20 07:39 | HMH.ANESCL ---
[facility] Anesthesia Checklist - Patient Identification Patient Identification: Arm Band, Verbal (Name & ) - Structural Data Admitted From: Home Planned Operative Procedure/s: Port A Cath Placement Consent for Planned Operative Procedure(s) Verified: Yes Verified Documents: Surgical Consent - NPO Status Verified Time NPO: 00:00 - Chart Verification Results Verified: CBC, BMP - Additional verifications Anesthesia Reactions: No Hx Blood Transfusions: Yes Blood Transfusion Reaction: No - Airway Assessment C-Spine Mobility Assessed: Yes TMJ Mobility Assessed: Yes Dentition: Edentulous - Neurological Assessment Level of Consciousness: Awake, Alert, Appropriate - Anesthesia Plan Anesthesia Risk discussed: Yes ASA Class: III Anesthesia Type: MAC [facility] History I have reviewed the patient's past medical history: Yes Medical History: Reports:: Aneurysm, Coronary Artery Disease, Cerebrovascular Accident, Hyperlipidemia, Hypertension, Myocardial Infarction, Peripheral Artery Disease, Peripheral Vascular Disease, Pulmonary Embolism Denies:: Cancer, Diabetes Mellitus Type 1, Diabetes Mellitus Type 2, Internal Pacemaker, MRSA, Seizures *Have you ever received a pneumonia vaccine?: No *Have you received a flu vaccine this season?: No Other Medical History: Reports: Anemia, Arthritis, Cataracts, Thyroid Disease. Denies: Blood Transfusion Reaction Anesthesia experience/problems:: none Laterality Cases: Left: Arthroscopy Shoulder, Other Other Surgeries: Yes: Cardiac Catheterization, Cholecystectomy, Colonoscopy, Hernia Repair, Hysterectomy-Total, Other (stent placement in legs x&). No: Pacemaker Amputation: No Fractures: No - *Social History Last grade of school completed: High school graduate Smoking Status: Never smoker Tobacco Type: cigarettes #Yrs smoked (if former smoker): 40 Alcohol Intake: never Alcohol Intake Frequency:: other Substance Use Type: denies use *Occupational Status:: retired Housing: house Household Members: none *Travel in the last 8 weeks: None Family Hx:: Diabetes
--- NOTE | 2021-06-20 09:09 | FL_ITS ---
FINAL REPORT CLINICAL HISTORY: port a cath placement fluoro time; 1:17 FINDINGS: FLUOROSCOPY <1 HR Fluoroscopic guidance was provided to the operating services. A single spot film was obtained. A chest port is seen. 1 minutes 17 seconds of fluoroscopy time was utilized. IMPRESSION: 1 minute 17 seconds of fluoroscopy time. Reviewed, Interpreted and Dictated by Adilson Lemus MD Transcribed by Prasanna Townsend Authenticated by Adilson Lemus MD on 07/31/2021 09:56:10 AM [facility]
--- NOTE | 2021-06-20 09:15 | HMH.OPNOTE ---
Date of procedure: 06/20/21 Pre-op Diagnosis:: Need for venous access Post-op Diagnosis:: Same Procedure performed:: Placement of 8 Micronesian open-ended single-lumen venous access catheter in right subclavian vein with implantable reservoir port (PowerPort) Surgeon:: Ifeanyi Arora MD ELECTRODE CLEANER:: Other Anesthesia: MAC, local Estimated blood loss (mL): 15 Clinical Note:: Patient is a 81-year-old female with history of chronic arterial occlusive disease (7 stents placed in right lower extremity), coronary artery disease, chronic kidney disease, COPD, hypertension, abdominal aortic aneurysm, history of iron deficiency anemia, recent hospitalization for pneumonia and respiratory failure secondary to COVID-19. During that hospitalization she had an ultrasound-guided IV placed due to poor venous access. She required Dr. Ellis to place a central venous catheter after that had failed. She has undergone transfusion as well as iron infusions for her anemia which is planned. Due to her poor venous access and need for impending access she was referred for surgical consultation for port placement. Patient has not had recent colonoscopy. She states that she did have a colonoscopy many years ago. She does have some left lower quadrant pain and discomfort. Operative findings:: Apparently markedly attenuated left subclavian vein. Operative note:: Patient was taken to the operating room. She was positioned in supine position. Adequate intravenous sedation was achieved. Upper neck and chest was prepped and draped in the standard surgical fashion bilaterally. Local anesthetic was infiltrated inferior to the left clavicle after she was positioned in Trendelenburg position. 18-gauge needle was inserted. Several passes were made and the left subclavian vein was unable to be cannulated. SonoSite was brought onto the field and ultrasound was performed. It appears that she likely had a very attenuated subclavian vein. She was positioned in steep Trendelenburg position. The needle was inserted. There was good return of blood. Guidewire was inserted. Small incision was made at the insertion site. Subcutaneous tissues were dilated. However, there was concern that this may actually be in the subclavian artery. Therefore guidewire and dilator with breakaway sheath were then removed. Pressure was held at the subclavian area for several minutes. Due to the difficulty accessing the left subclavian vein and possibility that the subclavian artery had been cannulated attention was turned to the right side. Local anesthetic was infiltrated inferior to the Clavicle. 18-gauge needle was inserted. There was good return of venous blood flow. Guidewire was inserted. Fluoroscopy was used to confirm appropriate positioning of the guidewire. Small incision was made at the guidewire insertion site. Breakaway sheath with dilator was inserted over the guidewire. Guidewire and dilator were removed. Open-ended 8 Micronesian catheter was then inserted through the breakaway sheath. Sheath was removed. Fluoroscopy was used to confirm position of the tip of the catheter near the atriocaval junction. Skin was marked with a skin marker for planned subcutaneous tunneling in subcutaneous pocket. Local anesthetic was infiltrated. Incision was made for subcutaneous pocket and pocket was created using electrocautery. The tunneling device was then used to tunnel the catheter subcutaneously to the pocket. Catheter was cut to the appropriate length. It was secured to the port. Port was secured in the subcutaneous pocket with several interrupted 2-0 PDS sutures. Fluoroscopy was once again used to confirm positioning. The port aspirated and flushed without difficulty with saline. It was then flushed with heparinized saline. There was good hemostasis. Subdermal tissues were closed with a running 2-0 Vicryl. Skin was closed with 4-0 Monocryl in a subcuticular fashion. Dressings were applied.
[2021-06-20 09:20] VITALS: BP 163/88; PULSE 56; RESP 18; TEMP 36.1; O2SAT 97
--- NOTE | 2021-06-20 09:27 | XR_ITS ---
FINAL REPORT CLINICAL HISTORY: Port placement COMPARISON: June 05, 2021 FINDINGS: SINGLE VIEW CHEST. There has been interval placement of a right subclavian port with the tip in the mid SVC. The heart is normal in size. The mediastinum is unremarkable. There are persistent pulmonary opacities. There is no pneumothorax. IMPRESSION: Interval placement of right subclavian port, tip in mid SVC. Persistent pulmonary opacities. Reviewed, Interpreted and Dictated by Ifeanyi Wray III, MD Transcribed by Bailee Maxwell Authenticated by Ifeanyi Wray III, MD on 06/20/2021 10:30:41 AM [facility]
[2021-06-20 09:35] VITALS: BP 173/89; PULSE 56; RESP 16; O2SAT 99
[2021-06-20 09:59] VITALS: BP 165/86; PULSE 56; RESP 18; O2SAT 99
--- NOTE | 2021-06-20 10:12 | SUR.PHASEII ---
1007 - spoke to Elyssa in rad, verified that port in good placement w/ no new findings.
== END 2021-06-20 10:08 | disposition home or self-care (01) ==
LOC: OR 06:56
PROVIDERS: PCP Emergency Medicine; Visit Provider Surgery
DX: D50.9 Iron deficiency anemia, unspecified (principal); R10.9 Unspecified abdominal pain; I25.10 Atherosclerotic heart disease of native coronary artery without angina pectoris; N18.9 Chronic kidney disease, unspecified; I10 Essential (primary) hypertension; J44.9 Chronic obstructive pulmonary disease, unspecified; Z86.79 Personal history of other diseases of the circulatory system; Z87.01 Personal history of pneumonia (recurrent); Z86.16 Personal history of COVID-19; I25.2 Old myocardial infarction; I73.9 Peripheral vascular disease, unspecified; Z86.711 Personal history of pulmonary embolism
CPT/HCPCS: 36561; 76937; 77001; 71045; 76000; 96374; C1788; J1642

== ENCOUNTER 2021-07-06 11:06 | Outpatient (CLI) | payer MEDICARE, SELFPAY ==
[2021-07-06 11:26] LABS: Basophils # 0.1 K/mm3 (0-0.2); Basophils % 1.9 % (0.1-2.0); Eosinophils # 0.2 K/mm3 (0.0-0.4); Eosinophils % 3.1 % (0.1-12.0); Hematocrit 32.5 % (37.0-47.0); Hemoglobin 10.2 g/dL (12.2-16.2); Lymphocytes # 1.4 K/mm3 (0.7-4.5); Mean Corpuscular HGB Conc 31.2 g/dL (31.8-35.4); Mean Corpuscular Hemoglobin 25.1 pg (27.0-31.2); Mean Corpuscular Volume 80.4 fl (81-99); Mean Platelet Volume 8.6 fl (7.4-10.4); Monocytes # 0.4 K/mm3 (0.1-1.0); Neutrophils # 3.3 K/mm3 (1.8-7.8); Neutrophils % 60.9 % (37.0-80.0); Platelet Count 251 K/mm3 (142-424); Red Blood Count 4.04 M/mm3 (4.20-5.40); Red Cell Distribution Width 21.4 % (11.5-17.5); White Blood Count 5.4 K/mm3 (4.8-10.8)
[2021-07-06 11:33] LABS: Iron 34 ug/dL (37-170)
[2021-07-06 11:42] LABS: Total Iron Binding Capacity 336 ug/dL (265-497)
[2021-07-06 12:10] LABS: Ferritin 18.2 ng/ml (11.1-264)
== END 2021-07-06 11:26 | disposition home or self-care (01) ==
PROVIDERS: PCP Emergency Medicine; Visit Provider Internal Medicine Medical Oncology
DX: D50.8 Other iron deficiency anemias (principal)
CPT/HCPCS: 82728; 83540; 83550; 85025

== ENCOUNTER 2021-07-19 13:02 | Outpatient (CLI) | payer MEDICARE, SELFPAY ==
[2021-07-19 13:20] VITALS: BP 157/77; PULSE 76; RESP 18; TEMP 36.3; O2SAT 99
[2021-07-19 14:06] VITALS: BP 176/98; PULSE 83; RESP 18
== END 2021-07-19 14:06 | disposition home or self-care (01) ==
LOC: INF 13:03
PROVIDERS: PCP Emergency Medicine; Visit Provider Internal Medicine Medical Oncology
DX: D50.9 Iron deficiency anemia, unspecified (principal)
CPT/HCPCS: 96365; J1642; J1756

== ENCOUNTER 2021-07-26 13:01 | Outpatient (CLI) | payer MEDICARE, SELFPAY ==
[2021-07-26 13:50] VITALS: BP 161/90; PULSE 72; RESP 18; O2SAT 99
[2021-07-26 14:40] VITALS: BP 163/79; PULSE 84; RESP 18
== END 2021-07-26 14:40 | disposition home or self-care (01) ==
LOC: INF 13:02
PROVIDERS: PCP Emergency Medicine; Visit Provider Internal Medicine Medical Oncology
DX: D50.9 Iron deficiency anemia, unspecified (principal)
CPT/HCPCS: 96365; J1642; J1756

== ENCOUNTER 2021-08-02 12:52 | Outpatient (CLI) | payer MEDICARE, SELFPAY ==
[2021-08-02 13:13] VITALS: BP 191/73; PULSE 84; RESP 18; TEMP 36.4; O2SAT 97
[2021-08-02 13:50] VITALS: BP 184/59; PULSE 61; RESP 18; O2SAT 97
== END 2021-08-02 14:42 | disposition home or self-care (01) ==
PROVIDERS: PCP Emergency Medicine; Visit Provider Internal Medicine Medical Oncology
DX: D50.9 Iron deficiency anemia, unspecified (principal)
CPT/HCPCS: 96365; J1642; J1756

== ENCOUNTER 2021-08-09 12:59 | Outpatient (CLI) | payer MEDICARE, SELFPAY ==
[2021-08-09 13:26] VITALS: BP 159/67; PULSE 50; RESP 18; TEMP 36.2; O2SAT 98
[2021-08-09 14:15] VITALS: BP 151/69; PULSE 54; RESP 18; O2SAT 98
== END 2021-08-09 14:15 | disposition home or self-care (01) ==
LOC: INF 13:00
PROVIDERS: PCP Emergency Medicine; Visit Provider Internal Medicine Medical Oncology
DX: D50.9 Iron deficiency anemia, unspecified (principal)
CPT/HCPCS: 96365; J1642; J1756

== ENCOUNTER 2021-08-16 12:59 | Outpatient (CLI) | payer MEDICARE, SELFPAY ==
[2021-08-16 13:20] VITALS: BP 180/89; PULSE 76; RESP 18; O2SAT 96
[2021-08-16 14:10] VITALS: BP 177/81; PULSE 72; RESP 18; O2SAT 96
== END 2021-08-16 14:10 | disposition home or self-care (01) ==
LOC: INF 13:00
PROVIDERS: PCP Emergency Medicine; Visit Provider Internal Medicine Medical Oncology
DX: D50.9 Iron deficiency anemia, unspecified (principal); T45.4X5A Adverse effect of iron and its compounds, initial encounter
CPT/HCPCS: 96365; J1642; J1756

== ENCOUNTER 2021-08-23 12:55 | Outpatient (CLI) | payer MEDICARE, SELFPAY ==
[2021-08-23 13:25] VITALS: BP 167/85; PULSE 71; RESP 18
[2021-08-23 14:15] VITALS: BP 186/86; PULSE 65; RESP 18; O2SAT 95
== END 2021-08-23 14:15 | disposition home or self-care (01) ==
LOC: INF 12:55
PROVIDERS: PCP Emergency Medicine; Visit Provider Internal Medicine Medical Oncology
DX: D50.9 Iron deficiency anemia, unspecified (principal)
CPT/HCPCS: 96365; J1642; J1756

== ENCOUNTER 2021-09-28 10:28 | Outpatient (CLI) | payer MEDICARE, SELFPAY ==
[2021-09-28 10:34] VITALS: BMI 33.7
[2021-09-28 11:08] LABS: Basophils # 0.1 K/mm3 (0-0.2); Basophils % 1.6 % (0.1-2.0); Eosinophils # 0.3 K/mm3 (0.0-0.4); Eosinophils % 5.6 % (0.1-12.0); Hematocrit 36.8 % (37.0-47.0); Lymphocytes # 1.6 K/mm3 (0.7-4.5); Lymphocytes % 25.7 % (10-50); Mean Corpuscular HGB Conc 32.5 g/dL (31.8-35.4); Mean Corpuscular Hemoglobin 29.6 pg (27.0-31.2); Mean Platelet Volume 9.5 fl (7.4-10.4); Monocytes # 0.5 K/mm3 (0.1-1.0); Monocytes % 8.2 % (1.7-9.3); Neutrophils # 3.6 K/mm3 (1.8-7.8); Platelet Count 201 K/mm3 (142-424); Red Blood Count 4.04 M/mm3 (4.20-5.40); Red Cell Distribution Width 16.5 % (11.5-17.5); White Blood Count 6.1 K/mm3 (4.8-10.8)
[2021-09-28 11:23] LABS: Iron 47 ug/dL (37-170)
[2021-09-28 11:32] LABS: Total Iron Binding Capacity 349 ug/dL (265-497)
== END 2021-09-28 11:05 | disposition home or self-care (01) ==
LOC: INF 10:29
PROVIDERS: PCP Emergency Medicine; Visit Provider Internal Medicine Medical Oncology
DX: D64.9 Anemia, unspecified (principal); I71.4 Abdominal aortic aneurysm, without rupture
CPT/HCPCS: 82728; 83540; 83550; 85025; J1642

== ENCOUNTER → 2021-10-04 14:49 | Outpatient (CLI) | payer MEDICARE, SELFPAY ==
[2021-10-04 15:27] LABS: Chloride 106 mmol/L (98-107)
[2021-10-04 15:28] LABS: Potassium 4.7 mmoL/L (3.5-5.1); Sodium 138 mmol/L (136-145)
[2021-10-04 15:31] LABS: Alanine Aminotransferase 12 U/L (12-78); Albumin Level 3.9 g/dl (3.5-5.0); Albumin/Globulin Ratio 1.5 (1.1-1.8); Alkaline Phosphatase 63 U/L (38-126); Anion Gap 10.7 mEq/L (5-15); Aspartate Amino Transferase 24 U/L (14-36); Bilirubin,Total 0.4 mg/dl (0.2-1.3); Blood Urea Nitrogen 27 mg/dl (7-17); Calcium 9.4 mg/dl (8.4-10.2); Carbon Dioxide 26 mmol/L (22.0-30.0); Estimated Glomerular Filt Rate 40 ml/min (>60); GFR (African American) 48 ML/MIN (>60); Globulin 2.6 g/dL (1.3-3.2); Glucose 100 mg/dl (74-100); Total Protein,Serum 6.5 g/dl (6.3-8.2)
[2021-10-04 16:02] LABS: Thyroid Stimulating Hormone 5.58 uIU/mL (0.465-4.68)
[2021-10-04 20:52] LABS: Free T4 (Free Thyroxine) 1.08 ng/dl (0.78-2.19)
== END ==
PROVIDERS: PCP Emergency Medicine; Visit Provider Emergency Medicine
DX: R42 Dizziness and giddiness (principal); R60.0 Localized edema
CPT/HCPCS: 80053; 84439; 84443; J1642

== ENCOUNTER → 2021-12-07 11:28 | Outpatient (POV) | payer MEDICARE, SELFPAY ==
--- NOTE | 2021-12-07 14:43 | HMH.PMPROC ---
- Procedure Date: 12/07/21 Time: 14:44 Anesthesiologist:: HUBERT Escobedo Complications:: None Pre-procedure Diagnosis:: Degenerative disc disease of lumbar spine with lumbar radiculopathy symptoms, low back pain Post-procedure Diagnosis:: Same Indications for Procedure:: Patient is a pleasant 81-year-old female who presents today for follow-up. Patient is currently being treated for degenerative disc disease of lumbar spine with lumbar radiculopathy symptoms. Patient is currently being managed with intrathecal pain pump Dilaudid 3 mg/mL at a rate of 0.1 mg/day. Patient is a home refill with [facility]. Patient was recommended by her [facility] nurse to come to our clinic because she has been having worsening pain and nausea. She states that she cannot tolerate any full activity such as standing and walking. Most of her pain is around her left upper buttock that radiates down to her left foot. Patient also had the impression that her medication was changed from Dilaudid to a different type of medication. I have discussed with the patient that we did change her concentration of Dilaudid from 5 mg/mL to 3 mg/mL recently. Her dose is At Dilaudid 0.1 mg/day. In regards to her nausea, patient states that she has been having nausea for the last 1 to 2 months. She states that she has been constipated for a while now. She has gone up to 10 to 12 days without having a bowel movement. She does take stool softener every night and she sometimes uses a suppository. She rates her pain today as 6 out of 10. Physical Exam: General: Alert and oriented x3, no acute distress, pleasant and cooperative Lungs: Respirations even and unlabored, symmetrical chest expansion Eyes: PERRL Musculoskeletal: Flexion and extension of lumbar [spine] somewhat guarded secondary to pain, [antalgic gait noted] Neurological: Speech clear, no gross sensory deficit
--- NOTE | 2021-12-07 14:48 | HMH.PAINSOAP ---
[facility] Pain Management SOAP Note Subjective:: Patient is a pleasant 81-year-old female who presents today for follow-up. Patient is currently being treated for degenerative disc disease of lumbar spine with lumbar radiculopathy symptoms. Patient is currently being managed with intrathecal pain pump Dilaudid 3 mg/mL at a rate of 0.1 mg/day. Patient is a home refill with [facility]. Patient was recommended by her [facility] nurse to come to our clinic because she has been having worsening pain and nausea. She states that she cannot tolerate any full activity such as standing and walking. Most of her pain is around her left upper buttock that radiates down to her left foot. Patient also had the impression that her medication was changed from Dilaudid to a different type of medication. I have discussed with the patient that we did change her concentration of Dilaudid from 5 mg/mL to 3 mg/mL recently. I also reached out to her home health nurse for confirmation. Her dose is kept at Dilaudid 0.1 mg/day. In regards to her nausea, patient states that she has been having nausea for the last 1 to 2 months. She states that she has been constipated for a while now. She has gone up to 10 to 12 days without having a bowel movement. She does take stool softener every night and she sometimes uses a suppository. She rates her pain today as 6 out of 10. Review of Systems: General: No recent weight changes, no fever, no sleep disturbances Respiratory: No cough, no shortness of air, no recurring pulmonary infections Cardiovascular/peripheral vascular: No chest pain, no palpitations, no edema, no shortness of breath Gastrointestinal: No new onset incontinence, normal bowel movements reported Genitourinary: No new onset incontinence Musculoskeletal: Low back pain Psychiatric: [Normal mood/affect] Neurological: [Denies weakness in extremities], [denies balance issues] Objective:: Physical Exam: General: Alert and oriented x3, no acute distress, pleasant and cooperative Lungs: Respirations even and unlabored, symmetrical chest expansion Eyes: PERRL Musculoskeletal: Flexion and extension of lumbar [spine] somewhat guarded secondary to pain, [antalgic gait noted]; left SI is positive for ERICA, Brianna's, [place]'s, Gaenslen's, compression, and distraction. Tenderness to palpation around the left greater trochanteric bursa Neurological: Speech clear, no gross sensory deficit Assessment:: Degenerative disease of lumbar spine with lumbar radiculopathy symptoms, chronic low back pain Plan:: Patient has been having increasing nausea for the last month or 2. She states that she has been constipated for a while now and has gone up to 10 to 12 days without bowel movement. She does take a stool softener every night and has used suppository at times. We will not make any changes in her intrathecal pain pump today. I will start the patient on Naloxegol to help with opioid induced constipation. Patient does have a positive SI exam and tenderness to palpation on the left greater trochanteric bursa. I have discussed with the patient that she would benefit from injections in this areas. Patient wants to hold off in scheduling injective therapy at this time. Patient has been instructed to contact the clinic with any concerns before the next appointment. Dr. Rivas has reviewed this note and agrees with this plan of care. This note was dictated using voice recognition software and make contain errors or omissions. [facility] History Medical History: Reports:: Aneurysm, Congestive Heart Failure, Coronary Artery Disease, Cerebrovascular Accident, Hyperlipidemia, Hypertension, Myocardial Infarction, Peripheral Artery Disease, Peripheral Vascular Disease, Pulmonary Embolism Denies:: Cancer, Diabetes Mellitus Type 1, Diabetes Mellitus Type 2, Internal Pacemaker, MRSA, Seizures *Have you ever received a pneumonia vaccine?: No *Have you received a flu vaccine this season?: No Other Medical History: Report
[2021-12-07 16:38] VITALS: BP 184/89; PULSE 98; RESP 20; TEMP 36.6; O2SAT 90; BMI 33.5
== END ==
PROVIDERS: Visit Provider Student in an Organized Health Care Education/Training Program
DX: M51.16 Intervertebral disc disorders with radiculopathy, lumbar region (principal); G89.29 Other chronic pain
CPT/HCPCS: 99212; G0463

== ENCOUNTER → 2021-12-25 09:43 | Outpatient (POV) | payer MEDICARE, SELFPAY ==
[2021-12-25 10:20] VITALS: BP 176/72; PULSE 68; RESP 20; TEMP 36.4; O2SAT 98; BMI 34.9
--- NOTE | 2021-12-25 12:59 | HMH.PAINSOAP ---
[facility] Pain Management SOAP Note Subjective:: Patient is a pleasant 81-year-old female who presents today for follow-up. Patient is currently being treated for degenerative disc disease of lumbar spine with lumbar radiculopathy symptoms. Patient today patient states that her nausea has improved from previous visit. She is not currently having any as well as her constipation has been helped with [id number] laxative use. Continues to have pain with increased activity such as standing and walking. Patient states her pain is a 7 out of 10 today. Describing it in her left SI area and stating it is a sharp clawing like sensation with certain positions. Patient denies any new trauma or injury. Patient denies any change in the location or type of pain she experiences. Patient has used topical creams such as Biofreeze and Mary Alice balm with minimal relief. Patient states since changing her medication she does feel like she has more pain. She states that since changing to at home pump filling she does not get the same adequate pain relief as she did when she had her pump filled in clinic. patient states she only uses her bolus device occasionally. Her Donis is [id number]. It has been reviewed and appropriate. Review of Systems: General: No recent weight changes, no fever, no sleep disturbances Respiratory: No cough, no shortness of air, no recurring pulmonary infections Cardiovascular/peripheral vascular: No chest pain, no palpitations, no edema, no shortness of breath Gastrointestinal: No new onset incontinence, normal bowel movements reported Genitourinary: No new onset incontinence Musculoskeletal: Low back pain Psychiatric: [Normal mood/affect] Neurological: [Denies weakness in extremities], [denies balance issues] Objective:: Physical Exam: General: Alert and oriented x3, no acute distress, pleasant and cooperative Lungs: Respirations even and unlabored, symmetrical chest expansion Eyes: PERRL Musculoskeletal: Flexion and extension of lumbar [spine] somewhat guarded secondary to pain, [antalgic gait noted] Neurological: Speech clear, no gross sensory deficit Assessment:: Degenerative disc disease of lumbar spine with lumbar radiculopathy symptoms, sacroiliitis Plan:: Patient states that she is having significant pain with changing positions. I have counseled the patient on using her bolus device when increased pain occurs. We will increase her pain pump medication by 10% today. She will be managed with Dilaudid 3 mg/mL with a daily dose of 0.11 mg/day. We will also prescribe the patient a compounding cream at today's visit. We will follow-up with the patient in 2 weeks. I have discussed with the patient about possibly trying her next pump refill at clinic due to the fact she feels she is getting different reactions when she has it filled at home. Will return to clinic in 2 weeks for follow-up. Patient has been instructed to contact the clinic with any concerns before the next appointment. Dr. Rivas has reviewed this note and agrees with this plan of care. This note was dictated using voice recognition software and make contain errors or omissions. [facility] History I have reviewed the patient's past medical history: Yes Medical History: Reports:: Aneurysm, Congestive Heart Failure, Coronary Artery Disease, Cerebrovascular Accident, Hyperlipidemia, Hypertension, Myocardial Infarction, Peripheral Artery Disease, Peripheral Vascular Disease, Pulmonary Embolism Denies:: Cancer, Diabetes Mellitus Type 1, Diabetes Mellitus Type 2, Internal Pacemaker, MRSA, Seizures *Have you ever received a pneumonia vaccine?: No *Have you received a flu vaccine this season?: No Other Medical History: Reports: Anemia, Arthritis, Cataracts, Thyroid Disease. Denies: Blood Transfusion Reaction Laterality Cases: Left: Arthroscopy Shoulder, Other Other Surgeries: Yes: Cardiac Catheterization, Cholecystectomy, Colonoscopy, Hernia Repair, Hysterectomy-Total, Other (stent plac
== END ==
PROVIDERS: Visit Provider Student in an Organized Health Care Education/Training Program
DX: M51.16 Intervertebral disc disorders with radiculopathy, lumbar region (principal); M46.1 Sacroiliitis, not elsewhere classified
CPT/HCPCS: 62368; 99212; G0463

== ENCOUNTER → 2022-01-08 13:29 | Outpatient (POV) | payer MEDICARE, SELFPAY ==
[2022-01-08 13:40] VITALS: BP 145/98; PULSE 82; RESP 20; TEMP 36.8; O2SAT 99; BMI 34.9
--- NOTE | 2022-01-08 14:05 | P.PCN_ITS ---
- Procedure Date: 01/08/22 Time: 14:05 Anesthesiologist:: HUBERT Escobedo Complications:: None Pre-procedure Diagnosis:: Degenerative disc disease of lumbar spine with lumbar radiculopathy symptoms, sacroiliitis Post-procedure Diagnosis:: Same Indications for Procedure:: Patient is a pleasant 81-year-old female that presents today for follow-up. We are currently treating the patient for degenerative disc disease of lumbar spine with lumbar radiculopathy symptoms, sacroiliitis. Patient states that she has had some improvement in her pain symptoms since we increased her Dilaudid dosage by 10% at her previous visit. She is currently being managed with Dilaudid 3 mg/mL with a daily dose of 0.11 mg/day. Patient denies any side effects from this medication. Patient states that she has used her boluses occasionally last week when she had increased pain. Today the patient rates her pain a 4 out of 10. Stating that it is all in her low back primarily around her pump site. She describes it as a ache, pulling sensation. Patient states she continues to have this pain with increased activity such as standing and walking. She denies any new trauma or injury. She denies any change in the location or type of pain she experiences. Patient has been using the compounding cream that we ordered at her last visit however she states that it is been no different than the other o [id number] topical medications such as icy hot or Biofreeze. Patient states she is still doing well with her constipation. She said she is having a bowel movement fully every 3 days. Patient denies any nausea or vomiting. her Donis is [id number]. It has been reviewed and appropriate. Patient stated that she felt like she was not getting the same medication as she had had prior to doing at home refills. Patient is still currently on Dilaudid however states that she does not get the same adequate pain relief. Physical exam General: Alert and oriented x3, no acute distress, pleasant and cooperative Lungs: Respirations even and unlabored, symmetrical chest expansion Eyes: PERRL Musculoskeletal: Flexion and extension of [lumbar] [spine] somewhat guarded secondary to pain, [antalgic gait noted] Neurological: Speech clear, no gross sensory deficit Procedure Details:: Informed consent was obtained and the risk and benefits of the procedure were explained to the patient. Patient was taken to the procedure room where noninvasive monitoring was placed including noninvasive blood pressure cuff and pulse oximeter. Patient's pump was interrogated and was reprogrammed to Dilaudid 3 mg/mL with a daily dose of 0.1155 mg/day. The patient tolerated the procedure well with no complications. Plan and Disposition:: We will see the patient back in the clinic in 2 weeks to follow-up and reevaluation of symptoms. I did discuss with the patient regarding possible trigger point injections around her pump site to help with the pain. Risk and benefits were discussed. The patient want to have these injections at this time. PAtient has been instructed to contact the clinic with any concerns before the next appointment. Dr. Rivas has reviewed this note and agrees with this plan of care. This note was dictated using voice recognition software and make contain errors or omissions.
== END ==
PROVIDERS: Visit Provider Student in an Organized Health Care Education/Training Program
DX: M51.16 Intervertebral disc disorders with radiculopathy, lumbar region (principal); M46.1 Sacroiliitis, not elsewhere classified
CPT/HCPCS: 62368; 99212; G0463

== ENCOUNTER → 2022-03-26 14:18 | Outpatient (CLI) | payer MEDICARE, SELFPAY ==
[2022-03-26 14:44] LABS: Basophils # 0.1 K/mm3 (0-0.2); Basophils % 0.9 % (0.1-2.0); Eosinophils # 0.3 K/mm3 (0.0-0.4); Eosinophils % 3.3 % (0.1-12.0); Hematocrit 26.9 % (37.0-47.0); Hemoglobin 8.7 g/dL (12.2-16.2); Lymphocytes # 2.2 K/mm3 (0.7-4.5); Lymphocytes % 24.6 % (10-50); Mean Corpuscular HGB Conc 32.2 g/dL (31.8-35.4); Mean Corpuscular Hemoglobin 25.8 pg (27.0-31.2); Mean Corpuscular Volume 80.1 fl (81-99); Mean Platelet Volume 8.2 fl (7.4-10.4); Monocytes # 0.6 K/mm3 (0.1-1.0); Monocytes % 6.3 % (1.7-9.3); Neutrophils # 5.9 K/mm3 (1.8-7.8); Platelet Count 351 K/mm3 (142-424); Red Blood Count 3.36 M/mm3 (4.20-5.40); Red Cell Distribution Width 15.3 % (11.5-17.5); White Blood Count 9.1 K/mm3 (4.8-10.8)
[2022-03-26 15:14] LABS: Alanine Aminotransferase 17 U/L (12-78); Albumin Level 3.7 g/dl (3.5-5.0); Albumin/Globulin Ratio 1.3 (1.1-1.8); Alkaline Phosphatase 96 U/L (38-126); Anion Gap 15.7 mEq/L (5-15); Aspartate Amino Transferase 22 U/L (14-36); Bilirubin,Total 0.2 mg/dl (0.2-1.3); Blood Urea Nitrogen 38 mg/dl (7-17); Calcium 9.1 mg/dl (8.4-10.2); Carbon Dioxide 25 mmol/L (22.0-30.0); Chloride 102 mmol/L (98-107); Chol/HDL Ratio 5.7 (1-3.5); Cholesterol 211 mg/dl (140-200); Estimated Glomerular Filt Rate 24 ml/min (>60); GFR (African American) 29 ML/MIN (>60); Globulin 2.9 g/dL (1.3-3.2); Glucose 116 mg/dl (74-100); HDL Cholesterol 37 mg/dl (40-60); Potassium 4.7 mmoL/L (3.5-5.1); Sodium 138 mmol/L (136-145); Total Protein,Serum 6.6 g/dl (6.3-8.2); Triglycerides 115 mg/dl (30-150); VLDL Cholesterol 23 mg/dL (0-40)
[2022-03-26 15:25] LABS: Direct LDL Cholesterol 145.77 mg/dL (100-129)
[2022-03-26 15:31] LABS: 25-OH Vitamin D, Total 82.5 ng/mL (30-100)
[2022-03-26 15:45] LABS: Thyroid Stimulating Hormone 6.05 uIU/mL (0.465-4.68)
== END ==
PROVIDERS: PCP Emergency Medicine; Visit Provider Emergency Medicine
DX: E86.0 Dehydration (principal); E55.9 Vitamin D deficiency, unspecified; I16.0 Hypertensive urgency; R60.0 Localized edema
CPT/HCPCS: 80053; 80061; 82306; 84439; 84443; 85025

== ENCOUNTER → 2022-03-29 12:03 | Outpatient (CLI) | payer MEDICARE, SELFPAY ==
[2022-03-29 12:17] VITALS: BMI 33.5
[2022-03-29 12:34] LABS: Basophils # 0.1 K/mm3 (0-0.2); Basophils % 0.9 % (0.1-2.0); Eosinophils # 0.3 K/mm3 (0.0-0.4); Eosinophils % 3.8 % (0.1-12.0); Hematocrit 27.9 % (37.0-47.0); Lymphocytes # 1.7 K/mm3 (0.7-4.5); Lymphocytes % 23.5 % (10-50); Mean Corpuscular HGB Conc 32.1 g/dL (31.8-35.4); Mean Corpuscular Hemoglobin 25.5 pg (27.0-31.2); Mean Corpuscular Volume 79.6 fl (81-99); Mean Platelet Volume 8.2 fl (7.4-10.4); Monocytes # 0.5 K/mm3 (0.1-1.0); Monocytes % 7.1 % (1.7-9.3); Neutrophils # 4.8 K/mm3 (1.8-7.8); Neutrophils % 64.8 % (37.0-80.0); Platelet Count 348 K/mm3 (142-424); Red Blood Count 3.51 M/mm3 (4.20-5.40); Red Cell Distribution Width 15.3 % (11.5-17.5); White Blood Count 7.4 K/mm3 (4.8-10.8)
[2022-03-29 12:40] LABS: Alanine Aminotransferase 18 U/L (12-78); Albumin Level 3.7 g/dl (3.5-5.0); Albumin/Globulin Ratio 1.2 (1.1-1.8); Alkaline Phosphatase 86 U/L (38-126); Anion Gap 17.8 mEq/L (5-15); Aspartate Amino Transferase 23 U/L (14-36); Blood Urea Nitrogen 45 mg/dl (7-17); Calcium 8.9 mg/dl (8.4-10.2); Carbon Dioxide 24 mmol/L (22.0-30.0); Chloride 102 mmol/L (98-107); Creatinine Clearance Estimated 35 mL/min (50-200); Estimated Glomerular Filt Rate 27 ml/min (>60); GFR (African American) 33 ML/MIN (>60); Globulin 3.2 g/dL (1.3-3.2); Glucose 128 mg/dl (74-100); Potassium 4.8 mmoL/L (3.5-5.1); Sodium 139 mmol/L (136-145); Total Protein,Serum 6.9 g/dl (6.3-8.2)
[2022-03-29 12:43] LABS: Bilirubin,Total 0.1 mg/dl (0.2-1.3)
[2022-03-29 12:50] LABS: Total Iron Binding Capacity 376 ug/dL (265-497)
[2022-03-29 16:00] LABS: Iron 11 ug/dL (37-170)
[2022-03-29 16:36] LABS: Ferritin 11.2 ng/ml (11.1-264)
== END ==
PROVIDERS: PCP Emergency Medicine; Visit Provider Internal Medicine Medical Oncology
DX: D50.8 Other iron deficiency anemias (principal)
CPT/HCPCS: 80053; 82728; 83540; 83550; 85025

== ENCOUNTER 2022-04-10 11:03 | Outpatient (CLI) | payer MEDICARE, SELFPAY ==
[2022-04-10 12:00] VITALS: BP 169/88; PULSE 67; RESP 18; TEMP 36.6; O2SAT 100
[2022-04-10 12:15] VITALS: BP 182/78; PULSE 69; RESP 18; O2SAT 99
[2022-04-10 12:35] VITALS: BP 166/81; PULSE 65; RESP 18; O2SAT 99
== END 2022-04-10 13:00 | disposition home or self-care (01) ==
PROVIDERS: PCP Emergency Medicine; Visit Provider Internal Medicine Medical Oncology
DX: D50.8 Other iron deficiency anemias (principal)
CPT/HCPCS: 96365; 96375; J1642; J1756; J2405

== ENCOUNTER 2022-04-17 11:57 | Outpatient (CLI) | payer MEDICARE, SELFPAY ==
[2022-04-17 12:14] VITALS: BP 167/93; PULSE 76; RESP 18; O2SAT 98
[2022-04-17 13:00] VITALS: BP 148/76; PULSE 68; RESP 18
== END 2022-04-17 13:00 | disposition home or self-care (01) ==
LOC: INF 11:58
PROVIDERS: PCP Emergency Medicine; Visit Provider Internal Medicine Medical Oncology
DX: D50.9 Iron deficiency anemia, unspecified (principal)
CPT/HCPCS: 96365; J1642; J1756

== ENCOUNTER → 2022-05-01 12:23 | Outpatient (CLI) | payer MEDICARE, SELFPAY ==
--- NOTE | 2022-05-01 12:27 | XR_ITS ---
FINAL REPORT CLINICAL HISTORY: SOB..weakness COMPARISON: 06/20/2021 FINDINGS: Two views of the chest were obtained. A right subclavian port is present. The heart size and pulmonary vascularity are within normal limits. The mediastinum is normal. There is mild scarring or atelectasis. There is no pneumothorax. The bony thorax is intact. IMPRESSION: Mild scarring or atelectasis. Reviewed, Interpreted and Dictated by Ifeanyi Wray III, MD Transcribed by Bailee Maxwell Authenticated and [facility]
[2022-05-01 12:50] VITALS: BP 172/69; PULSE 79; RESP 21; O2SAT 96
--- NOTE | 2022-05-01 13:20 | PC.NURSE ---
1320-notified that pt has had 3 occurances with n/v with 3 doses of venofer;pt states she does not want any more venofer; new orders for zofran 8mg iv once and repeat iron studies in 6 weeks.
[2022-05-01 13:40] VITALS: BP 176/86; PULSE 80; RESP 20
[2022-05-01 14:10] VITALS: RESP 20
--- NOTE | 2022-05-01 14:10 | PC.NURSE ---
1415-notified about continuous nausea and vomiting;one time dose of phenergan 12.5mg iv
[2022-05-01 14:20] VITALS: BP 182/71; PULSE 74; RESP 20; O2SAT 96
== END ==
PROVIDERS: PCP Internal Medicine Pulmonary Disease; Visit Provider Internal Medicine Medical Oncology
DX: R06.02 Shortness of breath (principal); D50.8 Other iron deficiency anemias
CPT/HCPCS: 71046; 87070; 87205; 96365; 96367; 96375; J0696; J1642; J1756; J2405

== ENCOUNTER 2022-05-10 12:56 | Outpatient (RCR) | payer MEDICARE, SELFPAY ==
--- NOTE | 2022-05-10 13:41 | HMH.SLDYSPHA ---
Speech & Language Evaluation Speech/Language Dysphagia Evaluation Start: 05/10/22 13:31 Freq: ONCE Status: Active Protocol: Document 05/10/22 13:31 CYNTHIA (Rec: 05/10/22 13:40 [email or web address] [id number]) Dysphagia Assess/Goals/Plan Assessment Date of Evaluation: 05/10/22 Evaluation Type Initial Certification Assessment/Problems Aspiration pneumonia Does Patient Qualify for Service No Qualify/Failure Comment Based on the clinical swallow study, pt presents with WFL swallow function. No further skilled ST services are warranted at this time. Recommendations PHYSICIAN CERTIFICATION: The specified therapy services are required, authorized, and reviewed every 30 days. Diet Recommendations Normal Liquid Type Recommendations Normal/Thin Dysphagia Swallow Precautions/Strategies Sitting Upright (90 deg),Small Bites and Sips Place Food on Either side of Mouth Plan Pt/Guardian verbally ack understanding Yes of dx/prognosis/goals Pt/Guardian verbally ack understanding Yes of/consent to tx prog G -code Required No Education Instructions provided CSE results and recommendations discussed with pt who expressed understanding. Pt/Caregiver able to recall information Able to recall/restate Reinforcement needed No Speech & Language HPI History Present Illness Description of Patient Problem Ms. Gandhi is an 82 y.o. woman presenting to [facility] for an evaluation of oropharyngeal swallow function. He reports a hx of pneumonia, but claims she has no difficulty with swallowing. Rehab Services Assessed Speech therapy Language Primary Language [place] General Information General Current Food Consistancy Regular,Thin Liquids Dentition Upper & Lower Dentures Oxygen Status Room Air Facial Symmetry Symmetrical Patient Orientation Person,Place,Time,Situation Ability to Follow Directions Excellent Communication Ability No Impairment Dysphagia:Food Presentation Evaluation Food Type Pureed,Mechanical Soft,Regular ,Liquid Dysphagia Evaluation Summary CSE was completed to analyze and assess oropharyngeal swallow. FINANCIAL REPORTING DIRECTOR provided pt with trials of thin liquids via cup
== END 2022-05-10 12:59 | disposition home or self-care (01) ==
LOC: ST 12:56
PROVIDERS: PCP Emergency Medicine; Visit Provider Internal Medicine Pulmonary Disease
DX: J69.0 Pneumonitis due to inhalation of food and vomit
CPT/HCPCS: 92610

== ENCOUNTER → 2022-07-11 15:39 | Outpatient (CLI) | payer MEDICARE, SELFPAY ==
--- NOTE | 2022-07-11 15:42 | CA_ITS ---
APPROVED REPORT EXAM: Comprehensive 2D, Doppler, and color-flow Echocardiogram Slat Pickler: Tana Royal CRT Ht: 5 ft 4 in Wt: 193lbs BSA: 1.93 BP: 138/84 mmHg Indications: Dizziness and Vertigo, Peripheral Edema, Hyperlipidemia, Hypertension/HDD 2D Dimensions LVOT 1.88 cm (M/F) 1.5-2.5 LA Volume 62.50 mL LA Volume Index 31.70 mL/m2 (M/F) 16-34 M-Mode Dimensions RVDd 3.07 cm (0.9-2.6) LA Diam 3.73 cm (1.9-4.0) LVDd 6.63 cm (3.5-5.7) Ao Diam 3.89 cm (2.0-3.7) LVDs 4.49 cm (3.5-5.7) IVSd 1.16 cm (0.6-1.1) PWd 0.67 cm (0.6-1.1) EF (Teich) 59.30% FS 32.30% EDV (Teich) 225.90 mL TAPSE 1.11 (<1.7) ESV (Teich) 92.00 mL LV Diastology E Decel Time 377.00 (160-240 msec) E/A Ratio 0.59 MED E' 5.00 (< 7 cm/sec) MED A' 9.50 cm/s E'/MED E' Ratio 11.22 (>14) LAT E' 4.90 (<10 cm/sec) LAT A' 8.00 cm/s E/LAT E' Ratio 11.45 (>14) Aortic Valve AI PHT 356.00 ms AO Peak GR. 8.60 mmHg Mitral Valve MV E Max Leo. 56.00 (40-130 cm/s) MV A Velocity 96.00 (40-130 cm/s) E/A Ratio 0.59 MV Decel. Time 377.00 (160-240 ms) MV PHT 110.00 ms Pulmonary Valve PV Peak Velocity 121.00 (50-150 cm/s) Tricuspid Valve TR P. Velocity 254.00 cm/s RAP Estimate 10.00 mmHg RVSP 35.70 mmHg Left Ventricle Left atrium is mildly enlarged, left ventricle is normal size mild concentric left ventricular hypertrophy, estimated ejection fraction 55% with no regional wall motion abnormality, grade 1 diastolic dysfunction seen without tissue Doppler evidence of raise left atrial pressure. Right Ventricle Right atrium and right ventricle are normal size and contractility. Aortic Valve Aortic valve is minimally thickened and fibrosed there is no aortic stenosis or aortic insufficiency. Mitral Valve Mitral valve is grossly normal, there is trace mitral regurgitation. Tricuspid Valve Tricuspid valve grossly normal, there is trace tricuspid regurgitation, tricuspid regurgitation jet velocity is inadequate for calculation of the right ventricular systolic pressure. Pulmonic Valve Pulmonic valve is poorly visualized. Great Vessels Aortic root is normal size. Inferior vena cava is poorly visualized. Pericardium No significant pericardial effusion noted. Conclusion 1. Mildly enlarged left atrium, normal left ventricular size, mild concentric left ventricular hypertrophy, estimated ejection fraction 55% with no regional wall motion abnormality, grade 1 diastolic dysfunction seen without tissue Doppler evidence of raise left atrial pressure. 2. Trace mitral and tricuspid regurgitation. 3. No significant pericardial effusion. 4. Inferior vena cava is poorly visualized. Electronically signed by : Saw Sheppard MD 07/12/2022 05:51:38
== END ==
PROVIDERS: PCP Emergency Medicine; Visit Provider Emergency Medicine
DX: R07.9 Chest pain, unspecified (principal)
CPT/HCPCS: 93306; J1642

== ENCOUNTER → 2022-08-09 12:28 | Outpatient (CLI) | payer MEDICARE, SELFPAY ==
[2022-08-10 14:00] LABS: Chloride 108 mmol/L (98-107); Sodium 140 mmol/L (136-145)
[2022-08-10 14:01] LABS: Potassium 4.5 mmoL/L (3.5-5.1)
[2022-08-10 14:03] LABS: Alanine Aminotransferase 13 U/L (12-78); Albumin Level 3.9 g/dl (3.5-5.0); Albumin/Globulin Ratio 1.4 (1.1-1.8); Alkaline Phosphatase 69 U/L (38-126); Aspartate Amino Transferase 21 U/L (14-36); Bilirubin,Total 0.3 mg/dl (0.2-1.3); Blood Urea Nitrogen 30 mg/dl (7-17); Calcium 8.4 mg/dl (8.4-10.2); Carbon Dioxide 25 mmol/L (22.0-30.0); Estimated Glomerular Filt Rate 27 ml/min (>60); GFR (African American) 33 ML/MIN (>60); Globulin 2.8 g/dL (1.3-3.2); Glucose 101 mg/dl (74-100); Total Protein,Serum 6.7 g/dl (6.3-8.2)
[2022-08-10 14:06] LABS: Anion Gap 11.5 mEq/L (5-15)
[2022-08-10 14:07] LABS: Basophils # 0.1 K/mm3 (0-0.2); Basophils % 1.2 % (0.1-2.0); Eosinophils # 0.3 K/mm3 (0.0-0.4); Eosinophils % 4.7 % (0.1-12.0); Hematocrit 28.9 % (37.0-47.0); Hemoglobin 8.9 g/dL (12.2-16.2); Lymphocytes # 1.9 K/mm3 (0.7-4.5); Mean Corpuscular HGB Conc 30.8 g/dL (31.8-35.4); Mean Corpuscular Hemoglobin 23.1 pg (27.0-31.2); Mean Corpuscular Volume 75.2 fl (81-99); Mean Platelet Volume 10.9 fl (7.4-10.4); Monocytes # 0.6 K/mm3 (0.1-1.0); Monocytes % 8.5 % (1.7-9.3); Neutrophils # 3.6 K/mm3 (1.8-7.8); Neutrophils % 56.5 % (37.0-80.0); Platelet Count 254 K/mm3 (142-424); Red Blood Count 3.84 M/mm3 (4.20-5.40); Red Cell Distribution Width 16.4 % (11.5-17.5); White Blood Count 6.4 K/mm3 (4.8-10.8)
[2022-08-10 14:13] LABS: NT Pro Brain Natriuretic Pep. 1020 pg/mL (0-450)
== END ==
PROVIDERS: PCP Emergency Medicine; Visit Provider Emergency Medicine
DX: I50.33 Acute on chronic diastolic (congestive) heart failure (principal); M79.89 Other specified soft tissue disorders; I50.9 Heart failure, unspecified
CPT/HCPCS: 80053; 83880; 85025; J1642

== ENCOUNTER → 2022-08-24 12:26 | Outpatient (POV) | payer MEDICARE, SELFPAY ==
[2022-08-24 13:21] VITALS: BMI 33.1
--- NOTE | 2022-08-24 13:29 | P.PCN_ITS ---
Procedure Date: 08/24/22 Time: 13:08 Anesthesiologist:: Augusta Luu APRN Complications:: None Pre-procedure Diagnosis:: Degenerative disc disease of lumbar spine with lumbar radiculopathy symptoms Post-procedure Diagnosis:: Same Indications for Procedure:: Patient is a pleasant 82-year-old female who presents today for intrathecal pain pump reprogramming adjustment. The patient is being treated for degenerative disc disease of lumbar spine with lumbar radiculopathy symptoms. Patient is currently being managed with Dilaudid 3 mg/mL with a daily dose of 0.1155 mg/day. Patient denies any side effects from this medication. She states that she has been having more trouble doing her boluses. She states she is unsure whether or not it has to do with her inability to get back to her device with her left arm or if the device itself is not working properly. Patient rates pain a 6 out of 10. Drug screen is appropriate. Donis [id number] has been reviewed and is appropriate. Physical exam General: Alert and oriented x3, no acute distress, pleasant and cooperative Lungs: Respirations even and unlabored, symmetrical chest expansion Eyes: PERRL Musculoskeletal: Flexion and extension of lumbar [spine] somewhat guarded secondary to pain, [antalgic gait noted] Neurological: Speech clear, no gross sensory deficit Procedure Details:: Informed consent was obtained and the risk and benefits of the procedure were explained to the patient. Patient was taken to the procedure room where noninvasive monitoring was placed including noninvasive blood pressure cuff and pulse oximeter. Patient's pump was interrogated and was reprogrammed to Dilaudid 0.1 to 7 mg/day. The patient tolerated the procedure well with no complications. Plan and Disposition:: Patient was given a 10% increase during today's visit. We did also replace her Ptc device during today's visit. Patient is an [facility] at home refill client and is scheduled for her next refill in October. I have counseled the patient that if she continues to have additional issues with her PTC to contact our office for her next follow-up visit. Patient has been instructed to contact the clinic with any concerns before the next appointment. Dr. Rivas has reviewed this note and agrees with this plan of care. This note was dictated using voice recognition software and make contain errors or omissions. -- It Is medically necessary for this patient to continue to have their intrathecal pump refilled at regular intervals. This patient had an intrathecal pain pump implanted after meeting criteria of chronic intractable pain for greater than 3 months and failing conservative treatments. Patient has committed and been compliant to the treatment plan and all planned follow up care. Since implantation of the intrathecal pain pump, the patient has had decreased pain and been more functional. Oral medications have been reduced including intake of oral opioids. Patient continues to do well with intrathecal therapy with d ecrease in pain symptoms and increase in functional status. Stopping intrathecal medications can lead to life threatening withdrawal, seizures, cardiac arrest, severe pain, and possible . Pumps that are not refilled at regular intervals can be damages and cause and need for replacement. We continually titrate dose and concentration to optimize pain relief and function. We are limited in concentration for certain drugs to safely deliver medications through the pump and stay within the recommendations from the [employer] Guidelines. Depending on dose and concentration these pumps may need to be refilled sooner than 3 months as we titrate.
== END | disposition home or self-care (01) ==
PROVIDERS: PCP Emergency Medicine; Visit Provider Nurse Practitioner Family
DX: Z45.1 Encounter for adjustment and management of infusion pump (principal); M51.16 Intervertebral disc disorders with radiculopathy, lumbar region
CPT/HCPCS: 62368; 99213; G0463

== ENCOUNTER → 2022-09-27 11:53 | Outpatient (CLI) | payer MEDICARE, SELFPAY ==
[2022-09-27 14:14] LABS: Basophils % 0.7 % (0.1-2.0); Eosinophils # 0.3 K/mm3 (0.0-0.4); Eosinophils % 3.8 % (0.1-12.0); Hematocrit 25.3 % (37.0-47.0); Hemoglobin 7.7 g/dL (12.2-16.2); Iron 24 ug/dL (37-170); Lymphocytes # 1.5 K/mm3 (0.7-4.5); Lymphocytes % 22.8 % (10-50); Mean Corpuscular HGB Conc 30.3 g/dL (31.8-35.4); Mean Corpuscular Hemoglobin 20.6 pg (27.0-31.2); Mean Corpuscular Volume 67.9 fl (81-99); Mean Platelet Volume 8.8 fl (7.4-10.4); Monocytes # 0.5 K/mm3 (0.1-1.0); Monocytes % 7.2 % (1.7-9.3); Neutrophils # 4.2 K/mm3 (1.8-7.8); Neutrophils % 65.4 % (37.0-80.0); Platelet Count 231 K/mm3 (142-424); Red Blood Count 3.73 M/mm3 (4.20-5.40); Red Cell Distribution Width 16.3 % (11.5-17.5); White Blood Count 6.4 K/mm3 (4.8-10.8)
[2022-09-27 14:23] LABS: Total Iron Binding Capacity 424 ug/dL (265-497)
== END ==
PROVIDERS: PCP Emergency Medicine; Visit Provider Internal Medicine Medical Oncology
DX: D69.9 Hemorrhagic condition, unspecified (principal); Z45.2 Encounter for adjustment and management of vascular access device
CPT/HCPCS: 82728; 83540; 83550; 85025; J1642

== ENCOUNTER 2022-10-17 10:57 | Outpatient (CLI) | payer MEDICARE, SELFPAY ==
[2022-10-17 11:50] VITALS: BP 164/68; PULSE 55; RESP 18; O2SAT 100
[2022-10-17 12:05] VITALS: BP 138/81; PULSE 57; RESP 18
[2022-10-17 12:50] VITALS: BP 152/66; PULSE 46; RESP 18; O2SAT 100
== END 2022-10-17 12:50 | disposition home or self-care (01) ==
LOC: INF 10:58
PROVIDERS: PCP Emergency Medicine; Visit Provider Internal Medicine Medical Oncology
DX: D50.9 Iron deficiency anemia, unspecified (principal)
CPT/HCPCS: 96365; J1642; Q0138

== ENCOUNTER 2022-10-24 10:59 | Outpatient (CLI) | payer MEDICARE, SELFPAY ==
[2022-10-24 11:40] VITALS: BP 156/85; PULSE 68; RESP 18
[2022-10-24 12:10] VITALS: BP 143/62; PULSE 63; RESP 16
== END 2022-10-24 13:10 | disposition home or self-care (01) ==
LOC: INF 10:59
PROVIDERS: PCP Emergency Medicine; Visit Provider Internal Medicine Medical Oncology
DX: D50.9 Iron deficiency anemia, unspecified (principal)
CPT/HCPCS: 96365; J1642; Q0138

== ENCOUNTER 2022-11-19 09:53 | Outpatient (CLI) | payer MEDICARE, SELFPAY ==
--- NOTE | 2022-11-19 10:10 | PC.NURSE ---
1010-called 's office to get lab orders for pt; verbal order for cbc and cmp to draw today per port a cath.
[2022-11-19 10:33] LABS: Basophils % 0.7 % (0.1-2.0); Eosinophils # 0.3 K/mm3 (0.0-0.4); Eosinophils % 5.2 % (0.1-12.0); Hematocrit 34.4 % (37.0-47.0); Hemoglobin 10.3 g/dL (12.2-16.2); Lymphocytes # 1.5 K/mm3 (0.7-4.5); Lymphocytes % 29.2 % (10-50); Mean Corpuscular HGB Conc 29.9 g/dL (31.8-35.4); Mean Corpuscular Hemoglobin 24.3 pg (27.0-31.2); Mean Corpuscular Volume 81.4 fl (81-99); Monocytes # 0.4 K/mm3 (0.1-1.0); Monocytes % 7.7 % (1.7-9.3); Neutrophils # 2.9 K/mm3 (1.8-7.8); Neutrophils % 57.2 % (37.0-80.0); Platelet Count 171 K/mm3 (142-424); Red Blood Count 4.22 M/mm3 (4.20-5.40)
[2022-11-19 10:35] LABS: Red Cell Distribution Width 26.3 % (11.5-17.5)
[2022-11-19 11:34] LABS: Chloride 107 mmol/L (98-107); Potassium 4.5 mmoL/L (3.5-5.1); Sodium 142 mmol/L (136-145)
[2022-11-19 11:36] LABS: Alanine Aminotransferase 17 U/L (12-78); Alkaline Phosphatase 59 U/L (38-126); Anion Gap 13.5 mEq/L (5-15); Aspartate Amino Transferase 25 U/L (14-36); Bilirubin,Total 0.2 mg/dl (0.2-1.3); Blood Urea Nitrogen 33 mg/dl (7-17); Carbon Dioxide 26 mmol/L (22.0-30.0); Creatinine Clearance Estimated 32 mL/min (50-200); Estimated Glomerular Filt Rate 25 ml/min (>60); GFR (African American) 31 ML/MIN (>60)
[2022-11-19 11:37] LABS: Albumin Level 3.8 g/dl (3.5-5.0); Albumin/Globulin Ratio 1.4 (1.1-1.8); Calcium 8.9 mg/dl (8.4-10.2); Globulin 2.8 g/dL (1.3-3.2); Glucose 101 mg/dl (74-100); Total Protein,Serum 6.6 g/dl (6.3-8.2)
== END 2022-11-19 10:21 | disposition home or self-care (01) ==
LOC: INF 09:54
PROVIDERS: PCP Emergency Medicine; Visit Provider Internal Medicine Medical Oncology
DX: D50.9 Iron deficiency anemia, unspecified (principal)
CPT/HCPCS: 36591; 80053; 85025; J1642

== ENCOUNTER → 2023-02-13 14:25 | Outpatient (CLI) | payer MEDICARE, SELFPAY ==
[2023-02-13 14:56] LABS: Chloride 106 mmol/L (98-107)
[2023-02-13 14:57] LABS: Potassium 4.9 mmoL/L (3.5-5.1); Sodium 141 mmol/L (136-145)
[2023-02-13 15:00] LABS: Anion Gap 14.9 mEq/L (5-15); Blood Urea Nitrogen 38 mg/dl (7-17); Calcium 9.6 mg/dl (8.4-10.2); Carbon Dioxide 25 mmol/L (22.0-30.0); Estimated Glomerular Filt Rate 19 ml/min (>60); GFR (African American) 24 ML/MIN (>60); Glucose 101 mg/dl (74-100)
[2023-02-13 16:05] LABS: Troponin I < 0.01 ng/ml (0.00-0.034)
[2023-02-13 16:54] LABS: Basophils % 0.7 % (0.1-2.0); Eosinophils # 0.3 K/mm3 (0.0-0.4); Hematocrit 33.1 % (37.0-47.0); Hemoglobin 10.4 g/dL (12.2-16.2); Lymphocytes # 1.9 K/mm3 (0.7-4.5); Lymphocytes % 30.2 % (10-50); Mean Corpuscular HGB Conc 31.5 g/dL (31.8-35.4); Mean Corpuscular Hemoglobin 25.5 pg (27.0-31.2); Mean Corpuscular Volume 80.8 fl (81-99); Mean Platelet Volume 9.8 fl (7.4-10.4); Monocytes # 0.5 K/mm3 (0.1-1.0); Monocytes % 8.3 % (1.7-9.3); Neutrophils # 3.6 K/mm3 (1.8-7.8); Neutrophils % 56.8 % (37.0-80.0); Platelet Count 222 K/mm3 (142-424); Red Blood Count 4.09 M/mm3 (4.20-5.40); Red Cell Distribution Width 16.4 % (11.5-17.5); White Blood Count 6.4 K/mm3 (4.8-10.8)
== END ==
PROVIDERS: Physician Assistant; PCP Emergency Medicine; Visit Provider Emergency Medicine
DX: I10 Essential (primary) hypertension (principal); I20.8 Other forms of angina pectoris; R06.09 Other forms of dyspnea
CPT/HCPCS: 80048; 84484; 85025; J1642

== ENCOUNTER 2023-02-15 08:15 | Day surgery (SDC) | payer MEDICARE, SELFPAY ==
[2023-02-15] VITALS (13 sets, daily range): BP systolic 115–168; BP diastolic 41–71; PULSE 50–79; RESP 15–20; TEMP 36.9; O2SAT 54–100; BMI 32.1
--- NOTE | 2023-02-15 07:09 | IR_ITS ---
APPROVED REPORT Patient Location: Outpatient PROCEDURES Selective coronary angiogram Left heart catheterization Intravascular ultrasound of the LAD INDICATION Progressive angina pectoris, Known coronary artery disease Informed consent was obtained prior to the procedure. COMPLICATIONS None Estimated Blood Loss: Less than10 mls TECHNIQUE One percent lidocaine used to anesthetize the right anterior aspect of the wrist. The right radial artery was accessed via the Seldinger technique. A 6 [place] sheath was placed in the right radial artery. 2.5 mg of Verapamil, 800 mcg of nitroglycerin, 1mg Lidocaine and 5000 U Heparin were given through the arterial sheath. Retrograde angiography demonstrated small vessel with tortuosity. An advantage wire was used to traverse the tortuosity however the catheter would not easily pass. Because of this a long 75 cm hydrophilic destination sheath was advanced over the 035 wire into the ascending aorta. From there a Poppa catheter was used to perform selective coronary angiography. At the end the diagnostic angiogram therapeutic heparin was administered given therapeutic ACT and the guide catheter was placed in the left main artery followed by choice floppy wire being placed down the LAD. Intravascular ultrasound interrogation was performed which failed to demonstrate any severe lesion with an MLA of 4 mm??? or less. Because of this the apparatus was removed the sheath was removed and hemostasis was achieved using TR banding patient was transferred to the postop holding in stable condition ANGIOGRAPHIC RESULTS The left main artery Normal The left anterior descending artery Is a large-caliber vessel and has diffuse proximal and mid vessel moderate calcifications producing multiple 30,40 and 50% stenoses. Intravascular ultrasound probe confirmed no lesion was significant The circumflex artery Is a nondominant vessel has proximal 40% stenoses with 30% stenoses in the first and second obtuse marginal artery. The third obtuse marginal artery has a distal 70% stenosis and then subtotally occluded with small distal vascularity less than 1 mm in size The right coronary artery Ostially occluded and fills via [id number] collaterals The LUCIA ventriculogram reveals Not performed The left ventricular end-diastolic pressure Severely elevated at 25 to 30 mmHg IMPRESSION Chronically occluded right coronary artery which fills nicely via [id number] collaterals Moderate nonflow limiting calcific disease as described above involving the LAD Severe disease in a small terminal obtuse marginal artery which is too small for percutaneous revascularization Patient's symptoms are not related angina pectoris but rather come from decompensated diastolic heart failure combined with poorly controlled hypertension PLAN 1. Aggressive medical management 2. Treatment of diastolic dysfunction 3. Diuretics 4. Better control of hypertension Electronically signed by : Antonio Pleitez MD 02/15/2023 12:34:46
[2023-02-15 09:27] LABS: Basophils % 0.6 % (0.1-2.0); Eosinophils # 0.3 K/mm3 (0.0-0.4); Eosinophils % 5.3 % (0.1-12.0); Hematocrit 30.5 % (37.0-47.0); Hemoglobin 9.2 g/dL (12.2-16.2); Lymphocytes # 1.7 K/mm3 (0.7-4.5); Lymphocytes % 30.5 % (10-50); Mean Corpuscular HGB Conc 30.3 g/dL (31.8-35.4); Mean Corpuscular Hemoglobin 25.3 pg (27.0-31.2); Mean Corpuscular Volume 83.6 fl (81-99); Mean Platelet Volume 8.6 fl (7.4-10.4); Monocytes # 0.4 K/mm3 (0.1-1.0); Neutrophils # 3.1 K/mm3 (1.8-7.8); Neutrophils % 56.6 % (37.0-80.0); Platelet Count 180 K/mm3 (142-424); Red Blood Count 3.64 M/mm3 (4.20-5.40); Red Cell Distribution Width 15.7 % (11.5-17.5); White Blood Count 5.4 K/mm3 (4.8-10.8)
[2023-02-15 09:35] LABS: Chloride 107 mmol/L (98-107)
[2023-02-15 09:36] LABS: Potassium 4.4 mmoL/L (3.5-5.1); Sodium 142 mmol/L (136-145)
[2023-02-15 09:38] LABS: Blood Urea Nitrogen 44 mg/dl (7-17); Creatinine Clearance Estimated 24 mL/min (50-200); Estimated Glomerular Filt Rate 19 ml/min (>60); GFR (African American) 22 ML/MIN (>60)
[2023-02-15 09:39] LABS: Anion Gap 15.4 mEq/L (5-15); Calcium 9.4 mg/dl (8.4-10.2); Carbon Dioxide 24 mmol/L (22.0-30.0); Glucose 106 mg/dl (74-100)
[2023-02-15 13:39] LABS: CATHL Activated Clotting Time 297 SEC (74-125)
== END 2023-02-15 15:50 | disposition home or self-care (01) ==
PROVIDERS: PCP Emergency Medicine; Visit Provider Internal Medicine
DX: E78.5 Hyperlipidemia, unspecified (principal); I50.33 Acute on chronic diastolic (congestive) heart failure; N18.9 Chronic kidney disease, unspecified; R06.09 Other forms of dyspnea; I25.118 Atherosclerotic heart disease of native coronary artery with other forms of angina pectoris; I13.0 Hypertensive heart and chronic kidney disease with heart failure and stage 1 through stage 4 chronic kidney disease, or unspecified chronic kidney disease
CPT/HCPCS: 80048; 85025; 85347; 92978; 93454; 99152; 99153; C1725; C1769; J1642; J1644; J2405; Q9967

== ENCOUNTER → 2023-02-27 11:12 | Outpatient (CLI) | payer MEDICARE, SELFPAY ==
[2023-02-27 13:17] LABS: Chloride 111 mmol/L (98-107); Potassium 4.8 mmoL/L (3.5-5.1); Sodium 143 mmol/L (136-145)
[2023-02-27 13:18] LABS: Basophils # 0.1 K/mm3 (0-0.2); Basophils % 0.8 % (0.1-2.0); Eosinophils # 0.4 K/mm3 (0.0-0.4); Eosinophils % 4.3 % (0.1-12.0); Hemoglobin 10.2 g/dL (12.2-16.2); Lymphocytes # 2.3 K/mm3 (0.7-4.5); Lymphocytes % 25.5 % (10-50); Mean Corpuscular HGB Conc 30.9 g/dL (31.8-35.4); Mean Corpuscular Volume 80.7 fl (81-99); Mean Platelet Volume 8.8 fl (7.4-10.4); Monocytes # 0.6 K/mm3 (0.1-1.0); Monocytes % 6.6 % (1.7-9.3); Neutrophils # 5.7 K/mm3 (1.8-7.8); Neutrophils % 62.8 % (37.0-80.0); Platelet Count 266 K/mm3 (142-424); Red Blood Count 4.09 M/mm3 (4.20-5.40); Red Cell Distribution Width 15.8 % (11.5-17.5)
[2023-02-27 13:20] LABS: Anion Gap 14.8 mEq/L (5-15); Blood Urea Nitrogen 34 mg/dl (7-17); Calcium 9.2 mg/dl (8.4-10.2); Carbon Dioxide 22 mmol/L (22.0-30.0); Estimated Glomerular Filt Rate 19 ml/min (>60); GFR (African American) 24 ML/MIN (>60); Glucose 110 mg/dl (74-100)
== END ==
PROVIDERS: PCP Emergency Medicine; Visit Provider Nurse Practitioner Family
DX: D64.9 Anemia, unspecified (principal); I10 Essential (primary) hypertension; I25.10 Atherosclerotic heart disease of native coronary artery without angina pectoris; I50.33 Acute on chronic diastolic (congestive) heart failure; N18.9 Chronic kidney disease, unspecified; Z45.2 Encounter for adjustment and management of vascular access device
CPT/HCPCS: 80048; 85025; J1642

== ENCOUNTER → 2023-06-09 09:12 | Outpatient (CLI) | payer MEDICARE, SELFPAY ==
[2023-06-09 16:46] LABS: Microscopic, Urine URINE MICROSCOPIC (MICROSCOPIC)
[2023-06-09 16:57] LABS: Albumin Level 4.2 g/dl (3.5-5.0); Anion Gap 13.6 mEq/L (5-15); Basophils # 0.1 K/mm3 (0-0.2); Basophils % 0.7 % (0.1-2.0); Blood Urea Nitrogen 46 mg/dl (7-17); Calcium 9.2 mg/dl (8.4-10.2); Carbon Dioxide 23 mmol/L (22.0-30.0); Chloride 107 mmol/L (98-107); Eosinophils # 0.4 K/mm3 (0.0-0.4); Eosinophils % 4.6 % (0.1-12.0); Estimated Glomerular Filt Rate 19 ml/min (>60); GFR (African American) 23 ML/MIN (>60); Glucose 100 mg/dl (74-100); Hematocrit 25.4 % (37.0-47.0); Hemoglobin 7.7 g/dL (12.2-16.2); Lymphocytes # 1.6 K/mm3 (0.7-4.5); Lymphocytes % 20.7 % (10-50); Mean Corpuscular HGB Conc 30.1 g/dL (31.8-35.4); Mean Corpuscular Hemoglobin 20.7 pg (27.0-31.2); Mean Corpuscular Volume 68.7 fl (81-99); Mean Platelet Volume 8.8 fl (7.4-10.4); Monocytes # 0.6 K/mm3 (0.1-1.0); Monocytes % 7.2 % (1.7-9.3); Neutrophils # 5.1 K/mm3 (1.8-7.8); Neutrophils % 66.8 % (37.0-80.0); Phosphorous 4.5 mg/dl (2.5-4.5); Platelet Count 258 K/mm3 (142-424); Potassium 4.6 mmoL/L (3.5-5.1); Red Cell Distribution Width 16.4 % (11.5-17.5); Sodium 139 mmol/L (136-145); White Blood Count 7.7 K/mm3 (4.8-10.8)
[2023-06-09 17:04] LABS: Appearance,Urine CLEAR (Clear); Bilirubin,Urine Negative (Negative); Blood, Urine Negative (Negative); Color,Urine YELLOW (Yellow); Glucose,Urine (UA) 3+ (Negative); Ketones,Urine Negative (Negative); Leukocyte Esterase,Urine Negative (Negative); Nitrate,Urine Negative (Negative); Protein,Urine Negative (Negative); Urobilinogen,Urine 0.2 EU/dl (0.2)
[2023-06-09 17:10] LABS: Intact Parathyroid Hormone 27.2 pg/mL (7.5-53.5)
[2023-06-09 17:14] LABS: 25-OH Vitamin D, Total 111 ng/mL (30-100); Creatinine,Urine Random 91 mg/dL (Not Estab.)
[2023-06-09 18:23] LABS: Bacteria,Urine Trace /lpf
== END ==
LOC: LAB 06-12 09:12
PROVIDERS: PCP Internal Medicine; Visit Provider Internal Medicine Nephrology
DX: N18.4 Chronic kidney disease, stage 4 (severe) (principal); E67.3 Hypervitaminosis D
CPT/HCPCS: 80069; 81001; 82306; 82570; 83970; 84155; 85025; J1642

== ENCOUNTER 2023-07-08 10:50 | Outpatient (CLI) | payer MEDICARE, SELFPAY ==
[2023-07-08 10:56] VITALS: BMI 36.3
[2023-07-08] MEDS: FERRIC CARBOXYMALTOSE 750 MG in 0.9 % SODIUM CHLORIDE 250 ML 530 MG IV (11:14)
[2023-07-08] MEDS: SODIUM CHLORIDE 0.9% 50ML BAG 50 ML IV (11:14)
[2023-07-08 11:17] VITALS: BP 150/59; PULSE 55; RESP 17; O2SAT 100
[2023-07-08] MEDS: SODIUM CHLORIDE 0.9% 10ML FLUSH SYRINGE 10 ML IV (11:55)
[2023-07-08 12:00] VITALS: BP 155/77; PULSE 59; RESP 18; O2SAT 100
[2023-07-08 13:40] LABS: Basophils # 0.1 K/mm3 (0-0.2); Basophils % 1.1 % (0.1-2.0); Eosinophils # 0.3 K/mm3 (0.0-0.4); Eosinophils % 5.2 % (0.1-12.0); Hematocrit 22.7 % (37.0-47.0); Lymphocytes # 1.7 K/mm3 (0.7-4.5); Lymphocytes % 28.3 % (10-50); Mean Corpuscular HGB Conc 30.1 g/dL (31.8-35.4); Mean Corpuscular Hemoglobin 19.7 pg (27.0-31.2); Mean Corpuscular Volume 65.4 fl (81-99); Mean Platelet Volume 7.8 fl (7.4-10.4); Monocytes # 0.5 K/mm3 (0.1-1.0); Monocytes % 7.8 % (1.7-9.3); Neutrophils # 3.4 K/mm3 (1.8-7.8); Neutrophils % 57.5 % (37.0-80.0); Platelet Count 223 K/mm3 (142-424); Red Blood Count 3.47 M/mm3 (4.20-5.40); Red Cell Distribution Width 16.8 % (11.5-17.5)
[2023-07-08 13:42] LABS: Hemoglobin 6.8 g/dL (12.2-16.2)
== END 2023-07-08 12:00 | disposition home or self-care (01) ==
LOC: INF 10:50
PROVIDERS: PCP Nurse Practitioner Family; Visit Provider Internal Medicine Nephrology
DX: D50.9 Iron deficiency anemia, unspecified (principal)
CPT/HCPCS: 85025; 96365; J1439; J1642

== ENCOUNTER 2023-07-11 14:40 | Emergency (ER) | payer MEDICARE, SELFPAY ==
[2023-07-11] VITALS (35 sets, daily range): BP systolic 134–178; BP diastolic 47–116; PULSE 50–98; RESP 13–20; TEMP 36.6–37.4; O2SAT 95–100; BMI 29.7
--- NOTE | 2023-07-11 15:06 | HMH.EDGENADL ---
Discharge Plan Disposition Patient Disposition: Home, Self-Care Condition: Good Prescriptions Prescriptions: No Action zolpidem 10 mg tablet 10 mg PO HS Qty: 30 5RF cholecalciferol (vitamin D3) 1,250 mcg (50,000 unit) capsule 50,000 unit PO WEEKLY Qty: 14 0RF fluticasone propion-salmeterol 250-50 mcg/dose blister with device 1 inh IH BID 90 Days Qty: 60 0RF hydroxychloroquine 200 mg tablet See Rx Instructions .ROUTE .COMPLEX Qty: 180 0RF Dose Instruction: TAKE ONE TABLET BY MOUTH 2 TIMES A DAY Rx Instructions: TAKE ONE TABLET BY MOUTH 2 TIMES A DAY levothyroxine 25 mcg tablet See Rx Instructions .ROUTE .COMPLEX Qty: 90 0RF Dose Instruction: TAKE ONE TABLET BY MOUTH ONCE A DAY FOR HYPOTHYROID Rx Instructions: TAKE ONE TABLET BY MOUTH ONCE A DAY FOR HYPOTHYROID losartan 25 mg tablet See Rx Instructions .ROUTE .COMPLEX Qty: 30 1RF Dose Instruction: TAKE ONE TABLET BY MOUTH ONCE A DAY Rx Instructions: TAKE ONE TABLET BY MOUTH ONCE A DAY metoprolol succinate 100 mg tablet extended release 24 hr 100 mg PO DAILY Qty: 90 3RF spironolactone 25 mg tablet See Rx Instructions .ROUTE .COMPLEX Qty: 90 1RF Dose Instruction: TAKE ONE TABLET BY MOUTH ONCE A DAY FOR FLUID RETENTION Rx Instructions: TAKE ONE TABLET BY MOUTH ONCE A DAY FOR FLUID RETENTION zolpidem 10 mg tablet 10 mg PO HS Qty: 30 5RF amlodipine [Norvasc] 10 mg tablet 10 mg PO DAILY 30 Days Qty: 30 3RF Farxiga 5 mg tablet 5 mg PO DAILY Referrals Follow up/Referrals: Provider,Referral, [Primary Care Provider] - See instructions Activity Restrictions/Add. Instructions Additional Instructions/Restrictions: Follow-up with PCP/renal as scheduled Clinical Impressions Clinical Impression: Anemia Discharge ED Provider: Ezequiel Beckford General Adult HPI <HUBERT Pérez - Last Filed: 07/11/23 21:44> General Chief complaint: Recheck/Abnormal Lab/Rx Stated complaint: abnormal labs Time Seen by Provider: 07/11/23 15:06 Mode of Arrival: Ambulatory Limitations: No Limitations Description of Symptoms (Recalled from ER Triage Doc. by RN): PT REPORTS WEAKNESS AND NEEDS BLOOD SENT BY [facility] FOR ABNORMAL LABS History of Present Illness HPI narrative: Patient is an 83-year-old female reportedly sent to the emergency department at the behest of her intelligence senior sergeant. Patient has past medical history that includes ASCVD, chronic renal failure and iron deficiency anemia. Patient has been getting iron infusions as an outpatient. She had routine follow-up labs from her last iron infusion reviewed by her intelligence senior sergeant that showed abnormalities. She was sent to the emergency department for further evaluation. Patient does report dyspnea even with light exertion but denies chest pain fever chills hemoptysis hematochezia melena hematemesis hematuria. Related Data Home Medications Medication Instructions Recorded Confirmed dapagliflozin propanediol 5 mg 5 mg PO DAILY . 02/15/23 05/24/23 tablet (Farxiga) Previous Rx's Medication Instructions Recorded zolpidem 10 mg tablet 10 mg PO HS INSOMNIA #30 tabs 11/16/22 amlodipine 10 mg tablet (Norvasc) 10 mg PO DAILY 30 days #30 tabs 05/24/23 cholecalciferol (vitamin D3) 1,250 50,000 unit PO WEEKLY Supplement 05/24/23 mcg (50,000 unit) capsule #14 caps fluticasone 250 mcg-salmeterol 50 1 inh inhalation BID Asthma 90 05/24/23 mcg/dose blistr powdr for days #60 ea inhalation hydroxychloroquine 200 mg tablet See Rx Instructions .Route 05/24/23 .COMPLEX #180 tabs levothyroxine 25 mcg tablet See Rx Instructions .Route 05/24/23 .COMPLEX #90 tabs losartan 25 mg tablet See Rx Instructions .Route 05/24/23 .COMPLEX #30 tabs metoprolol succinate 100 mg 100 mg PO DAILY Hypertension #90 05/24/23 tablet,extended release 24 hr tabs spironolactone 25 mg tablet See Rx Instructions .Route 05/24/23 .COMPLEX #90 tabs zolpidem 10 mg tablet 10 mg PO HS INSOMNIA #30 tabs 05/24/23 Allergies Allergy/AdvReac Type Severity Reaction Status Date / Time morphine Allergy Intermediate Unknown Verified 05/24/23 15:36 allergy reaction [facility] <HUBERT Pérez - Last Filed: 07/11/23 21:44> [facility] Disclaimer: The information contained in this section may have been updated after the patient was seen, as this information can be updated by other users. Medical History Abnormal computed tomography angiography (CTA) Anemia Dizziness Dyspnea on exertion Hypertension Insomnia Ischemic foot Ischemic foot pain at rest Pneumonia Recurrent pneumonia Right renal artery stenosis Sinus bradycardia Surgical History History of arthroscopy of shoulder History of blepharoplasty History of hernia repair History of total hysterectomy Hx of cholecystectomy Family History Other Cancer Social History Smoking Status: Former smoker tobacco type: cigarettes second hand exposure: No alcohol intake: never substance use type: denies use current occupational status: retired Travel in the last 8 weeks: None household members: none housing: house current occupational exposures/hazards: No caffeine: Yes <HUBERT Pérez - Last Filed: 07/11/23 21:44> ROS Obtained: Yes All systems reviewed & no additional complaints except as documented Physical Exam <HUBERT Pérez - Last Filed: 07/11/23 21:44> Narrative Physical exam: Patient is a very pleasant well-nourished well-developed 83-year-old female who otherwise is in no acute distress General General appearance: alert and in no apparent distress Head Head exam: atraumatic and normal inspection Eye Eye exam: Present normal appearance, PERRL, EOMI and other ENT ENT exam: Present normal exam, normal oropharynx and mucous membranes moist Neck Neck exam: Present normal inspection, full ROM and trachea midline; Absent lymphadenopathy Chest Chest inspection: Present normal inspection and symmetric chest wall rise Respiratory Respiratory exam: Present normal lung sounds bilaterally; Absent accessory muscle use Cardiovascular Cardiovascular exam: Present regular rate, normal rhythm, normal heart sounds, +S1 and +S2 Abdominal Exam Abdominal exam: Present soft and normal bowel sounds; Absent tenderness, guarding or rebound Extremities Exam Extremities exam: Present normal inspection and full ROM Neurological Exam Neurological exam: Present alert, oriented X3 and CN II-XII intact Psychiatric Psychiatric exam: Present normal affect and normal mood Skin Skin exam: Present warm, dry and other (Pale color) Lymphatic Lymphatic Findings: no adenopathy Medical Decision Making <HUBERT Pérez - Last Filed: 07/11/23 21:44> Medical Records Medical records reviewed: Yes I reviewed the patient's medical records. Donis Inquiry Pt receiving controlled substance: No Donis was queried for this patient: No Vital Signs: 07/11/23 14:40 07/11/23 15:39 07/11/23 17:35 Temperature 97.9 F 98.6 F Temperature Source Oral Oral Pulse Rate 58 L 57 L Pulse Rate [Radial] 67 Respiratory Rate 18 18 18 TAR Vitals Timing Pre-Blood Vitals Blood Pressure 134/56 L 140/47 L Blood Pressure [Right Arm] 167/68 H Blood Pressure Mean 69 78 Blood Pressure Mean [Right Arm] 101 Blood Pressure Source Automatic Cuff Blood Pressure Source [Right Arm] Automatic Cuff Blood Pressure Position Sitting Blood Pressure Position [Right Arm] Sitting 02 Sat by Pulse Oximetry 100 98 95 Oxygen Delivery Method Room Air 07/11/23 17:40 07/11/23 17:45 07/11/23 17:50 Temperature 98.2 F 98.4 F 98.5 F Temperature Source Temporal Artery Scan Temporal Artery Scan Temporal Artery Scan Pulse Rate 54 L 51 L 50 L Pulse Rate [Radial] Respiratory Rate 16 16 16 TAR Vitals Timing Start Vitals 5 Minute 10 Minute Blood Pressure 152/52 H 149/55 H 156/52 H Blood Pressure [Right Arm] Blood Pressure Mean 85 86 86 Blood Pressure Mean [Right Arm] Blood Pressure Source Automatic Cuff Automatic Cuff Automatic Cuff Blood Pressure Source [Right Arm] Blood Pressure Position Sitting Sitting Sitting Blood Pressure Position [Right Arm] 02 Sat by Pulse Oximetry 99 97 97 Oxygen Delivery Method 07/11/23 17:55 07/11/23 18:10 07/11/23 18:25 Temperature 98.5 F 99.1 F 99.2 F Temperature Source Temporal Artery Scan Temporal Artery Scan Temporal Artery Scan Pulse Rate 51 L 52 L 52 L Pulse Rate [Radial] Respiratory Rate 16 15 15 TAR Vitals Timing 15 Minute 30 Minute 45 Minute Blood Pressure 145/48 H 154/54 H 166/60 H Blood Pressure [Right Arm] Blood Pressure Mean 80 87 95 Blood Pressure Mean [Right Arm] Blood Pressure Source Automatic Cuff Automatic Cuff Automatic Cuff Blood Pressure Source [Right Arm] Blood Pressure Position Sitting Sitting Sitting Blood Pressure Position [Right Arm] 02 Sat by Pulse Oximetry 97 98 98 Oxygen Delivery Method 07/11/23 18:40 07/11/23 18:40 07/11/23 19:45 Temperature 99.0 F 98.9 F 99.3 F Temperature Source Temporal Artery Scan Temporal Artery Scan Temporal Artery Scan Pulse Rate 62 55 L 98 H Pulse Rate [Radial] Respiratory Rate 15 15 19 TAR Vitals Timing 60 Minute Completion Vitals Pre-Blood Vitals Blood Pressure 150/56 H 164/58 H 160/54 H Blood Pressure [Right Arm] Blood Pressure Mean 87 93 89 Blood Pressure Mean [Right Arm] Blood Pressure Source Automatic Cuff Blood Pressure Source [Right Arm] Blood Pressure Position Sitting Blood Pressure Position [Right Arm] 02 Sat by Pulse Oximetry 98 97 98 Oxygen Delivery Method 07/11/23 20:05 07/11/23 20:10 07/11/23 20:15 Temperature 98.8 F 99.0 F 99.4 F Temperature Source Temporal Artery Scan Temporal Artery Scan Temporal Artery Scan Pulse Rate 59 L 57 L 56 L Pulse Rate [Radial] Respiratory Rate 19 15 16 TAR Vitals Timing Start Vitals 5 Minute 10 Minute Blood Pressure 168/64 H 164/63 H 153/76 H Blood Pressure [Right Arm] Blood Pressure Mean 98 96 101 Blood Pressure Mean [Right Arm] Blood Pressure Source Blood Pressure Source [Right Arm] Blood Pressure Position Blood Pressure Position [Right Arm] 02 Sat by Pulse Oximetry 98 99 98 Oxygen Delivery Method 07/11/23 20:20 07/11/23 20:35 07/11/23 20:50 Temperature 98.7 F 97.8 F 98.1 F Temperature Source Temporal Artery Scan Temporal Artery Scan Temporal Artery Scan Pulse Rate 60 61 55 L Pulse Rate [Radial] Respiratory Rate 15 17 16 TAR Vitals Timing 15 Minute 1 Hour Post Infusion 45 Minute Blood Pressure 168/107 H 173/116 H 154/60 H Blood Pressure [Right Arm] Blood Pressure Mean 127 135 91 Blood Pressure Mean [Right Arm] Blood Pressure Source Blood Pressure Source [Right Arm] Blood Pressure Position Blood Pressure Position [Right Arm] 02 Sat by Pulse Oximetry 98 98 99 Oxygen Delivery Method 07/11/23 21:05 07/11/23 22:05 07/11/23 17:40 Temperature 98.0 F 98.1 F Temperature Source Temporal Artery Scan Temporal Artery Scan Pulse Rate 55 L 57 L 56 L Pulse Rate [Radial] Respiratory Rate 14 16 15 TAR Vitals Timing 60 Minute Completion Vitals Blood Pressure 158/62 H 178/62 H 149/55 H Blood Pressure [Right Arm] Blood Pressure Mean 94 100 86 Blood Pressure Mean [Right Arm] Blood Pressure Source Blood Pressure Source [Right Arm] Blood Pressure Position Blood Pressure Position [Right Arm] 02 Sat by Pulse Oximetry 99 100 97 Oxygen Delivery Method 07/11/23 17:51 07/11/23 18:15 07/11/23 18:30 Temperature Temperature Source Pulse Rate 60 50 L 56 L Pulse Rate [Radial] Respiratory Rate 13 15 19 TAR Vitals Timing Blood Pressure 145/48 H 166/60 H 150/56 H Blood Pressure [Right Arm] Blood Pressure Mean 80 95 87 Blood Pressure Mean [Right Arm] Blood Pressure Source Blood Pressure Source [Right Arm] Blood Pressure Position Blood Pressure Position [Right Arm] 02 Sat by Pulse Oximetry 98 99 98 Oxygen Delivery Method 07/11/23 19:01 07/11/23 19:31 07/11/23 19:55 Temperature Temperature Source Pulse Rate 54 L 56 L 60 Pulse Rate [Radial] Respiratory Rate 15 18 TAR Vitals Timing Blood Pressure 142/48 H 164/58 H 160/54 H Blood Pressure [Right Arm] Blood Pressure Mean 79 92 89 Blood Pressure Mean [Right Arm] Blood Pressure Source Blood Pressure Source [Right Arm] Blood Pressure Position Blood Pressure Position [Right Arm] 02 Sat by Pulse Oximetry 98 100 Oxygen Delivery Method 07/11/23 20:01 07/11/23 20:10 07/11/23 20:18 Temperature Temperature Source Pulse Rate 56 L 56 L 60 Pulse Rate [Radial] Respiratory Rate 19 18 15 TAR Vitals Timing Blood Pressure 168/64 H 164/63 H 153/76 H Blood Pressure [Right Arm] Blood Pressure Mean 84 87 89 Blood Pressure Mean [Right Arm] Blood Pressure Source Blood Pressure Source [Right Arm] Blood Pressure Position Blood Pressure Position [Right Arm] 02 Sat by Pulse Oximetry 99 99 98 Oxygen Delivery Method 07/11/23 20:24 07/11/23 20:30 07/11/23 21:01 Temperature Temperature Source Pulse Rate 65 64 58 L Pulse Rate [Radial] Respiratory Rate 14 16 16 TAR Vitals Timing Blood Pressure 168/107 H 173/116 H 154/60 H Blood Pressure [Right Arm] Blood Pressure Mean 127 125 111 Blood Pressure Mean [Right Arm] Blood Pressure Source Blood Pressure Source [Right Arm] Blood Pressure Position Blood Pressure Position [Right Arm] 02 Sat by Pulse Oximetry 98 98 99 Oxygen Delivery Method 07/11/23 21:30 02/01/24 22:01 07/11/23 22:31 Temperature Temperature Source Pulse Rate 52 L 58 L 54 L Pulse Rate [Radial] Respiratory Rate 16 17 TAR Vitals Timing Blood Pressure 158/62 H 178/62 H 175/66 H Blood Pressure [Right Arm] Blood Pressure Mean 113 100 102 Blood Pressure Mean [Right Arm] Blood Pressure Source Blood Pressure Source [Right Arm] Blood Pressure Position Blood Pressure Position [Right Arm] 02 Sat by Pulse Oximetry 99 97 98 Oxygen Delivery Method 07/11/23 22:39 07/11/23 22:58 Temperature 98.1 F 98.0 F Temperature Source Temporal Artery Scan Pulse Rate 54 L 54 L Pulse Rate [Radial] Respiratory Rate 20 20 TAR Vitals Timing 1 Hour Post Infusion Blood Pressure 175/66 H 175/66 H Blood Pressure [Right Arm] Blood Pressure Mean 102 Blood Pressure Mean [Right Arm] Blood Pressure Source Blood Pressure Source [Right Arm] Blood Pressure Position Blood Pressure Position [Right Arm] 02 Sat by Pulse Oximetry 97 Oxygen Delivery Method Room Air Lab Data Lab results reviewed: Yes I reviewed the patient's lab results. Lab Results 07/11/23 14:55: WBC 6.3, RBC 3.25 L, Hgb 6.6 L*, Hct 21.3 L, MCV 65.6 L, MCH 20.3 L, MCHC 31.0 L, RDW 17.6 H, Plt Count 180, MPV 8.1, Neut % (Auto) 71.1, Lymph % (Auto) 15.4, Gregory % (Auto) 6.3, Eos % (Auto) 5.9, Baso % (Auto) 1.2, Neut # (Auto) 4.5, Lymph # (Auto) 1.0, Gregory # (Auto) 0.4, Eos # (Auto) 0.4, Baso # (Auto) 0.1, Total Counted 100, Neutrophils % (Manual) 79 H, Lymphocytes % (Manual) 18, Monocytes % (Manual) 1 L, Eosinophils % (Manual) 2, Platelet Estimate Normal, Hypochromasia 2+, Poikilocytosis 1+, Anisocytosis 1+, Microcytosis 2+, Ovalocytes 1+, PT 10.4, INR 0.96, Sodium 140, Potassium 3.9, Chloride 110 H, Carbon Dioxide 25, Anion Gap 8.9, BUN 51 H, Creatinine 2.80 H, Estimated Creat Clear 20, Estimated GFR 16 L*, Est GFR ( Amer) 20 L, Glucose 118 H, Calcium 9.1 07/11/23 15:35: Blood Type A Positive, Antibody Screen Negative, Crossmatch (AHG) See Detail 07/11/23 22:05: Hgb 9.9 L D, Hct 29.3 L 07/11/23 22:05 07/11/23 14:55 Orders (Tests/Meds): ED MEDICATIONS Discontinued Medications Generic Name Dose Route Start Last Admin Trade Name Freq PRN Reason Stop Dose Admin Heparin Sodium (Porcine) 300 unit 07/11/23 22:55 07/11/23 22:35 Heparin Lock Flush 500 Units/5ml Syr IV 07/11/23 22:56 300 unit ONCE ONE Administration Sodium Chloride 250 mls @ 25 mls/hr 07/11/23 16:30 07/11/23 17:40 Sod Chlor 0.9% 250ml Bag IV 07/12/23 16:29 25 mls/hr .Q10H TIFFANIE Administration ORDERS Category Date Time Status RBC's [Red Blood Cells] Stat BBK 07/11/23 15:35 Completed Type and Screen Stat BBK 07/11/23 15:35 Completed BMP [Basic Metabolic Panel] Stat Lab 07/11/23 14:55 Completed CBC Man Diff [Complete Blood Count Man Dif] Stat Lab 07/11/23 14:55 Completed Hemoglobin and Hematocrit Stat Lab 07/11/23 22:05 Completed INR [Prothrombin Time INR] Stat Lab 07/11/23 14:55 Completed Medical Decision Narrative: In summary patient is a 83-year-old female who presents to the emergency department for evaluation of abnormal lab results that turned out to be specifically low hemoglobin. Patient is hemodynamically stable upon arrival, and afebrile. Physical exam is unremarkable for any acute injury however patient is slightly pale. Patient declined rectal exam. Differential diagnosis includes anemia of chronic renal disease versus severe iron deficiency anemia or call gastrointestinal loss. Initial workup will be conducted with otologic labs. Initial interventions type and screen. Initial workup reviewed by me revealed a hemoglobin of 6.6 with the remainder of her laboratory investigations being nonactionable. Patient was typed and screened and placed in ED observation at 1740 due to transfused 2 units of packed red blood cells. Patient total observation time was [ ] patient was provided several reevaluations and cardiac monitoring during while blood was infusing. After 2 units of packed red blood cells patient reports subjective improvement and had an improvement in her color. Posttransfusion hemoglobin was [ ] upon repeat evaluation patient has no adverse events posttransfusion and reports subjective improvement of feeling weak. Given this patient is appropriate for discharge home to follow-up with her PCP, nephrology within 1 week. Patient return to the ER any new symptoms or as needed. <Ezequiel Beckford MD - Last Filed: 07/13/23 18:13> Vital Signs: 07/11/23 14:40 07/11/23 15:39 07/11/23 17:35 Temperature 97.9 F 98.6 F Temperature Source Oral Oral Pulse Rate 58 L 57 L Pulse Rate [Radial] 67 Respiratory Rate 18 18 18 TAR Vitals Timing Pre-Blood Vitals Blood Pressure 134/56 L 140/47 L Blood Pressure [Right Arm] 167/68 H Blood Pressure Mean 69 78 Blood Pressure Mean [Right Arm] 101 Blood Pressure Source Automatic Cuff Blood Pressure Source [Right Arm] Automatic Cuff Blood Pressure Position Sitting Blood Pressure Position [Right Arm] Sitting 02 Sat by Pulse Oximetry 100 98 95 Oxygen Delivery Method Room Air 07/11/23 17:40 07/11/23 17:45 07/11/23 17:50 Temperature 98.2 F 98.4 F 98.5 F Temperature Source Temporal Artery Scan Temporal Artery Scan Temporal Artery Scan Pulse Rate 54 L 51 L 50 L Pulse Rate [Radial] Respiratory Rate 16 16 16 TAR Vitals Timing Start Vitals 5 Minute 10 Minute Blood Pressure 152/52 H 149/55 H 156/52 H Blood Pressure [Right Arm] Blood Pressure Mean 85 86 86 Blood Pressure Mean [Right Arm] Blood Pressure Source Automatic Cuff Automatic Cuff Automatic Cuff Blood Pressure Source [Right Arm] Blood Pressure Position Sitting Sitting Sitting Blood Pressure Position [Right Arm] 02 Sat by Pulse Oximetry 99 97 97 Oxygen Delivery Method 07/11/23 17:55 07/11/23 18:10 07/11/23 18:25 Temperature 98.5 F 99.1 F 99.2 F Temperature Source Temporal Artery Scan Temporal Artery Scan Temporal Artery Scan Pulse Rate 51 L 52 L 52 L Pulse Rate [Radial] Respiratory Rate 16 15 15 TAR Vitals Timing 15 Minute 30 Minute 45 Minute Blood Pressure 145/48 H 154/54 H 166/60 H Blood Pressure [Right Arm] Blood Pressure Mean 80 87 95 Blood Pressure Mean [Right Arm] Blood Pressure Source Automatic Cuff Automatic Cuff Automatic Cuff Blood Pressure Source [Right Arm] Blood Pressure Position Sitting Sitting Sitting Blood Pressure Position [Right Arm] 02 Sat by Pulse Oximetry 97 98 98 Oxygen Delivery Method 07/11/23 18:40 07/11/23 18:40 07/11/23 19:45 Temperature 99.0 F 98.9 F 99.3 F Temperature Source Temporal Artery Scan Temporal Artery Scan Temporal Artery Scan Pulse Rate 62 55 L 98 H Pulse Rate [Radial] Respiratory Rate 15 15 19 TAR Vitals Timing 60 Minute Completion Vitals Pre-Blood Vitals Blood Pressure 150/56 H 164/58 H 160/54 H Blood Pressure [Right Arm] Blood Pressure Mean 87 93 89 Blood Pressure Mean [Right Arm] Blood Pressure Source Automatic Cuff Blood Pressure Source [Right Arm] Blood Pressure Position Sitting Blood Pressure Position [Right Arm] 02 Sat by Pulse Oximetry 98 97 98 Oxygen Delivery Method 07/11/23 20:05 07/11/23 20:10 07/11/23 20:15 Temperature 98.8 F 99.0 F 99.4 F Temperature Source Temporal Artery Scan Temporal Artery Scan Temporal Artery Scan Pulse Rate 59 L 57 L 56 L Pulse Rate [Radial] Respiratory Rate 19 15 16 TAR Vitals Timing Start Vitals 5 Minute 10 Minute Blood Pressure 168/64 H 164/63 H 153/76 H Blood Pressure [Right Arm] Blood Pressure Mean 98 96 101 Blood Pressure Mean [Right Arm] Blood Pressure Source Blood Pressure Source [Right Arm] Blood Pressure Position Blood Pressure Position [Right Arm] 02 Sat by Pulse Oximetry 98 99 98 Oxygen Delivery Method 07/11/23 20:20 07/11/23 20:35 07/11/23 20:50 Temperature 98.7 F 97.8 F 98.1 F Temperature Source Temporal Artery Scan Temporal Artery Scan Temporal Artery Scan Pulse Rate 60 61 55 L Pulse Rate [Radial] Respiratory Rate 15 17 16 TAR Vitals Timing 15 Minute 1 Hour Post Infusion 45 Minute Blood Pressure 168/107 H 173/116 H 154/60 H Blood Pressure [Right Arm] Blood Pressure Mean 127 135 91 Blood Pressure Mean [Right Arm] Blood Pressure Source Blood Pressure Source [Right Arm] Blood Pressure Position Blood Pressure Position [Right Arm] 02 Sat by Pulse Oximetry 98 98 99 Oxygen Delivery Method 07/11/23 21:05 07/11/23 22:05 07/11/23 17:40 Temperature 98.0 F 98.1 F Temperature Source Temporal Artery Scan Temporal Artery Scan Pulse Rate 55 L 57 L 56 L Pulse Rate [Radial] Respiratory Rate 14 16 15 TAR Vitals Timing 60 Minute Completion Vitals Blood Pressure 158/62 H 178/62 H 149/55 H Blood Pressure [Right Arm] Blood Pressure Mean 94 100 86 Blood Pressure Mean [Right Arm] Blood Pressure Source Blood Pressure Source [Right Arm] Blood Pressure Position Blood Pressure Position [Right Arm] 02 Sat by Pulse Oximetry 99 100 97 Oxygen Delivery Method 07/11/23 17:51 07/11/23 18:15 07/11/23 18:30 Temperature Temperature Source Pulse Rate 60 50 L 56 L Pulse Rate [Radial] Respiratory Rate 13 15 19 TAR Vitals Timing Blood Pressure 145/48 H 166/60 H 150/56 H Blood Pressure [Right Arm] Blood Pressure Mean 80 95 87 Blood Pressure Mean [Right Arm] Blood Pressure Source Blood Pressure Source [Right Arm] Blood Pressure Position Blood Pressure Position [Right Arm] 02 Sat by Pulse Oximetry 98 99 98 Oxygen Delivery Method 07/11/23 19:01 07/11/23 19:31 07/11/23 19:55 Temperature Temperature Source Pulse Rate 54 L 56 L 60 Pulse Rate [Radial] Respiratory Rate 15 18 TAR Vitals Timing Blood Pressure 142/48 H 164/58 H 160/54 H Blood Pressure [Right Arm] Blood Pressure Mean 79 92 89 Blood Pressure Mean [Right Arm] Blood Pressure Source Blood Pressure Source [Right Arm] Blood Pressure Position Blood Pressure Position [Right Arm] 02 Sat by Pulse Oximetry 98 100 Oxygen Delivery Method 07/11/23 20:01 07/11/23 20:10 07/11/23 20:18 Temperature Temperature Source Pulse Rate 56 L 56 L 60 Pulse Rate [Radial] Respiratory Rate 19 18 15 TAR Vitals Timing Blood Pressure 168/64 H 164/63 H 153/76 H Blood Pressure [Right Arm] Blood Pressure Mean 84 87 89 Blood Pressure Mean [Right Arm] Blood Pressure Source Blood Pressure Source [Right Arm] Blood Pressure Position Blood Pressure Position [Right Arm] 02 Sat by Pulse Oximetry 99 99 98 Oxygen Delivery Method 07/11/23 20:24 07/11/23 20:30 07/11/23 21:01 Temperature Temperature Source Pulse Rate 65 64 58 L Pulse Rate [Radial] Respiratory Rate 14 16 16 TAR Vitals Timing Blood Pressure 168/107 H 173/116 H 154/60 H Blood Pressure [Right Arm] Blood Pressure Mean 127 125 111 Blood Pressure Mean [Right Arm] Blood Pressure Source Blood Pressure Source [Right Arm] Blood Pressure Position Blood Pressure Position [Right Arm] 02 Sat by Pulse Oximetry 98 98 99 Oxygen Delivery Method 07/11/23 21:30 07/11/23 22:01 07/11/23 22:31 Temperature Temperature Source Pulse Rate 52 L 58 L 54 L Pulse Rate [Radial] Respiratory Rate 16 17 TAR Vitals Timing Blood Pressure 158/62 H 178/62 H 175/66 H Blood Pressure [Right Arm] Blood Pressure Mean 113 100 102 Blood Pressure Mean [Right Arm] Blood Pressure Source Blood Pressure Source [Right Arm] Blood Pressure Position Blood Pressure Position [Right Arm] 02 Sat by Pulse Oximetry 99 97 98 Oxygen Delivery Method 07/11/23 22:39 07/11/23 22:58 Temperature 98.1 F 98.0 F Temperature Source Temporal Artery Scan Pulse Rate 54 L 54 L Pulse Rate [Radial] Respiratory Rate 20 20 TAR Vitals Timing 1 Hour Post Infusion Blood Pressure 175/66 H 175/66 H Blood Pressure [Right Arm] Blood Pressure Mean 102 Blood Pressure Mean [Right Arm] Blood Pressure Source Blood Pressure Source [Right Arm] Blood Pressure Position Blood Pressure Position [Right Arm] 02 Sat by Pulse Oximetry 97 Oxygen Delivery Method Room Air Lab Data Lab Results 07/11/23 14:55: WBC 6.3, RBC 3.25 L, Hgb 6.6 L*, Hct 21.3 L, MCV 65.6 L, MCH 20.3 L, MCHC 31.0 L, RDW 17.6 H, Plt Count 180, MPV 8.1, Neut % (Auto) 71.1, Lymph % (Auto) 15.4, Gregory % (Auto) 6.3, Eos % (Auto) 5.9, Baso % (Auto) 1.2, Neut # (Auto) 4.5, Lymph # (Auto) 1.0, Gregory # (Auto) 0.4, Eos # (Auto) 0.4, Baso # (Auto) 0.1, Total Counted 100, Neutrophils % (Manual) 79 H, Lymphocytes % (Manual) 18, Monocytes % (Manual) 1 L, Eosinophils % (Manual) 2, Platelet Estimate Normal, Hypochromasia 2+, Poikilocytosis 1+, Anisocytosis 1+, Microcytosis 2+, Ovalocytes 1+, PT 10.4, INR 0.96, Sodium 140, Potassium 3.9, Chloride 110 H, Carbon Dioxide 25, Anion Gap 8.9, BUN 51 H, Creatinine 2.80 H, Estimated Creat Clear 20, Estimated GFR 16 L*, Est GFR ( Amer) 20 L, Glucose 118 H, Calcium 9.1 07/11/23 15:35: Blood Type A Positive, Antibody Screen Negative, Crossmatch (AHG) See Detail 07/11/23 22:05: Hgb 9.9 L D, Hct 29.3 L Orders (Tests/Meds): ED MEDICATIONS Discontinued Medications Generic Name Dose Route Start Last Admin Trade Name Freq PRN Reason Stop Dose Admin Heparin Sodium (Porcine) 300 unit 07/11/23 22:55 07/11/23 22:35 Heparin Lock Flush 500 Units/5ml Syr IV 07/11/23 22:56 300 unit ONCE ONE Administration Sodium Chloride 250 mls @ 25 mls/hr 07/11/23 16:30 07/11/23 17:40 Sod Chlor 0.9% 250ml Bag IV 07/12/23 16:29 25 mls/hr .Q10H TIFFANIE Administration ORDERS Category Date Time Status RBC's [Red Blood Cells] Stat BBK 07/11/23 15:35 Completed Type and Screen Stat BBK 07/11/23 15:35 Completed BMP [Basic Metabolic Panel] Stat Lab 07/11/23 14:55 Completed CBC Man Diff [Complete Blood Count Man Dif] Stat Lab 07/11/23 14:55 Completed Hemoglobin and Hematocrit Stat Lab 07/11/23 22:05 Completed INR [Prothrombin Time INR] Stat Lab 07/11/23 14:55 Completed Medical Decision Narrative: In summary patient is a 83-year-old female who presents to the emergency department for evaluation of abnormal lab results that turned out to be specifically low hemoglobin. Patient is hemodynamically stable upon arrival, and afebrile. Physical exam is unremarkable for any acute injury however patient is slightly pale. Patient declined rectal exam. Differential diagnosis includes anemia of chronic renal disease versus severe iron deficiency anemia or call gastrointestinal loss. Initial workup will be conducted with otologic labs. Initial interventions type and screen. Initial workup reviewed by me revealed a hemoglobin of 6.6 with the remainder of her laboratory investigations being nonactionable. Patient was typed and screened and placed in ED observation at 1740 due to transfused 2 units of packed red blood cells. Patient total observation time was [ ] patient was provided several reevaluations and cardiac monitoring during while blood was infusing. After 2 units of packed red blood cells patient reports subjective improvement and had an improvement in her color. Posttransfusion hemoglobin was 9.9 upon repeat evaluation patient has no adverse events posttransfusion and reports subjective improvement of feeling weak. Given this patient is appropriate for discharge home to follow-up with her PCP, nephrology within 1 week. Patient return to the ER any new symptoms or as needed. I was consulted by the SONA, and we discussed the complexity of the problems being addressed. I approved the treatment and management plan for this patient?s care in the Emergency Department, thus performing a substantive portion of the medical decision making. Ezequiel Beckford MD <Ezequile Beckford MD - Last Filed: 07/13/23 18:13> Critical Care Time Critical Care Time: Yes (hematologic) Attestation: On 07/11/23, the high probability of a clinically significant, sudden or life threatening deterioration of the following system(s) required my full and direct attention, intervention and personal management. The time I documented below is in addition to time spent performing reported procedures but includes the following listed in this critical care notation. Total Time Total Critical Care Time: 60
[2023-07-11 15:22] LABS: MANUAL DIFFERENTIAL MANUAL DIFFERENTIAL (MANUAL DIFF)
[2023-07-11 15:24] LABS: Chloride 110 mmol/L (98-107); Potassium 3.9 mmoL/L (3.5-5.1); Sodium 140 mmol/L (136-145)
[2023-07-11 15:26] LABS: Basophils # 0.1 K/mm3 (0-0.2); Basophils % 1.2 % (0.1-2.0); Eosinophils # 0.4 K/mm3 (0.0-0.4); Eosinophils % 5.9 % (0.1-12.0); Hematocrit 21.3 % (37.0-47.0); Lymphocytes % 15.4 % (10-50); Mean Corpuscular Hemoglobin 20.3 pg (27.0-31.2); Mean Corpuscular Volume 65.6 fl (81-99); Mean Platelet Volume 8.1 fl (7.4-10.4); Monocytes # 0.4 K/mm3 (0.1-1.0); Monocytes % 6.3 % (1.7-9.3); Neutrophils # 4.5 K/mm3 (1.8-7.8); Neutrophils % 71.1 % (37.0-80.0); Platelet Count 180 K/mm3 (142-424); Red Blood Count 3.25 M/mm3 (4.20-5.40); Red Cell Distribution Width 17.6 % (11.5-17.5); White Blood Count 6.3 K/mm3 (4.8-10.8)
[2023-07-11 15:27] LABS: Anion Gap 8.9 mEq/L (5-15); Blood Urea Nitrogen 51 mg/dl (7-17); Calcium 9.1 mg/dl (8.4-10.2); Carbon Dioxide 25 mmol/L (22.0-30.0); Creatinine Clearance Estimated 20 mL/min (50-200); Estimated Glomerular Filt Rate 16 ml/min (>60); GFR (African American) 20 ML/MIN (>60); Glucose 118 mg/dl (74-100)
[2023-07-11 15:28] LABS: Hemoglobin 6.6 g/dL (12.2-16.2)
[2023-07-11 15:32] LABS: INR 0.96 (0.9-1.1); Prothrombin Time 10.4 seconds (10.1-12.5)
[2023-07-11 15:50] LABS: Eosinophils % 2 % (0-3); Lymphocytes % 18 % (10-50); Microcytosis 2+; Monocytes % 1 % (2-9); Neutrophils % 79 % (42-76); Platelet Estimate Normal; Total Cells Counted 100
[2023-07-11 15:51] LABS: Anisocytosis 1+; Hypochromasia 2+; Ovalocytes 1+; Poikilocytosis 1+
[2023-07-11] MEDS: 0.9 % SODIUM CHLORIDE 250 ML 25 ML IV (17:40)
[2023-07-11 22:28] LABS: Hematocrit 29.3 % (37.0-47.0)
[2023-07-11 22:34] LABS: Hemoglobin 9.9 g/dL (12.2-16.2)
--- NOTE | 2023-07-11 22:41 | PC.NURSE ---
ER provider cleared patient to go on and be discharged home before 30 minute post H/H resulted. Last set of vitals for d/c and 30 minute post transfusion.
== END 2023-07-11 23:00 | disposition home or self-care (01) ==
PROVIDERS: Physician Assistant; Emergency Provider Emergency Medicine
DX: D64.9 Anemia, unspecified (principal); R53.1 Weakness; I12.9 Hypertensive chronic kidney disease with stage 1 through stage 4 chronic kidney disease, or unspecified chronic kidney disease; N18.9 Chronic kidney disease, unspecified; I25.10 Atherosclerotic heart disease of native coronary artery without angina pectoris; Z87.891 Personal history of nicotine dependence
CPT/HCPCS: 80048; 85007; 85014; 85018; 85048; 85049; 85610; 86850; 96374; 99291; J1642; P9016

== ENCOUNTER 2023-07-15 10:33 | Outpatient (CLI) | payer MEDICARE, SELFPAY ==
[2023-07-15 10:43] VITALS: BMI 30.7
[2023-07-15 11:05] VITALS: BP 129/57; PULSE 52; RESP 18; O2SAT 98
[2023-07-15] MEDS: FERRIC CARBOXYMALTOSE 750 MG in 0.9 % SODIUM CHLORIDE 250 ML 530 MG IV (11:05)
[2023-07-15 11:14] LABS: Albumin Level 3.7 g/dl (3.5-5.0); Anion Gap 10.8 mEq/L (5-15); Blood Urea Nitrogen 44 mg/dl (7-17); Calcium 9.2 mg/dl (8.4-10.2); Carbon Dioxide 24 mmol/L (22.0-30.0); Chloride 111 mmol/L (98-107); Creatinine Clearance Estimated 20 mL/min (50-200); Estimated Glomerular Filt Rate 16 ml/min (>60); GFR (African American) 20 ML/MIN (>60); Glucose 123 mg/dl (74-100); Phosphorous 4.1 mg/dl (2.5-4.5); Potassium 3.8 mmoL/L (3.5-5.1); Sodium 142 mmol/L (136-145)
[2023-07-15 11:20] LABS: Basophils # 0.1 K/mm3 (0-0.2); Eosinophils # 0.3 K/mm3 (0.0-0.4); Eosinophils % 4.2 % (0.1-12.0); Hematocrit 31.8 % (37.0-47.0); Hemoglobin 10.1 g/dL (12.2-16.2); Lymphocytes # 1.6 K/mm3 (0.7-4.5); Lymphocytes % 24.1 % (10-50); Mean Corpuscular HGB Conc 31.7 g/dL (31.8-35.4); Mean Corpuscular Hemoglobin 23.7 pg (27.0-31.2); Mean Corpuscular Volume 74.7 fl (81-99); Mean Platelet Volume 7.5 fl (7.4-10.4); Monocytes # 0.5 K/mm3 (0.1-1.0); Monocytes % 6.7 % (1.7-9.3); Neutrophils # 4.3 K/mm3 (1.8-7.8); Neutrophils % 63.9 % (37.0-80.0); Platelet Count 116 K/mm3 (142-424); Red Blood Count 4.25 M/mm3 (4.20-5.40); Red Cell Distribution Width 24.8 % (11.5-17.5); White Blood Count 6.8 K/mm3 (4.8-10.8)
[2023-07-15 11:50] VITALS: BP 136/50; PULSE 55; RESP 18; O2SAT 98
[2023-07-15] MEDS: SODIUM CHLORIDE 0.9% 10ML FLUSH SYRINGE 10 ML IV (11:50)
[2023-07-15] MEDS: SODIUM CHLORIDE 0.9% 50ML BAG 50 ML IV (11:50)
[2023-07-15 12:01] LABS: Microscopic, Urine URINE MICROSCOPIC (MICROSCOPIC)
[2023-07-15 12:04] LABS: Appearance,Urine CLEAR (Clear); Bilirubin,Urine Negative (Negative); Blood, Urine Negative (Negative); Color,Urine YELLOW (Yellow); Glucose,Urine (UA) 3+ (Negative); Ketones,Urine Negative (Negative); Leukocyte Esterase,Urine Negative (Negative); Nitrate,Urine Negative (Negative); Protein,Urine Negative (Negative); Urobilinogen,Urine 0.2 EU/dl (0.2)
[2023-07-15 12:28] LABS: Bacteria,Urine 1+ /lpf
[2023-07-15 12:42] LABS: Creatinine,Urine Random 73 mg/dL (Not Estab.)
== END 2023-07-15 11:50 | disposition home or self-care (01) ==
PROVIDERS: PCP Internal Medicine; Visit Provider Internal Medicine Nephrology
DX: N18.4 Chronic kidney disease, stage 4 (severe) (principal); D64.9 Anemia, unspecified; Z79.899 Other long term (current) drug therapy
CPT/HCPCS: 80069; 81001; 82570; 84155; 85025; 96365; J1439; J1642

== ENCOUNTER 2023-10-07 15:06 | Outpatient (CLI) | payer MEDICARE, SELFPAY ==
[2023-10-07 16:00] LABS: Microscopic, Urine URINE MICROSCOPIC (MICROSCOPIC)
[2023-10-07 16:10] LABS: Appearance,Urine CLEAR (Clear); Bilirubin,Urine Negative (Negative); Blood, Urine Negative (Negative); Color,Urine YELLOW (Yellow); Glucose,Urine (UA) 1+ (Negative); Ketones,Urine Negative (Negative); Leukocyte Esterase,Urine Negative (Negative); Nitrate,Urine Negative (Negative); Protein,Urine Negative (Negative); Urobilinogen,Urine 0.2 EU/dl (0.2)
[2023-10-07 16:14] LABS: Basophils # 0.1 K/mm3 (0-0.2); Basophils % 0.8 % (0.1-2.0); Eosinophils # 0.4 K/mm3 (0.0-0.4); Hematocrit 34.8 % (37.0-47.0); Hemoglobin 11.4 g/dL (12.2-16.2); Lymphocytes % 25.4 % (10-50); Mean Corpuscular HGB Conc 32.9 g/dL (31.8-35.4); Mean Corpuscular Hemoglobin 30.5 pg (27.0-31.2); Mean Corpuscular Volume 92.7 fl (81-99); Monocytes # 0.5 K/mm3 (0.1-1.0); Monocytes % 6.5 % (1.7-9.3); Neutrophils % 62.3 % (37.0-80.0); Platelet Count 178 K/mm3 (142-424); Red Blood Count 3.75 M/mm3 (4.20-5.40)
[2023-10-07 16:31] LABS: Creatinine,Urine Random 102 mg/dL (Not Estab.)
[2023-10-07 16:32] LABS: Albumin Level 4.1 g/dl (3.5-5.0); Anion Gap 12.5 mEq/L (5-15); Bacteria,Urine Trace /lpf; Blood Urea Nitrogen 43 mg/dl (7-17); Calcium 9.8 mg/dl (8.4-10.2); Carbon Dioxide 26 mmol/L (22.0-30.0); Chloride 106 mmol/L (98-107); Chol/HDL Ratio 6.7 (1-3.5); Cholesterol 248 mg/dl (140-200); Estimated Glomerular Filt Rate 13 ml/min (>60); GFR (African American) 16 ML/MIN (>60); Glucose 104 mg/dl (74-100); HDL Cholesterol 37 mg/dl (40-60); Phosphorous 4.7 mg/dl (2.5-4.5); Potassium 4.5 mmoL/L (3.5-5.1); Sodium 140 mmol/L (136-145); Triglycerides 150 mg/dl (30-150); VLDL Cholesterol 30 mg/dL (0-40)
[2023-10-07 17:03] LABS: Thyroid Stimulating Hormone 4.87 uIU/mL (0.465-4.68)
== END 2023-10-07 23:59 | disposition home or self-care (01) ==
PROVIDERS: PCP Nurse Practitioner Family; Visit Provider Family Medicine
DX: E78.5 Hyperlipidemia, unspecified (principal); E03.9 Hypothyroidism, unspecified; N18.2 Chronic kidney disease, stage 2 (mild); Z45.2 Encounter for adjustment and management of vascular access device; Z79.899 Other long term (current) drug therapy
CPT/HCPCS: 80061; 80069; 81001; 82570; 84156; 84443; 85025; J1642

== ENCOUNTER 2023-10-24 18:55 | Outpatient (CLI) | payer MEDICARE, SELFPAY | END 2023-10-24 23:59 | disposition home or self-care (01) | LOC: LAB.DROPOF 18:56 | PROVIDERS: PCP Family Medicine; Visit Provider Family Medicine | DX: N39.0 Urinary tract infection, site not specified (principal); B96.4 Proteus (mirabilis) (morganii) as the cause of diseases classified elsewhere | CPT/HCPCS: 87086; 87088; 87186 ==

== ENCOUNTER 2023-11-25 15:36 | Outpatient (CLI) | payer MEDICARE, SELFPAY ==
[2023-11-25 16:23] LABS: Chloride 108 mmol/L (98-107)
[2023-11-25 16:24] LABS: Basophils # 0.1 K/mm3 (0-0.2); Basophils % 0.9 % (0.1-2.0); Eosinophils # 0.2 K/mm3 (0.0-0.4); Eosinophils % 3.4 % (0.1-12.0); Hematocrit 28.8 % (37.0-47.0); Hemoglobin 9.8 g/dL (12.2-16.2); Lymphocytes # 1.4 K/mm3 (0.7-4.5); Lymphocytes % 20.2 % (10-50); Mean Corpuscular Hemoglobin 32.1 pg (27.0-31.2); Mean Corpuscular Volume 94.3 fl (81-99); Monocytes # 0.4 K/mm3 (0.1-1.0); Monocytes % 5.6 % (1.7-9.3); Neutrophils # 4.9 K/mm3 (1.8-7.8); Neutrophils % 69.8 % (37.0-80.0); Platelet Count 236 K/mm3 (142-424); Potassium 4.1 mmoL/L (3.5-5.1); Red Blood Count 3.05 M/mm3 (4.20-5.40); Red Cell Distribution Width 14.3 % (11.5-17.5); Sodium 140 mmol/L (136-145)
[2023-11-25 16:26] LABS: Alanine Aminotransferase 16 U/L (12-78); Anion Gap 12.1 mEq/L (5-15); Aspartate Amino Transferase 26 U/L (14-36); Bilirubin,Unconjugated 0.4 mg/dL (0.0-1.1); Blood Urea Nitrogen 46 mg/dl (7-17); Carbon Dioxide 24 mmol/L (22.0-30.0); Cholesterol 165 mg/dl (140-200); Estimated Glomerular Filt Rate 13 ml/min (>60); GFR (African American) 16 ML/MIN (>60); Triglycerides 154 mg/dl (30-150); VLDL Cholesterol 31 mg/dL (0-40)
[2023-11-25 16:27] LABS: Albumin Level 4.3 g/dl (3.5-5.0); Alkaline Phosphatase 61 U/L (38-126); Bilirubin,Indirect 0.4 mg/dL (0.0-0.9); Bilirubin,Total 0.4 mg/dl (0.2-1.3); Calcium 9.5 mg/dl (8.4-10.2); Chol/HDL Ratio 4.6 (1-3.5); Glucose 119 mg/dl (74-100); HDL Cholesterol 36 mg/dl (40-60); Magnesium 2.4 mg/dl (1.6-2.3); Total Protein,Serum 7.1 g/dl (6.3-8.2)
[2023-11-25 16:38] LABS: Direct LDL Cholesterol 96.43 mg/dL (100-129)
[2023-11-25 16:58] LABS: Thyroid Stimulating Hormone 6.71 uIU/mL (0.465-4.68)
[2023-11-25 18:41] LABS: Free T4 (Free Thyroxine) 1.03 ng/dl (0.78-2.19)
== END 2023-11-25 23:59 | disposition home or self-care (01) ==
LOC: LAB 15:38
PROVIDERS: PCP Internal Medicine; Visit Provider Internal Medicine
DX: E78.2 Mixed hyperlipidemia (principal); I12.9 Hypertensive chronic kidney disease with stage 1 through stage 4 chronic kidney disease, or unspecified chronic kidney disease; N18.30 Chronic kidney disease, stage 3 unspecified; I11.9 Hypertensive heart disease without heart failure; I25.118 Atherosclerotic heart disease of native coronary artery with other forms of angina pectoris; D50.9 Iron deficiency anemia, unspecified; I73.9 Peripheral vascular disease, unspecified
CPT/HCPCS: 80048; 80061; 80076; 83735; 84439; 84443; 85025; J1642

== ENCOUNTER 2023-12-09 15:27 | Outpatient (CLI) | payer MEDICARE, SELFPAY ==
[2023-12-09 16:19] LABS: Anion Gap 14.7 mEq/L (5-15); Blood Urea Nitrogen 50 mg/dl (7-17); Calcium 8.9 mg/dl (8.4-10.2); Carbon Dioxide 27 mmol/L (22.0-30.0); Chloride 99 mmol/L (98-107); Estimated Glomerular Filt Rate 12 ml/min (>60); GFR (African American) 15 ML/MIN (>60); Glucose 140 mg/dl (74-100); Potassium 3.7 mmoL/L (3.5-5.1); Sodium 137 mmol/L (136-145)
== END 2023-12-09 23:59 | disposition home or self-care (01) ==
PROVIDERS: PCP Nurse Practitioner Family; Visit Provider Nurse Practitioner Family
DX: N18.4 Chronic kidney disease, stage 4 (severe) (principal)
CPT/HCPCS: 80048

== ENCOUNTER 2024-01-07 10:33 | Outpatient (CLI) | payer MEDICARE, SELFPAY ==
[2024-01-07 12:29] LABS: Microscopic, Urine URINE MICROSCOPIC (MICROSCOPIC)
[2024-01-07 12:38] LABS: Mean Corpuscular HGB Conc 31.8 g/dL (31.8-35.4); Mean Corpuscular Hemoglobin 27.8 pg (27.0-31.2); Mean Corpuscular Volume 87.2 fl (81-99); Platelet Count 280 K/mm3 (142-424); Red Blood Count 2.16 M/mm3 (4.20-5.40); Red Cell Distribution Width 16.4 % (11.5-17.5); White Blood Count 6.3 K/mm3 (4.8-10.8)
[2024-01-07 12:49] LABS: Albumin Level 3.5 g/dl (3.5-5.0); Anion Gap 10.5 mEq/L (5-15); Blood Urea Nitrogen 53 mg/dl (7-17); Calcium 9.2 mg/dl (8.4-10.2); Carbon Dioxide 26 mmol/L (22.0-30.0); Chloride 109 mmol/L (98-107); Estimated Glomerular Filt Rate 13 ml/min (>60); GFR (African American) 16 ML/MIN (>60); Glucose 98 mg/dl (74-100); Hematocrit 18.8 % (37.0-47.0); Phosphorous 4.8 mg/dl (2.5-4.5); Potassium 4.5 mmoL/L (3.5-5.1); Sodium 141 mmol/L (136-145)
[2024-01-07 12:58] LABS: Appearance,Urine CLEAR (Clear); Bilirubin,Urine Negative (Negative); Blood, Urine Negative (Negative); Color,Urine YELLOW (Yellow); Glucose,Urine (UA) 1+ (Negative); Ketones,Urine Negative (Negative); Leukocyte Esterase,Urine Negative (Negative); Nitrate,Urine Negative (Negative); Protein,Urine Negative (Negative); Specific Gravity, Urine 1.025 (1.005-1.030); Urobilinogen,Urine 0.2 EU/dl (0.2)
[2024-01-07 13:16] LABS: Bacteria,Urine 1+ /lpf
[2024-01-07 13:20] LABS: Creatinine,Urine Random 136 mg/dL (Not Estab.)
== END 2024-01-07 23:59 | disposition home or self-care (01) ==
LOC: UTC.OUT 10:34 → LAB 11:13
PROVIDERS: Internal Medicine Nephrology; PCP Family Medicine; Visit Provider Family Medicine
DX: N18.4 Chronic kidney disease, stage 4 (severe) (principal)
CPT/HCPCS: 36415; 80069; 81001; 82570; 84156; 85014; 85018; 85048; 85049

== ENCOUNTER 2024-01-07 14:44 | Observation (INO) | payer MEDICARE, SELFPAY ==
[2024-01-07] VITALS (25 sets, daily range): BP systolic 122–186; BP diastolic 43–98; PULSE 49–67; RESP 18–20; TEMP 36–36.8; O2SAT 92–100; BMI 31.5; BMI 32.0
--- NOTE | 2024-01-07 15:08 | ED_ITS ---
Discharge Plan Disposition Patient Disposition: Admitted Condition: Good Clinical Impressions Clinical Impression: Symptomatic anemia, GI bleed, AMALIA (acute kidney injury) Discharge ED Provider: Augusta Castelan General Adult HPI General Chief complaint: Recheck/Abnormal Lab/Rx Stated complaint: blood work Time Seen by Provider: 01/07/24 14:58 History of Present Illness HPI narrative: This patient is an 83-year-old female with a history of prior CVA, CAD, renal insufficiency, chronic iron deficiency anemia requiring transfusion in the past, hypertension, hyperlipidemia, and hypertensive heart disease as well as AAA that is being monitored presenting to the emergency department for evaluation with concern for anemia. According the patient, her doctors from [facility] called her and told her that hemoglobin is 6 and hematocrit is 18, and she needs to go to the emergency department for blood transfusion. She states she is been feeling very tired and worn out. She also notes that she has dyspnea on exertion, but otherwise she states has been in her usual state of health. No notable sources of bleeding. No changes in bowel movements such as melena or hematochezia. No other concerns noted at this time. Patient states she just wants to get the blood transfusion and then she feels fine going home. Related Data Home Medications ?Medication ?Instructions ?Recorded ?Confirmed cholecalciferol (vitamin D3) 1,250 50,000 unit PO QMONTH Supplement 08/16/23 01/06/24 mcg (50,000 unit) capsule metoprolol succinate 100 mg 100 mg PO DAILY 12/19/23 01/06/24 tablet,extended release 24 hr spironolactone 25 mg tablet 25 mg PO DAILY 12/19/23 01/06/24 Previous Rx's ?Medication ?Instructions ?Recorded chlorthalidone 25 mg tablet 25 mg PO DAILY #30 tabs 08/16/23 amlodipine 10 mg tablet See Rx Instructions .Route 12/16/23 .COMPLEX #90 tabs aspirin 81 mg tablet,delayed See Rx Instructions .Route 12/16/23 release .COMPLEX #90 tabs atorvastatin 40 mg tablet See Rx Instructions .Route 12/16/23 .COMPLEX #90 tabs dapagliflozin propanediol 5 mg See Rx Instructions .Route 12/16/23 tablet (Farxiga) .COMPLEX #90 tabs ezetimibe 10 mg tablet 10 mg PO DAILY #90 tabs 12/16/23 hydroxychloroquine 200 mg tablet See Rx Instructions .Route 12/16/23 .COMPLEX #180 tabs levothyroxine 50 mcg tablet See Rx Instructions .Route 12/16/23 .COMPLEX #90 tabs isosorbide mononitrate 60 mg See Rx Instructions .Route 12/17/23 tablet,extended release 24 hr .COMPLEX #90 tabs losartan 25 mg tablet 25 mg PO DAILY #90 tabs 12/19/23 zolpidem 5 mg tablet 5 mg PO HS #90 tabs 12/19/23 Allergies Allergy/AdvReac Type Severity Reaction Status Date / Time morphine Allergy Intermediate Unknown Verified 01/06/24 14:21 allergy reaction PFSH PFS Disclaimer: The information contained in this section may have been updated after the patient was seen, as this information can be updated by other users. Medical History CKD (chronic kidney disease) stage 2, GFR 60-89 ml/min Claudication Dehydration Acute confusion Hypertensive urgency Altered mental status Depression COVID-19 AMALIA (acute kidney injury) Anginal equivalent Dyspnea on exertion Recurrent pneumonia Pneumonia Anemia Sinus bradycardia Insomnia Hypertension Dizziness Abnormal computed tomography angiography (CTA) Right renal artery stenosis Ischemic foot pain at rest Ischemic foot Surgical History History of blepharoplasty History of hernia repair Hx of cholecystectomy History of arthroscopy of shoulder History of total hysterectomy Family History Other Cancer Social History Smoking Status: Never smoker second hand exposure: No alcohol intake: never substance use type: denies use current occupational status: retired Travel in the last 8 weeks: None household members: none housing: house current occupational exposures/hazards: No caffeine: Yes ROS Obtained: Yes All systems reviewed & no additional complaints except as documented Physical Exam General General appearance: alert and in no apparent distress Head Head exam: atraumatic and normocephalic Eye Eye exam: Present normal appearance, PERRL and EOMI ENT ENT exam: Present normal exam, normal oropharynx, mucous membranes moist and normal external ear exam Neck Neck exam: Present normal inspection, full ROM and trachea midline; Absent tenderness Chest Chest inspection: Present normal inspection and symmetric chest wall rise; Absent tenderness Respiratory Respiratory exam: Present normal lung sounds bilaterally; Absent respiratory distress, wheezes, stridor or accessory muscle use Cardiovascular Cardiovascular exam: Present regular rate and normal rhythm Abdominal Exam Abdominal exam: Present soft; Absent distention, tenderness or guarding Extremities Exam Extremities exam: Present normal inspection, full ROM and normal capillary refill; Absent tenderness or edema Back Exam Back exam: Present normal inspection and full ROM; Absent tenderness Neurological Exam Neurological exam: Present alert, oriented X3, CN II-XII intact and normal gait; Absent motor sensory deficit Psychiatric Psychiatric exam: Present normal affect and normal mood Skin Skin exam: Present warm, dry and pallor Medical Decision Making Medical Records Medical records reviewed: Yes I reviewed the patient's medical records. Donis Inquiry Pt receiving controlled substance: No Vital Signs: 01/07/24 15:01 01/07/24 15:01 01/07/24 15:34 Temperature 98.2 F Temperature Source Oral Pulse Rate 64 61 Pulse Rate [Left Radial] 67 Respiratory Rate 20 Blood Pressure 134/64 148/61 H Blood Pressure [Right Arm] 186/61 H Blood Pressure Mean 112 Blood Pressure Mean [Right Arm] 102 02 Sat by Pulse Oximetry 100 100 100 Oxygen Delivery Method Room Air Room Air 01/07/24 16:01 01/07/24 16:31 01/07/24 17:16 Temperature 98.2 F Temperature Source Oral Pulse Rate 63 67 63 Pulse Rate [Left Radial] Respiratory Rate 20 Blood Pressure 159/59 H 136/52 L 159/59 H Blood Pressure [Right Arm] Blood Pressure Mean Blood Pressure Mean [Right Arm] 02 Sat by Pulse Oximetry 96 99 Oxygen Delivery Method Room Air Room Air Lab Data Lab results reviewed: Yes I reviewed the patient's lab results. Lab Results 01/07/24 15:20: Stool Occult Blood Positive A 01/07/24 15:21: WBC 6.7, RBC 2.11 L, Hgb 5.8 L*, Hct 18.5 L*, MCV 87.9, MCH 27.3, MCHC 31.1 L, RDW 16.7, Plt Count 283, MPV 8.5, Neut % (Auto) 64.6, Lymph % (Auto) 21.5, [place] % (Auto) 6.6, Eos % (Auto) 6.3, Baso % (Auto) 1.0, Neut # (Auto) 4.3, Lymph # (Auto) 1.4, [place] # (Auto) 0.4, Eos # (Auto) 0.4, Baso # (Auto) 0.1, Retic Count (auto) 2.3, PT 10.2, INR 0.90, APTT 26.0, Sodium 141, Potassium 4.2, Chloride 108 H, Carbon Dioxide 25, Anion Gap 12.2, BUN 53 H, C reatinine 3.60 H, Estimated Creat Clear 16, Estimated GFR 12 L*, Est GFR ( Amer) 15 L*, Glucose 123 H D, Uric Acid 7.7 H, Calcium 9.3, Total Bilirubin 0.3, AST 19, ALT 13, Alkaline Phosphatase 52, Lactate Dehydrogenase 153 L, Troponin I < 0.01, NT-Pro-B Natriuret Pep 1600 H, Total Protein 6.3, Albumin 3.6, Globulin 2.7, Albumin/Globulin Ratio 1.3, TSH 6.30 H, Thyroxine (T4) 9.7, Blood Type A Positive, Antibody Screen Negative, Crossmatch (AHG) See Detail 01/07/24 15:21 01/07/24 15:21 Orders (Tests/Meds): ED MEDICATIONS Generic Name Dose Route Start Last Admin Trade Name Freq PRN Reason Stop Dose Admin Sodium Chloride 250 mls @ 25 mls/hr 01/07/24 16:00 Sod Chlor 0.9% 250ml Bag IV 01/08/24 15:59 .Q10H TIFFANIE Pantoprazole Sodium 40 mg 01/08/24 09:00 Pantoprazole 40mg Vial IV 02/07/24 08:59 BID TIFFANIE Discontinued Medications Generic Name Dose Route Start Last Admin Trade Name Freq PRN Reason Stop Dose Admin Pantoprazole Sodium 80 mg/ 100 mls @ 100 mls/hr 01/07/24 16:56 Sodium Chloride IV 01/07/24 17:55 ONCE ONE ORDERS Category Date Time Status Blood transfusion [Red Blood Cells] Stat [facility] 01/07/24 15:21 Results Type and Screen Stat [facility] 01/07/24 15:21 Results Activated Partial Thrombo Time Stat Lab 01/07/24 15:21 Completed BNP [NT Pro Brain Natriuretic Pep.] Stat Lab 01/07/24 15:21 Completed Complete Blood Count Auto Diff [facility] 01/08/24 06:00 Ordered Complete Blood Count Auto Diff Stat Lab 01/07/24 15:21 Completed Comprehensive Metabolic Panel [facility] 01/08/24 06:00 Ordered Comprehensive Metabolic Panel Stat Lab 01/07/24 15:21 Completed Haptoglobin Stat Lab 01/07/24 15:21 Received LDH [Lactate Dehydrogenase] Stat Lab 01/07/24 15:21 Completed Magnesium [facility] 01/08/24 06:00 Ordered Occult Blood,Stool Stat Lab 01/07/24 15:20 Completed Prothrombin Time INR Stat Lab 01/07/24 15:21 Completed Reticulocyte % (Auto) Stat Lab 01/07/24 15:21 Completed T4 (Thyroxine) Stat Lab 01/07/24 15:21 Completed TSH [Thyroid Stimulating Hormone] Stat Lab 01/07/24 15:21 Completed Trop I [Troponin I] Stat Lab 01/07/24 15:21 Completed Troponin I Q3H Lab 01/07/24 18:00 Ordered Troponin I Q3H Lab 01/07/24 21:00 Ordered Uric Acid Stat Lab 01/07/24 15:21 Completed ECG Data Tracing #1: I reviewed this ECG and interpreted as documented below: Sinus bradycardia with a ventricular rate of [address] changes concerning for ischemia. Sinus arrhythmia noted with PACs. No acute ST changes concerning for ischemia ECG initial impression date: 01/07/24 ECG initial impression time: 15:10 Medical Decision Narrative: In summary, this patient is a 83-year-old female presenting to the Emergency Department for evaluation of low hemoglobin with only complaints of fatigue, general weakness, and dyspnea on exertion. No notable sources of bleeding. Differential diagnoses considered include but are not limited to symptomatic anemia, GI bleed, chronic iron deficiency anemia, hemolysis, CHF exacerbation, ACS, dysrhythmia. Ruling out the most morbid conditions drove assessment. It should be noted patient's history includes cardiac history as well as history of CVA which may or may not be at goal therapy. This complicates all aspects of care by increasing patient's risk for morbidity. I reviewed patient's past medical records and noted chronic history of iron deficiency anemia and prior blood transfusion. On exam, the patient is sitting upright in a chair in no acute distress with reassuring vital signs on cardiac telemetry. She is slightly pale, but otherwise exam is reassuring. workup included CBC, CMP, PT, PTT, reticulocyte count, LDH, haptoglobin, uric acid, TSH, T4, troponin, BNP, EKG. EKG obtained is reassuring. Labs obtained demonstrated worsening anemia with a hemoglobin of 5.8. Stool occult is positive. Patient's creatinine is also slightly elevated from her baseline up to 3.6 from around 3.4 on last check. Given all these things, I feel she would benefit from admission for blood transfusion and continued monitoring in the setting of GI bleed. I feel this is likely because she was recently started on dual antiplatelet therapy in the setting of stroke. I had an interactive discussion with the hospitalist who admitted the patient for further evaluation and management. She was admitted in stable condition. Critical Care Critical Care Time Critical Care Time: No
--- NOTE | 2024-01-07 15:09 | ECG_ITS ---
APPROVED REPORT Exam: Resting ECG HR:59 bpm ECG Measurements Heart Rate 59 AXES KS 182 P 5 QRSd 110 QRS -2 QT 455 T 123 QTc 454 Conclusion SINUS BRADYCARDIA WITH OCCASIONAL SUPRAVENTRICULAR PREMATURE COMPLEXES IN A BIGEMINAL PATTERN NONSPECIFIC ST & T-WAVE ABNORMALITY ABNORMAL ECG Electronically signed by : RUDDY DAS, 01/07/2024 21:55:08
[2024-01-07 15:39] LABS: Basophils # 0.1 K/mm3 (0-0.2); Eosinophils # 0.4 K/mm3 (0.0-0.4); Eosinophils % 6.3 % (0.1-12.0); Lymphocytes # 1.4 K/mm3 (0.7-4.5); Lymphocytes % 21.5 % (10-50); Mean Corpuscular HGB Conc 31.1 g/dL (31.8-35.4); Mean Corpuscular Hemoglobin 27.3 pg (27.0-31.2); Mean Corpuscular Volume 87.9 fl (81-99); Mean Platelet Volume 8.5 fl (7.4-10.4); Monocytes # 0.4 K/mm3 (0.1-1.0); Monocytes % 6.6 % (1.7-9.3); Neutrophils # 4.3 K/mm3 (1.8-7.8); Neutrophils % 64.6 % (37.0-80.0); Platelet Count 283 K/mm3 (142-424); Red Blood Count 2.11 M/mm3 (4.20-5.40); Red Cell Distribution Width 16.7 % (11.5-17.5); Reticulocyte % (Auto) 2.3 % (0.9-3.2); White Blood Count 6.7 K/mm3 (4.8-10.8)
[2024-01-07 15:39] LABS: Occult Blood,Stool Positive (Negative)
[2024-01-07 15:47] LABS: Alanine Aminotransferase 13 U/L (12-78); Albumin Level 3.6 g/dl (3.5-5.0); Albumin/Globulin Ratio 1.3 (1.1-1.8); Alkaline Phosphatase 52 U/L (38-126); Anion Gap 12.2 mEq/L (5-15); Aspartate Amino Transferase 19 U/L (14-36); Bilirubin,Total 0.3 mg/dl (0.2-1.3); Blood Urea Nitrogen 53 mg/dl (7-17); Calcium 9.3 mg/dl (8.4-10.2); Carbon Dioxide 25 mmol/L (22.0-30.0); Chloride 108 mmol/L (98-107); Creatinine Clearance Estimated 16 mL/min (50-200); Estimated Glomerular Filt Rate 12 ml/min (>60); GFR (African American) 15 ML/MIN (>60); Globulin 2.7 g/dL (1.3-3.2); Glucose 123 mg/dl (74-100); Lactate Dehydrogenase 153 U/L (313-618); Potassium 4.2 mmoL/L (3.5-5.1); Sodium 141 mmol/L (136-145); Total Protein,Serum 6.3 g/dl (6.3-8.2); Uric Acid 7.7 mg/dl (2.5-6.2)
[2024-01-07 15:48] LABS: Prothrombin Time 10.2 seconds (10.1-12.5)
[2024-01-07 15:49] LABS: Hematocrit 18.5 % (37.0-47.0); Hemoglobin 5.8 g/dL (12.2-16.2)
[2024-01-07 16:02] LABS: Troponin I < 0.01 ng/ml (0.00-0.034)
[2024-01-07 16:04] LABS: T4 (Thyroxine) 9.7 ug/dl (5.53-11.0)
[2024-01-07 16:09] LABS: NT Pro Brain Natriuretic Pep. 1600 pg/mL (0-450)
--- NOTE | 2024-01-07 16:58 | EXP.HP ---
History of Present Illness *Admission Date: 01/07/24 *Reason for visit:: anemia, weakness *History of present illness: Ms. Gandhi is a pleasant 83-year-old female with history of CVA 2 months ago, CAD, CKD 4, chronic anemia, hypertension, hyperlipidemia, and AAA being monitored as an outpatient. She presented to the ER at the instruction of her doctors in [place] after having labs drawn and being told her hemoglobin was 6 and she needed to present for evaluation. On arrival to the ER, repeat H&H performed with hemoglobin of 5.8. Patient complains that she has been feeling more fatigued and tired over the past 2 to 4 weeks. Denies any black stools or bright red blood per rectum. Has had increased shortness of breath with exertion. Denies any vomiting, diarrhea, headache, confusion. No chest pain. Patient typed and crossed for 2 units. Medicine consulted for further management and workup. Patient alert and oriented x 4. Feels quite fatigued. States she is cold but has no fever or hypothermia. Labs reviewed, kidney function at baseline for her with creatinine of 3.6. On room air. [facility] Disclaimer: The information contained in this section may have been updated after the patient was seen, as this information can be updated by other users. Medical History CKD (chronic kidney disease) stage 2, GFR 60-89 ml/min Claudication Dehydration Acute confusion Hypertensive urgency Altered mental status Depression COVID-19 AMALIA (acute kidney injury) Anginal equivalent Dyspnea on exertion Recurrent pneumonia Pneumonia Anemia Sinus bradycardia Insomnia Hypertension Dizziness Abnormal computed tomography angiography (CTA) Right renal artery stenosis Ischemic foot pain at rest Ischemic foot Surgical History History of blepharoplasty History of hernia repair Hx of cholecystectomy History of arthroscopy of shoulder History of total hysterectomy Family History Other Cancer Social History Smoking Status: Never smoker second hand exposure: No alcohol intake: never substance use type: denies use current occupational status: retired Travel in the last 8 weeks: None household members: none housing: house current occupational exposures/hazards: No caffeine: Yes Review of Systems Review of Systems Review of systems (narrative): 14 point review of systems performed, pertinent positives and negatives as per HPI Meds Home Medications and Allergies Home Medications ?Medication ?Instructions ?Recorded ?Confirmed ?Type chlorthalidone 25 mg tablet 25 mg PO DAILY #30 tabs 08/16/23 01/06/24 Rx cholecalciferol (vitamin D3) 1,250 50,000 unit PO QMONTH Supplement 08/16/23 01/06/24 History mcg (50,000 unit) capsule amlodipine 10 mg tablet See Rx Instructions .Route 12/16/23 01/06/24 Rx .COMPLEX #90 tabs aspirin 81 mg tablet,delayed See Rx Instructions .Route 12/16/23 01/06/24 Rx release .COMPLEX #90 tabs atorvastatin 40 mg tablet See Rx Instructions .Route 12/16/23 01/06/24 Rx .COMPLEX #90 tabs dapagliflozin propanediol 5 mg See Rx Instructions .Route 12/16/23 01/06/24 Rx tablet (Farxiga) .COMPLEX #90 tabs ezetimibe 10 mg tablet 10 mg PO DAILY #90 tabs 12/16/23 01/06/24 Rx hydroxychloroquine 200 mg tablet See Rx Instructions .Route 12/16/23 01/06/24 Rx .COMPLEX #180 tabs levothyroxine 50 mcg tablet See Rx Instructions .Route 12/16/23 01/06/24 Rx .COMPLEX #90 tabs isosorbide mononitrate 60 mg See Rx Instructions .Route 12/17/23 01/06/24 Rx tablet,extended release 24 hr .COMPLEX #90 tabs losartan 25 mg tablet 25 mg PO DAILY #90 tabs 12/19/23 01/06/24 Rx metoprolol succinate 100 mg 100 mg PO DAILY 12/19/23 01/06/24 History tablet,extended release 24 hr spironolactone 25 mg tablet 25 mg PO DAILY 12/19/23 01/06/24 History zolpidem 5 mg tablet 5 mg PO HS #90 tabs 12/19/23 01/06/24 Rx New Prescriptions to Start Prescriptions: Allergies Allergy/AdvReac Type Severity Reaction Status Date / Time morphine Allergy Intermediate Unknown Verified 01/06/24 14:21 allergy reaction Exam Data for Last 24 hours Vital signs and Labs for Last 24 Hours: Temp Pulse Resp BP Pulse Ox O2 Del Method 98.2 F 63 20 159/59 H 96 Room Air 01/07/24 15:01 01/07/24 16:01 01/07/24 15:01 01/07/24 16:01 01/07/24 16:01 01/07/24 16:01 Laboratory Results - last 24 hr 01/07/24 15:20: Stool Occult Blood Positive A 01/07/24 15:21: WBC 6.7, RBC 2.11 L, Hgb 5.8 L*, Hct 18.5 L*, MCV 87.9, MCH 27.3, MCHC 31.1 L, RDW 16.7, Plt Count 283, MPV 8.5, Neut % (Auto) 64.6, Lymph % (Auto) 21.5, [place] % (Auto) 6.6, Eos % (Auto) 6.3, Baso % (Auto) 1.0, Neut # (Auto) 4.3, Lymph # (Auto) 1.4, [place] # (Auto) 0.4, Eos # (Auto) 0.4, Baso # (Auto) 0.1, Retic Count (auto) 2.3, PT 10.2, INR 0.90, APTT 26.0, Sodium 141, Potassium 4.2, Chloride 108 H, Carbon Dioxide 25, Anion Gap 12.2, BUN 53 H, Creatinine 3.60 H, Estimated Creat Clear 16, Estimated GFR 12 L*, Est GFR ( Amer) 15 L*, Glucose 123 H D, Uric Acid 7.7 H, Calcium 9.3, Total Bilirubin 0.3, AST 19, ALT 13, Alkaline Phosphatase 52, Lactate Dehydrogenase 153 L, Troponin I < 0.01, NT-Pro-B Natriuret Pep 1600 H, Total Protein 6.3, Albumin 3.6, Globulin 2.7, Albumin/Globulin Ratio 1.3, TSH 6.30 H, Thyroxine (T4) 9.7, Blood Type A Positive, Antibody Screen Negative, Crossmatch (AHG) See Detail I & O for Last 24 hours: Intake & Output 01/04/24 01/05/24 01/06/24 01/07/24 23:59 23:59 23:59 23:59 Weight 80.739 kg Constitutional Constitutional: no acute distress and cooperative *Routine HEENT Exam Head: Present normocephalic and atraumatic Eye: Present EOMI and PERRL ENT: Present mucous membranes moist *Routine Neck Exam Neck: Present supple; Absent lymphadenopathy Routine Chest/Breast/Axilla Exam Comments: Port in right chest, accessed *Routine Respiratory Exam Respiratory: Present CTA bilaterally; Absent rhonchi, wheezes or crackles *Routine Cardiovascular Exam Cardiovascular: Present RRR *Routine Abdominal Exam Abdominal: Present soft and normoactive bowel sounds; Absent tenderness *Routine Rectal Exam Rectal:: deferred *Routine Genitalia Exam Genitalia:: deferred *Routine Extremities Exam Extremities: Absent cyanosis, clubbing or edema *Routine Skin Exam Skin: Present intact, warm and ecchymosis; Absent rash *Routine Neurological Exam Neurological: Present alert, oriented X3 and moving all extremities; Absent altered mental status Routine Psychiatric Exam Psychiatric: Present normal affect Assessment and Plan *Assessment and plan (1) Dizziness: Status: Acute Category: Medical Code(s): R42 - Dizziness and giddiness (2) CKD (chronic kidney disease) stage 4, GFR 15-29 ml/min: Status: Chronic Category: Medical Code(s): N18.4 - Chronic kidney disease, stage 4 (severe) (3) CAD (coronary artery disease): Status: Chronic Qualifiers: Associated angina: with stable angina Coronary Disease-Associated Artery/Lesion type: [place] artery [place] vs. transplanted heart: [place] heart Qualified Code(s): I25.118 - Atherosclerotic heart disease of [place] coronary artery with other forms of angina pectoris Category: Medical Code(s): I25.10 - Atherosclerotic heart disease of [place] coronary artery without angina pectoris (4) Anemia: Status: Chronic Qualifiers: Anemia type: iron deficiency Iron deficiency anemia type: unspecified iron deficiency Qualified Code(s): D50.9 - Iron deficiency anemia, unspecified Category: Medical Code(s): D64.9 - Anemia, unspecified (5) Hypertension: Status: Chronic Qualifiers: Hypertension type: primary hypertension Qualified Code(s): I10 - Essential (primary) hypertension Category: Medical Code(s): I10 - Essential (primary) hypertension (6) Obesity (BMI 30-39.9): Status: Chronic Category: Medical Code(s): E66.9 - Obesity, unspecified (7) HLD (hyperlipidemia): Status: Chronic Qualifiers: Hyperlipidemia type: mixed hyperlipidemia Qualified Code(s): E78.2 - Mixed hyperlipidemia Category: Medical Code(s): E78.5 - Hyperlipidemia, unspecified Plan 83-year-old female who presents with weakness, fatigue. Found to have worsening anemia from baseline. Concern for blood loss. Hemoglobin 5.8 in the ER. Discussed case with ER physician, request admission for further workup of GI blood loss and transfusion. I agreed to admit for further management. Receiving her first unit upon arrival to the floor. Discussed case with surgery, planning for possible EGD in the morning. Loading with pantoprazole. Necessitating inpatient admission. Problems addressed as follows: Acute on chronic anemia Suspected GI bleed -Recently treated for strokelike symptoms with aspirin and Plavix. Was on 21 days of Plavix. Finished that about a month ago. Continues to take daily aspirin. Found to have profound anemia with hemoglobin of 5.8 in the ER. -Stool occult positive. Concern for GI bleed. Surgery consulted, plan for EGD in the morning per discussion with surgery -Typed and crossed for 2 units, will transfuse 2 units this evening. -Initiate pantoprazole 80 mg once, will continue 40 mg twice daily starting in the morning -Bumex 1 mg IV in between her units of blood -2-hour post H&H. Goal hemoglobin greater than 7. -CBC, CMP, magnesium ordered for the morning. Hypertension: Continue amlodipine 10 mill daily fourth and 20 g daily, isosorbide mononitrate 60 mg daily, losartan 10 mg daily, spironolactone 25 mg daily, and metoprolol succinate 100 mg daily Sleep disorder: Patient takes zolpidem at night. Will hold at this time given the concern that this will cloud findings on neurologic exams. Hyperlipidemia: Lipid panel with elevated LDL of 135, Zetia 10 mg daily, Lipitor 40 mg daily Hypothyroid: H elevated at 6.3, increase levothyroxine 75 mcg daily CKD 4: Kidney function at baseline with BUN of 53, creatinine 3.6 Electrolytes stable with sodium 141, potassium 4.2, chloride 108. BNP elevated at 1600. Monitor daily with CBC, CMP, magnesium ordered in the morning DNR Holding anticoagulation in the setting of anemia and suspected GI blood loss Regular diet, n.p.o. at midnight
--- NOTE | 2024-01-07 17:18 | PC.NURSE ---
PT ARRIVED TO FLOOR VIA WHEELCHAIR @1717
--- OUTSIDE RECORDS SUMMARY | 2024-01-07 18:35 | XMS_ITS | Encounter Summary ---
Author Organization [facility] Address [facility] [place] [address] Encounter Details Date Type Department Care Team Description 2022-12-17 Telephone [facility] [address] [place] [address] Nohelia Davis Medication Reconciliation was successfully completed by the [facility]. ASSESSMENT No Information TREATMENT PLAN No Information
--- OUTSIDE RECORDS SUMMARY | 2024-01-07 18:35 | XMS_ITS | Encounter Summary ---
Author Organization [facility] Address [facility] [place] [address] Encounter Details Date Type Department Care Team Description 2022-12-24 Telephone [facility] [address] [place] [address] Rosanna Davis Medication Reconciliation was successfully completed by the [facility]. ASSESSMENT No Information TREATMENT PLAN No Information
--- OUTSIDE RECORDS SUMMARY | 2024-01-07 18:35 | XMS_ITS | Encounter Summary ---
Author Organization [facility] Address [facility] [place] [address] Encounter Details Date Type Department Care Team Description 2023-09-03 Telephone [facility] [address] [place] [address] Geraldine Davis Medication Reconciliation was successfully completed by the [facility]. ASSESSMENT No Information TREATMENT PLAN No Information
--- OUTSIDE RECORDS SUMMARY | 2024-01-07 18:35 | XMS_ITS | Encounter Summary ---
Author Organization [facility] Address [facility] [place] [address] Encounter Details Date Type Department Care Team Description 2022-09-24 Telephone [facility] [address] [place] [address] Diana Davis Medication Reconciliation was successfully completed by the [facility]. ASSESSMENT No Information TREATMENT PLAN No Information
--- OUTSIDE RECORDS SUMMARY | 2024-01-07 18:35 | XMS_ITS ---
Author Name Christiano Phan Address [address] [place] [address] Organization Unknown Address [address] [place] [address] ALLERGIES AND ADVERSE REACTIONS No information ASSESSMENT No information CHIEF COMPLAINT No information MEDICATIONS No information OBJECTIVE DATA No information PHYSICAL EXAMINATION No information TREATMENT PLAN Planned Care Start Date Provider Encounter for Check-up [phone] [facility] PROBLEMS No information RESULTS No information REVIEW OF SYSTEMS No information SUBJECTIVE DATA No information VITAL SIGNS No information
--- OUTSIDE RECORDS SUMMARY | 2024-01-07 18:35 | XMS_ITS | Encounter Summary ---
Author Organization [facility] Address [facility] [place] [address] Encounter Details Date Type Department Care Team Description 2023-12-03 Telephone [facility] [address] [place] [address] Dorene Davis Medication Reconciliation was successfully completed by the [facility]. ASSESSMENT No Information TREATMENT PLAN No Information
--- OUTSIDE RECORDS SUMMARY | 2024-01-07 18:35 | XMS_ITS | Encounter Summary ---
Author Organization [facility] Address [facility] [place] [address] Encounter Details Date Type Department Care Team Description 2023-09-30 Telephone [facility] [address] [place] [address] Diana Davis Medication Reconciliation was successfully completed by the [facility]. ASSESSMENT No Information TREATMENT PLAN No Information
--- OUTSIDE RECORDS SUMMARY | 2024-01-07 18:35 | XMS_ITS | Encounter Summary ---
Author Organization [facility] Address [facility] [place] [address] Encounter Details Date Type Department Care Team Description 2023-07-18 Telephone [facility] [address] [place] [address] Triage Queue The [facility] care team was unable to complete a Medication Reconciliation with the patient following discharge. ASSESSMENT No Information TREATMENT PLAN No Information
--- OUTSIDE RECORDS SUMMARY | 2024-01-07 18:35 | XMS_ITS | Encounter Summary ---
Author Organization [facility] Address [facility] [place] [address] Encounter Details Date Type Department Care Team Description 2023-01-15 Telephone [facility] [address] [place] [address] Priyanka Davis Medication Reconciliation was successfully completed by the [facility]. ASSESSMENT No Information TREATMENT PLAN No Information
--- OUTSIDE RECORDS SUMMARY | 2024-01-07 18:35 | XMS_ITS | Encounter Summary ---
Author Organization [facility] Address [facility] [place] [address] Encounter Details Date Type Department Care Team Description 2022-11-16 Telephone [facility] [address] [place] [address] Augusta Davis Medication Reconciliation was successfully completed by the [facility]. ASSESSMENT No Information TREATMENT PLAN No Information
[2024-01-07] MEDS: BUMETANIDE 1MG/4ML VIAL 1 MG IV (20:30)
[2024-01-07] MEDS: PANTOPRAZOLE SODIUM 80 MG in 0.9 % SODIUM CHLORIDE 100 ML 100 MG IV (20:30)
[2024-01-07] MEDS: 0.9 % SODIUM CHLORIDE 250 ML 25 ML IV (21:45)
[2024-01-08] VITALS (19 sets, daily range): BP systolic 104–155; BP diastolic 48–80; PULSE 47–65; RESP 14–18; TEMP 36.3–36.6; O2SAT 94–100; BMI 32.3
[2024-01-08 01:20] LABS: Hemoglobin 7.8 g/dL (12.2-16.2)
[2024-01-08 05:49] LABS: Basophils # 0.1 K/mm3 (0-0.2); Basophils % 0.9 % (0.1-2.0); Eosinophils # 0.5 K/mm3 (0.0-0.4); Eosinophils % 7.7 % (0.1-12.0); Hemoglobin 8.2 g/dL (12.2-16.2); Lymphocytes # 1.5 K/mm3 (0.7-4.5); Mean Corpuscular HGB Conc 32.9 g/dL (31.8-35.4); Mean Corpuscular Hemoglobin 29.2 pg (27.0-31.2); Mean Corpuscular Volume 88.7 fl (81-99); Mean Platelet Volume 8.5 fl (7.4-10.4); Monocytes # 0.5 K/mm3 (0.1-1.0); Monocytes % 6.7 % (1.7-9.3); Neutrophils # 4.4 K/mm3 (1.8-7.8); Neutrophils % 62.7 % (37.0-80.0); Platelet Count 247 K/mm3 (142-424); Red Blood Count 2.82 M/mm3 (4.20-5.40); Red Cell Distribution Width 16.1 % (11.5-17.5); White Blood Count 6.9 K/mm3 (4.8-10.8)
[2024-01-08 05:54] LABS: Albumin Level 3.3 g/dl (3.5-5.0); Chloride 111 mmol/L (98-107); Potassium 4.2 mmoL/L (3.5-5.1); Sodium 140 mmol/L (136-145)
[2024-01-08 05:56] LABS: Blood Urea Nitrogen 47 mg/dl (7-17); Creatinine Clearance Estimated 18 mL/min (50-200); Estimated Glomerular Filt Rate 13 ml/min (>60); GFR (African American) 16 ML/MIN (>60)
[2024-01-08 05:57] LABS: Alanine Aminotransferase 9 U/L (12-78); Albumin/Globulin Ratio 1.4 (1.1-1.8); Alkaline Phosphatase 54 U/L (38-126); Anion Gap 6.2 mEq/L (5-15); Aspartate Amino Transferase 16 U/L (14-36); Bilirubin,Total 0.6 mg/dl (0.2-1.3); Calcium 8.7 mg/dl (8.4-10.2); Carbon Dioxide 27 mmol/L (22.0-30.0); Globulin 2.3 g/dL (1.3-3.2); Glucose 101 mg/dl (74-100); Total Protein,Serum 5.6 g/dl (6.3-8.2)
[2024-01-08 05:58] LABS: Magnesium 2.5 mg/dl (1.6-2.3)
--- NOTE | 2024-01-08 06:52 | P.CONS_ITS ---
History of Present Illness *Admission Date: 01/07/24 *Reason for visit:: Anemia *History of present illness: This is an 83-year-old female seen in consultation from the primary service for evaluation regarding anemia. Please see HPI forwarded from admission H&P below. She has now undergone transfusion at least twice in this calendar year for significant/symptomatic anemia. She states that she has undergone discussions with regard to endoscopic evaluation on numerous occasions; however, she chose to forego such interventions until now . Forwarded from admission H&P: Ms. Gandhi is a pleasant 83-year-old female with history of CVA 2 months ago, CAD, CKD 4, chronic anemia, hypertension, hyperlipidemia, and AAA being monitored as an outpatient. She presented to the ER at the instruction of her doctors in [place] after having labs drawn and being told her hemoglobin was 6 and she needed to present for evaluation. On arrival to the ER, repeat H&H performed with hemoglobin of 5.8. Patient complains that she has been feeling more fatigued and tired over the past 2 to 4 weeks. Denies any black stools or bright red blood per rectum. Has had increased shortness of breath with exertion. Denies any vomiting, diarrhea, headache, confusion. No chest pain. Patient typed and crossed for 2 units. Medicine consulted for further management and workup. Patient alert and oriented x 4. Feels quite fatigued. States she is cold but has no fever or hypothermia. Labs reviewed, kidney function at baseline for her with creatinine of 3.6. On room air. [facility] Disclaimer: The information contained in this section may have been updated after the patient was seen, as this information can be updated by other users. Medical History CKD (chronic kidney disease) stage 2, GFR 60-89 ml/min Claudication Dehydration Acute confusion Hypertensive urgency Altered mental status Depression COVID-19 AMALIA (acute kidney injury) Anginal equivalent Dyspnea on exertion Recurrent pneumonia Pneumonia Anemia Sinus bradycardia Insomnia Hypertension Dizziness Abnormal computed tomography angiography (CTA) Right renal artery stenosis Ischemic foot pain at rest Ischemic foot Surgical History History of blepharoplasty History of hernia repair Hx of cholecystectomy History of arthroscopy of shoulder History of total hysterectomy Family History Other Cancer Social History (Updated 01/07/24 @ 19:14 by Ana Lopez RN) Smoking Status: Never smoker second hand exposure: No alcohol intake: never substance use type: denies use current occupational status: retired Travel in the last 8 weeks: None household members: none housing: house current occupational exposures/hazards: No caffeine: Yes Meds Home Medications and Allergies Home Medications ?Medication ?Instructions ?Recorded ?Confirmed ?Type chlorthalidone 25 mg tablet 25 mg PO DAILY #30 tabs 08/16/23 01/07/24 Rx cholecalciferol (vitamin D3) 1,250 50,000 unit PO QMONTH Supplement 08/16/23 01/07/24 History mcg (50,000 unit) capsule amlodipine 10 mg tablet See Rx Instructions .Route 12/16/23 01/07/24 Rx .COMPLEX #90 tabs atorvastatin 40 mg tablet See Rx Instructions .Route 12/16/23 01/07/24 Rx .COMPLEX #90 tabs dapagliflozin propanediol 5 mg See Rx Instructions .Route 12/16/23 01/07/24 Rx tablet (Farxiga) .COMPLEX #90 tabs ezetimibe 10 mg tablet 10 mg PO DAILY #90 tabs 12/16/23 01/07/24 Rx hydroxychloroquine 200 mg tablet See Rx Instructions .Route 12/16/23 01/07/24 Rx .COMPLEX #180 tabs levothyroxine 50 mcg tablet See Rx Instructions .Route 12/16/23 01/07/24 Rx .COMPLEX #90 tabs isosorbide mononitrate 60 mg See Rx Instructions .Route 12/17/23 01/07/24 Rx tablet,extended release 24 hr .COMPLEX #90 tabs losartan 25 mg tablet 25 mg PO DAILY #90 tabs 12/19/23 01/07/24 Rx metoprolol succinate 100 mg 100 mg PO DAILY 12/19/23 01/07/24 History tablet,extended release 24 hr spironolactone 25 mg tablet 25 mg PO DAILY 12/19/23 01/07/24 History zolpidem 5 mg tablet 5 mg PO HS #90 tabs 12/19/23 01/07/24 Rx New Prescriptions to Start Prescriptions: Allergies Allergy/AdvReac Type Severity Reaction Status Date / Time morphine Allergy Intermediate Unknown Verified 01/06/24 14:21 allergy reaction Exam (Inpt) Vital signs and Labs for Last 24 Hours: Temp Pulse Resp BP Pulse Ox O2 Del Method 97.5 F L 52 L 16 142/60 H 100 Room Air 01/08/24 04:00 01/08/24 04:00 01/08/24 04:00 01/08/24 04:00 01/08/24 04:00 01/08/24 04:47 Laboratory Results - last 24 hr 01/07/24 15:20: Stool Occult Blood Positive A 01/07/24 15:21: WBC 6.7, RBC 2.11 L, Hgb 5.8 L*, Hct 18.5 L*, MCV 87.9, MCH 27.3, MCHC 31.1 L, RDW 16.7, Plt Count 283, MPV 8.5, Neut % (Auto) 64.6, Lymph % (Auto) 21.5, [place] % (Auto) 6.6, Eos % (Auto) 6.3, Baso % (Auto) 1.0, Neut # (Auto) 4.3, Lymph # (Auto) 1.4, [place] # (Auto) 0.4, Eos # (Auto) 0.4, Baso # (Auto) 0.1, Retic Count (auto) 2.3, PT 10.2, INR 0.90, APTT 26.0, Sodium 141, Potassium 4.2, Chloride 108 H, Carbon Dioxide 25, Anion Gap 12.2, BUN 53 H, C reatinine 3.60 H, Estimated Creat Clear 16, Estimated GFR 12 L*, Est GFR ( Amer) 15 L*, Glucose 123 H D, Uric Acid 7.7 H, Calcium 9.3, Total Bilirubin 0.3, AST 19, ALT 13, Alkaline Phosphatase 52, Lactate Dehydrogenase 153 L, Troponin I < 0.01, NT-Pro-B Natriuret Pep 1600 H, Total Protein 6.3, Albumin 3.6, Globulin 2.7, Albumin/Globulin Ratio 1.3, TSH 6.30 H, Thyroxine (T4) 9.7, Blood Type A Positive, Antibody Screen Negative, Crossmatch (AHG) See Detail 01/08/24 01:00: Hgb 7.8 L D, Hct 24.0 L 01/08/24 05:45: WBC 6.9, RBC 2.82 L D, Hgb 8.2 L, Hct 25.0 L, MCV 88.7, MCH 29.2, MCHC 32.9, RDW 16.1, Plt Count 247, MPV 8.5, Neut % (Auto) 62.7, Lymph % (Auto) 22.0, [place] % (Auto) 6.7, Eos % (Auto) 7.7, Baso % (Auto) 0.9, Neut # (Auto) 4.4, Lymph # (Auto) 1.5, [place] # (Auto) 0.5, Eos # (Auto) 0.5 H, Baso # (Auto) 0.1, Sodium 140, Potassium 4.2, Chloride 111 H, Carbon Dioxide 27, Anion Gap 6.2, BUN 47 H, Creatinine 3.30 H, Estimated Creat Clear 18, Estimated GFR 13 L*, Est GFR ( Amer) 16 L*, Glucose 101 H, Calcium 8.7, Magnesium 2.5 H, Total Bilirubin 0.6, AST 16, ALT 9 L D, Alkaline Phosphatase 54, Total Protein 5.6 L, Albumin 3.3 L, Globulin 2.3, Albumin/Globulin Ratio 1.4 I & O for Labs for Last 24 Hours: Intake & Output 01/05/24 01/06/24 01/07/24 01/08/24 11:59 11:59 11:59 11:59 Intake Total 900 / 900 Output Total 0 / 0 Balance 900 / 900 Weight 184 lb 12.8 oz Constitutional: no acute distress Respiratory: Absent respiratory distress Cardiac: Absent Tachycardia GI: Present soft Results Labs 01/08/24 05:45 01/08/24 05:45 Labs: Laboratory Results - last 24 hr 01/07/24 15:20: Stool Occult Blood Positive A 01/07/24 15:21: WBC 6.7, RBC 2.11 L, Hgb 5.8 L*, Hct 18.5 L*, MCV 87.9, MCH 27.3, MCHC 31.1 L, RDW 16.7, Plt Count 283, MPV 8.5, Neut % (Auto) 64.6, Lymph % (Auto) 21.5, [place] % (Auto) 6.6, Eos % (Auto) 6.3, Baso % (Auto) 1.0, Neut # (Auto) 4.3, Lymph # (Auto) 1.4, [place] # (Auto) 0.4, Eos # (Auto) 0.4, Baso # (Auto) 0.1, Retic Count (auto) 2.3, PT 10.2, INR 0.90, APTT 26.0, Sodium 141, Potassium 4.2, Chloride 108 H, Carbon Dioxide 25, Anion Gap 12.2, BUN 53 H, C reatinine 3.60 H, Estimated Creat Clear 16, Estimated GFR 12 L*, Est GFR ( Amer) 15 L*, Glucose 123 H D, Uric Acid 7.7 H, Calcium 9.3, Total Bilirubin 0.3, AST 19, ALT 13, Alkaline Phosphatase 52, Lactate Dehydrogenase 153 L, Troponin I < 0.01, NT-Pro-B Natriuret Pep 1600 H, Total Protein 6.3, Albumin 3.6, Globulin 2.7, Albumin/Globulin Ratio 1.3, TSH 6.30 H, Thyroxine (T4) 9.7, Blood Type A Positive, Antibody Screen Negative, Crossmatch (AHG) See Detail 01/08/24 01:00: Hgb 7.8 L D, Hct 24.0 L 01/08/24 05:45: WBC 6.9, RBC 2.82 L D, Hgb 8.2 L, Hct 25.0 L, MCV 88.7, MCH 29.2, MCHC 32.9, RDW 16.1, Plt Count 247, MPV 8.5, Neut % (Auto) 62.7, Lymph % (Auto) 22.0, [place] % (Auto) 6.7, Eos % (Auto) 7.7, Baso % (Auto) 0.9, Neut # (Auto) 4.4, Lymph # (Auto) 1.5, [place] # (Auto) 0.5, Eos # (Auto) 0.5 H, Baso # (Auto) 0.1, Sodium 140, Potassium 4.2, Chloride 111 H, Carbon Dioxide 27, Anion Gap 6.2, BUN 47 H, Creatinine 3.30 H, Estimated Creat Clear 18, Estimated GFR 13 L*, Est GFR ( Amer) 16 L*, Glucose 101 H, Calcium 8.7, Magnesium 2.5 H, Total Bilirubin 0.6, AST 16, ALT 9 L D, Alkaline Phosphatase 54, Total Protein 5.6 L, Albumin 3.3 L, Globulin 2.3, Albumin/Globulin Ratio 1.4 Assessment and Plan *Assessment and plan (1) GI bleed: Status: Acute Qualifiers: GI bleed type/associated pathology: unspecified gastrointestinal hemorrhage type Qualified Code(s): K92.2 - Gastrointestinal hemorrhage, unspecified Category: Medical Code(s): K92.2 - Gastrointestinal hemorrhage, unspecified (2) Symptomatic anemia: Status: Acute Category: Medical Code(s): D64.9 - Anemia, unspecified Plan Esophagogastroduodenoscopy this a.m. I have discussed the risks and benefits including, but not limited to: Bleeding Infection Damage to surrounding tissue Inherent risks of sedation The patient agrees to proceed.
--- NOTE | 2024-01-08 06:57 | HMH.SCOPE ---
Procedure: Date: 01/08/24 Patient Date of :: 1940 Procedure Performed:: Esophagogastroduodenoscopy with biopsy and clip placement Indications:: Symptomatic anemia Gastrointestinal hemorrhage Performing Provider:: Rubin Ellis MD Referring Provider:: . Sedation:: Monitored anesthesia care Procedure:: After informed consent was obtained the patient was taken to the endoscopy suite. Sedation ensued after the patient was transferred to the left lateral decubitus position. Pulse, blood pressure, and oxygen saturation were monitored throughout the procedure. The endoscope was advanced beyond the duodenal bulb. Retroflexion within the gastric lumen was accomplished. The gastroscope was carefully removed and the patient was transferred to recovery in stable condition. Please see findings and specimens below for detail. Findings:: Somewhat tortuous esophagus Sliding hiatal hernia Significant volume of food particles throughout Friable gastric body polyps (see specimens) Resolution 360 clip placement (x 2) at polyp biopsy sites Specimens:: Lobulated/friable mid/distal gastric body polyp (cold biopsy forceps followed by resolution 360 clip placement) Lobulated/friable proximal gastric body polyp (cold biopsy forceps followed by resolution 360 clip placement) Recommendations:: Follow-up pathology Repeat esophagogastroduodenoscopy in near future with extended n.p.o. status Complications:: No immediate Estimated blood obtained (mL): 1 Colonoscopy Component Colonoscopy Component Was a colonoscopy performed during today's procedure?: No
--- NOTE | 2024-01-08 07:17 | EXP.ANES.CKL ---
[facility] Disclaimer: The information contained in this section may have been updated after the patient was seen, as this information can be updated by other users. Medical History CKD (chronic kidney disease) stage 2, GFR 60-89 ml/min Claudication Dehydration Acute confusion Hypertensive urgency Altered mental status Depression COVID-19 AMALIA (acute kidney injury) Anginal equivalent Dyspnea on exertion Recurrent pneumonia Pneumonia Anemia Sinus bradycardia Insomnia Hypertension Dizziness Abnormal computed tomography angiography (CTA) Right renal artery stenosis Ischemic foot pain at rest Ischemic foot Surgical History History of blepharoplasty History of hernia repair Hx of cholecystectomy History of arthroscopy of shoulder History of total hysterectomy Family History Other Cancer Social History Smoking Status: Never smoker second hand exposure: No alcohol intake: never substance use type: denies use current occupational status: retired Travel in the last 8 weeks: None household members: none housing: house current occupational exposures/hazards: No caffeine: Yes [facility] Anesthesia Checklist Patient Identification Patient Identification: Arm Band and Verbal (Name & ) Structural Data Admitted From: Inpatient Planned Operative Procedure/s: EGD Consent for Planned Operative Procedure(s) Verified: Yes Verified Documents: Surgical Consent and History and Physical NPO Status Verified Time NPO: 00:00 Chart Verification Results Verified: CBC and BMP Additional verifications Anesthesia Reactions: No Hx Blood Transfusions: Yes Blood Transfusion Reaction: No Airway Assessment Mallampati Score:: Class II C-Spine Mobility Assessed: Yes TMJ Mobility Assessed: Yes Dentition: Edentulous Neurological Assessment Level of Consciousness: Awake Hx Seizures: No Numbness or tingling in extremities: No Anesthesia Plan Anesthesia Risk discussed: Yes Anesthesia Plan: Verified ASA Class: III Anesthesia Type: MAC
--- NOTE | 2024-01-08 07:28 | HMH.PHAINT1 ---
Pharmacy Intervention Comments: MEDICATION RECONCILIATION COMPLETED ON PATIENT USING EXTERNAL FILL HISTORY FROM PHARMACY AND LIST FROM CARDIOLOGY OFFICE. -CARMELA AL, DAVIDD
[2024-01-08] MEDS: MAGNESIUM SULFATE IN WATER 2 GM/50 ML PIGGYBACK IV (08:34)
[2024-01-08] MEDS: PANTOPRAZOLE 40MG VIAL 40 MG IV (08:34)
[2024-01-08] MEDS: ONDANSETRON 4MG/2ML VIAL 4 MG IV (09:20)
--- NOTE | 2024-01-08 09:45 | EXP.DC.SUM ---
General Admission date:: 01/07/24 Discharge date: 01/08/24 HPI HPI HPI: Ms. Gandhi is a pleasant 83-year-old female with history of CVA 2 months ago, CAD, CKD 4, chronic anemia, hypertension, hyperlipidemia, and AAA being monitored as an outpatient. She presented to the ER at the instruction of her doctors in [place] after having labs drawn and being told her hemoglobin was 6 and she needed to present for evaluation. On arrival to the ER, repeat H&H performed with hemoglobin of 5.8. Patient complains that she has been feeling more fatigued and tired over the past 2 to 4 weeks. Denies any black stools or bright red blood per rectum. Has had increased shortness of breath with exertion. Denies any vomiting, diarrhea, headache, confusion. No chest pain. Patient typed and crossed for 2 units. Medicine consulted for further management and workup. Patient alert and oriented x 4. Feels quite fatigued. States she is cold but has no fever or hypothermia. Labs reviewed, kidney function at baseline for her with creatinine of 3.6. On room air. Hospital Course Hospital Course Hospital Course: 83-year-old female who presents with weakness, fatigue. Found to have worsening anemia from baseline. Concern for blood loss. Hemoglobin 5.8 in the ER. Discussed case with ER physician, request admission for further workup of GI blood loss and transfusion. I agreed to admit for further management. Transfused with 2 units with appropriate response. Had been started on aspirin and Plavix after recent CVA approximately 2 months ago. Has completed her Plavix. Responded well to transfusion. Found to have an oozing polyp. Hemoglobin remained stable after removal of polyp during EGD. Recommend discharge home with close follow-up for serial labs. Problems addressed as follows: Acute on chronic anemia Suspected GI bleed -Patient was recently admitted for strokelike symptoms and started on aspirin and Plavix. Took Plavix for 21 days and finished that about a month ago. Continues on daily aspirin 81 mg. Presented with profound anemia with hemoglobin of 5.8 to the ER. Stool occult was positive. Concern for possible GI bleed. Surgery was consulted and took patient for EGD. Found to have a few polyps, one was oozing. Polyps were clipped and removed. Patient received 2 units packed red blood cells and transfusion. Responded well with improvement in hemoglobin to little over 8. Serial hemoglobin showed 8.2 on morning of discharge, stable. Will hold anticoagulation/antiplatelet therapy. Initiated on pantoprazole during admission. Plan to continue pantoprazole 40 mg twice daily to ease with gastric irritation. Stable to discharge home with serial CBC in 1 week to monitor for stability of hemoglobin. Hypertension: Blood pressure did well during admission. Continue home regimen. See med rec for full details Sleep disorder: Patient takes zolpidem at night. Held during admission. Okay to resume after discharge. Hyperlipidemia: Lipid panel with elevated LDL of 135, Zetia 10 mg daily, Lipitor 40 mg daily Hypothyroid: TSH elevated at 6.3, increase levothyroxine 75 mcg daily CKD 4: Kidney function at time of admission with BUN 53, creatinine 3.6. Improved to 47 and 3.3 respectively on day of discharge. Making adequate urine. Electrolytes remained stable. Total time spent on discharge 32 minutes in counseling, documentation, chart review, and direct care with patient. Exam Data for Last 24 hours Vital signs and Labs for Last 24 Hours: Temp Pulse Resp BP Pulse Ox O2 Del Method O2 Flow Rate 97.5 F L 51 L 16 155/73 H 100 Room Air 5 01/08/24 08:05 01/08/24 09:20 01/08/24 09:20 01/08/24 09:20 01/08/24 09:20 01/08/24 09:20 01/08/24 07:27 Laboratory Results - last 24 hr 01/07/24 15:20: Stool Occult Blood Positive A 01/07/24 15:21: WBC 6.7, RBC 2.11 L, Hgb 5.8 L*, Hct 18.5 L*, MCV 87.9, MCH 27.3, MCHC 31.1 L, RDW 16.7, Plt Count 283, MPV 8.5, Neut % (Auto) 64.6, Lymph % (Auto) 21.5, Fult[place] % (Auto) 6.6, Eos % (Auto) 6.3, Baso % (Auto) 1.0, Neut # (Auto) 4.3, Lymph # (Auto) 1.4, Fulton # (Auto) 0.4, Eos # (Auto) 0.4, Baso # (Auto) 0.1, Retic Count (auto) 2.3, PT 10.2, INR 0.90, APTT 26.0, Sodium 141, Potassium 4.2, Chloride 108 H, Carbon Dioxide 25, Anion Gap 12.2, BUN 53 H, Creatinine 3.60 H, Estimated Creat Clear 16, Estimated GFR 12 L*, Est GFR ( Amer) 15 L*, Glucose 123 H D, Uric Acid 7.7 H, Calcium 9.3, Total Bilirubin 0.3, AST 19, ALT 13, Alkaline Phosphatase 52, Lactate Dehydrogenase 153 L, Troponin I < 0.01, NT-Pro-B Natriuret Pep 1600 H, Total Protein 6.3, Albumin 3.6, Globulin 2.7, Albumin/Globulin Ratio 1.3, TSH 6.30 H, Thyroxine (T4) 9.7, Blood Type A Positive, Antibody Screen Negative, Crossmatch ([facility]) See Detail 01/08/24 01:00: Hgb 7.8 L D, Hct 24.0 L 01/08/24 05:45: WBC 6.9, RBC 2.82 L D, Hgb 8.2 L, Hct 25.0 L, MCV 88.7, MCH 29.2, MCHC 32.9, RDW 16.1, Plt Count 247, MPV 8.5, Neut % (Auto) 62.7, Lymph % (Auto) 22.0, Fult[place] % (Auto) 6.7, Eos % (Auto) 7.7, Baso % (Auto) 0.9, Neut # (Auto) 4.4, Lymph # (Auto) 1.5, Fulton # (Auto) 0.5, Eos # (Auto) 0.5 H, Baso # (Auto) 0.1, Sodium 140, Potassium 4.2, Chloride 111 H, Carbon Dioxide 27, Anion Gap 6.2, BUN 47 H, Creatinine 3.30 H, Estimated Creat Clear 18, Estimated GFR 13 L*, Est GFR ( Amer) 16 L*, Glucose 101 H, Calcium 8.7, Magnesium 2.5 H, Total Bilirubin 0.6, AST 16, ALT 9 L D, Alkaline Phosphatase 54, Total Protein 5.6 L, Albumin 3.3 L, Globulin 2.3, Albumin/Globulin Ratio 1.4 I & O for Last 24 hours: Intake & Output 01/05/24 01/06/24 01/07/24 01/08/24 23:59 23:59 23:59 23:59 Intake Total 900 / 900 50 / 50 Output Total 0 / 0 0 / 0 Balance 900 / 900 50 / 50 Weight 83.234 kg 83.824 kg Constitutional Constitutional: no acute distress, obese, chronically ill appearing and cooperative *Routine HEENT Exam Head: Present normocephalic Eye: Present EOMI and PERRL ENT: Present mucous membranes moist *Routine Neck Exam Neck: Present supple; Absent lymphadenopathy *Routine Respiratory Exam Respiratory: Present CTA bilaterally; Absent rhonchi, wheezes or crackles *Routine Cardiovascular Exam Cardiovascular: Present RRR *Routine Abdominal Exam Abdominal: Present soft, normoactive bowel sounds and tenderness (mild epigastric) *Routine Rectal Exam Patient deferred: visual exam *Routine Exam Patient deferred: external exam *Routine Extremities Exam Extremities: Absent cyanosis, clubbing or edema *Routine Skin Exam Skin: Present warm; Absent rash *Routine Neurological Exam Neurological: Present alert, oriented X3 and moving all extremities; Absent altered mental status Results Data Completed and Pending Labs on day of discharge: Labs from last 24 hours 01/08/24 01/08/24 01/07/24 05:45 01:00 15:21 WBC 6.9 6.7 RBC 2.82 L D 2.11 L Hgb 8.2 L 7.8 L D 5.8 L* Hct 25.0 L 24.0 L 18.5 L* MCV 88.7 87.9 MCH 29.2 27.3 MCHC 32.9 31.1 L RDW 16.1 16.7 Plt Count 247 283 MPV 8.5 8.5 Neut % (Auto) 62.7 64.6 Lymph % (Auto) 22.0 21.5 Fulton % (Auto) 6.7 6.6 Eos % (Auto) 7.7 6.3 Baso % (Auto) 0.9 1.0 Neut # (Auto) 4.4 4.3 Lymph # (Auto) 1.5 1.4 Fulton # (Auto) 0.5 0.4 Eos # (Auto) 0.5 H 0.4 Baso # (Auto) 0.1 0.1 Retic Count (auto) 2.3 PT 10.2 INR 0.90 APTT 26.0 Sodium 140 141 Potassium 4.2 4.2 Chloride 111 H 108 H Carbon Dioxide 27 25 Anion Gap 6.2 12.2 BUN 47 H 53 H Creatinine 3.30 H 3.60 H Estimated Creat Clear 18 16 Estimated GFR 13 L* 12 L* Est GFR ( Amer) 16 L* 15 L* Glucose 101 H 123 H D Uric Acid 7.7 H Calcium 8.7 9.3 Magnesium 2.5 H Total Bilirubin 0.6 0.3 AST 16 19 ALT 9 L D 13 Alkaline Phosphatase 54 52 Lactate Dehydrogenase 153 L Troponin I < 0.01 NT-Pro-B Natriuret Pep 1600 H Total Protein 5.6 L 6.3 Albumin 3.3 L 3.6 Globulin 2.3 2.7 Albumin/Globulin Ratio 1.4 1.3 TSH 6.30 H Thyroxine (T4) 9.7 Stool Occult Blood Blood Type A Positive Antibody Screen Negative Crossmatch ([facility]) See Detail 01/07/24 15:20 WBC RBC Hgb Hct MCV MCH MCHC RDW Plt Count MPV Neut % (Auto) Lymph % (Auto) [place] % (Auto) Eos % (Auto) Baso % (Auto) Neut # (Auto) Lymph # (Auto) [place] # (Auto) Eos # (Auto) Baso # (Auto) Retic Count (auto) PT INR APTT Sodium Potassium Chloride Carbon Dioxide Anion Gap BUN Creatinine Estimated Creat Clear Estimated GFR Est GFR ( Amer) Glucose Uric Acid Calcium Magnesium Total Bilirubin AST ALT Alkaline Phosphatase Lactate Dehydrogenase Troponin I NT-Pro-B Natriuret Pep Total Protein Albumin Globulin Albumin/Globulin Ratio TSH Thyroxine (T4) Stool Occult Blood Positive A Blood Type Antibody Screen Crossmatch ([facility]) DS: Diagnosis Discharge Diagnosis (1) GI bleed: Status: Acute Code(s): K92.2 - Gastrointestinal hemorrhage, unspecified Qualifiers: GI bleed type/associated pathology: unspecified gastrointestinal hemorrhage type Qualified Code(s): K92.2 - Gastrointestinal hemorrhage, unspecified (2) Symptomatic anemia: Status: Acute Code(s): D64.9 - Anemia, unspecified Meds Home Medications and Allergies Home Medications ?Medication ?Instructions ?Recorded ?Confirmed ?Type chlorthalidone 25 mg tablet 25 mg PO DAILY #30 tabs 08/16/23 01/07/24 Rx cholecalciferol (vitamin D3) 1,250 50,000 unit PO MONTHLY Supplement 08/16/23 01/08/24 History mcg (50,000 unit) capsule ezetimibe 10 mg tablet 10 mg PO DAILY #90 tabs 12/16/23 01/07/24 Rx losartan 25 mg tablet 25 mg PO DAILY #90 tabs 12/19/23 01/07/24 Rx metoprolol succinate 100 mg 100 mg PO DAILY 12/19/23 01/07/24 History tablet,extended release 24 hr spironolactone 25 mg tablet 25 mg PO DAILY 12/19/23 01/07/24 History zolpidem 5 mg tablet 5 mg PO HS #90 tabs 12/19/23 01/07/24 Rx amlodipine 10 mg tablet 10 mg PO DAILY 01/08/24 01/08/24 History atorvastatin 40 mg tablet 40 mg PO HS 01/08/24 01/08/24 History dapagliflozin propanediol 5 mg 5 mg PO DAILY 01/08/24 01/08/24 History tablet (Farxiga) hydroxychloroquine 200 mg tablet 200 mg PO BID 01/08/24 01/08/24 History isosorbide mononitrate 60 mg 60 mg PO DAILY 01/08/24 01/08/24 History tablet,extended release 24 hr levothyroxine 50 mcg tablet 50 mcg PO DAILY 01/08/24 01/08/24 History pantoprazole 40 mg tablet,delayed 40 mg PO BID #60 tabs 01/08/24 Rx release New Prescriptions to Start Prescriptions: pantoprazole Jatinder Kidd Allergies Allergy/AdvReac Type Severity Reaction Status Date / Time morphine Allergy Intermediate Unknown Verified 01/06/24 14:21 allergy reaction Discharge Plan Disposition Patient Disposition: Home, Self-Care Condition: Fair Follow up Plan Follow up with: Marge Jovel APRN [Primary Care Provider] - Enter time for follow up (please call for appointment) Rubin Ellis MD [Staff Physician] - 1 week (please call for appointment) Prescriptions/Medication Reconciliation: New pantoprazole 40 mg tablet,delayed release (DR/EC) 40 mg PO BID Qty: 60 0RF Continued spironolactone 25 mg tablet 25 mg PO DAILY metoprolol succinate 100 mg tablet extended release 24 hr 100 mg PO DAILY zolpidem 5 mg tablet 5 mg PO HS Qty: 90 1RF losartan 25 mg tablet 25 mg PO DAILY Qty: 90 1RF cholecalciferol (vitamin D3) 1,250 mcg (50,000 unit) capsule 50,000 unit PO MONTHLY chlorthalidone 25 mg tablet 25 mg PO DAILY Qty: 30 3RF ezetimibe 10 mg tablet 10 mg PO DAILY Qty: 90 2RF atorvastatin 40 mg tablet 40 mg PO HS isosorbide mononitrate 60 mg tablet extended release 24 hr 60 mg PO DAILY amlodipine 10 mg tablet 10 mg PO DAILY levothyroxine 50 mcg tablet 50 mcg PO DAILY hydroxychloroquine 200 mg tablet 200 mg PO BID dapagliflozin propanediol [Farxiga] 5 mg tablet 5 mg PO DAILY Discontinued pantoprazole [Protonix] 40 mg tablet,delayed release (DR/EC) 40 mg PO BID 14 Days Qty: 28 0RF bismuth subsalicylate 525 mg tablet 525 mg PO QID PRN (Reason: nausea) 14 Days Qty: 56 0RF Rx Instructions: do not exceed 8 doses in a 24 hour period metronidazole [Flagyl] 375 mg capsule 500 mg PO BID 14 Days Qty: 38 0RF tetracycline 500 mg capsule 500 mg PO QID 14 Days Qty: 56 0RF aspirin 81 mg tablet,delayed release (DR/EC) 81 mg PO DAILY Problem Reconciliation Problems Reviewed?: Yes Patient Discharge Instructions ACTIVITY: Continue current activity DIET: continue same diet Patient Instructions: DI for Gastrointestinal Bleeding, DI for Acute Kidney Injury Print Language: Azeri Providers Primary Care Provider: Marge Jovel Admit Provider: Jatinder Kidd Attending Provider: Jatinder Kidd
--- NOTE | 2024-01-08 10:17 | PC.NURSE ---
Pt remains nauseated at this time. She states it has improved some but would like to wait on taking any medications by mouth at this time.
[2024-01-08 16:20] LABS: Hematocrit 27.4 % (37.0-47.0); Hemoglobin 8.9 g/dL (12.2-16.2)
[2024-01-09 08:24] LABS: Haptoglobin 104 mg/dL (41-333)
--- NOTE | 2024-01-09 14:11 | CARE MANAGER ---
Contacted patient related to hospital discharge. She has new medication and made both her follow up appointments for next week. She denies any questions or concerns at this time. KENDRA Olivas
== END 2024-01-08 18:10 | disposition home or self-care (01) ==
LOC: ER 16:53 → 2ND 17:02
PROVIDERS: Surgery; Admitting Provider Internal Medicine Adolescent Medicine; Emergency Provider Emergency Medicine; PCP Family Medicine; Visit Provider Internal Medicine Adolescent Medicine
PROC: 0DJ08ZZ Inspection of Upper Intestinal Tract, Via Natural or Artificial Opening Endoscopic (ICD-10-PCS; CPT 43235; principal; 2024-01-08 07:30)
DX: R42 Dizziness and giddiness (principal); N18.4 Chronic kidney disease, stage 4 (severe); I25.118 Atherosclerotic heart disease of native coronary artery with other forms of angina pectoris; D50.9 Iron deficiency anemia, unspecified; I12.9 Hypertensive chronic kidney disease with stage 1 through stage 4 chronic kidney disease, or unspecified chronic kidney disease; E78.5 Hyperlipidemia, unspecified; Z79.899 Other long term (current) drug therapy; K31.7 Polyp of stomach and duodenum; K44.9 Diaphragmatic hernia without obstruction or gangrene
CPT/HCPCS: 43239; 36415; 36430; 80050; 80053; 80069; 81001; 82272; 82570; 83010; 83615; 83735; 83880; 84156; 84436; 84443; 84484; 84550; 85014; 85018; 85025; 85044; 85048; 85049; 85610; 85730; 86850; 93005; 99285; G0328; G0378; J2405; J3475; P9016

== ENCOUNTER 2024-01-10 10:03 | Outpatient (POV) | payer MEDICARE, SELFPAY | END 2024-01-10 23:59 | disposition home or self-care (01) | LOC: SC 10:03 | PROVIDERS: Visit Provider Internal Medicine Nephrology | DX: Z00.00 Encounter for general adult medical examination without abnormal findings (principal) ==

== ENCOUNTER 2024-01-15 14:25 | Outpatient (CLI) | payer MEDICARE, SELFPAY ==
[2024-01-15 15:05] LABS: Hematocrit 27.9 % (37.0-47.0); Hemoglobin 8.9 g/dL (12.2-16.2)
[2024-01-15 16:00] LABS: Iron 41 ug/dL (37-170)
[2024-01-15 16:09] LABS: Total Iron Binding Capacity 397 ug/dL (265-497)
[2024-01-15 16:37] LABS: Ferritin 15.2 ng/ml (11.1-264)
== END 2024-01-15 23:59 | disposition home or self-care (01) ==
LOC: LAB 14:26
PROVIDERS: PCP Family Medicine; Visit Provider Surgery
DX: D64.9 Anemia, unspecified (principal); K92.2 Gastrointestinal hemorrhage, unspecified
CPT/HCPCS: 82728; 83540; 83550; 85014; 85018

== ENCOUNTER 2024-02-07 11:06 | Outpatient (CLI) | payer MEDICARE, SELFPAY ==
[2024-02-07 11:49] LABS: Microscopic, Urine URINE MICROSCOPIC (MICROSCOPIC)
[2024-02-07 11:56] LABS: Hematocrit 27.8 % (37.0-47.0); Hemoglobin 8.6 g/dL (12.2-16.2); Mean Corpuscular Volume 87.2 fl (81-99); Platelet Count 219 K/mm3 (142-424); Red Blood Count 3.19 M/mm3 (4.20-5.40); Red Cell Distribution Width 17.5 % (11.5-17.5); White Blood Count 7.7 K/mm3 (4.8-10.8)
[2024-02-07 12:24] LABS: Albumin Level 3.4 g/dl (3.5-5.0); Blood Urea Nitrogen 41 mg/dl (7-17); Calcium 8.9 mg/dl (8.4-10.2); Carbon Dioxide 26 mmol/L (22.0-30.0); Chloride 108 mmol/L (98-107); Estimated Glomerular Filt Rate 15 ml/min (>60); GFR (African American) 18 ML/MIN (>60); Glucose 116 mg/dl (74-100); Phosphorous 5.6 mg/dl (2.5-4.5); Potassium 4.6 mmoL/L (3.5-5.1)
[2024-02-07 12:32] LABS: Appearance,Urine CLEAR (Clear); Bilirubin,Urine Negative (Negative); Blood, Urine Negative (Negative); Color,Urine YELLOW (Yellow); Glucose,Urine (UA) 1+ (Negative); Ketones,Urine Negative (Negative); Leukocyte Esterase,Urine Negative (Negative); Nitrate,Urine Negative (Negative); Protein,Urine Negative (Negative); Urobilinogen,Urine 0.2 EU/dl (0.2)
[2024-02-07 12:50] LABS: Creatinine,Urine Random 78 mg/dL (Not Estab.)
[2024-02-07 13:00] LABS: Bacteria,Urine Trace /lpf
[2024-02-07 17:23] LABS: Anion Gap 9.6 mEq/L (5-15); Sodium 139 mmol/L (136-145)
[2024-02-07 17:45] LABS: Intact Parathyroid Hormone 116.7 pg/mL (7.5-53.5)
[2024-02-07 19:52] LABS: 25-OH Vitamin D, Total 66.6 ng/mL (30-100)
== END 2024-02-07 23:59 | disposition home or self-care (01) ==
PROVIDERS: PCP Family Medicine; Visit Provider Internal Medicine Nephrology
DX: N18.4 Chronic kidney disease, stage 4 (severe) (principal)
CPT/HCPCS: 36415; 80069; 81001; 82306; 82570; 83970; 84156; 85014; 85018; 85048; 85049

== ENCOUNTER 2024-02-20 11:30 | Outpatient (CLI) | payer MEDICARE, SELFPAY ==
[2024-02-20 11:46] VITALS: BMI 32.1
[2024-02-20 12:18] VITALS: BP 159/77; PULSE 58; RESP 18; O2SAT 97
[2024-02-20] MEDS: ferumoxytoL 510 MG in 0.9 % SODIUM CHLORIDE 50 ML 268 MG IV (12:18)
[2024-02-20] MEDS: SODIUM CHLORIDE 0.9% 50ML BAG 50 ML IV (12:18)
[2024-02-20 12:31] LABS: Basophils # 0.1 K/mm3 (0-0.2); Eosinophils # 0.4 K/mm3 (0.0-0.4); Eosinophils % 5.4 % (0.1-12.0); Hematocrit 26.5 % (37.0-47.0); Hemoglobin 8.1 g/dL (12.2-16.2); Lymphocytes # 1.6 K/mm3 (0.7-4.5); Mean Corpuscular HGB Conc 30.4 g/dL (31.8-35.4); Mean Corpuscular Hemoglobin 26.4 pg (27.0-31.2); Mean Corpuscular Volume 87.1 fl (81-99); Mean Platelet Volume 9.3 fl (7.4-10.4); Monocytes # 0.4 K/mm3 (0.1-1.0); Monocytes % 6.3 % (1.7-9.3); Neutrophils # 4.3 K/mm3 (1.8-7.8); Neutrophils % 63.3 % (37.0-80.0); Platelet Count 197 K/mm3 (142-424); Red Blood Count 3.05 M/mm3 (4.20-5.40); Red Cell Distribution Width 17.1 % (11.5-17.5); White Blood Count 6.7 K/mm3 (4.8-10.8)
[2024-02-20 12:40] VITALS: BP 151/73; PULSE 58; RESP 18; O2SAT 97
[2024-02-20] MEDS: SODIUM CHLORIDE 0.9% 10ML FLUSH SYRINGE 10 ML IV (15:05)
== END 2024-02-20 23:59 | disposition home or self-care (01) ==
LOC: INF 11:31
PROVIDERS: PCP Family Medicine; Visit Provider Internal Medicine Nephrology
DX: D64.9 Anemia, unspecified (principal)
CPT/HCPCS: 85025; 96374; J1642; Q0138

== ENCOUNTER 2024-02-26 14:30 | Outpatient (CLI) | payer MEDICARE, SELFPAY ==
[2024-02-26] MEDS: SODIUM CHLORIDE 0.9% 50ML BAG 50 ML IV (14:39)
[2024-02-26] MEDS: ferumoxytoL 510 MG in 0.9 % SODIUM CHLORIDE 50 ML 268 MG IV (14:39)
[2024-02-26 14:45] VITALS: BP 155/56; PULSE 51; RESP 18; TEMP 36.4; O2SAT 97
[2024-02-26] MEDS: SODIUM CHLORIDE 0.9% 10ML FLUSH SYRINGE 10 ML IV (15:00)
[2024-02-26 15:05] VITALS: BP 102/52; PULSE 50; RESP 18; O2SAT 97
== END 2024-02-26 15:05 | disposition home or self-care (01) ==
LOC: INF 14:31
PROVIDERS: PCP Family Medicine; Visit Provider Internal Medicine Nephrology
DX: D50.9 Iron deficiency anemia, unspecified (principal)
CPT/HCPCS: 96374; J1642; Q0138

== ENCOUNTER 2024-02-26 15:00 | Outpatient (RCR) | payer MEDICARE, SELFPAY ==
--- NOTE | 2024-02-13 16:10 | HMH.PTOPWND ---
Rehab Outpt Wound Evaluation Rehab OP Wound Evaluation Start: 02/13/24 15:42 Freq: Status: Active Protocol: Document 02/13/24 15:47 WANDA (Rec: 02/13/24 16:10 PHORJOHAN [id number]) E-signed By Isidro Pedraza, PT Subjective/History History History This is the initial PT eval for Kim Gandhi, 83 yowf who presents with increased L LE edema increased x ~ 1-2 yrs. She reports insidious onset of symptoms. She reports increased pain and tenderness to palpation in the L foot and ankle. She reports no numbness or tingling in the L leg. She reports difficulty walking due to prior L great toe bunionectomy. She also reports PMH of HTN, VT, CVA, intrathecal pain pump, anemia, CCY, MARLON, abdominal hernia repair, CKD, claudication, 7 stents in the R LE. Subjective Subjective Pt reports current pain is 0/ 10, at worst pain is 8/10 in the L LE. 3+ pitting edema throughout L foot and ankle. 2 /4 TTP to L foot and ankle. New diagnosis of cancer in past 12 No months? Lymphedema Eval Classification of Lymphedema Secondary Lymphedema Yes Stemmer's sign Stemmer's Sign yes Stage of Lymphedema Lymphedema stages Stage II (Pitting edema, increased fibrosis w/ decreased pitting) Skin Changes Dry Skin Yes Skin Folds Yes Discoloration of Skin Yes Other Changes Yes Pain Scale Pain Scale (0-10) 8 Affected Extremities Areas Affected by Lymphedema/Edema Left Lower Extremity Lower Extremity Measurements Left MTP Measurement (cm) 24.0 Heel Measurement (cm) 35.1 10 cm Proximal to Lateral Malleoli 23.4 Measurement (cm) 20 cm Proximal to Lateral Malleoli 31.8 Measurement (cm) 30 cm Proximal to Lateral Malleoli 34.2 Measurement (cm) 40 cm Proximal to Lateral Malleoli 0 Measurement (cm) 50 cm Proximal to Lateral Malleoli 0 Measurement (cm) 60 cm Proximal to Lateral Malleoli 0 Measurement (cm) Lower Extremity Measurement Total (cm) 148.5 Wound Problems/Impairments Impairments Problems/Impairmments Palpation Tenderness,Impaired Range of Motion,Impaired Strength,Impaired Endurance, Impaired Gait Pattern,Impaired Walking,Impaired Household Care,Increased Edema, Lymphedema Present,Subjective C/O Pain,Impaired Self Care/ Self Management Prognosis Rehab Potential Good Comment Skilled therapy is indicated to reduce overall edema burden and return pt to PLOF. Clinical Impression Consistent with Diagnosis Yes Short Term Goals Number of Weeks 2 Decreased Palpation Tenderness Yes: 1/4 L ankle/foot Decrease Edema Yes: 2+ pitting edema L LE Decrease Subjective C/O Pain Yes: 6/10 L LE Patient to Understand Lymphedema Yes Treatment and Exercises Decrease Girth Measurments by (cm) Yes: L LE total by 5 cm Partner Manager Goals Number of Weeks 4 Decreased Palpation Tenderness Yes: 0/4 L ankle/foot Decrease Edema Yes: 1+ pitting edema L LE Decrease Subjective C/O Pain Yes: 4/10 L LE Patient to be Ind w/ HEP Yes Patient to Adhere Lymphedema Precautions Yes Decrease Girth Measurments by (cm) Yes: L LE total by 15 cm Outpatient Therapy Plan of Care Treatment Plan May Include Therapeutic Exercise Including Home Yes Exercise Program Manual Therapy Techniques Yes Neuromuscular Re-education Yes Therapeutic Activities to Return to Yes Previous Functional/Work Level ADL/Self Care Education Yes Orthotics/Bracing/Splinting Yes Vasopneumatic Compression Pump Yes Manual Lymphatic Drainage Yes Eval/Re-Eval Yes Frequency Times per week 1-2 Duration Number of Weeks 3-4 Addendums This patient is a candidate for social No or vocational rehab? Patient/Guardian verbally acknowledges Yes understanding of treatment program and consents to further treatment? Patient/Guardian verbally acknowledges Yes understanding of diagnosis, prognosis and goals for treatment? Eval Complexity PT Charges 36235 - High Complexity PHYSICIAN CERTIFICATION: I certify the specified therapy services for Kim Gandhi are required, authorized, and reviewed every 30 days.
== END 2024-02-26 23:59 | disposition home or self-care (01) ==
LOC: PT 15:00
PROVIDERS: Visit Provider Family Medicine
DX: R60.0 Localized edema (principal)
CPT/HCPCS: 97140; 97163

== ENCOUNTER 2024-03-04 12:02 | Outpatient (CLI) | payer MEDICARE, SELFPAY ==
[2024-03-04 12:20] LABS: Basophils # 0.1 K/mm3 (0-0.2); Basophils % 0.7 % (0.1-2.0); Eosinophils # 0.3 K/mm3 (0.0-0.4); Hematocrit 31.1 % (37.0-47.0); Hemoglobin 9.6 g/dL (12.2-16.2); Lymphocytes # 1.5 K/mm3 (0.7-4.5); Lymphocytes % 21.9 % (10-50); Mean Corpuscular HGB Conc 30.9 g/dL (31.8-35.4); Mean Corpuscular Volume 90.6 fl (81-99); Mean Platelet Volume 10.1 fl (7.4-10.4); Monocytes # 0.5 K/mm3 (0.1-1.0); Monocytes % 7.3 % (1.7-9.3); Neutrophils # 4.3 K/mm3 (1.8-7.8); Neutrophils % 65.1 % (37.0-80.0); Platelet Count 218 K/mm3 (142-424); Red Blood Count 3.44 M/mm3 (4.20-5.40); Red Cell Distribution Width 20.4 % (11.5-17.5); White Blood Count 6.7 K/mm3 (4.8-10.8)
[2024-03-04 15:11] LABS: Iron 189 ug/dL (37-170)
[2024-03-04 15:20] LABS: Total Iron Binding Capacity 299 ug/dL (265-497)
== END 2024-03-04 23:59 | disposition home or self-care (01) ==
LOC: LAB 12:04
PROVIDERS: Internal Medicine Nephrology; PCP Family Medicine; Visit Provider Family Medicine
DX: N18.4 Chronic kidney disease, stage 4 (severe) (principal)
CPT/HCPCS: 83540; 83550; 85025

== ENCOUNTER 2024-03-10 08:30 | Day surgery (SDC) | payer MEDICARE, SELFPAY ==
[2024-03-09 12:59] VITALS: BMI 32.5
[2024-03-10 08:49] VITALS: BP 161/81; PULSE 60; RESP 18; TEMP 36.3; O2SAT 99
--- NOTE | 2024-03-10 08:52 | HMH.SCOPE ---
Procedure: Date: 03/10/24 Patient Date of :: 1940 Procedure Performed:: Esophagogastroduodenoscopy Indications:: Anemia Helicobacter pylori infection Intestinal metaplasia of gastric mucosa Note: The patient underwent esophagogastroduodenoscopy on January 08, 2024 for evaluation of anemia. Esophagogastroduodenoscopy was limited secondary to large volume food particles throughout the stomach. A sliding hiatal hernia was noted. Friable gastric polyps were biopsied. Final pathology confirmed focal metaplasia and Helicobacter pylori infection. Her most recent hemoglobin on March 04, 2024 was up to 9.6. Performing Provider:: Rubin Ellis MD Referring Provider:: . Sedation:: Monitored anesthesia care Procedure:: After informed consent was obtained the patient was taken to the endoscopy suite. Sedation ensued after the patient was transferred to the left lateral decubitus position. Pulse, blood pressure, and oxygen saturation were monitored throughout the procedure. The endoscope was advanced beyond the duodenal bulb. Retroflexion within the gastric lumen was accomplished. The gastroscope was carefully removed and the patient was transferred to recovery in stable condition. Please see findings and specimens below for detail. Findings:: Significant esophageal dysmotility/spasticity Moderate tortuosity of esophagus Sliding hiatal hernia unchanged Mid gastric body clip secondary to prior biopsy still in position No evidence of active/recent hemorrhage Persistent large volume food particles within gastric lumen Specimens:: None Recommendations:: Continue serial hemoglobin/hematocrit Continue proton pump enervation Consider gastric emptying scan Consider gastroenterology evaluation Follow-up Helicobacter stool antigen Complications:: No immediate Estimated blood obtained (mL): 0 Colonoscopy Component Colonoscopy Component Was a colonoscopy performed during today's procedure?: No
--- NOTE | 2024-03-10 09:00 | EXP.ANES.CKL ---
[facility] Disclaimer: The information contained in this section may have been updated after the patient was seen, as this information can be updated by other users. Medical History History of stroke CKD (chronic kidney disease) stage 2, GFR 60-89 ml/min Claudication Dehydration Acute confusion Hypertensive urgency Altered mental status Depression COVID-19 AMALIA (acute kidney injury) Anginal equivalent Dyspnea on exertion Recurrent pneumonia Pneumonia Anemia Sinus bradycardia Insomnia Hypertension Dizziness Abnormal computed tomography angiography (CTA) Right renal artery stenosis Ischemic foot pain at rest Ischemic foot Surgical History History of esophagogastroduodenoscopy (EGD) History of blepharoplasty History of hernia repair Hx of cholecystectomy History of arthroscopy of shoulder History of total hysterectomy Family History Other Cancer Social History Smoking Status: Never smoker second hand exposure: No alcohol intake: never substance use type: denies use current occupational status: retired Travel in the last 8 weeks: None household members: none housing: house current occupational exposures/hazards: No caffeine: Yes [place] Anesthesia Checklist Patient Identification Patient Identification: Arm Band and Verbal (Name & ) Structural Data Admitted From: Home Planned Operative Procedure/s: EGD Consent for Planned Operative Procedure(s) Verified: Yes Verified Documents: Surgical Consent and History and Physical NPO Status Verified Time NPO: 00:00 Additional verifications Anesthesia Reactions: No Hx Blood Transfusions: Yes Blood Transfusion Reaction: No Airway Assessment Mallampati Score:: Class II C-Spine Mobility Assessed: Yes TMJ Mobility Assessed: Yes Dentition: Dentures-poor fitting (Removed) Neurological Assessment Level of Consciousness: Awake Hx Seizures: No Numbness or tingling in extremities: No Anesthesia Plan Anesthesia Risk discussed: Yes Anesthesia Plan: Verified ASA Class: III Anesthesia Type: MAC
[2024-03-10] MEDS: LACTATED RINGERS 1000ML 1,000 ML 25 ML IV (09:05)
[2024-03-10 09:08] VITALS: O2SAT 100
[2024-03-10 09:27] VITALS: BP 106/63; PULSE 52; RESP 16; TEMP 36.2; O2SAT 99
[2024-03-10 09:37] VITALS: BP 95/39; PULSE 56; RESP 18; O2SAT 98
[2024-03-10 09:47] VITALS: BP 114/49; PULSE 54; RESP 16; O2SAT 98
[2024-03-10 09:57] VITALS: BP 128/58; PULSE 54; RESP 16; O2SAT 99
== END 2024-03-10 10:00 | disposition home or self-care (01) ==
PROVIDERS: PCP Family Medicine; Visit Provider Surgery
PROC: 0DJ08ZZ Inspection of Upper Intestinal Tract, Via Natural or Artificial Opening Endoscopic (ICD-10-PCS; CPT 43235; principal; 2024-03-10 11:30)
DX: D64.9 Anemia, unspecified (principal); A04.8 Other specified bacterial intestinal infections; K31.A0 Gastric intestinal metaplasia, unspecified; K44.9 Diaphragmatic hernia without obstruction or gangrene; Z86.018 Personal history of other benign neoplasm; K22.4 Dyskinesia of esophagus
CPT/HCPCS: 43235; J7120

== ENCOUNTER 2024-03-21 14:10 | Outpatient (CLI) | payer MEDICARE, SELFPAY ==
[2024-03-23 15:10] LABS: H. pylori Stool Ag, EIA Negative (Negative)
== END 2024-03-21 23:59 | disposition home or self-care (01) ==
LOC: LAB 14:11
PROVIDERS: PCP Family Medicine; Visit Provider Surgery
DX: R76.8 Other specified abnormal immunological findings in serum (principal); K29.70 Gastritis, unspecified, without bleeding; B96.81 Helicobacter pylori [H. pylori] as the cause of diseases classified elsewhere
CPT/HCPCS: 87338

== ENCOUNTER 2024-04-03 09:02 | Day surgery (SDC) | payer MEDICARE, SELFPAY ==
[2024-04-03 09:11] VITALS: BP 160/64; PULSE 56; RESP 18; O2SAT 98; BMI 31.5
--- NOTE | 2024-04-03 09:29 | EXP.PAIN.PRO ---
Procedure Date: 04/03/24 Time: 09:41 Anesthesiologist:: Augusta Luu APRN Complications:: None Pre-procedure Diagnosis:: Degenerative disc disease of lumbar spine with lumbar radiculopathy symptoms Post-procedure Diagnosis:: Same Indications for Procedure:: Patient is a pleasant 84-year-old female who presents today for intrathecal refill and reprogram. Today she rates her pain a 7 out of 10. She denies any new changes from her last visit. Patient is currently managed with Dilaudid 3 mg/mL with a daily dose of 0.1 to 7 mg/day. Patient denies any side effects from this medication. Her Donis has been reviewed and is appropriate. Physical Exam: General: Alert and oriented x3, no acute distress, pleasant and cooperative Lungs: Respirations even and unlabored, symmetrical chest expansion Eyes: PERRL Musculoskeletal: Flexion and extension of lumbar [spine] somewhat guarded secondary to pain, [antalgic gait noted] Neurological: Speech clear, no gross sensory deficit Procedure Details:: Informed consent was obtained and the risk and benefits of the procedure were explained to the patient. The patient was taken to the procedure room where noninvasive monitoring was placed including noninvasive blood pressure cuff and pulse oximeter. Patient's pump was interrogated. The area over the pump was cleansed with chlorhexidine as a cleansing solution. In sterile fashion the pump was accessed with a 22-gauge needle. Approximately 14.4 mls of the pump solution was removed and discarded appropriately. The pump was then refilled with 20 mL's of Dilaudid 3 mg/mL. The needle was withdrawn and a bandage was placed over the puncture site. The infusion rate was reprogrammed and continued at 0.1 to 7 mg/day. The patient tolerated well with no complication. Plan and Disposition:: Patient tolerated her intrathecal refill and reprogram with no complications and was discharged neurologically intact. Patient will return to clinic on or before her next refill date of December 26, 2024. I did service counselor the patient that we will plan on seeing her back in 3 months for her next refill however due to the fact winter is coming if it ends up being a bad day with the weather that she does have enough medication and her past that we can always reschedule her for a different date. Patient acknowledges understanding agrees with plan of care. We will see the patient back in the clinic at the next intrathecal refill. Patient has been instructed to contact the clinic with any concerns before the next appointment. Dr. Rivas has reviewed this note and agrees with this plan of care. This note was dictated using voice recognition software and make contain errors or omissions. -- It Is medically necessary for this patient to continue to have their intrathecal pump refilled at regular intervals. This patient had an intrathecal pain pump implanted after meeting criteria of chronic intractable pain for greater than 3 months and failing conservative treatments. Patient has committed and been compliant to the treatment plan and all planned follow up care. Since implantation of the intrathecal pain pump, the patient has had decreased pain and been more functional. Oral medications have been reduced including intake of oral opioids. Patient continues to do well with intrathecal therapy with decrease in pain symptoms and increase in functional status. Stopping intrathecal medications can lead to life threatening withdrawal, seizures, cardiac arrest, severe pain, and possible . Pumps that are not refilled at regular intervals can be damages and cause and need for replacement. We continually titrate dose and concentration to optimize pain relief and function. We are limited in concentration for certain drugs to safely deliver medications through the pump and stay within the recommendations from the Polyanalgesic Consensus Committee Guidelines. Depending on dose and concentration these pumps may need to be refilled sooner than 3 months as we titrate.
[2024-04-03 09:34] VITALS: BP 148/97; PULSE 61; RESP 18; O2SAT 97
[2024-04-03 09:48] VITALS: BP 133/58; PULSE 50; RESP 18; O2SAT 98
== END 2024-04-03 09:50 | disposition home or self-care (01) ==
PROVIDERS: PCP Family Medicine; Visit Provider Nurse Practitioner Family
DX: M51.16 Intervertebral disc disorders with radiculopathy, lumbar region (principal)
CPT/HCPCS: 62370

== ENCOUNTER 2024-04-22 11:14 | Outpatient (CLI) | payer MEDICARE, SELFPAY ==
[2024-04-22] MEDS: SODIUM CHLORIDE 0.9% 10ML FLUSH SYRINGE 10 ML IV (11:20)
[2024-04-22 11:27] LABS: Hematocrit 29.6 % (37.0-47.0); Hemoglobin 10.1 g/dL (12.2-16.2)
== END 2024-04-22 11:22 | disposition home or self-care (01) ==
LOC: INF 11:15
PROVIDERS: Visit Provider Surgery
DX: D50.9 Iron deficiency anemia, unspecified (principal)
CPT/HCPCS: 36591; 85014; 85018; J1642

== ENCOUNTER 2024-06-22 14:15 | Outpatient (CLI) | payer MEDICARE, SELFPAY ==
[2024-06-22 14:51] LABS: Basophils # 0.1 K/mm3 (0-0.2); Eosinophils # 0.3 K/mm3 (0.0-0.4); Eosinophils % 3.4 % (0.1-12.0); Hematocrit 26.9 % (37.0-47.0); Hemoglobin 8.6 g/dL (12.2-16.2); Lymphocytes # 1.9 K/mm3 (0.7-4.5); Lymphocytes % 23.4 % (10-50); Mean Corpuscular Hemoglobin 29.6 pg (27.0-31.2); Mean Corpuscular Volume 92.4 fl (81-99); Mean Platelet Volume 10.5 fl (7.4-10.4); Monocytes # 0.8 K/mm3 (0.1-1.0); Monocytes % 10.2 % (1.7-9.3); Neutrophils # 5.1 K/mm3 (1.8-7.8); Neutrophils % 61.8 % (37.0-80.0); Platelet Count 223 K/mm3 (142-424); Red Blood Count 2.91 M/mm3 (4.20-5.40); Red Cell Distribution Width 13.2 % (11.5-17.5); White Blood Count 8.2 K/mm3 (4.8-10.8)
[2024-06-22 14:52] LABS: Albumin Level 4.1 g/dl (3.5-5.0); Chloride 107 mmol/L (98-107)
[2024-06-22 14:53] LABS: Potassium 4.9 mmoL/L (3.5-5.1); Sodium 138 mmol/L (136-145)
[2024-06-22 14:55] LABS: Alanine Aminotransferase 16 U/L (12-78); Anion Gap 11.9 mEq/L (5-15); Aspartate Amino Transferase 23 U/L (14-36); Bilirubin,Unconjugated 0.1 mg/dL (0.0-1.1); Blood Urea Nitrogen 47 mg/dl (7-17); Carbon Dioxide 24 mmol/L (22.0-30.0); Cholesterol 138 mg/dl (140-200); Estimated Glomerular Filt Rate 13 ml/min (>60); GFR (African American) 16 ML/MIN (>60); Total Protein,Serum 6.6 g/dl (6.3-8.2); Triglycerides 107 mg/dl (30-150); VLDL Cholesterol 21 mg/dL (0-40)
[2024-06-22 14:56] LABS: Alkaline Phosphatase 63 U/L (38-126); Bilirubin,Direct 0.3 mg/dl (0.0-0.4); Bilirubin,Indirect 0.1 mg/dL (0.0-0.9); Bilirubin,Total 0.4 mg/dl (0.2-1.3); Calcium 9.5 mg/dl (8.4-10.2); Glucose 107 mg/dl (74-100); HDL Cholesterol 29 mg/dl (40-60); Magnesium 2.6 mg/dl (1.6-2.3)
[2024-06-22 14:57] LABS: Chol/HDL Ratio 4.8 (1-3.5)
[2024-06-22 15:07] LABS: Direct LDL Cholesterol 81.45 mg/dL (100-129)
[2024-06-22 15:51] LABS: Free T4 (Free Thyroxine) 0.99 ng/dl (0.78-2.19)
== END 2024-06-22 23:59 | disposition home or self-care (01) ==
LOC: LAB 14:21
PROVIDERS: PCP Family Medicine; Visit Provider Internal Medicine
DX: I10 Essential (primary) hypertension (principal); I73.9 Peripheral vascular disease, unspecified; I25.10 Atherosclerotic heart disease of native coronary artery without angina pectoris; E78.2 Mixed hyperlipidemia; I11.9 Hypertensive heart disease without heart failure; N18.30 Chronic kidney disease, stage 3 unspecified
CPT/HCPCS: 80048; 80061; 80076; 83735; 84439; 84443; 85025

== ENCOUNTER → 2024-07-07 10:25 | Day surgery (SDC) | payer MEDICARE, SELFPAY ==
[2024-07-07 10:45] VITALS: BP 185/78; PULSE 57; RESP 18; TEMP 36.6; O2SAT 99; BMI 33.5
[2024-07-07 10:59] VITALS: BP 165/77; PULSE 59; RESP 18; O2SAT 100
[2024-07-07 11:05] VITALS: BP 165/77; PULSE 59; RESP 18; O2SAT 100
--- NOTE | 2024-07-07 11:07 | P.PCN_ITS ---
Procedure Date: 07/07/24 Time: 11:00 Anesthesiologist:: Augusta Luu APRN Complications:: None Pre-procedure Diagnosis:: Degenerative disc disease of lumbar spine with lumbar radiculopathy symptoms Post-procedure Diagnosis:: Same Indications for Procedure:: Patient is a pleasant 84-year-old female who presents today for intrathecal refill and reprogram. Today she rates her pain a 1 out of 10. She states she did have a fall about 3 weeks ago where she somehow managed to trip but did not feel like she did anything substantial. Patient denies any other issues. She states that her pump is working well with its current dosage. She is currently managed with Dilaudid 3 mg/mL with a daily dose of 0.127 milligrams per day. Her Donis has been reviewed and is appropriate. Physical Exam: General: Alert and oriented x3, no acute distress, pleasant and cooperative Lungs: Respirations even and unlabored, symmetrical chest expansion Eyes: PERRL Musculoskeletal: Flexion and extension of lumbar [spine] somewhat guarded secondary to pain, [antalgic gait noted] Neurological: Speech clear, no gross sensory deficit Procedure Details:: Informed consent was obtained and the risk and benefits of the procedure were explained to the patient. The patient had noninvasive monitoring placed including noninvasive blood pressure cuff and pulse oximeter. Patient's pump was interrogated. The area over the pump was cleansed with chlorhexidine as a cleansing solution. In sterile fashion the pump was accessed with a 22-gauge needle. Approximately 15.4 mls of the pump solution was removed and discarded appropriately. The pump was then refilled with 20 mL's of Dilaudid 3 mg/mL. The needle was withdrawn and a bandage was placed over the puncture site. The infusion rate was reprogrammed and continued at current dosage. The patient andrey erated well with no complication. Plan and Disposition:: Patient tolerated the procedure well with no complications and was discharged neurologically intact. I will order the patient a compounded cream. Patient will return to clinic on or before her next refill date. We will see the patient back in the clinic at the next intrathecal refill. Roxie philippe has been instructed to contact the clinic with any concerns before the next appointment. Dr. Rivas has reviewed this note and agrees with this plan of care. This note was dictated using voice recognition software and make contain errors or omissions. -- It Is medically necessary for this patient to continue to have their intrathecal pump refilled at regular intervals. This patient had an intrathecal pain pump implanted after meeting criteria of chronic intractable pain for greater than 3 months and failing conservative treatments. Patient has committed and been compliant to the treatment plan and all planned follow up care. Since implantation of the intrathecal pain pump, the patient has had decreased pain and been more functional. Oral medications have been reduced including intake of oral opioids. Patient continues to do well with intrathecal therapy with decrease in pain symptoms and increase in functional status. Stopping intrathecal medications can lead to life threatening withdrawal, seizures, cardiac arrest, severe pain, and possible . Pumps that are not refilled at regular intervals can be damages and cause and need for replacement. We continually titrate dose and concentration to optimize pain relief and function. We are limited in concentration for certain drugs to safely deliver medications through the pump and stay within the recommendations from the Polyanalgesic Consensus Committee Guidelines. Depending on dose and concentration these pumps may need to be refilled sooner than 3 months as we titrate. A UDS is needed to verify patient's compliance with our office pain contract. This is ordered based off specific treatments related to chronic pain with the potential to abuse certain medications.
[2024-07-07 11:12] VITALS: BP 162/78; PULSE 60; RESP 16; TEMP 36.6; O2SAT 100
== END | disposition home or self-care (01) ==
PROVIDERS: PCP Family Medicine; Visit Provider Nurse Practitioner Family
DX: M51.16 Intervertebral disc disorders with radiculopathy, lumbar region (principal)
CPT/HCPCS: 62370

== ENCOUNTER 2024-09-18 14:20 | Outpatient (CLI) | payer MEDICARE, SELFPAY ==
[2024-09-18] MEDS: SODIUM CHLORIDE 0.9% 10ML FLUSH SYRINGE 10 ML IV (14:20)
[2024-09-18 14:43] LABS: Chloride 106 mmol/L (98-107); Potassium 4.3 mmoL/L (3.5-5.1); Sodium 140 mmol/L (136-145)
[2024-09-18 14:46] LABS: Alanine Aminotransferase 16 U/L (12-78); Alkaline Phosphatase 61 U/L (38-126); Aspartate Amino Transferase 18 U/L (14-36); Bilirubin,Total 0.3 mg/dl (0.2-1.3); Blood Urea Nitrogen 42 mg/dl (7-17); GFR (African American) 16 ML/MIN (>60); Iron 31 ug/dL (37-170)
[2024-09-18 14:47] LABS: Calcium 9.2 mg/dl (8.4-10.2); Glucose 129 mg/dl (74-100)
[2024-09-18 14:56] LABS: Total Iron Binding Capacity 424 ug/dL (265-497)
[2024-09-18 15:23] LABS: Ferritin 7.07 ng/ml (11.1-264)
[2024-09-18 15:29] LABS: Triiodothryronine (T3) Uptake 31 % (23.5-40.5)
[2024-09-18 15:43] LABS: Thyroid Stimulating Hormone 7.68 uIU/mL (0.465-4.68)
[2024-09-18 17:24] LABS: Free Thyroxine Index 2.6 ug/dL (5.93-13.13); T4 (Thyroxine) 8.4 ug/dl (5.53-11.0)
[2024-09-18 17:41] LABS: Basophils # 0.1 K/mm3 (0-0.2); Basophils % 0.8 % (0.1-2.0); Eosinophils # 0.2 K/mm3 (0.0-0.4); Eosinophils % 2.7 % (0.1-12.0); Hematocrit 21.6 % (37.0-47.0); Lymphocytes % 21.8 % (10-50); Mean Corpuscular HGB Conc 29.2 g/dL (31.8-35.4); Mean Corpuscular Hemoglobin 23.1 pg (27.0-31.2); Mean Corpuscular Volume 79.1 fl (81-99); Mean Platelet Volume 11.2 fl (7.4-10.4); Monocytes # 0.8 K/mm3 (0.1-1.0); Monocytes % 9.3 % (1.7-9.3); Neutrophils # 5.8 K/mm3 (1.8-7.8); Neutrophils % 65.1 % (37.0-80.0); Nucleated Red Blood Cells # 0 10^3/uL; Nucleated Red Blood Cells % 0 %; Platelet Count 291 K/mm3 (142-424); Red Blood Count 2.73 M/mm3 (4.20-5.40); Red Cell Distribution Width 15.3 % (11.5-17.5); Red Cell Distribution Width-SD 44.2 fL; White Blood Count 8.9 K/mm3 (4.8-10.8)
[2024-09-18 17:51] LABS: Hemoglobin 6.3 g/dL (12.2-16.2)
[2024-09-18 18:20] LABS: Estimated Glomerular Filt Rate 13 ml/min (>60)
[2024-09-18 18:21] LABS: Albumin Level 3.9 g/dl (3.5-5.0); Albumin/Globulin Ratio 1.3 (1.1-1.8); Anion Gap 14.3 mEq/L (5-15); Carbon Dioxide 24 mmol/L (22.0-30.0); Globulin 3.1 g/dL (1.3-3.2)
== END 2024-09-18 14:25 | disposition home or self-care (01) ==
LOC: INF 14:21
PROVIDERS: PCP Family Medicine; Visit Provider Family Medicine
DX: R60.0 Localized edema (principal); D50.9 Iron deficiency anemia, unspecified; I10 Essential (primary) hypertension; N18.4 Chronic kidney disease, stage 4 (severe)
CPT/HCPCS: 36591; 80053; 82728; 83540; 83550; 84436; 84443; 84479; 85025; J1642

== ENCOUNTER 2024-09-21 09:31 | Outpatient (CLI) | payer MEDICARE, SELFPAY ==
[2024-09-21] VITALS (20 sets, daily range): BP systolic 108–152; BP diastolic 47–77; PULSE 50–66; RESP 18; TEMP -7.7–36.8; O2SAT 97–99; BMI 30.9
[2024-09-21] MEDS: 0.9 % SODIUM CHLORIDE 250 ML 25 ML IV (10:10)
[2024-09-21 14:31] LABS: Hematocrit 22.6 % (37.0-47.0)
[2024-09-21 14:34] LABS: Hemoglobin 6.8 g/dL (12.2-16.2)
[2024-09-21] MEDS: SODIUM CHLORIDE 0.9% 10ML FLUSH SYRINGE 10 ML IV (18:18)
[2024-09-21 18:25] LABS: Hematocrit 29.3 % (37.0-47.0)
[2024-09-21 20:10] LABS: Hemoglobin 9.3 g/dL (12.2-16.2)
== END 2024-09-21 18:20 | disposition home or self-care (01) ==
LOC: INF 09:31
PROVIDERS: PCP Family Medicine; Visit Provider Family Medicine
DX: D64.9 Anemia, unspecified (principal)
CPT/HCPCS: 36430; 85014; 85018; 86850; J1642; P9016

== ENCOUNTER 2024-09-28 13:40 | Outpatient (CLI) | payer MEDICARE, SELFPAY ==
[2024-09-28 14:20] LABS: Basophils # 0.1 K/mm3 (0-0.2); Basophils % 0.9 % (0.1-2.0); Eosinophils # 0.2 Kmm3 (0.0-0.4); Eosinophils % 2.7 % (0.1-12.0); Hematocrit 30.3 % (37.0-47.0); Hemoglobin 9.1 g/dL (12.2-16.2); Lymphocytes # 1.8 K/mm3 (0.7-4.5); Lymphocytes % 23.8 % (10-50); Mean Corpuscular Hemoglobin 24.7 pg (27.0-31.2); Mean Corpuscular Volume 82.3 fl (81-99); Monocytes # 0.8 K/mm3 (0.1-1.0); Monocytes % 10.9 % (1.7-9.3); Neutrophils # 4.6 K/mm3 (1.8-7.8); Neutrophils % 61.2 % (37.0-80.0); Nucleated Red Blood Cells # 0 10^3/uL; Nucleated Red Blood Cells % 0 %; Platelet Count 233 K/mm3 (142-424); Red Blood Count 3.68 M/mm3 (4.20-5.40); Red Cell Distribution Width 17.6 % (11.5-17.5); Red Cell Distribution Width-SD 53.1 fL; White Blood Count 7.5 K/mm3 (4.8-10.8)
[2024-09-28 15:59] LABS: Reticulocyte % (Auto) 0.8 % (0.9-3.2)
[2024-10-02 08:17] VITALS: BMI 25.6
== END 2024-09-28 23:59 | disposition home or self-care (01) ==
PROVIDERS: PCP Family Medicine; Visit Provider Family Medicine
DX: D50.9 Iron deficiency anemia, unspecified (principal)
CPT/HCPCS: 85025; 85044; J1642

== ENCOUNTER 2024-10-02 10:55 | Day surgery (SDC) | payer MEDICARE, SELFPAY ==
[2024-10-02 11:06] VITALS: BP 157/57; PULSE 51; RESP 16; TEMP 37; O2SAT 97; BMI 30.9
--- NOTE | 2024-10-02 11:11 | P.HP_ITS ---
History of Present Illness *Admission Date: 10/02/24 *Reason for visit:: Intrathecal refill; DDD *History of present illness: Degenerative disc disease, chronic back pain PFSH [facility] Disclaimer: The information contained in this section may have been updated after the patient was seen, as this information can be updated by other users. Medical History History of stroke CKD (chronic kidney disease) stage 2, GFR 60-89 ml/min Claudication Dehydration Acute confusion Hypertensive urgency Altered mental status Depression COVID-19 AMALIA (acute kidney injury) Anginal equivalent Dyspnea on exertion Recurrent pneumonia Pneumonia Anemia Sinus bradycardia Insomnia Hypertension Dizziness Abnormal computed tomography angiography (CTA) Right renal artery stenosis Ischemic foot pain at rest Ischemic foot Surgical History History of esophagogastroduodenoscopy (EGD) History of blepharoplasty History of hernia repair Hx of cholecystectomy History of arthroscopy of shoulder History of total hysterectomy Family History Other Cancer Social History Smoking Status: Never smoker second hand exposure: No alcohol intake: never substance use type: denies use current occupational status: retired Travel in the last 8 weeks: None household members: none housing: house current occupational exposures/hazards: No caffeine: Yes Have you lived/traveled outside [place] in past 30 days?: No Contact w/someone who lives/traveled outside US past 30 days?: No Exposure to someone with infectious disease in past 14 days?: No Do you have a fever (greater than 100.4 F or 38 C)?: No Have you tested positive for COVID-19: No Exposed to someone with COVID-19 in past 14 days?: No Do you have a sore throat?: No Do you have a cough?: No Do you have any weakness?: No Do you have any diarrhea?: No Are you experiencing any unusual bleeding?: No Do you have any muscle aches/pain?: No Do you have any abdominal pain?: No Are you experiencing loss of taste or smell?: No Other Medical History Have you received the Flu Vaccine for this season: No Have you received the Pneumonia Vaccine: No Review of Systems Review of Systems Review of systems:: pertinent systems reviewed and negative unless documented below Review of systems (narrative): Review of Systems: General: No recent weight changes, no fever, no sleep disturbances Respiratory: No cough, no shortness of air, no recurring pulmonary infections Cardiovascular/peripheral vascular: No chest pain, no palpitations, no edema, no shortness of breath Gastrointestinal: No new onset incontinence, normal bowel movements reported Genitourinary: No new onset incontinence Musculoskeletal: Chronic back pain Psychiatric: [Normal mood/affect] Neurological: [Denies weakness in extremities], [denies balance issues] Constitutional Constitutional: Reports system reviewed and no additional complaints, except as documented Meds Home Medications and Allergies Home Medications ?Medication ?Instructions ?Recorded ?Confirmed ?Type cholecalciferol (vitamin D3) 1,250 50,000 unit PO MONTHLY Supplement 08/16/23 10/02/24 History mcg (50,000 unit) capsule losartan 25 mg tablet 25 mg PO DAILY #90 tabs 12/19/23 10/02/24 Rx amlodipine 10 mg tablet 10 mg PO DAILY 01/08/24 10/02/24 History isosorbide mononitrate 60 mg 60 mg PO DAILY 01/08/24 10/02/24 History tablet,extended release 24 hr pantoprazole 40 mg tablet,delayed 40 mg PO ONCE #90 tabs 03/18/24 10/02/24 Rx release dapagliflozin propanediol 5 mg See Rx Instructions .Route 06/22/24 10/02/24 Rx tablet (Farxiga) .COMPLEX #90 tabs zolpidem 5 mg tablet 5 mg PO HS #90 tabs 06/22/24 10/02/24 Rx Synthroid 75 mcg tablet 75 mcg PO DAILY #30 tabs 09/18/24 10/02/24 Rx (levothyroxine) chlorthalidone 25 mg tablet 25 mg PO DAILY #30 tabs 09/18/24 10/02/24 Rx spironolactone 25 mg tablet 25 mg PO DAILY #90 tabs 09/18/24 10/02/24 Rx ferrous sulfate 325 mg (65 mg 325 mg PO DAILY #30 tabs 09/21/24 10/02/24 Rx iron) tablet (Feosol) atorvastatin 40 mg tablet See Rx Instructions .Route 09/22/24 10/02/24 Rx .COMPLEX #90 tabs ezetimibe 10 mg tablet See Rx Instructions .Route 09/22/24 10/02/24 Rx .COMPLEX #90 tabs hydroxychloroquine 200 mg tablet See Rx Instructions .Route 09/22/24 10/02/24 Rx .COMPLEX #180 tabs metoprolol succinate 100 mg See Rx Instructions .Route 09/22/24 10/02/24 Rx tablet,extended release 24 hr .COMPLEX #90 tabs New Prescriptions to Start Prescriptions: Allergies Allergy/AdvReac Type Severity Reaction Status Date / Time morphine Allergy Intermediate Unknown Verified 09/30/24 13:50 allergy reaction Exam Data for Last 24 hours Vital signs and Labs for Last 24 Hours: Temp Pulse Resp BP Pulse Ox O2 Del Method 98.6 F 51 L 16 157/57 H 97 Room Air 10/02/24 11:06 10/02/24 11:06 10/02/24 11:06 10/02/24 11:06 10/02/24 11:06 10/02/24 11:06 I & O for Last 24 hours: Intake & Output 09/29/24 09/30/24 10/01/24 10/02/24 23:59 23:59 23:59 23:59 Weight 175 lb Constitutional Constitutional: no acute distress *Routine HEENT Exam Head: Present normocephalic and atraumatic Eye: Present PERRL ENT: Present mucous membranes moist *Routine Neck Exam Neck: Present supple *Routine Respiratory Exam Respiratory: Present CTA bilaterally *Routine Cardiovascular Exam Cardiovascular: Present RRR *Routine Abdominal Exam Abdominal: Present soft *Routine Rectal Exam Rectal:: deferred *Routine Genitalia Exam Genitalia:: normal female Routine Back/Spine/Pelvis Exam Back/Spine: Present pain with flexion *Routine Skin Exam Skin: Present intact *Routine Neurological Exam Neurological: Present alert and oriented X3 Assessment and Plan *Assessment and plan (1) Chronic pain syndrome: Status: Acute Category: Medical Code(s): G89.4 - Chronic pain syndrome Plan Patient has been instructed to contact the clinic with any concerns before the next appointment. Dr. Rivas has reviewed this note and agrees with this plan of care. This note was dictated using voice recognition software and make contain errors or omissions. All injections are used with Lidocaine, Bupivacaine and dexamethasone. Occasionally urine drug screen is needed to verify patient's compliance with our office pain contract. This is ordered based off specific treatments related to chronic pain with the potential to abuse certain medications.
--- NOTE | 2024-10-02 11:20 | EXP.PAIN.PRO ---
Procedure Date: 10/02/24 Time: 11:47 Anesthesiologist:: Augusta Luu APRN Complications:: None Pre-procedure Diagnosis:: Degenerative disc disease of lumbar spine, chronic pain syndrome Post-procedure Diagnosis:: Same Indications for Procedure:: Patient is a pleasant 84-year-old female who presents today for intrathecal refill and reprogram. Today she rates her pain a 2 out of 10. She denies any new trauma or injury. She is currently managed with intrathecal Dilaudid 3 mg/mL with a daily dose of 0.127 mg/day. She denies any side effects. Her Donis has been reviewed and is appropriate. Physical Exam: General: Alert and oriented x3, no acute distress, pleasant and cooperative Lungs: Respirations even and unlabored, symmetrical chest expansion Eyes: PERRL Musculoskeletal: Flexion and extension of lumbar [spine] somewhat guarded secondary to pain, [antalgic gait noted] Neurological: Speech clear, no gross sensory deficit Procedure Details:: Informed consent was obtained and the risk and benefits of the procedure were explained to the patient. The patient had noninvasive monitoring placed including noninvasive blood pressure cuff and pulse oximeter. Patient's pump was interrogated. The area over the pump was cleansed with chlorhexidine as a cleansing solution. In sterile fashion the pump was accessed with a 22-gauge needle. Approximately 15.5 mls of the pump solution was removed and discarded appropriately. The pump was then refilled with 20 mL's of Dilaudid 3 mg/mL. The needle was withdrawn and a bandage was placed over the puncture site. The infusion rate was reprogrammed and continued at its current dosage. The patient tolerated well with no complication. Plan and Disposition:: Patient tolerated the procedure well with no complications and was discharged neurologically intact. Patient will return to clinic on or before their next intrathecal refill date. We will see the patient back in the clinic at the next intrathecal refill. Patient has been instructed to contact the clinic with any concerns before the next appointment. Dr. Rivas has reviewed this note and agrees with this plan of care. This note was dictated using voice recognition software and make contain errors or omissions. -- It Is medically necessary for this patient to continue to have their intrathecal pump refilled at regular intervals. This patient had an intrathecal pain pump implanted after meeting criteria of chronic intractable pain for greater than 3 months and failing conservative treatments. Patient has committed and been compliant to the treatment plan and all planned follow up care. Since implantation of the intrathecal pain pump, the patient has had decreased pain and been more functional. Oral medications have been reduced including intake of oral opioids. Patient continues to do well with intrathecal therapy with decrease in pain symptoms and increase in functional status. Stopping intrathecal medications can lead to life threatening withdrawal, seizures, cardiac arrest, severe pain, and possible . Pumps that are not refilled at regular intervals can be damages and cause and need for replacement. We continually titrate dose and concentration to optimize pain relief and function. We are limited in concentration for certain drugs to safely deliver medications through the pump and stay within the recommendations from the Polyanalgesic Consensus Committee Guidelines. Depending on dose and concentration these pumps may need to be refilled sooner than 3 months as we titrate. A UDS is needed to verify patient's compliance with our office pain contract. This is ordered based off specific treatments related to chronic pain with the potential to abuse certain medications.
[2024-10-02 11:43] VITALS: BP 151/51; PULSE 52; RESP 18; O2SAT 96
[2024-10-02 11:45] VITALS: BP 151/51; PULSE 51; RESP 18; O2SAT 98
[2024-10-02 11:54] VITALS: BP 129/61; PULSE 50; RESP 16; O2SAT 99
== END 2024-10-02 11:54 | disposition home or self-care (01) ==
PROVIDERS: PCP Family Medicine; Visit Provider Nurse Practitioner Family
DX: G89.4 Chronic pain syndrome (principal); M51.369 Other intervertebral disc degeneration, lumbar region without mention of lumbar back pain or lower extremity pain
CPT/HCPCS: 62370; 99221

== ENCOUNTER 2024-10-20 12:27 | Outpatient (CLI) | payer MEDICARE, SELFPAY ==
[2024-10-20] MEDS: ferumoxytoL 510 MG in 0.9 % SODIUM CHLORIDE 50 ML 268 MG IV (12:44)
[2024-10-20] MEDS: SODIUM CHLORIDE 0.9% 50ML BAG 50 ML IV (12:44)
[2024-10-20 12:46] VITALS: BP 150/70; PULSE 57; RESP 18; O2SAT 96
[2024-10-20] MEDS: SODIUM CHLORIDE 0.9% 10ML FLUSH SYRINGE 10 ML IV (13:10)
[2024-10-20 13:13] VITALS: BP 147/87; PULSE 66; RESP 18; O2SAT 97
== END 2024-10-20 13:13 | disposition home or self-care (01) ==
LOC: INF 12:28
PROVIDERS: PCP Family Medicine; Visit Provider Internal Medicine Medical Oncology
DX: D50.9 Iron deficiency anemia, unspecified (principal)
CPT/HCPCS: 96374; J1642; Q0138

== ENCOUNTER 2024-10-27 12:16 | Outpatient (CLI) | payer MEDICARE, SELFPAY ==
[2024-10-27 12:20] VITALS: BMI 29.7
[2024-10-27 12:30] VITALS: BP 153/66; PULSE 60; RESP 18; O2SAT 95
[2024-10-27] MEDS: ferumoxytoL 510 MG in 0.9 % SODIUM CHLORIDE 50 ML 268 MG IV (12:30)
[2024-10-27] MEDS: SODIUM CHLORIDE 0.9% 50ML BAG 50 ML IV (12:30)
[2024-10-27 12:36] LABS: Basophils # 0.1 K/mm3 (0-0.2); Eosinophils # 0.2 Kmm3 (0.0-0.4); Hematocrit 28.9 % (37.0-47.0); Hemoglobin 8.9 g/dL (12.2-16.2); Immature Granulocytes # 0.05 10^3uL; Immature Granulocytes % 0.7 %; Lymphocytes # 1.6 K/mm3 (0.7-4.5); Lymphocytes % 23.1 % (10-50); Mean Corpuscular HGB Conc 30.8 g/dL (31.8-35.4); Mean Corpuscular Hemoglobin 26.2 pg (27.0-31.2); Mean Platelet Volume 10.7 fl (7.4-10.4); Monocytes # 0.7 K/mm3 (0.1-1.0); Monocytes % 10.1 % (1.7-9.3); Neutrophils # 4.4 K/mm3 (1.8-7.8); Neutrophils % 62.1 % (37.0-80.0); Nucleated Red Blood Cells # 0 10^3/uL; Nucleated Red Blood Cells % 0 %; Platelet Count 182 K/mm3 (142-424); Red Cell Distribution Width 20.7 % (11.5-17.5); Red Cell Distribution Width-SD 63.9 fL
[2024-10-27 12:50] VITALS: BP 147/74; PULSE 61; RESP 18; O2SAT 96
[2024-10-27] MEDS: SODIUM CHLORIDE 0.9% 10ML FLUSH SYRINGE 10 ML IV (12:50)
== END 2024-10-27 12:50 | disposition home or self-care (01) ==
LOC: INF 12:17
PROVIDERS: PCP Family Medicine; Visit Provider Internal Medicine Medical Oncology
DX: D50.9 Iron deficiency anemia, unspecified (principal)
CPT/HCPCS: 85025; 96374; J1642; Q0138

== ENCOUNTER 2024-11-30 13:43 | Outpatient (CLI) | payer MEDICARE, SELFPAY ==
--- OUTSIDE RECORDS SUMMARY | 2024-11-30 13:54 | XMS_ITS | Clinical Summary ---
Author Organization [facility] Address [address] [place] [address] Phone Care Team Providers Care Weekend Anchor Name Role Phone Moise Hraris MD, [facility] Primary Care Provid er Allergies No known active allergies Medications No known medications Social History Tobacco Use Types Packs/Day Years Used Date Smoking Tobacco: Never Assessed Comments Unknown Sex and Gender Information Value Date Recorded Sex Assigned at Not on file Legal Sex Female 10:02 AM EDT Gender Identity Not on file Sexual Orientation Not on file Last Filed Vital Signs Vital Sign Reading Time Taken Comments Blood Pressure - - Pulse 72 01/08/2013 9:08 AM EDT Temperature 36.6 C (97.9 F) 01/08/2013 9:08 AM EDT Respiratory Rate - - Oxygen Saturation - - Inhaled Oxygen Concentration - - Weight - - Height - - Body Mass Index - - Plan of Treatment Health Maintenance Due Date Last Done Comments Wellness Exam Medicare 1943 DTaP/TDaP/Td (1 - Tdap) 1961 Pneumococcal Vaccine 50+ (1 of 1 - PCV) 1992 Zoster (1 of 2) 1992 Bone Density Screening 2007 RSV or 60+ (1 - 1-d ose 75+ series) 2017 COVID-19 Vaccine ( - 2023-2 5 season) 2024 Influenza Vaccine (Season Ended) 2025 Hepatitis B Vaccine Aged Out No longe r eligible based on patient's age to complete this topic Meningococcal B Vaccine Aged Out No l onger eligible based on patient's age to complete this topic Insurance Care Teams Weekend Anchor Relationship Specialty Start Date End Date Vinayak Phipps Sr., MD [address] [place] [address] [id number] PCP - General Finger Buff Sewer 12/15/12
--- OUTSIDE RECORDS SUMMARY | 2024-11-30 13:54 | XMS_ITS | Clinical Summary ---
Author Organization Healthcare Address [address] [place] [address] Care Team Providers Care Electrician Substation Name Role Phone Marge Jovel DIRECTOR OF PURCHASING Primary Care Provider [phone] Allergies Active Allergy Reactions Criticality Noted Date Comments Morphine Unknown - Patient st ates they do not know rxn details Low 06/11/2023 Pentoxifylline Rash Low 11/25/2018 Medications cholecalciferol (Vitamin D3) 1.25 MG (16952 UT) capsule Take 1 capsule (50,000 Units) by mouth every 30 (thirty) days. Active dapagliflozin (Farxiga) 5 MG tablet Take 1 tablet (5 mg) by mouth daily. Active fluticasone-salme terol (Advair Diskus) 250-50 MCG/ACT diskus inhaler Inhale 1 puff 2 (two) times a day. Rinse mouth with water after use to reduce aftertaste and incidence of candidiasis. Do not swallow. Active hydroxychloroquin e (Plaquenil) 200 MG tablet Take by mouth. Activ e metoprolol succinate XL (Toprol-XL) 100 MG 24 hr tablet Take 1 tablet (100 mg) by mouth daily. Do not crush or chew. Active ezetimibe (Zetia) 10 MG tablet 4 Active atorvastatin (Lipitor) 40 MG tablet 1 tablet (40 mg). 4 Active isosorbide mononitrate ER (Imdur) 60 MG 24 hr tablet Take 1 tablet (60 mg) by mouth daily. 4 Active pantoprazole (Protonix) 40 MG EC tablet Take 1 tablet (40 mg) by mouth daily. 4 Active levothyroxine (Synthroid, Levoxyl) 50 MCG tablet Take 1 tablet (50 mcg) by mouth daily. 4 Active zolpidem (Ambien) 5 MG tablet 4 Active amLODIPine (Norvasc) 10 MG tablet Take 1 tablet (10 mg) by mouth 2 (two) times a day. 180 tablet 3 4 02/12/20 25 Active chlorthalidone (Hygroton) 25 MG tabletIndications :Essential hypertension Take 1 tablet (25 mg) by mouth 1 (one) time each day. 90 tablet 3 4 02/12/20 25 Active losartan (Cozaar) 25 MG tablet Take 1 tablet (25 mg) by mouth 1 (one) time each day. 90 tablet 3 4 02/12/20 25 Active spironolactone (Aldactone) 25 MG tablet Take 1 tablet (25 mg) by mouth 1 (one) time each day. 90 each 3 4 02/12/20 25 Active Active Problems Problem Noted Date Diagnosed Date CKD (chronic kidney disease) stage 4, GFR 15-29 ml/min 02/12/2024 Iron deficiency anemia 06/13/2023 Immunizations Immunization Administration Dates Next Due TD (adult), 2 Lf tetanus tox oid, preservative free, adsorbed 08/13/1996 Family History Medical History Relation Name Comments No Known Problems Father Asthma Mother Relation Name Status Comments Father Mother Social History Tobacco Use Types Packs/Day Years Used Date Smoking Tobacco: Former Cigarettes Passive Smoke Exposure: Past Smokeless Tobacco: Never Tobacco Cessation:Counseling Given: Not Answered Alcohol Use Standard Drinks/Week Comments Never 0 (1 standard drink = 0.6 oz pur e alcohol) PHQ-2 Answer Date Recorded Patient Health Questionnaire-2 Score 0 02/12/2024 Comments No Sex and Gender Information Value Date Recorded Sex Assigned at Not on file Legal Sex Female 6:11 PM EDT Gender Identity Not on file Sexual Orientation Not on file Last Filed Vital Signs Vital Sign Reading Time Taken Comments Blood Pressure 172/62 08/07/2024 11:52 AM EST first attempt 177/70 Pulse 64 08/07/2024 11:52 AM EST Temperature 36.1 C (96.9 F) 02/12/2024 12:36 PM EDT Respiratory Rate 16 08/07/2024 11:5 2 AM EST Oxygen Saturation 99% 08/07/2024 11: 52 AM EST Inhaled Oxygen Concentration - - Weight 80.7 kg (178 lb) 08/07/2024 11:5 2 AM EST Height 160 cm (5' 3 ) 08/07/2024 11:52 AM EST Body Mass Index 31.53 08/07/2024 11:52 AM EST Plan of Treatment Upcoming Encounters Date Type Department Care Team (Late st Contact Info) Description 12/04/2024 10:20 AM EDT Office Visit [facility] [address] [place] [address] Fabi Tinajero, SWAPNIL [address] [address] Health Maintenance Due Date Last Done Comments UKY-Bone Density Scan 1942 UKY-Medicare Annual Wellness (AWV) 1942 UKY-Infant/Child/Adol SDOH Screenings 1942 [id number] Vaccine (#1) 1947 UKY- SDOH Screenings 1960 UKY-Adult SDOH Screenings 1960 UKY-Pneumococcal Vaccine: 50+ Years (1 of 1 - PCV) 1992 UKY-Zoster Vaccines (1 of 2) 1992 UKY-DTaP,Tdap,and Td Vaccines (1 - Tdap) 08/14/1996 08/13/1996 UKY-RSV Vaccine: 60+ Years or (1 - 1-dose 75+ series) 2017 UKY-Influenza Vaccine (Season Ended) 2025 UKY-Depression Screening 02/11/2025 02/12/2024 UKY-Obesity Intervention Completed 025, 02/12/2024, 01/10/2024, Additional history exists HPV Vaccines Aged Out No longer eligi ble based on patient's age to complete this topic UKY-HIB Vaccines Aged Out No longer e ligible based on patient's age to complete this topic UKY-Hepatitis A Vaccines Aged Out No longer eligible based on patient's age to complete this topic UKY-IPV Vaccines Aged Out No longer e ligible based on patient's age to complete this topic UKY-Rotavirus Vaccines Aged Out No lo nger eligible based on patient's age to complete this topic Insurance [facility] Care Teams Electrician Substation Relationship Specialty Start Date End Date Marge Jovel APRN [address] [facility] [place] [address] PCP - General 01/10/24
--- OUTSIDE RECORDS SUMMARY | 2024-11-30 13:54 | XMS_ITS | Encounter Summary ---
Author Organization Healthcare Address [address] [place] [address] Care Team Providers Care Marketing Compliance Manager Name Role Phone David Disla MD Primary Care Provider [phone] Marge Jovel APRN Primary Care Provider [phone] Reason for Visit * Reason Comments Med Refill Encounter Details Date Type Department Care Team (Late st Contact Info) Description 12/16/2023 Refill [facility] [address] [place] [address] Alyce Lira MD [address] [address] Essential hypertension Social History Tobacco Use Types Packs/Day Years Used Date Smoking Tobacco: Former Cigarettes Passive Smoke Exposure: Past Smokeless Tobacco: Never Alcohol Use Standard Drinks/Week Comments Never 0 (1 standard drink = 0.6 oz pur e alcohol) PHQ-2 Answer Date Recorded Patient Health Questionnaire-2 Score 0 10/14/2023 Comments No Sex and Gender Information Value Date Recorded Sex Assigned at Not on file Legal Sex Female 6:11 PM EDT Gender Identity Not on file Sexual Orientation Not on file documented as of this encounter Plan of Treatment Upcoming Encounters Date Type Department Care Team (Late st Contact Info) Description 12/04/2024 10:20 AM EDT Office Visit [facility] [address] [place] [address] Fabi Tinajero APRN [address] [phone] documented as of this encounter Visit Diagnoses Diagnosis Essential hypertension Unspecified essential hypertension documented in this encounter Additional Health Concerns Assessment Noted Time A fall risk assessment has been complete d for the patient 10/14/2023 3:37 PM EDT A Body Mass Index follow-up plan has been documented for the patient 10/23/2023 11:27 AM EDT documented as of this encounter Care Teams Marketing Compliance Manager Relationship Specialty Start Date End Date David Disla MD [address] [place] [address] PCP - General 10/21/20 01/09/24 Marge Jovel APRN [address] [place] [address] PCP - General 01/10/24 documented as of this encounter
[2024-11-30] MEDS: SODIUM CHLORIDE 0.9% 10ML FLUSH SYRINGE 10 ML IV (14:17)
[2024-11-30 14:23] LABS: Microscopic, Urine URINE MICROSCOPIC (MICROSCOPIC)
[2024-11-30 14:25] LABS: Appearance,Urine CLEAR (Clear); Bilirubin,Urine Negative (Negative); Blood, Urine Negative (Negative); Color,Urine YELLOW (Yellow); Glucose,Urine (UA) 2+ (Negative); Ketones,Urine Negative (Negative); Leukocyte Esterase,Urine Negative (Negative); Nitrate,Urine Negative (Negative); Protein,Urine Negative (Negative); Urobilinogen,Urine 0.2 EU/dl (0.2)
[2024-11-30 14:34] LABS: Albumin Level 3.8 g/dl (3.5-5.0); Chloride 105 mmol/L (98-107); Potassium 4.1 mmoL/L (3.5-5.1); Sodium 140 mmol/L (136-145)
[2024-11-30 14:35] LABS: Creatinine,Urine Random 81 mg/dL (Not Estab.)
[2024-11-30 14:37] LABS: Anion Gap 13.1 mEq/L (5-15); Blood Urea Nitrogen 46 mg/dl (7-17); Calcium 9.2 mg/dl (8.4-10.2); Carbon Dioxide 26 mmol/L (22.0-30.0); Estimated Glomerular Filt Rate 14 ml/min (>60); GFR (African American) 17 ML/MIN (>60); Glucose 114 mg/dl (74-100); Iron 88 ug/dL (37-170); Phosphorous 3.8 mg/dl (2.5-4.5)
[2024-11-30 14:46] LABS: Total Iron Binding Capacity 273 ug/dL (265-497)
[2024-11-30 14:56] LABS: Bacteria,Urine 2+ /lpf
[2024-11-30 15:02] LABS: Basophils # 0.1 K/mm3 (0-0.2); Basophils % 0.8 % (0.1-2.0); Eosinophils # 0.2 Kmm3 (0.0-0.4); Eosinophils % 3.2 % (0.1-12.0); Hematocrit 29.2 % (37.0-47.0); Hemoglobin 9.2 g/dL (12.2-16.2); Immature Granulocytes # 0.03 10^3uL; Immature Granulocytes % 0.5 %; Lymphocytes # 1.4 K/mm3 (0.7-4.5); Mean Corpuscular HGB Conc 31.5 g/dL (31.8-35.4); Mean Corpuscular Hemoglobin 28.1 pg (27.0-31.2); Mean Corpuscular Volume 89.3 fl (81-99); Mean Platelet Volume 11.1 fl (7.4-10.4); Monocytes # 0.6 K/mm3 (0.1-1.0); Neutrophils # 3.8 K/mm3 (1.8-7.8); Neutrophils % 62.5 % (37.0-80.0); Nucleated Red Blood Cells # 0 10^3/uL; Nucleated Red Blood Cells % 0 %; Platelet Count 181 K/mm3 (142-424); Red Blood Count 3.27 M/mm3 (4.20-5.40); Red Cell Distribution Width 19.1 % (11.5-17.5); Red Cell Distribution Width-SD 63.1 fL
[2024-11-30 15:15] LABS: Ferritin 160 ng/ml (11.1-264)
[2024-11-30 15:45] LABS: Intact Parathyroid Hormone 89.7 pg/mL (7.5-53.5)
[2024-12-05 18:16] LABS: 1,25 Dihydroxy Vitamin D 13 pg/mL (.); 1,25-Dihydroxy, Vitamin D-2 <10 pg/mL (.); 1,25-Dihydroxy, Vitamin D-3 12 pg/mL (.)
== END 2024-11-30 14:25 | disposition home or self-care (01) ==
LOC: INF 13:44
PROVIDERS: PCP Family Medicine; Visit Provider Nurse Practitioner
DX: N18.4 Chronic kidney disease, stage 4 (severe) (principal); N39.0 Urinary tract infection, site not specified; B96.89 Other specified bacterial agents as the cause of diseases classified elsewhere
CPT/HCPCS: 36591; 80069; 81001; 82570; 82652; 82728; 83540; 83550; 83970; 84156; 85025; 87086; 87088; 87186; J1642

== ENCOUNTER 2025-01-04 13:15 | Outpatient (CLI) | payer MEDICARE, SELFPAY ==
--- OUTSIDE RECORDS SUMMARY | 2024-12-04 10:20 | XMS_ITS | Encounter Summary ---
Author Organization Healthcare Address [address] [place] [address] Care Team Providers Care Psychologist Personnel Name Role Phone Marge Jovel APRN Primary Care Provider [phone] Reason for Referral * Consultation (Routine) - Authorized Specialty Diagnoses / Procedures Referred By Rocio t Referred To Contact Diagnoses CKD (chronic kidney disease) stage 4, GFR 15-29 ml/min (CMS/HCC) Fabi Tinajero APRN [address] [address] Phone: tel: fax: Referral ID Status Reason Start Date Expiration Date V isits Requested Visits Authorized [id number] Authorized 12/04/2024 06/05/2026 1 1 Reason for Visit * Reason Comments Follow-up Pt is a 84 year old female that presents to the clinic on this date for a follow up for Ckd. Encounter Details Date Type Department Care Team (Late st Contact Info) Description 12/04/2024 10:20 AM EDT Office Visit [facility] [address] [place] [phone] Fabi Tinajero APRN [address] [address] CKD (chronic kidney disease) stage 4, GFR 15-29 ml/min (CMS/HCC) (Primary Dx); Other iron deficiency anemia; Essential hypertension; Chronic kidney disease-mineral and bone disorder Social History Tobacco Use Types Packs/Day Years [...] on file documented as of this encounter Last Filed Vital Signs Vital Sign Reading Time Taken Comments Blood Pressure 138/88 12/04/2024 10:27 AM EDT Pulse 74 12/04/2024 10:27 AM EDT Temperature - - Respiratory Rate 16 12/04/2024 10:27 AM EDT Oxygen Saturation 92% 12/04/2024 10:27 AM EDT Inhaled Oxygen Concentration - - Weight 77.6 kg (171 lb) 12/04/2024 10:27 AM EDT Height 160 cm (5' 3 ) 12/04/2024 10:27 AM EDT Body Mass Index 30.29 12/04/2024 10:27 AM EDT documented in this encounter Miscellaneous Notes * Progress Notes - Fabi Tinajero APRN - 12/04/2024 10:20 AM EDT SUBJECTIVE Kim Gandhi is a 84 y.o. female who presents for follow-up of CKD 4. She reports she is doing okay since her last visit. Blood pressure above goal in clinic today, but notes it has been stable at home. Denies hematuria, dysuria, abd pain, SOA, CP. OBJECTIVE Vitals: 12/04/24 1027 BP: 138/88 Pulse: 74 Resp: 16 SpO2: 92% PHYSICAL EXAMINATION Gen: NAD, elderly HEENT: AT/NC, EOMI, MMM Neck: trachea midline, supple Skin: warm, dry CV: RRR, b/l LLE pedal Pulm: no increased work of breathing, symmetric chest expansion, good inspiratory/expiratory effort GI: abd soft, ND Neuro: alert, interactive, cortical function grossly intact LAB RESULTS Outside labs reviewed. ASSESSMENT/PLAN 84 yo F with PMH of iron def anemia, HTN, renal artery stenosis with stenting, ?SLE on hydroxychloroquine who has been referred to renal clinic for evaluation of CKD 4/5. - CKD 4/5: suspect related to HTN and CVD. Unknown if SLE and pt not interested in renal biopsy. Crhas been between 3.0-3.4 on latest visits. - HTN: Currently on losartan 25 mg daily, amlodipine 10 mg daily, Toprol XL 100 mg daily, spironolactone 25 mg daily, and chlorthalidone 25 mg daily. - Iron Def Anemia: S/p endoscopy during hospitalizations. 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 Phos 5.6, goal < 5.5. On ergocalciferol 50,000 units monthly. Plan/Recs: - continue chlorthalidone, spironolactone, and amlodipine - will monitor Hb. Repeat iron studies prior to next visit - continue Farxiga - continue ergocalciferol monthly. Had a lengthy discussion with patient about renal disease and progression. 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 Wishes to pursue medical management only. Encouraged to take medications daily as prescribed. RTC in 4mo w/ labs documented in this encounter Plan of Treatment Upcoming Encounters Date Type Department Care Team (Late st Contact Info) Description 04/02/2025 11:00 AM EDT Office Visit [facility] [address] [place] [address] Fabi Tinajero APRN [address] [address] Scheduled Orders Name Type Priority Associated Diagnoses Orde r Schedule Iron & Total Iron Binding Capacity, Plasma (Includes Transferrin) Lab Routine CKD (chronic kidney disease) stage 4, GFR 15-29 ml/min (CMS/HCC) Other iron deficiency anemia Expected: 12/04/2024 (Approximate), Expires: 06/05/2026 Ferritin, Serum Lab Routine CKD (chronic kidney disease) stage 4, GFR 15-29 ml/min (CMS/HCC) Other iron deficiency anemia Expected: 12/04/2024 (Approximate), Expires: 06/05/2026 Transferrin, Plasma Lab Routine CKD (chronic kidney disease) stage 4, GFR 15-29 ml/min (CMS/HCC) Other iron deficiency anemia Expected: 12/04/2024 (Approximate), Expires: 06/05/2026 CBC W/O Differential Lab Routine CKD (chronic kidney disease) stage 4, GFR 15-29 ml/min ([facility]) Other iron deficiency anemia Expected: 12/04/2024 (Approximate), Expires: 06/05/2026 Protein, Random, Urine with Creatinine Lab Routine CKD (chronic kidney disease) stage 4, GFR 15-29 ml/min ([facility]) Expected: 12/04/2024 (Approximate), Expires: 06/05/2026 PTH Intact Total Lab Routine CKD (chronic kidney disease) stage 4, GFR 15-29 ml/min ([facility]) Expected: 12/04/2024 (Approximate), Expires: 06/05/2026 Renal Function Panel, Plasma Lab Routine CKD (chronic kidney disease) stage 4, GFR 15-29 ml/min ([facility]) Expected: 12/04/2024 (Approximate), Expires: 06/05/2026 Urinalysis with reflex microscopic (Culture NOT Included) Lab Routine CKD (chronic kidney disease) stage 4, GFR 15-29 ml/min ([facility]/HCC) Expected: 12/04/2024 (Approximate), Expires: 06/05/2026 Vitamin D 25 Hydroxy Lab Routine CKD (chronic kidney disease) stage 4, GFR 15-29 ml/min ([facility]/HCC) Expected: 12/04/2024 (Approximate), Expires: 06/05/2026 Scheduled Referrals Name Type Priority Associated Diagnoses Order Schedule Follow Up Nephrology Outpatient Referral Routine CKD (chronic kidney disease) stage 4, GFR 15-29 ml/min ([facility]/HCC) Expected: 04/05/2025 (Approximate), Expires: 01/03/2026 documented as of this encounter Visit Diagnoses Diagnosis CKD (chronic kidney disease) stage 4, GFR 15-29 ml/min (CMS/HCC)- Primary Chronic kidney disease, Stage IV (severe) Other iron deficiency anemia Essential hypertension Unspecified essential hypertension Chronic kidney disease-mineral and bone disorder documented in this encounter Additional Health Concerns Assessment Noted Time A fall risk assessment has been complete d for the patient 02/12/2024 12:40 PM EDT A Body Mass Index follow-up plan has been documented for the patient 12/04/2024 10:57 AM EDT documented as of this encounter Care Teams Psychologist Personnel Relationship Specialty Start Date End Date Marge Jovel APRN [address] [place] [address] PCP - General 01/10/24 documented as of this encounter
--- OUTSIDE RECORDS SUMMARY | 2025-01-04 13:19 | XMS_ITS | Clinical Summary ---
Author Organization [facility] Address [address] [place] [address] Phone Care Team Providers Care Efficiency Engineer Name Role Phone Moise Harris MD, [facility] Primary Care Provid er Allergies No known [...] - 2023-2 5 season) 2024 Influenza Vaccine (#1) 2025 Hepatitis B Vaccine Aged Out No longe r eligible based on patient's age to complete this topic Meningococcal B Vaccine Aged Out No l onger eligible based on patient's age to complete this topic Insurance Care Teams Efficiency Engineer Relationship Specialty Start Date End Date Vinayak Phipps Sr., MD [address] [place] [phone] PCP - General Cognos Report Developer 12/15/12
--- OUTSIDE RECORDS SUMMARY | 2025-01-04 13:19 | XMS_ITS | Clinical Summary ---
Author Organization Healthcare Address [address] [place] [address] Care Team Providers Care Cheese Cutter Name Role Phone Marge Jovel SWAPNIL Primary Care Provider [phone] Allergies Active Allergy Reactions Criticality Noted Date Comments Morphine Unknown - Patient st ates they do not know rxn details Low 06/11/2023 Pentoxifylline Rash Low 11/25/2018 Medications cholecalciferol (Vitamin D3) 1.25 MG (15117 UT) capsule Take 1 capsule (50,000 Units) [...] 15-29 ml/min 02/12/2024 Iron deficiency anemia 06/13/2023 Encounters Date Type Department Care Team Description 12/04/2024 10:20 AM EDT [facility] [place] [address] [facility] [address] [place] [address] Fabi Tinajero APRN CKD (chronic kidney disease) stage 4, GFR 15-29 ml/min ([facility]) (Primary Dx); Other iron deficiency anemia; Essential hypertension; Chronic kidney disease-mineral and bone disorder 12/04/2024 Travel from Last 3 Months Immunizations Immunization Administration Dates Next Due TD [...] Pulse 74 12/04/2024 10:27 AM EDT Temperature 36.1 C (96.9 F) 02/12/2024 12:36 PM EDT Respiratory Rate 16 12/04/2024 10:27 AM EDT Oxygen Saturation 92% 12/04/2024 10:27 AM EDT Inhaled Oxygen Concentration - - Weight 77.6 kg (171 lb) 12/04/2024 10:27 AM EDT Height 160 cm (5' 3 ) 12/04/2024 10:27 AM EDT Body Mass Index 30.29 12/04/2024 10:27 AM EDT Plan of Treatment Upcoming Encounters Date Type Department Care Team (Late st Contact Info) Description 04/02/2025 11:00 AM EDT Office Visit [facility] [address] [place] [address] Fabi Tinajero, CLINICAL QUALITY ASSURANCE SPECIALIST [address] [address] Health Maintenance Due Date Last Done Comments UKY-Bone Density Scan 1940 UKY-Medicare Annual Wellness (AWV) 1942 UKY-Infant/Child/Adol SDOH Screenings 1942 [id number] Vaccine (#1) 1947 UKY- SDOH Screenings 1960 UKY-Adult SDOH Screenings 1960 UKY-Pneumococcal Vaccine: 50+ Years (1 of 1 - PCV) 1992 UKY-Zoster Vaccines (1 of 2) 1992 UKY-DTaP,Tdap,and Td Vaccines (1 - Tdap) 08/14/1996 08/13/1996 UKY-RSV Vaccine: 60+ Years or (1 - 1-dose 75+ series) 2017 UKY-Influenza Vaccine (#1) 2025 UKY-Depression Screening 02/11/2025 02/12/2024 UKY-Obesity Intervention Completed 025, 08/07/2024, 02/12/2024, Additional history exists HPV Vaccines Aged Out [...] patient's age to complete [place] [address] [employer] MEDICARE Care Teams Cheese Cutter Relationship Specialty Start Date End Date Marge Jovel APRN [address] [place] [address] [place] [address] PCP - General 01/10/24
--- OUTSIDE RECORDS SUMMARY | 2025-01-04 13:19 | XMS_ITS | Encounter Summary ---
Author Organization Healthcare Address [address] [place] [address] Care Team Providers Care Windshield Wiper Repairer Name Role Phone Gurpreet Jovelica SWAPNIL Primary Care Provider [phone] Encounter Details Date Type Department Care Team (Latest Contact Info) Description 12/04/2024 Travel Social History Tobacco Use Types Packs/Day Years [...] Description 04/02/2025 11:00 AM EDT Office Visit [facility] [address] [place] [address] Fabi Tinajero APRN [address] [address] documented as of this encounter Visit Diagnoses Not on filedocumented in this encounter Additional Health Concerns Assessment Noted Time A fall risk assessment has been complete d for the patient 02/12/2024 12:40 PM EDT A Body Mass Index follow-up plan has been documented for the patient 12/04/2024 10:57 AM EDT documented as of this encounter Care Teams Windshield Wiper Repairer Relationship Specialty Start Date End Date Med, Marge, LIGHTING EQUIPMENT OPERATOR [address] [place] [address] PCP - General 01/10/24 documented as of this encounter
--- OUTSIDE RECORDS SUMMARY | 2025-01-04 13:19 | XMS_ITS | Clinical Summary ---
Author Organization [facility] Address [address] [place] [address] Care Team Providers Care Halftone Operator Name Role Phone David Disla MD Primary Care Provider [phone] Allergies Active Allergy Reactions Criticality Noted Date Comments Pentoxifylline Rash Low 11/25/2018 Medications oxyCODONE-acetam inophen (PERCOCET) 5-325 MG per tablet Take 1 tablet by mouth Every 8 (Eight) Hours As Needed. Active zolpidem (AMBIEN) 10 MG tablet Take 10 mg by mouth At Night As Needed for Sleep. Active lisinopril (PRINIVIL,ZESTRI L) 20 MG tablet Take 20 mg by mouth Daily. Active NIFEdipine XL (PROCARDIA XL) 30 MG 24 hr tablet Take 30 mg by mouth Daily. Active aspirin 81 MG EC tablet Take 81 mg by mouth Daily. 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 Asthma Mother Relation Name Status Comments Father Mother Social History Tobacco Use Types Packs/Day Years Used Date Smoking Tobacco: Former Cigarettes 3 50 0 [birth year]26/1951 - 11/25/2001 Smokeless Tobacco: Never Alcohol Use Standard Drinks/Week Comments No 0 (1 standard drink = 0.6 oz pur e alcohol) AUDIT-C Answer Date Recorded Frequency of Alcohol Consumption Never 11/25/2018 Average Number of Drinks Not on file 019 Frequency of Binge Drinking Not on file 11/08 Abuse Screen Answer Date Recorded Unsafe at Home or Work/School Not on file Feels Threatened by Someone? Not on file 02/2023 Does Anyone Keep You from Co ntacting Others or Doint Things Outside the Home? Not on file 03/18/2023 Physical Sign of Abuse Present Not on file 1 Housing Stability Answer Date Recorded Current Living Arrangements Not on file 02/2023 Potentially Unsafe Housing Conditions Not on jenny e 03/18/2023 Family and Community Support Answer Ever e Recorded Help with Day-to-Day Activities Not on file 03/18/2023 Lonely or Isolated Not on file 03/18/2023 Employment Answer Date Recorded Do you want help finding or keeping work or a janes b? Not on file 03/18/2023 Disabilities Answer Date Recorded Concentrating, Remembering, or Making Decisions Difficulty Not on file 03/18/2023 Doing Errands Independently Difficulty Not on fi le 03/18/2023 Education Answer Date Recorded Help with school or training? 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 Not on file Not on file Not on file Last Filed Vital Signs Vital Sign Reading Time Taken Comments Blood Pressure 150/80 12/23/2018 2:35 PM EDT Pulse 94 12/23/2018 2:35 PM EDT Temperature 36.4 C (97.6 F) 12/23/2018 2:35 PM EDT Respiratory Rate - - Oxygen Saturation 98% 12/23/2018 2:35 PM EDT Inhaled Oxygen Concentration - - Weight 91.6 kg (202 lb) 12/23/2018 2:35 PM EDT Height 162.6 cm (5' 4 ) 12/23/2018 2:35 PM EDT Body Mass Index 34.67 12/23/2018 2:35 PM EDT Plan of Treatment Health Maintenance Due Date Last Done Comments DXA SCAN 1942 TDAP/TD VACCINES (1 - Tdap) 1961 Pneumococcal Vaccine 50+ (1 of 1 - PCV) 1992 ZOSTER VACCINE (1 of 2) 1992 RSV Vaccine - Adults (1 - 1-dose 75+ series) 7 ANNUAL PHYSICAL 11/21/2018 COVID-19 Vaccine (2023- season) 2024 INFLUENZA VACCINE 03/10/2025 Insurance MEDICARE A & B Care Teams Halftone Operator Relationship Specialty Start Date End Date David Disla MD PCP - General Emergency Medicine 11/18/18
--- OUTSIDE RECORDS SUMMARY | 2025-01-04 13:19 | XMS_ITS | Encounter Summary ---
Author Organization Healthcare Address [address] [place] [address] Care Team Providers Care Punchboard Stuffer Name Role Phone David Disla MD Primary Care Provider [phone] Marge Jovel APRN Primary Care Provider [phone] Reason for Visit * Reason Comments Med Refill Encounter Details Date Type Department Care Team (Late st Contact Info) Description 12/16/2023 Refill [facility] [address] [phone] Alyce Lira MD [address] [address] Essential hypertension Social History Tobacco [...] Description 04/02/2025 11:00 AM EDT Office Visit [facility] [address] [place] [address] Fabi Tinajero APRN [address] [phone] documented as of this encounter Visit Diagnoses Diagnosis Essential hypertension Unspecified essential hypertension documented in this encounter Additional Health Concerns Assessment Noted Time A fall risk assessment has been complete d for the patient 10/14/2023 3:37 PM EDT A Body Mass Index follow-up plan has been documented for the patient 10/23/2023 11:27 AM EDT documented as of this encounter Care Teams Punchboard Stuffer Relationship Specialty Start Date End Date David Disla MD [address] [place] [address] PCP - General 10/21/20 01/09/24 Marge Jovel APRN [address] [place] [address] PCP - General 01/10/24 documented as of this encounter
[2025-01-04] MEDS: SODIUM CHLORIDE 0.9% 10ML FLUSH SYRINGE 10 ML IV (13:27)
[2025-01-04 13:35] LABS: Hematocrit 27.5 % (37.0-47.0); Hemoglobin 9.0 g/dL (12.2-16.2); Immature Granulocytes % 0.6 %; Mean Corpuscular HGB Conc 32.7 g/dL (31.8-35.4); Mean Corpuscular Hemoglobin 29.9 pg (27.0-31.2); Mean Corpuscular Volume 91.4 fl (81-99); Nucleated Red Blood Cells % 0 %; Platelet Count 196 K/mm3 (142-424); Red Blood Count 3.01 M/mm3 (4.20-5.40); Red Cell Distribution Width-SD 45.1 fL; White Blood Count 6.7 K/mm3 (4.8-10.8)
[2025-01-04 13:42] LABS: Chloride 101 mmol/L (98-107); Sodium 137 mmol/L (136-145)
[2025-01-04 13:43] LABS: Potassium 4.1 mmoL/L (3.5-5.1)
[2025-01-04 13:45] LABS: Anion Gap 12.1 mEq/L (5-15); Blood Urea Nitrogen 53 mg/dl (7-17); Carbon Dioxide 28 mmol/L (22.0-30.0); Creatinine,Serum 3.90 mg/dl (0.52-1.04); Estimated Glomerular Filt Rate 11 ml/min (>60); GFR (African American) 13 ML/MIN (>60)
[2025-01-04 13:46] LABS: Calcium 9.5 mg/dl (8.4-10.2); Glucose 98 mg/dl (74-100)
[2025-01-04 14:08] LABS: Iron 55 ug/dL (37-170)
[2025-01-04 14:17] LABS: Total Iron Binding Capacity 276 ug/dL (265-497)
[2025-01-04 14:44] LABS: Ferritin 47.2 ng/ml (11.1-264)
== END 2025-01-04 13:30 | disposition home or self-care (01) ==
LOC: INF 13:16
PROVIDERS: Internal Medicine; Internal Medicine Medical Oncology; PCP Family Medicine; Visit Provider Family Medicine
DX: D50.9 Iron deficiency anemia, unspecified (principal); I25.118 Atherosclerotic heart disease of native coronary artery with other forms of angina pectoris
CPT/HCPCS: 36591; 80048; 82728; 83540; 83550; 85025; J1642

== ENCOUNTER 2025-01-08 10:38 | Day surgery (SDC) | payer MEDICARE, SELFPAY ==
--- NOTE | 2025-01-08 10:45 | P.HP_ITS ---
History of Present Illness *Admission Date: 01/08/25 *Reason for visit:: Intrathecal refill; DDD *History of present illness: Same [facility] Disclaimer: The information contained in this section may have been updated after the patient was seen, as this information can be updated by other users. Medical History Hypertensive urgency History of stroke CKD (chronic kidney disease) stage 2, GFR 60-89 ml/min Claudication Dehydration Acute confusion Hypertensive urgency Altered mental status Depression COVID-19 AMALIA (acute kidney injury) Anginal equivalent Dyspnea on exertion Recurrent pneumonia Pneumonia Anemia Sinus bradycardia Insomnia Hypertension Dizziness Abnormal computed tomography angiography (CTA) Right renal artery stenosis Ischemic foot pain at rest Ischemic foot Surgical History History of esophagogastroduodenoscopy (EGD) History of blepharoplasty History of hernia repair Hx of cholecystectomy History of arthroscopy of shoulder History of total hysterectomy Family History Other Cancer Social History Smoking Status: Never smoker second hand exposure: No alcohol intake: never substance use type: denies use current occupational status: retired Travel in the last 8 weeks?: None household members: none housing: house current occupational exposures/hazards: No caffeine: Yes Have you lived/traveled outside US in past 30 days?: No Contact w/someone who lives/traveled outside US past 30 days?: No Exposure to someone with infectious disease in past 14 days?: No Do you have a fever (greater than 100.4 F or 38 C)?: No Have you tested positive for COVID-19?: No Exposed to someone with COVID-19 in past 14 days?: No Do you have a sore throat?: No Do you have a cough?: No Do you have any weakness?: No Do you have any diarrhea?: No Are you experiencing any unusual bleeding?: No Do you have any muscle aches/pain?: No Do you have any abdominal pain?: No Are you experiencing loss of taste or smell?: No Other Medical History Have you received the Flu Vaccine for this season: No Have you received the Pneumonia Vaccine: No Review of Systems Review of Systems Review of systems:: pertinent systems reviewed and negative unless documented below Review of systems (narrative): Review of Systems: General: No recent weight changes, no fever, no sleep disturbances Respiratory: No cough, no shortness of air, no recurring pulmonary infections Cardiovascular/peripheral vascular: No chest pain, no palpitations, no edema, no shortness of breath Gastrointestinal: No new onset incontinence, normal bowel movements reported Genitourinary: No new onset incontinence Musculoskeletal: Chronic back pain Psychiatric: [Normal mood/affect] Neurological: [Denies weakness in extremities], [denies balance issues] Meds Home Medications and Allergies Home Medications ?Medication ?Instructions ?Recorded ?Confirmed ?Type hydroxychloroquine 200 mg tablet See Rx Instructions . Route 09/22/24 01/04/25 Rx .COMPLEX #180 tabs metoprolol succinate 100 mg See Rx Instructions .Route 09/22/24 01/04/25 Rx tablet,extended release 24 hr .COMPLEX #90 tabs dapagliflozin propanediol 5 mg See Rx Instructions .Ro tolowa dee-ni' 12/14/24 01/04/25 Rx tablet (Farxiga) .COMPLEX #90 tabs Synthroid 75 mcg tablet 75 mcg PO DAILY #30 tabs 05/0401/04/25 Rx (levothyroxine) amlodipine 10 mg tablet 10 mg PO DAILY #90 tabs 12/0801/04/25 Rx atorvastatin 40 mg tablet See Rx Instructions .Route 0 12/18/24 01/04/25 Rx .COMPLEX #90 tabs cholecalciferol (vitamin D3) 1,250 50,000 unit PO MAHESH HLY Supplement 12/18/24 01/04/25 Rx mcg (50,000 unit) capsule #7 caps ezetimibe 10 mg tablet See Rx Instructions .Route 0 12/18/24 01/04/25 Rx .COMPLEX #90 tabs losartan 25 mg tablet 25 mg PO DAILY #90 tabs 12/0801/04/25 Rx pantoprazole 40 mg tablet,delayed 40 mg PO ONCE #90 ta bs 12/18/24 01/04/25 Rx release zolpidem 5 mg tablet 5 mg PO HS #90 tabs 12/18/24 01/04/25 Rx furosemide 40 mg tablet (Lasix) 60 mg (1.5 x 40 mg) PO DAILY #45 12/21/24 01/04/25 Rx tabs New Prescriptions to Start Prescriptions: Allergies Allergy/AdvReac Type Severity Reaction Status Date / Time morphine Allergy Intermediate Unknown Verified 01/04/25 13:34 allergy reaction Exam Constitutional Constitutional: no acute distress *Routine HEENT Exam Head: Present normocephalic and atraumatic Eye: Present PERRL ENT: Present mucous membranes moist *Routine Neck Exam Neck: Present supple *Routine Respiratory Exam Respiratory: Present CTA bilaterally *Routine Cardiovascular Exam Cardiovascular: Present RRR *Routine Abdominal Exam Abdominal: Present soft *Routine Rectal Exam Rectal:: deferred *Routine Genitalia Exam Genitalia:: deferred Routine Back/Spine/Pelvis Exam Back/Spine: Present pain with flexion *Routine Skin Exam Skin: Present intact and warm *Routine Neurological Exam Neurological: Present alert and oriented X3 Routine Psychiatric Exam Psychiatric: Present normal affect and normal thought process Assessment and Plan *Assessment and plan (1) Chronic pain syndrome: Status: Acute Category: Medical Code(s): G89.4 - Chronic pain syndrome Plan Patient has been instructed to contact the clinic with any concerns before the next appointment. Dr. Rivas has reviewed this note and agrees with this plan of care. This note was dictated using voice recognition software and make contain errors or omissions. All injections are used with Lidocaine, Bupivacaine and dexamethasone. Occasionally urine drug screen is needed to verify patient's compliance with our office pain contract. This is ordered based off specific treatments related to chronic pain with the potential to abuse certain medications.
--- NOTE | 2025-01-08 10:47 | EXP.PAIN.PRO ---
Procedure Date: 01/08/25 Time: 11:00 Anesthesiologist:: Augusta Luu APRN Complications:: None Pre-procedure Diagnosis:: Degenerative disc disease, chronic pain syndrome Post-procedure Diagnosis:: Sign Indications for Procedure:: Patient is a pleasant 84-year-old female who presents today for intrathecal refill and reprogram. Today she rates her pain a 20 out of 10. Patient denies any recent falls or injuries. She just states that she is having chronic pain throughout as well as increasing swelling primarily in her left lower leg. Patient states that they had increased her fluid pills and this was significantly helping however her last follow-up with cardiology they did have to cut it back due to her kidney function. Patient is currently managed with Dilaudid 3 mg/mL with a daily dose of 0.127 mg/day. She denies any side effects. Her Donis has been reviewed and is appropriate. Physical Exam: General: Alert and oriented x3, no acute distress, pleasant and cooperative Lungs: Respirations even and unlabored, symmetrical chest expansion Eyes: PERRL Musculoskeletal: Flexion and extension of lumbar [spine] somewhat guarded secondary to pain, [antalgic gait noted] Neurological: Speech clear, no gross sensory deficit Procedure Details:: Informed consent was obtained and the risk and benefits of the procedure were explained to the patient. The patient had noninvasive monitoring placed including noninvasive blood pressure cuff and pulse oximeter. Patient's pump was interrogated. The area over the pump was cleansed with chlorhexidine as a cleansing solution. In sterile fashion the pump was accessed with a 22-gauge needle. Approximately 15.1 mls of the pump solution was removed and discarded appropriately. The pump was then refilled with 20 mL's of Dilaudid 3 mg/mL. The needle was withdrawn and a bandage was placed over the puncture site. The infusion rate was reprogrammed and increased 10% to Dilaudid 0.1397 mg/day. The patient tolerated well with no complication. Plan and Disposition:: Patient tolerated the procedure well with no complications and was discharged neurologically intact. Patient will return to clinic on or before their next intrathecal refill date. We will see the patient back in the clinic at the next intrathecal refill. Patient has been instructed to contact the clinic with any concerns before the next appointment. Dr. Rivas has reviewed this note and agrees with this plan of care. This note was dictated using voice recognition software and make contain errors or omissions. -- It Is medically necessary for this patient to continue to have their intrathecal pump refilled at regular intervals. This patient had an intrathecal pain pump implanted after meeting criteria of chronic intractable pain for greater than 3 months and failing conservative treatments. Patient has committed and been compliant to the treatment plan and all planned follow up care. Since implantation of the intrathecal pain pump, the patient has had decreased pain and been more functional. Oral medications have been reduced including intake of oral opioids. Patient continues to do well with intrathecal therapy with decrease in pain symptoms and increase in functional status. Stopping intrathecal medications can lead to life threatening withdrawal, seizures, cardiac arrest, severe pain, and possible . Pumps that are not refilled at regular intervals can be damages and cause and need for replacement. We continually titrate dose and concentration to optimize pain relief and function. We are limited in concentration for certain drugs to safely deliver medications through the pump and stay within the recommendations from the Polyanalgesic Consensus Committee Guidelines. Depending on dose and concentration these pumps may need to be refilled sooner than 3 months as we titrate. A UDS is needed to verify patient's compliance with our office pain contract. This is ordered based off specific treatments related to chronic pain with the potential to abuse certain medications.
[2025-01-08 10:55] VITALS: BP 140/62; BP 149/73; PULSE 56; PULSE 61; RESP 16; RESP 18; O2SAT 98; BMI 31.3
[2025-01-08 11:05] VITALS: BP 156/98; PULSE 52; RESP 18; O2SAT 100
== END 2025-01-08 11:05 | disposition home or self-care (01) ==
PROVIDERS: PCP Family Medicine; Visit Provider Nurse Practitioner Family
DX: G89.4 Chronic pain syndrome (principal); Z45.1 Encounter for adjustment and management of infusion pump; M51.369 Other intervertebral disc degeneration, lumbar region without mention of lumbar back pain or lower extremity pain; D64.9 Anemia, unspecified; I12.9 Hypertensive chronic kidney disease with stage 1 through stage 4 chronic kidney disease, or unspecified chronic kidney disease; N18.9 Chronic kidney disease, unspecified; Z86.16 Personal history of COVID-19; F32.A Depression, unspecified; Z88.5 Allergy status to narcotic agent; Z79.890 Hormone replacement therapy; Z79.899 Other long term (current) drug therapy
CPT/HCPCS: 95991

== ENCOUNTER 2025-03-08 18:12 | Emergency (ER) | payer MEDICARE, SELFPAY ==
[2025-03-08] VITALS (9 sets, daily range): BP systolic 128–201; BP diastolic 67–95; PULSE 62–86; RESP 16–20; TEMP 36.6–36.9; O2SAT 95–100; BMI 30.5
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
--- OUTSIDE RECORDS SUMMARY | 2025-03-08 18:36 | XMS_ITS | Clinical Summary ---
Author Organization [facility] Address [address] [place] [address] Phone Care Team Providers Care Storeperson Name Role Phone Moise Harris MD, [facility] Primary Care Provid er Allergies No known [...] COVID-19 Vaccine ( - 2023-2 5 season) 2025 Influenza Vaccine (#1) 2025 Hepatitis B Vaccine Aged Out No longe r eligible based on patient's age to complete this topic Meningococcal B Vaccine Aged Out No l onger eligible based on patient's age to complete this topic Insurance Care Teams Storeperson Relationship Specialty Start Date End Date Vinayak Phipps Sr., MD [address] [place] [phone] PCP - General Planning Associate 12/15/12
--- OUTSIDE RECORDS SUMMARY | 2025-03-08 18:36 | XMS_ITS | Clinical Summary ---
Author Organization [facility] Address [address] [place] [address] Care Team Providers Care Subscription Clerk Name Role Phone Marge Jovel SWAPNIL Primary Care Provider [phone] Allergies Active Allergy Reactions Criticality Noted Date Comments Morphine Unknown - Patient st ates they do not know rxn details Low 06/11/2023 Pentoxifylline Rash Low 11/25/2018 Medications cholecalciferol (Vitamin D3) 1.25 MG (36797 UT) capsule Take 1 capsule (50,000 Units) [...] times a day. 180 tablet 3 4 Active chlorthalidone (Hygroton) 25 MG tabletIndications :Essential hypertension Take 1 tablet (25 mg) by mouth 1 (one) time each day. 90 tablet 3 4 Active losartan (Cozaar) 25 MG tablet Take 1 tablet (25 mg) by mouth 1 (one) time each day. 90 tablet 3 4 Active spironolactone (Aldactone) 25 MG tablet Take 1 tablet (25 mg) by mouth 1 (one) time each day. 90 each 3 4 Active Active Problems Problem Noted Date Diagnosed [...] Description 04/02/2025 11:00 AM EDT Office Visit [facility] [address] [place] [address] Fabi Tinajero, DURALUMIN METALWORKER [address] [address] Health Maintenance Due Date Last Done Comments [facility]-Bone Density Scan 1940 [facility]-Medicare Annual Wellness (AWV) 1940 [facility]-/Child/Adol SDOH Screenings 1940 [id number] Vaccine (#1) 1947 [facility]- SDOH Screenings 1960 [...] patient's age to complete this topic [place] [address] [employer] MEDICARE Care Teams Subscription Clerk Relationship Specialty Start Date End Date Magre Jovel APRN [address] [place] [address] [place] [address] PCP - General 01/10/24
--- OUTSIDE RECORDS SUMMARY | 2025-03-08 18:36 | XMS_ITS | Encounter Summary ---
Author Organization [facility] Address [address] [place] [address] Care Team Providers Care Ammonia Operator Name Role Phone David Disla MD Primary Care Provider [phone] Marge Jovel APRN Primary Care Provider [phone] Reason for Visit * Reason Comments Med Refill Encounter Details Date Type Department Care Team (Late st Contact Info) Description 12/16/2023 Refill [facility] [address] [phone] Alyce Lira MD [address] [address] Essential hypertension Social History Tobacco [...] Description 04/02/2025 11:00 AM EDT Office Visit [facility] [address] [place] [address] Fabi Tinajero APRN [address] [phone] documented as of this encounter Visit Diagnoses Diagnosis Essential hypertension Unspecified essential hypertension documented in this encounter Additional Health Concerns Assessment Noted Time A fall risk assessment has been complete d for the patient 10/14/2023 3:37 PM EDT A Body Mass Index follow-up plan has been documented for the patient 10/23/2023 11:27 AM EDT documented as of this encounter Care Teams Ammonia Operator Relationship Specialty Start Date End Date David Disla MD [address] [place] [address] PCP - General 10/21/20 01/09/24 Marge Jovel APRN [address] [place] [address] PCP - General 01/10/24 documented as of this encounter
--- NOTE | 2025-03-08 18:54 | XR_ITS ---
PROCEDURE INFORMATION: Exam: XR Chest Exam date and time: 03/08/2025 7:36 PM Age: 85 years old Clinical indication: Shortness of breath; Additional info: Short of breath TECHNIQUE: Imaging protocol: Radiologic exam of the chest. Views: 1 view. COMPARISON: CR XR CHEST 2V 05/01/2022 12:28 PM FINDINGS: Tubes, catheters and devices: Right subclavian approach chest port and catheter Lungs: Right lung base partial atelectasis. Peribronchial interstitial pattern opacities are unchanged Pleural spaces: Unremarkable. No pleural effusion. No pneumothorax. Heart/Mediastinum: Unremarkable. No cardiomegaly. Bones/joints: Unremarkable. IMPRESSION: Suspect chronic lung disease
[2025-03-08 19:09] LABS: Hematocrit 25.3 % (37.0-47.0); Hemoglobin 7.9 g/dL (12.2-16.2); Immature Granulocytes % 0.3 %; Mean Corpuscular HGB Conc 31.2 g/dL (31.8-35.4); Mean Corpuscular Hemoglobin 26.5 pg (27.0-31.2); Mean Corpuscular Volume 84.9 fl (81-99); Nucleated Red Blood Cells % 0 %; Platelet Count 211 K/mm3 (142-424); Red Blood Count 2.98 M/mm3 (4.20-5.40); Red Cell Distribution Width-SD 42.6 fL; White Blood Count 6.3 K/mm3 (4.8-10.8)
--- NOTE | 2025-03-08 19:09 | ECG_ITS ---
APPROVED REPORT Exam: Resting ECG HR:72 bpm ECG Measurements Heart Rate 72 AXES QRSd 114 QRS -15 QT 425 T 98 QTc 448 Conclusion SUPRAVENTRICULAR RHYTHM MODERATE INTRAVENTRICULAR CONDUCTION DELAY [110+ ms QRS DURATION] ABNORMAL QRS-T ANGLE [QRS-T AXIS DIFFERENCE > 60] ABNORMAL ECG UNCONFIRMED REPORT Electronically signed by : EDNA LANTIGUA, 03/08/2025 22:58:55
[2025-03-08 19:11] LABS: Coronavirus 19, PCR Not Detected (NotDetected); Influenza A, PCR Not Detected (NotDetected); Influenza B, PCR Not Detected (NotDetected)
[2025-03-08 19:22] LABS: Alanine Aminotransferase 10 U/L (12-78); Albumin Level 3.9 g/dl (3.5-5.0); Albumin/Globulin Ratio 1.6 (1.1-1.8); Alkaline Phosphatase 70 U/L (38-126); Anion Gap 12.1 mEq/L (5-15); Aspartate Amino Transferase 17 U/L (14-36); Bilirubin,Total 0.5 mg/dl (0.2-1.3); Blood Urea Nitrogen 24 mg/dl (7-17); Calcium 9.1 mg/dl (8.4-10.2); Carbon Dioxide 25 mmol/L (22.0-30.0); Chloride 106 mmol/L (98-107); Creatinine Clearance Estimated 25 mL/min (50-200); Creatinine,Serum 2.20 mg/dl (0.52-1.04); Estimated Glomerular Filt Rate 21 ml/min (>60); GFR (African American) 26 ML/MIN (>60); Globulin 2.5 g/dL (1.3-3.2); Glucose 102 mg/dl (74-100); Lipase 46 U/L (23-300); Magnesium 2.1 mg/dl (1.6-2.3); Potassium 4.1 mmoL/L (3.5-5.1); Sodium 139 mmol/L (136-145); Total Protein,Serum 6.4 g/dl (6.3-8.2)
[2025-03-08 19:24] LABS: Activated Partial Thrombo Time 27.8 seconds (22.8-30.6); INR 0.96 (0.9-1.1); Prothrombin Time 10.7 seconds (10.1-12.5)
[2025-03-08 19:27] LABS: C-Reactive Protein 3.0 mg/L (0-4)
[2025-03-08 19:33] LABS: Microscopic, Urine URINE MICROSCOPIC (MICROSCOPIC)
[2025-03-08 19:35] LABS: D-Dimer 2.04 ug/mL (0.0-0.5)
[2025-03-08 19:39] LABS: NT Pro Brain Natriuretic Pep. 1460 pg/mL (0-450)
[2025-03-08 19:42] LABS: Bilirubin,Urine Negative (Negative); Color,Urine YELLOW (Yellow); Glucose,Urine (UA) 2+ (Negative); Ketones,Urine Negative (Negative); Leukocyte Esterase,Urine Negative (Negative); PH,Urine 7.0 (5.0-8.5); Protein,Urine Negative (Negative); Specific Gravity, Urine 1.015 (1.005-1.030); Urobilinogen,Urine 0.2 EU/dl (0.2)
[2025-03-08 19:44] LABS: Troponin I < 0.01 ng/ml (0.00-0.034)
--- NOTE | 2025-03-08 20:00 | ED_ITS ---
<Statement entered by Justin Ashraf MD - 03/09/25 10:57> I was consulted by the SONA, and we discussed the complexity of the problems being addressed. I approve the treatment and management plan for this patient's care in the emergency department, thus performing a substantive portion of the medical decision making. Justin Ashraf MD Discharge Plan Disposition Patient Disposition: Home, Self-Care Prescriptions Prescriptions: No Action furosemide [Lasix] 40 mg tablet 60 mg PO DAILY Qty: 45 2RF amlodipine 10 mg tablet 10 mg PO DAILY Qty: 90 2RF atorvastatin 40 mg tablet See Rx Instructions .ROUTE .COMPLEX Qty: 90 1RF Dose Instruction: TAKE ONE TABLET BY MOUTH AT BEDTIME Rx Instructions: TAKE ONE TABLET BY MOUTH AT BEDTIME cholecalciferol (vitamin D3) 1,250 mcg (50,000 unit) capsule 50,000 unit PO MONTHLY Qty: 7 0RF ezetimibe 10 mg tablet See Rx Instructions .ROUTE .COMPLEX Qty: 90 1RF Dose Instruction: TAKE ONE TABLET BY MOUTH ONCE A DAY Rx Instructions: TAKE ONE TABLET BY MOUTH ONCE A DAY losartan 25 mg tablet 25 mg PO DAILY Qty: 90 1RF pantoprazole 40 mg tablet,delayed release (DR/EC) 40 mg PO ONCE Qty: 90 3RF zolpidem 5 mg tablet 5 mg PO HS Qty: 90 0RF ciclopirox 0.77 % cream 1 applic topical BID 180 Days Qty: 90 1RF hydroxychloroquine 200 mg tablet See Rx Instructions .ROUTE .COMPLEX Qty: 180 1RF Dose Instruction: TAKE ONE TABLET BY MOUTH 2 TIMES A DAY Rx Instructions: TAKE ONE TABLET BY MOUTH 2 TIMES A DAY metoprolol succinate 100 mg tablet extended release 24 hr See Rx Instructions .ROUTE .COMPLEX Qty: 90 1RF Dose Instruction: TAKE ONE TABLET BY MOUTH ONCE A DAY FOR HYPERTENSTION Rx Instructions: TAKE ONE TABLET BY MOUTH ONCE A DAY FOR HYPERTENSTION dapagliflozin propanediol [Farxiga] 5 mg tablet See Rx Instructions .ROUTE .COMPLEX Qty: 90 1RF Dose Instruction: TAKE ONE TABLET BY MOUTH ONCE A DAY Rx Instructions: TAKE ONE TABLET BY MOUTH ONCE A DAY levothyroxine 75 mcg tablet See Rx Instructions .ROUTE .COMPLEX Qty: 90 2RF Dose Instruction: TAKE 1 TABLET BY MOUTH ONCE A DAY Rx Instructions: TAKE 1 TABLET BY MOUTH ONCE A DAY Referrals Follow up/Referrals: Marge Jovel APRN [Primary Care Provider, Family Practice] - See instructions Activity Restrictions/Add. Instructions Additional Instructions/Restrictions: Please follow-up with Marge in the morning for transfusion of blood if she wants to order this. Please also follow-up on the T12 sclerotic lesion. This needs to have close follow-up as well. Return to the ER immediately if any problems or further issues. Clinical Impressions Clinical Impression: Peripheral edema, Edema of both lower extremities CRF (chronic renal failure) Qualifiers: Chronic kidney disease stage: stage 3 (moderate) Chronic kidney disease stage 3 subtype: unspecified whether 3a or 3b Qualified Code(s): N18.30 - Chronic kidney disease, stage 3 unspecified Anemia Qualifiers: Anemia type: iron deficiency Iron deficiency anemia type: unspecified iron deficiency Qualified Code(s): D50.9 - Iron deficiency anemia, unspecified Instructions Patient Instructions: Anemia, Chronic Kidney Disease, DI for Peripheral Edema -- Bilateral Print Language Print Language: Georgian Discharge ED Provider: Justin Ashraf Adult HPI General Chief complaint: Weakness Stated complaint: pain in both legs Time Seen by Provider: 03/08/25 18:46 Mode of Arrival: Ambulatory Source of Information: Patient Description of Symptoms (Recalled from ER Triage Doc. by RN): pt presents to ED c/o bilateral lower extremity swelling, increased SOA and paleness. pt states I don't feel good. History of Present Illness HPI narrative: 85-year-old female presents to the ED today with complaint of generalized weakness and swelling in bilateral lower extremities. The swelling in bilateral lower extremity is not new but is causing her increased pain, more than usual. She does have some shortness of air with exertion. She is pale, more than usual according to her daughter. Patient just generally states that she does not feel well. Patient does not want to be here. She was encouraged by her family to come in. Related Data Previous Rx's ?Medication ?Instructions ?Recorded hydroxychloroquine 200 mg tablet See Rx Instructions . Route 09/22/24 .COMPLEX #180 tabs metoprolol succinate 100 mg See Rx Instructions .Route 09/22/24 tablet,extended release 24 hr .COMPLEX #90 tabs dapagliflozin propanediol 5 mg See Rx Instructions .Ro [place] 12/14/24 tablet (Farxiga) .COMPLEX #90 tabs amlodipine 10 mg tablet 10 mg PO DAILY #90 tabs 12/08 07/04 atorvastatin 40 mg tablet See Rx Instructions .Route 0 12/18/24 .COMPLEX #90 tabs cholecalciferol (vitamin D3) 1,250 50,000 unit PO MAHESH HLY Supplement 12/18/24 mcg (50,000 unit) capsule #7 caps ezetimibe 10 mg tablet See Rx Instructions .Route 0 12/18/24 .COMPLEX #90 tabs losartan 25 mg tablet 25 mg PO DAILY #90 tabs 12/08 07/04 pantoprazole 40 mg tablet,delayed 40 mg PO ONCE #90 ta bs 12/18/24 release zolpidem 5 mg tablet 5 mg PO HS #90 tabs 12/18/24 furosemide 40 mg tablet (Lasix) 60 mg (1.5 x 40 mg) PO DAILY #45 12/21/24 tabs ciclopirox 0.77 % topical cream 1 applic topical BID f ungal nails 01/19/25 6 months #90 grams levothyroxine 75 mcg tablet See Rx Instructions .Route 03/08/25 .COMPLEX #90 tabs Allergies Allergy/AdvReac Type Severity Reaction Status Date / Time morphine Allergy Intermediate Unknown Verified 01/19/25 13:43 allergy reaction [facility] Disclaimer: The information contained in this section may have been updated after the patient was seen, as this information can be updated by other users. Medical History Hypertensive urgency History of stroke CKD (chronic kidney disease) stage 2, GFR 60-89 ml/min Claudication Dehydration Acute confusion Hypertensive urgency Altered mental status Depression COVID-19 AMALIA (acute kidney injury) Anginal equivalent Dyspnea on exertion Recurrent pneumonia Pneumonia Anemia Sinus bradycardia Insomnia Hypertension Dizziness Abnormal computed tomography angiography (CTA) Right renal artery stenosis Ischemic foot pain at rest Ischemic foot Surgical History History of esophagogastroduodenoscopy (EGD) History of blepharoplasty History of hernia repair Hx of cholecystectomy History of arthroscopy of shoulder History of total hysterectomy Family History Other Cancer Social History Smoking Status: Never smoker second hand exposure: No alcohol intake: never substance use type: denies use current occupational status: retired Travel in the last 8 weeks?: None household members: none housing: house current occupational exposures/hazards: No caffeine: Yes Have you lived/traveled outside US in past 30 days?: No Contact w/someone who lives/traveled outside US past 30 days?: No Exposure to someone with infectious disease in past 14 days?: No Do you have a fever (greater than 100.4 F or 38 C)?: No Have you tested positive for COVID-19?: No Exposed to someone with COVID-19 in past 14 days?: No Do you have a sore throat?: No Do you have a cough?: No Do you have any weakness?: No Do you have any diarrhea?: No Are you experiencing any unusual bleeding?: No Do you have any muscle aches/pain?: Yes Do you have any abdominal pain?: No Are you experiencing loss of taste or smell?: No Other Medical History Have you received the Flu Vaccine for this season: No Have you received the Pneumonia Vaccine: No ROS Obtained: Yes Systems reviewed as appropriate & no additional complaints except as documented Constitutional Constitutional: Reports as per HPI Physical Exam General General appearance: alert Head Head exam: normocephalic Eye Eye exam: Present PERRL and EOMI ENT ENT exam: Present normal oropharynx and mucous membranes moist Neck Neck exam: Present full ROM and trachea midline Respiratory Respiratory exam: Present normal lung sounds bilaterally Cardiovascular Cardiovascular exam: Present regular rate, normal rhythm, normal heart sounds, +S1 and +S2 Abdominal Exam Abdominal exam: Present soft and normal bowel sounds Extremities Exam Extremities exam: Present tenderness and edema Neurological Exam Neurological exam: Present alert and oriented X3 Skin Skin exam: Present warm and dry Medical Decision Making Medical Records Screening: Per USPSTF and CDC recommendations, given the prevalence of disease in our region, it is our hospital?s policy to screen for HIV and viral Hepatitis for all patients aged 18 and over and those with ongoing risk factors. Donis Inquiry Pt receiving controlled substance: No Donis was queried for this patient: No Vital Signs: 03/08/25 18:29 03/08/25 19:09 03/08/25 20:30 Temperature 98.5 F Temperature Source Oral Pulse Rate 72 62 Pulse Rate [Right Radial] 86 Respiratory Rate 20 19 Blood Pressure Blood Pressure [Right Arm] 195/69 H Blood Pressure Mean [Right Arm] 111 Blood Pressure Source Blood Pressure Source [Right Arm] Automatic Cuff Blood Pressure Position Blood Pressure Position [Right Arm] Sitting 02 Sat by Pulse Oximetry 99 99 100 Oxygen Delivery Method Room Air Room Air 03/08/25 20:54 03/08/25 21:00 03/08/25 21:01 Temperature Temperature Source Pulse Rate 85 79 77 Pulse Rate [Right Radial] Respiratory Rate Blood Pressure 201/95 H Blood Pressure [Right Arm] Blood Pressure Mean [Right Arm] Blood Pressure Source Blood Pressure Source [Right Arm] Blood Pressure Position Blood Pressure Position [Right Arm] 02 Sat by Pulse Oximetry 95 97 98 Oxygen Delivery Method 03/08/25 21:03 03/08/25 21:30 03/08/25 21:58 Temperature 97.9 F Temperature Source Oral Pulse Rate 71 67 78 Pulse Rate [Right Radial] Respiratory Rate 16 Blood Pressure 180/67 H 159/70 H 128/74 Blood Pressure [Right Arm] Blood Pressure Mean [Right Arm] Blood Pressure Source Automatic Cuff Blood Pressure Source [Right Arm] Blood Pressure Position Supine Blood Pressure Position [Right Arm] 02 Sat by Pulse Oximetry 99 99 Oxygen Delivery Method Room Air Lab Data Lab Results 03/08/25 18:49: WBC 6.3, RBC 2.98 L, Hgb 7.9 L, Hct 25.3 L, MCV 84.9, MCH 26.5 L , MCHC 31.2 L, RDW 13.6, Plt Count 211, MPV 11.1 H, Neut % (Auto) 60.3, Lymph % (Auto) 25.5, [place] % (Auto) 9.7 H, Eos % (Auto) 3.6, Baso % (Auto) 0.6, Neut # (Auto) 3.8, Lymph # (Auto) 1.6, [place] # (Auto) 0.6, Eos # (Auto) 0.2, Baso # (Auto) 0.0, ESR 106 H, PT 10.7, INR 0.96, APTT 27.8, D-Dimer 2.04 H, Sodium 139, Potassium 4.1, Chloride 106, Carbon Dioxide 25, Anion Gap 12.1, BUN 24 H, C reatinine 2.20 H, Estimated Creat Clear 25, Estimated GFR 21 L, Est GFR ( Amer) 26 L, Glucose 102 H, Lactate 0.9, Calcium 9.1, Magnesium 2.1, Total Bilirubin 0.5, AST 17, ALT 10 L, Alkaline Phosphatase 70, Troponin I < 0.01, C- Reactive Protein 3.0, NT-Pro-B Natriuret Pep 1460 H, Total Protein 6.4, Albumin 3.9, Globulin 2.5, Albumin/Globulin Ratio 1.6, Lipase 46, Blood Type A Positive 03/08/25 19:08: SARS-CoV-2 (PCR) Not detected, Influenza A Untype (PCR) Not detected, Influenza Type B (PCR) Not detected 03/08/25 19:25: Urine Color Yellow, Urine Appearance Clear, Urine pH 7.0, Ur Specific [place] 1.015, Urine Protein Negative, Urine Glucose (UA) 2+, Urine Ketones Negative, Urine Blood Negative, Urine Nitrate Negative, Urine Bilirubin Negative, Urine Urobilinogen 0.2, Ur Leukocyte Esterase Negative 03/08/25 18:49 03/08/25 18:49 Orders (Tests/Meds): ED MEDICATIONS Generic Name Dose Route Start Last Admin Trade Name Shobha PRN Reason Stop Dose Admin Oxycodone HCl 10 mg 03/08/25 21:52 03/08/25 22:06 Oxycodone 10mg Extended Release Tab.Er.12h PO 03/08/25 21:53 Not Given ONCE ONE Oxycodone HCl 10 mg 03/08/25 22:04 Oxycodone 5mg Immediate Release Tablet PO 03/08/25 22:05 ONCE ONE Discontinued Medications Generic Name Dose Route Start Last Admin Trade Name Shobha PRN Reason Stop Dose Admin Acetaminophen 1,000 mg 03/08/25 20:59 03/08/25 21:04 Acetaminophen 1,000mg/100ml Vial IV 03/08/25 21:00 1,000 mg ONCE ONE Administration Iopamidol 70 ml 03/08/25 20:45 03/08/25 20:51 Iopamidol-370 (76%);100ml Bottle IV 03/08/25 20:46 70 ml ONCE ONE Administration Ketorolac Tromethamine 30 mg 03/08/25 20:59 03/08/25 21:04 Ketorolac 30mg/Ml Vial IV 03/08/25 21:00 30 mg ONCE ONE Administration Sodium Chloride 50 ml 03/08/25 20:45 03/08/25 20:51 0.9 % Sodium Chloride 50 Ml Vial IV 03/08/25 20:46 50 ml ONCE ONE Administration Sodium Chloride 10 ml 03/08/25 20:45 03/08/25 20:51 Sodium Chloride 0.9% 10ml Syr (Rad Only) IV 03/08/25 20:46 10 ml ONCE ONE Administration ORDERS Category Date Time Status ABO/RH Type Stat BBK 03/08/25 18:[address] angio chest PE protocol Stat Cat Scan 03/08/25 20:21 Completed Chest XR -- portable [XR chest portable] Stat Exams 03/08/25 18:54 Completed BNP [NT Pro Brain Natriuretic Pep.] Stat Lab 03/08/25 18:49 Completed C-Reactive Protein Stat Lab 03/08/25 18:49 Completed CBC [Complete Blood Count Auto Diff] Stat Lab 03/08/25 18:49 Completed Comprehensive Metabolic Panel Stat Lab 03/08/25 18:49 Completed D-Dimer Stat Lab 03/08/25 18:49 Completed Erythrocyte Sedimentation Rate Stat Lab 03/08/25 18:49 Completed Lactic Acid Stat Lab 03/08/25 18:49 Completed Lipase Stat Lab 03/08/25 18:49 Completed Magnesium Stat Lab 03/08/25 18:49 Completed PT INR [Prothrombin Time INR] Stat Lab 03/08/25 18:49 Completed PTT [Activated Partial Thrombo Time] Stat Lab 03/08/25 18:49 Completed Rapid PCR Covid and Flu A/B Stat Lab 03/08/25 19:08 Completed Trop I [Troponin I] Stat Lab 03/08/25 18:49 Completed Troponin I Q3H Lab 03/08/25 22:00 Ordered Troponin I Q3H Lab 03/09/25 01:00 Ordered Urinalysis and Microscopic Stat Lab 03/08/25 19:25 Results Medical Decision Narrative: patient is a 85-year-old female presenting to the emergency department for evaluation of weakness, exertional shortness of breath. Patient is hemodynamically stable and nontoxic-appearing upon arrival, afebrile. Differential diagnosis includes anemia, AMALIA, dehydration, among others. Workup will be conducted with hematologic labs, specific imaging, provocative tests. Initial inventions include crystalloid bolus. Initial workup reviewed by ar hematologic labs are remarkable for hemoglobin of 7.9. Typically when she gets transfused in the past it has been 5.8, 6.6. I discussed this with Dr. Richmond and we decided that she did not need emergent transfusion of blood. Discussed with patient that her H&H is 7.9 and 25.3. She does not need emergent transfusion. BNP was 1460 which is about where it usually is. BUN and creatinine was 24 and 2.2 which is improved from what it was last time. Her CTA showed a sclerotic lesion at T12 which I discussed with her and her daughter that her PCP needs to follow-up on this closely. Patient prefers to see her PCP for infusion at outpatient rather than coming to the hospital. Discussed this with patient and daughter and they are agreeable to going home and coming back for outpatient infusion. Patient is having pain so we agreed on giving pain meds and then DC home. She will talk to her PCP in the morning. Discussed this with Dr. Richmond who agrees with the plan. Patient will be DC'd. Patient safe for discharge home Critical Care Critical Care Time Critical Care Time: No
--- NOTE | 2025-03-08 20:21 | CT_ITS ---
PROCEDURE INFORMATION: Exam: CTA Chest With Contrast Exam date and time: 03/08/2025 8:50 PM Age: 85 years old Clinical indication: Pain; Chest pressure; Additional info: Dimer TECHNIQUE: Imaging protocol: Computed tomographic angiography of the chest with contrast. Exam focused on the arteries. 3D rendering (Not supervised by radiologist): MIP and/or 3D reconstructed images were created by the technologist. Radiation optimization: All CT scans at this facility use at least one of these dose optimization techniques: automated exposure control; mA and/or kV adjustment per patient size (includes targeted exams where dose is matched to clinical indication); or iterative reconstruction. Contrast material: ISOVUE; Contrast volume: 70 ml; Contrast route: INTRAVENOUS (IV); COMPARISON: CR XR CHEST PORTABLE 03/08/2025 7:36 PM FINDINGS: Tubes, catheters and devices: Right subclavian approach chest port right T12 pedicle sclerotic lesion. There is a intrathecal catheter also present Pulmonary arteries: No CT evidence of acute pulmonary embolus. Aorta: Unremarkable. No aortic aneurysm. No aortic dissection. Lungs: Unremarkable. No consolidation. No masses. Pleural spaces: Unremarkable. No pneumothorax. No pleural effusion. Heart: Unremarkable. No cardiomegaly. No pericardial effusion. Coronary arteries: Calcified coronary arteries Lymph nodes: Unremarkable. No enlarged lymph nodes. Bones/joints: Unremarkable. No acute fracture. Soft tissues: Unremarkable. IMPRESSION: 1. No visible acute intrathoracic abnormality 2. No acute pulmonary embolus 3. Right T12 pedicle sclerotic lesion. Metastatic disease versus large enostosis
[2025-03-08] MEDS: 0.9 % SODIUM CHLORIDE 50 ML VIAL IV (20:51)
[2025-03-08] MEDS: IOPAMIDOL-370 (76%);100ML BOTTLE 70 ML IV (20:51)
[2025-03-08] MEDS: SODIUM CHLORIDE 0.9% 10ML SYR (RAD ONLY) 10 ML IV (20:51)
[2025-03-08] MEDS: KETOROLAC 30MG/ML VIAL 30 MG IV (21:04)
[2025-03-08] MEDS: ACETAMINOPHEN 1,000MG/100ML VIAL 1000 MG IV (21:04)
[2025-03-08] MEDS: OXYCODONE 5MG IMMEDIATE RELEASE TABLET 10 MG PO (22:08)
[2025-03-08 22:13] LABS: Bacteria,Urine 1+ /lpf; Squamous Epithelial Cell,Urine Occasional #/hpf (0-5); WBC,Urine Occasional #/hpf (0-3)
== END 2025-03-08 22:20 | disposition home or self-care (01) ==
PROVIDERS: Nurse Practitioner; Emergency Provider Student in an Organized Health Care Education/Training Program; PCP Family Medicine
DX: R06.02 Shortness of breath (principal); R60.0 Localized edema; D64.9 Anemia, unspecified; N18.30 Chronic kidney disease, stage 3 unspecified; I12.9 Hypertensive chronic kidney disease with stage 1 through stage 4 chronic kidney disease, or unspecified chronic kidney disease
CPT/HCPCS: 71045; 71275; 80053; 81001; 83605; 83690; 83735; 83880; 84484; 85025; 85378; 85610; 85651; 85730; 86140; 86900; 86901; 87636; 93005; 96374; 96375; 99284; 99285; J0131; J1885; Q9967

== ENCOUNTER 2025-03-10 11:05 | Outpatient (CLI) | payer MEDICARE, SELFPAY ==
[2025-03-10] VITALS (12 sets, daily range): BP systolic 132–150; BP diastolic 53–75; PULSE 48–63; RESP 18–19; TEMP 36.1–36.4; O2SAT 95–100
[2025-03-10 11:26] LABS: Hematocrit 24.0 % (37.0-47.0); Hemoglobin 7.4 g/dL (12.2-16.2)
--- OUTSIDE RECORDS SUMMARY | 2025-03-10 12:20 | XMS_ITS | Clinical Summary ---
Author Organization [facility] Address [address] [place] [address] Phone Care Team Providers Care Industrial Servicer Name Role Phone Moise Harris MD, [facility] Primary Care Provid er Allergies No known [...] to complete this topic Insurance Care Teams Industrial Servicer Relationship Specialty Start Date End Date Vinayak Phipps Sr., MD [address] [place] [phone] PCP - General Regulatory Assistant 12/15/12
--- OUTSIDE RECORDS SUMMARY | 2025-03-10 12:20 | XMS_ITS | Clinical Summary ---
Author Organization Healthcare Address [address] [place] [address] Care Team Providers Care Lead Teacher Name Role Phone Marge Jovel [employer] Primary Care Provider [phone] Allergies Active Allergy Reactions Criticality Noted Date Comments Morphine Unknown - Patient st ates they do not know rxn details Low 06/11/2023 Pentoxifylline Rash Low 11/25/2018 Medications cholecalciferol (Vitamin D3) 1.25 MG (25600 UT) capsule Take 1 capsule (50,000 Units) [...] Description 04/02/2025 11:00 AM EDT Office Visit [facility] [address] [place] [address] Fabi Tinajero, [employer] [address] [address] Health Maintenance Due Date Last Done Comments [facility]-Bone Density Scan 1940 [facility]-Medicare Annual Wellness (AWV) 1940 [facility]-Infant/Child/Adol SDOH Screenings 1940 [id number] Vaccine (#1) 1947 [facility]- SDOH Screenings 1960 [...] patient's age to complete this topic [place] [address] [employer] MEDICARE Care Teams Lead Teacher Relationship Specialty Start Date End Date Marge Jovel APRN [address] [place] [address] [place] [address] PCP - General 01/10/24
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
--- OUTSIDE RECORDS SUMMARY | 2025-03-10 12:20 | XMS_ITS | Encounter Summary ---
Author Organization [facility] Address [address] [place] [address] Care Team Providers Care Cryogenic Transport Driver Name Role Phone David Disla MD Primary Care Provider [phone] Marge Jovel APRN Primary Care Provider [phone] Reason for Visit * Reason Comments Med Refill Encounter Details Date Type Department Care Team (Late st Contact Info) Description 12/16/2023 Refill [facility] [address] [phone] Alyce Lira MD [address] [address] Essential hypertension Social History Tobacco [...] Description 04/02/2025 11:00 AM EDT Office Visit [facility] [address] [place] [phone] Fabi Tinajero APRN [address] [phone] documented as of this encounter Visit Diagnoses Diagnosis Essential hypertension Unspecified essential hypertension documented in this encounter Additional Health Concerns Assessment Noted Time A fall risk assessment has been complete d for the patient 10/14/2023 3:37 PM EDT A Body Mass Index follow-up plan has been documented for the patient 10/23/2023 11:27 AM EDT documented as of this encounter Care Teams Cryogenic Transport Driver Relationship Specialty Start Date End Date David Disla MD [address] [place] [address] PCP - General 10/21/20 01/09/24 Marge Jovel APRN [address] [place] [address] PCP - General 01/10/24 documented as of this encounter
[2025-03-10] MEDS: 0.9 % SODIUM CHLORIDE 250 ML 25 ML IV (13:05)
[2025-03-10 14:27] LABS: Iron 33 ug/dL (37-170)
[2025-03-10 14:45] LABS: Total Iron Binding Capacity 321 ug/dL (265-497)
[2025-03-10 15:21] LABS: Ferritin 11.5 ng/ml (11.1-264)
[2025-03-10] MEDS: SODIUM CHLORIDE 0.9% 10ML FLUSH SYRINGE 10 ML IV (16:16)
[2025-03-10 16:22] LABS: Hematocrit 27.6 % (37.0-47.0)
[2025-03-10 17:26] LABS: Hemoglobin 8.7 g/dL (12.2-16.2)
== END 2025-03-10 23:59 | disposition home or self-care (01) ==
PROVIDERS: PCP Family Medicine; Visit Provider Family Medicine
DX: D50.0 Iron deficiency anemia secondary to blood loss (chronic) (principal)
CPT/HCPCS: 36430; 82728; 83540; 83550; 85014; 85018; 86850; J1642; J7050; P9016

== ENCOUNTER 2025-03-18 14:26 | Outpatient (CLI) | payer MEDICARE, SELFPAY ==
--- NOTE | 2025-03-18 14:28 | XR_ITS ---
FINAL REPORT CLINICAL HISTORY: ankle pain, fell last week FINDINGS: AP, oblique, and lateral views of the right ankle were obtained. There is no prior exam for comparison. There is no fracture or dislocation. Mild degenerative joint disease. There is prominent medial soft tissue edema. IMPRESSION: Soft tissue edema without acute osseous abnormality of the right ankle. Reviewed, Interpreted and Dictated by Key Grider MD Transcribed by Colette Monroe Authenticated and [facility]
--- NOTE | 2025-03-18 14:30 | CT_ITS ---
FINAL REPORT TECHNIQUE: Thin section axial images were obtained through the thoracic spine without contrast. Sagittal and coronal images were obtained from the axial data. CLINICAL HISTORY: spinal lesion seen on prior ct COMPARISON: CTA 03/08/2025 FINDINGS: There is no acute fracture of the thoracic spine. Osteopenia is noted. There is multilevel degenerative disc disease. There has been no change in the sclerotic lesion in the right pedicle at T12. No additional sclerotic lesions are identified. There is no acute paraspinal abnormality. There is an incompletely imaged 47 mm abdominal aortic aneurysm in the upper abdomen. IMPRESSION: Stable sclerotic bony lesion in the right pedicle at T12. Differential diagnosis is not changed since recent CT chest. This could be a bone island or sclerotic bony metastasis. If more remote prior exams have been obtained, recommend comparison. Otherwise, consider bone scan for further evaluation. Reviewed, Interpreted and Dictated by Key Grider MD Transcribed by Colette Monroe Authenticated and [facility]
== END 2025-03-18 23:59 | disposition home or self-care (01) ==
LOC: RAD 14:27
PROVIDERS: PCP Family Medicine; Visit Provider Family Medicine
DX: M89.9 Disorder of bone, unspecified (principal); M79.89 Other specified soft tissue disorders; M25.579 Pain in unspecified ankle and joints of unspecified foot; M25.473 Effusion, unspecified ankle; R93.7 Abnormal findings on diagnostic imaging of other parts of musculoskeletal system; W19.XXXA Unspecified fall, initial encounter
CPT/HCPCS: 72128; 73610

== ENCOUNTER 2025-03-29 13:55 | Outpatient (CLI) | payer MEDICARE, SELFPAY ==
[2025-03-29] MEDS: SODIUM CHLORIDE 0.9% 10ML FLUSH SYRINGE 10 ML IV (14:06)
[2025-03-29 14:14] LABS: Microscopic, Urine URINE MICROSCOPIC (MICROSCOPIC)
[2025-03-29 14:18] LABS: Hematocrit 28.9 % (37.0-47.0); Hemoglobin 9.1 g/dL (12.2-16.2); Immature Granulocytes % 0.3 %; Mean Corpuscular HGB Conc 31.5 g/dL (31.8-35.4); Mean Corpuscular Hemoglobin 26.5 pg (27.0-31.2); Mean Corpuscular Volume 84.3 fl (81-99); Nucleated Red Blood Cells % 0 %; Platelet Count 255 K/mm3 (142-424); Red Blood Count 3.43 M/mm3 (4.20-5.40); Red Cell Distribution Width-SD 45.4 fL; White Blood Count 6.8 K/mm3 (4.8-10.8)
[2025-03-29 14:30] LABS: Albumin Level 3.9 g/dl (3.5-5.0); Anion Gap 14.1 mEq/L (5-15); Blood Urea Nitrogen 30 mg/dl (7-17); Calcium 9.2 mg/dl (8.4-10.2); Carbon Dioxide 25 mmol/L (22.0-30.0); Chloride 103 mmol/L (98-107); Creatinine,Serum 2.60 mg/dl (0.52-1.04); Estimated Glomerular Filt Rate 18 ml/min (>60); GFR (African American) 21 ML/MIN (>60); Glucose 121 mg/dl (74-100); Phosphorous 4.3 mg/dl (2.5-4.5); Potassium 4.1 mmoL/L (3.5-5.1); Sodium 138 mmol/L (136-145)
[2025-03-29 14:41] LABS: Bilirubin,Urine Negative (Negative); Color,Urine YELLOW (Yellow); Glucose,Urine (UA) 1+ (Negative); Ketones,Urine Negative (Negative); Leukocyte Esterase,Urine Negative (Negative); PH,Urine 5.5 (5.0-8.5); Protein,Urine Negative (Negative); Specific Gravity, Urine 1.025 (1.005-1.030); Urobilinogen,Urine 1.0 EU/dl (0.2)
[2025-03-29 15:18] LABS: Amorphous Sediment,Urine Trace /lpf; Bacteria,Urine Trace /lpf
[2025-03-29 16:10] LABS: Iron 52 ug/dL (37-170)
[2025-03-29 16:19] LABS: Total Iron Binding Capacity 356 ug/dL (265-497)
[2025-03-29 16:47] LABS: Ferritin 15.5 ng/ml (11.1-264)
[2025-03-29 17:10] LABS: 25-OH Vitamin D, Total 51.0 ng/mL (30-100)
[2025-03-30 11:25] LABS: Transferrin 273 mg/dL (149-313)
== END 2025-03-29 23:59 | disposition home or self-care (01) ==
PROVIDERS: PCP Family Medicine; Visit Provider Nurse Practitioner
DX: D50.0 Iron deficiency anemia secondary to blood loss (chronic) (principal)
CPT/HCPCS: 36591; 80069; 81001; 82306; 82570; 82728; 83540; 83550; 83970; 84156; 84466; 85025; J1642

== ENCOUNTER 2025-04-12 08:44 | Outpatient (CLI) | payer MEDICARE, SELFPAY ==
--- OUTSIDE RECORDS SUMMARY | 2025-04-02 10:00 | XMS_ITS | Encounter Summary ---
Author Organization Healthcare Address [address] [place] [address] Care Team Providers Care Race And Sports Book Writer Name Role Phone Marge Jovel APRN Primary Care Provider Reason for Referral * Consultation (Routine) - Authorized Specialty Diagnoses / Procedures Referred By Rocio t Referred To Contact Diagnoses CKD (chronic kidney disease) stage 4, GFR 15-29 ml/min (CMS/HCC) Fabi Tinajero APRN [address] [address] Phone: tel: fax: Referral ID Status Reason Start Date Expiration Date V isits Requested Visits Authorized [id number] Authorized 04/02/2025 10/02/2026 1 1 Reason for Visit * Reason Comments Follow-up * Consultation (Routine) - Closed Specialty Diagnoses / Procedures Referred By Contac t Referred To Contact Diagnoses CKD (chronic kidney disease) stage 4, GFR 15-29 ml/min (CMS/HCC) Fabi Tinajero APRN [address] [address] Phone: tel: fax: Referral ID Status Reason Start Date Expiration Date Visits Re quested Visits Authorized [id number] Closed 12/04/2024 06/05/2026 1 1 Encounter Details Date Type Department Care Team (Late st Contact Info) Description 04/02/2025 11:00 AM EDT Office Visit [facility] [address] [place] [address] Fabi Tinajero APRN [address] [address] CKD (chronic kidney disease) stage [...] Sign Reading Time Taken Comments Blood Pressure 124/82 04/02/2025 10:55 AM EDT Pulse 87 04/02/2025 10:55 AM EDT Temperature 36.9 C (98.5 F) 04/02/2025 10:55 AM EDT Respiratory Rate 18 04/02/2025 10:55 AM EDT Oxygen Saturation 97% 04/02/2025 10:55 AM EDT Inhaled Oxygen Concentration - - Weight 78.9 kg (174 lb) 04/02/2025 10:55 AM EDT Height 162.6 cm (5' 4 ) 04/02/2025 10:55 AM EDT Body Mass Index 29.87 04/02/2025 10:55 AM EDT documented in this encounter Miscellaneous Notes * Progress Notes - Fabi Tinajero APRN - 04/02/2025 11:00 AM EDT SUBJECTIVE Kim Gandhi is a 85 y.o. female who presents for follow-up of CKD 4. She reports she is doing okay since her last visit. Blood pressure stable at home. Denies hematuria, dysuria, abd pain, SOA, CP. She has had increased edema in the last few weeks. She was started on 60mg PO lasix per cardiology, but this was decreased due to concerns with renal function. She is nowtaking only 20mg daily. OBJECTIVE Vitals: 04/02/25 1055 BP: 124/82 Pulse: 87 Resp: 18 Temp: 36.9 ??C (98.5 ??F) SpO2: 97% PHYSICAL EXAMINATION Gen: NAD, elderly HEENT: AT/NC, EOMI, MMM Neck: trachea midline, supple Skin: warm, dry CV: RRR, b/l LLE pedal Pulm: no increased work of breathing, symmetric chest expansion, good inspiratory/expiratory effort GI: abd soft, ND Neuro: alert, interactive, cortical function grossly intact LAB RESULTS Outside labs reviewed. ASSESSMENT/PLAN 85 yo F with PMH of iron def anemia, HTN, renal artery stenosis with stenting, ?SLE on hydroxychloroquine who has been referred to renal clinic for evaluation of CKD 4/5. - CKD 4/5: suspect related to HTN and CVD. Unknown if SLE and pt not interested in renal biopsy. Crhas been between 3.0-3.4 on latest visits. 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 Wishes to pursue medical management only. - HTN: Currently on losartan 25 mg daily, amlodipine 10 mg daily, Toprol XL 100 mg daily, spironolactone 25 mg daily, and chlorthalidone 25 mg daily. - Iron Def Anemia: S/p endoscopy during hospitalizations. 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 Phos 5.6, goal < 5.5. On ergocalciferol 50,000 units monthly. Plan/Recs: - will monitor Hb. - continue Farxiga - continue ergocalciferol monthly. Had discussion about lasix. Patient to resume 40mg po lasix daily. She notes cardiology noted concern for worsening renal function. She is going to start with 40mg everyother day and may increase to daily after seeing cardiology next week. Tsat low, needs additional dose of IV iron. Notes she had an allergic reaction to last dose. Will discuss with infusion center to see which she had a reaction to. RTC in 4mo w/ labs documented in this encounter Plan of Treatment Upcoming Encounters Date Type Department Care Team (Late st Contact Info) Description 08/06/2025 11:00 AM EST Office Visit [facility] [address] [address] Fabi Tinajero, SOCK MENDER [address] [address] Scheduled Orders Name Type Priority Associated Diagnoses Orde r Schedule CBC W/O Differential Lab Routine CKD (chronic kidney disease) stage 4, GFR 15-29 ml/min (CMS/HCC) Expected: 04/02/2025 (Approximate), Expires: 10/01/2026 Protein, Random, Urine with Creatinine Lab Routine CKD (chronic kidney disease) stage 4, GFR 15-29 ml/min (CMS/HCC) Expected: 04/02/2025 (Approximate), Expires: 10/01/2026 PTH Intact Total Lab Routine CKD (chronic kidney disease) stage 4, GFR 15-29 ml/min (CMS/HCC) Expected: 04/02/2025 (Approximate), Expires: 10/01/2026 Renal Function Panel, Plasma Lab Routine CKD (chronic kidney disease) stage 4, GFR 15-29 ml/min (CMS/HCC) Expected: 04/02/2025 (Approximate), Expires: 10/01/2026 Urinalysis with reflex microscopic (Culture NOT Included) Lab Routine CKD (chronic kidney disease) stage 4, GFR 15-29 ml/min (CMS/HCC) Expected: 04/02/2025 (Approximate), Expires: 10/01/2026 Vitamin D 25 Hydroxy Lab Routine CKD (chronic kidney disease) stage 4, GFR 15-29 ml/min (CMS/HCC) Expected: 04/02/2025 (Approximate), Expires: 10/01/2026 Scheduled Referrals Name Type Priority Associated Diagnoses Order Schedule Follow Up Nephrology Outpatient Referral Routine CKD (chronic kidney disease) stage 4, GFR 15-29 ml/min (CMS/HCC) Expected: 08/03/2025 (Approximate), Expires: 05/03/2026 documented as of this encounter Visit Diagnoses Diagnosis CKD (chronic kidney disease) stage 4, GFR 15-29 ml/min ([facility])- Primary Chronic kidney disease, Stage IV (severe) Other iron deficiency anemia Essential hypertension Unspecified essential hypertension Chronic kidney disease-mineral and bone disorder documented in this encounter Additional Health Concerns Assessment Noted Time A fall risk assessment has been complete d for the patient 02/12/2024 12:40 PM EDT A Body Mass Index follow-up plan has been documented for the patient 04/02/2025 11:58 AM EDT documented as of this encounter Care Teams Race And Sports Book Writer Relationship Specialty Start Date End Date Marge Jovel APRN [address] [place] [address] PCP - General 01/10/24 documented as of this encounter
--- OUTSIDE RECORDS SUMMARY | 2025-04-12 08:49 | XMS_ITS ---
Laboratory report Created on: April 01, 2025 ISMA VALDERRAMA : 1940 Sex: Female Author Organization Unknown PROBLEMS Problems List Code Description RESULTS Laboratory Orders Date Order Code Test 2025-03-29 [id number] TRANSFERRIN Laboratory Results Date LOINC Test Value Unit Reference Range Interpre tation 2025-03-29 3034-6 TRANSFERRIN 273 MG/DL 149-313
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
--- OUTSIDE RECORDS SUMMARY | 2025-04-12 08:49 | XMS_ITS | Encounter Summary ---
Author Organization Healthcare Address [address] [place] [address] Care Team Providers Care Dyeing Machine Feeder Name Role Phone Marge Jovel APRN Primary Care Provider [phone] Encounter Details Date Type Department Care Team (Latest Contact Info) Description 04/02/2025 Travel Social History Tobacco Use Types Packs/Day [...] Description 08/06/2025 11:00 AM EST Office Visit [facility] [address] [place] [address] Fabi Tinajero APRN [address] [address] documented as of this encounter Visit Diagnoses Not on filedocumented in this encounter Additional Health Concerns Assessment Noted Time A fall risk assessment has been complete d for the patient 02/12/2024 12:40 PM EDT A Body Mass Index follow-up plan has been documented for the patient 04/02/2025 11:58 AM EDT documented as of this encounter Care Teams Dyeing Machine Feeder Relationship Specialty Start Date End Date Marge Jovel APRN [address] [place] [address] PCP - General 01/10/24 documented as of this encounter
--- OUTSIDE RECORDS SUMMARY | 2025-04-12 08:49 | XMS_ITS | Encounter Summary ---
Author Organization Healthcare Address [address] [place] [address] Care Team Providers Care Chemical Blender Name Role Phone David Disla MD Primary Care Provider [phone] Marge Jovel APRN Primary Care Provider [phone] Reason for Visit * Reason Comments Med Refill Encounter Details Date Type Department Care Team (Late st Contact Info) Description 12/16/2023 Refill [facility] [address] [address] Alyce Lira MD [address] [address] Essential hypertension Social History Tobacco [...] Description 08/06/2025 11:00 AM EST Office Visit [facility] [address] [place] [address] [facility]ero APRN [address] [facility] [address] [place] [address] documented as of this encounter Visit Diagnoses Diagnosis Essential hypertension Unspecified essential hypertension documented in this encounter Additional Health Concerns Assessment Noted Time A fall risk assessment has been complete d for the patient 10/14/2023 3:37 PM EDT A Body Mass Index follow-up plan has been documented for the patient 10/23/2023 11:27 AM EDT documented as of this encounter Care Teams Chemical Blender Relationship Specialty Start Date End Date David Disla MD [address] [place] [address] PCP - General 10/21/20 01/09/24 Marge Jovel APRN [address] [place] [address] PCP - General 01/10/24 documented as of this encounter
--- OUTSIDE RECORDS SUMMARY | 2025-04-12 08:49 | XMS_ITS | Clinical Summary ---
Author Organization [facility] Address [address] [place] [address] Phone Care Team Providers Care Undercover Agent Name Role Phone Moise Harris MD, [facility] Primary Care Provid er Allergies [...] 75+ series) 2017 COVID-19 Vaccine ( - 2024-2 6 season) 2025 Influenza Vaccine (#1) 2025 Hepatitis B Vaccine Aged Out No longe r eligible based on patient's age to complete this topic Meningococcal B Vaccine Aged Out No l onger eligible based on patient's age to complete this topic Insurance Care Teams Undercover Agent Relationship Specialty Start Date End Date Vinayak Phipps Sr., MD [address] [place] [phone] PCP - General Furnace Tapper 12/15/12
--- OUTSIDE RECORDS SUMMARY | 2025-04-12 08:50 | XMS_ITS | Clinical Summary ---
Author Organization Healthcare Address [address] [place] [address] Care Team Providers Care Fly Setter Name Role Phone Marge Jovel SWAPNIL Primary Care Provider [phone] Allergies Active Allergy Reactions Criticality Noted Date Comments Morphine Unknown - Patient st ates they do not know rxn details Low 06/11/2023 Pentoxifylline Rash Low 11/25/2018 Medications cholecalciferol (Vitamin D3) 1.25 MG (08043 UT) capsule Take 1 capsule (50,000 Units) by mouth every 30 (thirty) days. Active dapagliflozin (Farxiga) 5 MG tablet Take 1 tablet (5 mg) by mouth daily. Active fluticasone-salm eterol (Advair Diskus) 250-50 MCG/ACT diskus inhaler Inhale 1 puff 2 (two) times a day. Rinse mouth with water after use to reduce aftertaste and incidence of candidiasis. Do not swallow. Active hydroxychloroqui ne (Plaquenil) 200 MG tablet Take by mouth. A ctive metoprolol succinate XL (Toprol-XL) 100 MG 24 [...] 3 4 Active chlorthalidone (Hygroton) 25 MG tabletIndication s:Essential hypertension Take 1 tablet (25 mg) by mouth 1 (one) time each day. 90 tablet 3 4 Active losartan (Cozaar) 25 MG tablet Take 1 tablet (25 mg) by mouth 1 (one) time each day. 90 tablet 3 4 Active spironolactone (Aldactone) 25 MG tablet Take 1 tablet (25 mg) by mouth 1 (one) time each day. 90 each 3 4 Active ferumoxytol (Feraheme) 510 MG/17ML injectionIndicat ions:Other iron deficiency anemia Infuse 17 mL into a venous catheter 1 time per week for 2 doses. 34 mL 5 04/10/20 25 Active Problems Problem Noted Date Diagnosed Date CKD (chronic kidney disease) stage 4, GFR 15-29 ml/min 02/12/2024 Iron deficiency anemia 06/13/2023 Encounters Date Type Department Care Team Description 04/02/2025 11:00 AM EDT Office Visit [facility] [address] [place] [address] Fabi Tinajero APRN CKD (chronic kidney disease) stage 4, GFR 15-29 ml/min (CMS/HCC) (Primary Dx); Other iron deficiency anemia; Essential hypertension; Chronic kidney disease-mineral and bone disorder 04/02/2025 Travel from Last 3 Months Immunizations Immunization [...] Mass Index 29.87 04/02/2025 10:55 AM EDT Plan of Treatment Upcoming Encounters Date Type Department Care Team (Late st Contact Info) Description 08/06/2025 11:00 AM EST Office Visit [facility] [address] [place] [address] Fabi Tinajero, ENGINEERING LIBRARIAN [address] [address] Health Maintenance Due Date Last Done Comments [facility]-Bone Density Scan 1940 [facility]-Medicare Annual Wellness (AWV) 1940 [facility]-Infant/Child/Adol SDOH Screenings 1940 [facility]-YCMIS-49 Vaccine (#1) 1947 [facility]- SDOH Screenings 1960 [facility]-Adult SDOH Screenings 1960 [facility]-Pneumococcal Vaccine: 50+ Years (1 of 1 - PCV) 1992 [facility]-Zoster Vaccines (1 of 2) 1992 [facility]-DTaP,Tdap,and Td Vaccines (1 - Tdap) 08/14/1996 08/13/1996 [facility]-RSV Vaccine: 60+ Years or (1 - 1-dose 75+ series) 2017 [facility]-Influenza Vaccine (#1) 2025 [facility]-Depression Screening 02/11/2025 02/12/2024 [facility]-Obesity Intervention Completed 025, 12/04/2024, 08/07/2024, Additional history exists HPV Vaccines Aged Out [...] patient's age to complete this topic Insurance [facility] MEDICARE Care Teams Fly Setter Relationship Specialty Start Date End Date Marge Jovel APRN [address] [place] [address] PCP - General 01/10/24
--- OUTSIDE RECORDS SUMMARY | 2025-04-12 08:50 | XMS_ITS ---
[facility] Care Plan Created on: April 05, 2025 Kim Gandhi : 1940 Sex: Female Author Organization [facility] Address [address] [place] [address] [address] [place] [address] Phone Health Concerns Health Status CKD 4 Health Concerns Care and support services, M edication management, Health condition management
--- NOTE | 2025-04-12 09:00 | US_ITS ---
FINAL REPORT CLINICAL HISTORY: [facility] COMPARISON: 11/13/2023 (Report only) FINDINGS: Sonographic images were obtained of the abdominal aorta. The abdominal aorta measures up to 4.9 cm in greatest dimension. The common iliac arteries are within normal limits. The most recent exam of 2023 demonstrated a diameter of the abdominal aorta to measure 4 cm in greatest dimension. 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 IMPRESSION: Enlargement of the known abdominal aortic aneurysm since the prior exam, from 4.0 cm to 4.9 cm when compared to the prior report. Consider CTA for further evaluation. Reviewed, Interpreted and Dictated by Key Grider MD Transcribed by Amelia Jha Authenticated and [facility]
== END 2025-04-12 23:59 | disposition home or self-care (01) ==
LOC: RAD 08:44
PROVIDERS: PCP Family Medicine; Visit Provider Physician Assistant
DX: I71.40 Abdominal aortic aneurysm, without rupture, unspecified (principal)
CPT/HCPCS: 76706

== ENCOUNTER 2025-04-21 10:58 | Outpatient (CLI) | payer MEDICARE, SELFPAY ==
--- OUTSIDE RECORDS SUMMARY | 2025-04-02 10:00 | XMS_ITS | Encounter Summary ---
Author Organization Healthcare Address [address] [place] [address] Care Team Providers Care Job Cost Estimator Name Role Phone Marge Jovel APRN Primary Care Provider [phone] Reason for Referral * Consultation (Routine) - Authorized Specialty Diagnoses / Procedures Referred By Rocio t Referred To Contact Diagnoses CKD (chronic kidney disease) stage 4, GFR 15-29 ml/min (CMS/HCC) Fabi Tinajero APRN [address] [address] Phone: tel: fax: Referral ID Status Reason Start Date Expiration Date V isits Requested Visits Authorized [id number] Authorized 04/02/2025 10/02/2026 1 1 Reason for Visit * Reason Comments Follow-up * Consultation (Routine) - Closed Specialty Diagnoses / Procedures Referred By Contac t Referred To Contact Diagnoses CKD (chronic kidney disease) stage 4, GFR 15-29 ml/min (CMS/HCC) Fabi Tinajero APRN [address] [address] Phone: tel: fax: Referral ID Status Reason Start Date Expiration Date Visits Re quested Visits Authorized [id number] Closed 12/04/2024 06/05/2026 1 1 Encounter Details Date Type Department Care Team (Late st Contact Info) Description 04/02/2025 11:00 AM EDT Office Visit [facility] [address] [place] [address] Fabi Tinajero APRN [address] [address] CKD (chronic kidney disease) stage [...] 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 Wishes to [...] Description 08/06/2025 11:00 AM EST Office Visit [facility] [address] [address] Fabi Tinajero, ASSEMBLER PRODUCTION LINE [address] [address] Scheduled Orders Name Type Priority [...] kidney disease) stage 4, GFR 15-29 ml/min ([facility])- Primary Chronic kidney disease, Stage IV [...] documented as of this encounter Care Teams Job Cost Estimator Relationship Specialty Start Date End Date Marge Jovel APRN [address] [place] [address] PCP - General 01/10/24 documented as of this encounter
--- OUTSIDE RECORDS SUMMARY | 2025-04-21 11:05 | XMS_ITS | Clinical Summary ---
Author Organization [facility] Address [address] [place] [address] Phone Care Team Providers Care Union Organiser Name Role Phone Moise Harris MD, [facility] Primary Care Provid er Allergies [...] to complete this topic Insurance Care Teams Union Organiser Relationship Specialty Start Date End Date Vinayak Phipps Sr., MD [address] [place] [phone] PCP - General Supervisor Cutting Department 12/15/12
--- OUTSIDE RECORDS SUMMARY | 2025-04-21 11:05 | XMS_ITS | Encounter Summary ---
Author Organization Healthcare Address [address] [place] [address] Care Team Providers Care Pharmacognosy Teacher Name Role Phone Marge Jovel APRN Primary Care Provider [phone] Encounter Details Date Type Department Care Team [...] EST Office Visit [facility] [address] [place] [address] Fabi Tinajero APRN [address] [address] documented as of this encounter Visit Diagnoses Not on filedocumented in this encounter Additional Health Concerns Assessment Noted Time A fall risk assessment has been complete d for the patient 02/12/2024 12:40 PM EDT A Body Mass Index follow-up plan has been documented for the patient 04/02/2025 11:58 AM EDT documented as of this encounter Care Teams Pharmacognosy Teacher Relationship Specialty Start Date End Date Marge Jovel APRN [address] [place] [address] PCP - General 01/10/24 documented as of this encounter
--- OUTSIDE RECORDS SUMMARY | 2025-04-21 11:05 | XMS_ITS | Encounter Summary ---
Author Organization Healthcare Address [address] [place] [address] Care Team Providers Care Space Engineer Name Role Phone Marge Jovel SWAPNIL Primary Care Provider [phone] Encounter Details Date Type Department Care Team (Late st Contact Info) Description 04/12/2025 Orders Only [facility] Nephrology [address] [place] [address] Fabi Tinajero APRN [address] [address] CKD (chronic kidney disease) stage 4, GFR 15-29 ml/min (CMS/HCC) (Primary Dx); Other iron deficiency anemia Social History Tobacco Use Types Packs/Day Years [...] on file documented as of this encounter Miscellaneous Notes * Progress Notes - Fabi Tinajero APRN - 04/12/2025 3:04 PM EST Patient allergic to venofer tolerated fereheme To have completed at [facility] documented in this encounter Plan of Treatment Upcoming Encounters Date Type Department Care Team (Late st Contact Info) Description 08/06/2025 11:00 AM EST Office Visit [facility] [address] [place] [phone] Fabi Tinajero, GRE TUTOR [address] [address] documented as of this encounter Visit Diagnoses Diagnosis CKD (chronic kidney disease) stage 4, GFR 15-29 ml/min ([facility])- Primary Chronic kidney disease, Stage IV (severe) Other iron deficiency anemia documented in this encounter Additional Health Concerns Assessment Noted Time A fall risk assessment has been complete d for the patient 02/12/2024 12:40 PM EDT A Body Mass Index follow-up plan has been documented for the patient 04/02/2025 11:58 AM EDT documented as of this encounter Care Teams Space Engineer Relationship Specialty Start Date End Date Marge Jovel APRN [address] [facility] [place] [address] PCP - General 01/10/24 documented as of this encounter
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
--- OUTSIDE RECORDS SUMMARY | 2025-04-21 11:05 | XMS_ITS | Encounter Summary ---
Author Organization Healthcare Address [address] [place] [address] Care Team Providers Care Talent Director Name Role Phone David Disla MD Primary Care Provider + [phone] Marge Jovel APRN Primary Care Provider [phone] Reason for Visit * Reason Comments Med Refill Encounter Details Date Type Department Care Team (Late st Contact Info) Description 12/16/2023 Refill [facility] [address] [address] Alyce Lira MD [address] [address] Essential hypertension Social History Tobacco [...] Description 08/06/2025 11:00 AM EST Office Visit [facility] [address] [place] [address] Fabi [facility]ajero APRN [address] [facility] [address] [place] [address] documented as of this encounter Visit Diagnoses Diagnosis Essential hypertension Unspecified essential hypertension documented in this encounter Additional Health Concerns Assessment Noted Time A fall risk assessment has been complete d for the patient 10/14/2023 3:37 PM EDT A Body Mass Index follow-up plan has been documented for the patient 10/23/2023 11:27 AM EDT documented as of this encounter Care Teams Talent Director Relationship Specialty Start Date End Date David Disla MD [address] [place] [address] PCP - General 10/21/20 01/09/24 Marge Jovel APRN [address] [place] [address] PCP - General 01/10/24 documented as of this encounter
--- OUTSIDE RECORDS SUMMARY | 2025-04-21 11:05 | XMS_ITS | Clinical Summary ---
Author Organization Healthcare Address [address] [place] [address] Care Team Providers Care Marketing Development Manager Name Role Phone Marge Jovel SWAPNIL Primary Care Provider [phone] Allergies Active Allergy Reactions Criticality Noted Date Comments Morphine Unknown - Patient st ates they do not know rxn details Low 06/11/2023 Pentoxifylline Rash Low 11/25/2018 Medications cholecalciferol (Vitamin D3) 1.25 MG (92887 UT) capsule Take 1 capsule (50,000 Units) [...] Encounters Date Type Department Care Team Description 04/12/2025 Orders Only [facility] Nephrology [address] [address] Fabi Tinajero APRN CKD (chronic kidney disease) stage 4, GFR 15-29 ml/min (CMS/HCC) (Primary Dx); Other iron deficiency anemia 04/02/2025 11:00 AM EDT Office Visit [facility] [address] [place] [...] Description 08/06/2025 11:00 AM EST Office Visit [facility] [address] [place] [address] Fabi Tinajero, EYEGLASS CUTTER [address] [address] Health Maintenance Due Date Last Done Comments [facility]-Bone Density Scan 1942 [facility]-Medicare Annual Wellness (AWV) 1942 [facility]-Infant/Child/Adol SDOH Screenings 1942 [id number] Vaccine (#1) 1947 [facility]- SDOH Screenings 1960 [...] to complete this topic Insurance Care Teams Marketing Development Manager Relationship Specialty Start Date End Date Marge Jovel APRN [address] [place] [address] PCP - General 01/10/24
[2025-04-21] MEDS: SODIUM CHLORIDE 0.9% 10ML FLUSH SYRINGE 10 ML IV (11:09)
[2025-04-21 11:29] LABS: Hematocrit 28.9 % (37.0-47.0); Hemoglobin 8.7 g/dL (12.2-16.2); Immature Granulocytes % 0.3 %; Mean Corpuscular HGB Conc 30.1 g/dL (31.8-35.4); Mean Corpuscular Hemoglobin 25.0 pg (27.0-31.2); Mean Corpuscular Volume 83.0 fl (81-99); Nucleated Red Blood Cells % 0 %; Platelet Count 205 K/mm3 (142-424); Red Blood Count 3.48 M/mm3 (4.20-5.40); Red Cell Distribution Width-SD 45.3 fL; White Blood Count 7.5 K/mm3 (4.8-10.8)
[2025-04-21 11:49] LABS: Iron 46 ug/dL (37-170)
[2025-04-21 11:58] LABS: Total Iron Binding Capacity 381 ug/dL (265-497)
[2025-04-21 13:07] LABS: Ferritin 14.8 ng/ml (11.1-264)
== END 2025-04-21 23:59 | disposition home or self-care (01) ==
PROVIDERS: PCP Family Medicine; Visit Provider Internal Medicine Medical Oncology
DX: D50.9 Iron deficiency anemia, unspecified (principal)
CPT/HCPCS: 36591; 82728; 83540; 83550; 85025; J1642

== ENCOUNTER 2025-04-29 12:57 | Outpatient (CLI) | payer MEDICARE, SELFPAY ==
--- OUTSIDE RECORDS SUMMARY | 2025-04-02 10:00 | XMS_ITS | Encounter Summary ---
Author Organization Healthcare Address [address] [place] [address] Care Team Providers Care Resin Filterer Name Role Phone Marge Jovel APRN Primary Care Provider [phone] Reason for Referral * Consultation (Routine) - Authorized Specialty Diagnoses / Procedures Referred By Rocio t Referred To Contact Diagnoses CKD (chronic kidney disease) stage 4, GFR 15-29 ml/min (CMS/HCC) Fabi Tinajero APRN [address] [address] Phone: tel: fax: Referral ID Status Reason Start Date Expiration Date V isits Requested Visits Authorized [id number] Authorized 04/02/2025 10/02/2026 1 1 Reason for Visit * Reason Comments Follow-up * Consultation (Routine) - Closed Specialty Diagnoses / Procedures Referred By Contac t Referred To Contact Diagnoses CKD (chronic kidney disease) stage 4, GFR 15-29 ml/min (CMS/HCC) Fabi Tinajero APRN [address] [address] Phone: tel: fax: Referral ID Status Reason Start Date Expiration Date Visits Re quested Visits Authorized [id number] Closed 12/04/2024 06/05/2026 1 1 Encounter Details Date Type Department Care Team (Late st Contact Info) Description 04/02/2025 11:00 AM EDT Office Visit [facility] [address] [place] [address] Fabi Tinajero APRN [address] [address] CKD (chronic kidney disease) stage [...] 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 Wishes [...] Description 08/06/2025 11:00 AM EST Office Visit [facility] [address] [address] Fabi Tinajero, STRAP FOLDING MACHINE OPERATOR [address] [address] Scheduled Orders Name Type Priority [...] kidney disease) stage 4, GFR 15-29 ml/min ([facility])- Primary Chronic kidney disease, Stage IV (severe) [...] documented as of this encounter Care Teams Resin Filterer Relationship Specialty Start Date End Date Marge Jovel APRN [address] [place] [address] PCP - General 01/10/24 documented as of this encounter
[2025-04-29 13:10] VITALS: BP 161/73; PULSE 72; RESP 18; O2SAT 100
[2025-04-29] MEDS: ferumoxytoL 510 MG in 0.9 % SODIUM CHLORIDE 50 ML 268 MG IV (13:10)
[2025-04-29 13:35] VITALS: BP 171/86; PULSE 77; RESP 18; O2SAT 77
[2025-04-29 13:55] LABS: Blood Urea Nitrogen 35 mg/dl (7-17); Creatinine,Serum 2.80 mg/dl (0.52-1.04); Estimated Glomerular Filt Rate 16 ml/min (>60); GFR (African American) 20 ML/MIN (>60)
--- NOTE | 2025-04-29 14:25 | CT_ITS ---
FINAL REPORT TECHNIQUE: Axial images through the abdomen and pelvis were performed without contrast. This study was performed with techniques to keep radiation doses as low as reasonably achievable, (ALARA). Individualized dose reduction techniques using automated exposure control or adjustment of mA and/or kV according to the patient's size were employed. CLINICAL HISTORY: Enlarging AAA COMPARISON: 05/24/2021 FINDINGS: Abdomen: There is chronic scarring present in the right lung base. The liver parenchyma is homogeneous. The gallbladder is not visualized. Calcified granulomas are noted in the spleen. The pancreas is atrophic. There is a left adrenal nodule measuring 9 mm in size, favor adenoma. There are multiple bilateral renal cysts noted, measuring up to 4.0 cm, which were present on the prior exam of 2020. The dominant cyst in the right kidney appears slightly larger than seen on the prior exam. There is a 4.6 cm in diameter abdominal aortic aneurysm present, which previously measured 4 cm in diameter on the prior exam. Pelvis: There is streak artifact from an implanted pain pump in the posterior soft tissues of the back. A large amount of stool is noted in the colon. The urinary bladder is unremarkable. The appendix is not visualized. There is no pelvic mass or inflammation. IMPRESSION: Enlargement of the abdominal aortic aneurysm from 4 cm in diameter to 4.6 cm in diameter on the current exam. Bilateral renal cysts, essentially stable. Other chronic changes again noted. Reviewed, Interpreted and Dictated by Adilson Lemus MD Transcribed by Amelia Jha Authenticated and [facility]
[2025-04-29] MEDS: SODIUM CHLORIDE 0.9% 10ML FLUSH SYRINGE 10 ML IV (14:45)
--- NOTE | 2025-04-29 14:45 | PC.NURSE ---
1445-Right chest pac flushed with ns;capped with heparin and deaccessed after ct scan.
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
--- OUTSIDE RECORDS SUMMARY | 2025-04-29 14:51 | XMS_ITS | Encounter Summary ---
Author Organization Healthcare Address [address] [place] [address] Care Team Providers Care Dinker Name Role Phone Marge Jovel SWAPNIL Primary Care Provider Encounter Details Date Type Department Care Team (Late st Contact Info) Description 04/12/2025 Orders Only [facility] Nephrology [address] [place] [address] Fabi Tinajero APRN [address] [address] CKD (chronic kidney disease) stage [...] venofer tolerated fereheme To have completed at [facility] documented in this encounter Plan of Treatment Upcoming Encounters Date Type Department Care Team (Late st Contact Info) Description 08/06/2025 11:00 AM EST Office Visit [facility] [address] [place] [phone] Fabi Tinajero, CYTOTECHNOLOGIST [address] [address] documented as of this encounter Visit Diagnoses Diagnosis CKD (chronic kidney disease) stage 4, GFR 15-29 ml/min ([facility])- Primary Chronic kidney disease, Stage IV (severe) Other iron deficiency anemia documented in this encounter Additional Health Concerns Assessment Noted Time A fall risk assessment has been complete d for the patient 02/12/2024 12:40 PM EDT A Body Mass Index follow-up plan has been documented for the patient 04/02/2025 11:58 AM EDT documented as of this encounter Care Teams Dinker Relationship Specialty Start Date End Date Marge Jovel APRN [address] [facility] [place] [address] PCP - General 01/10/24 documented as of this encounter
--- OUTSIDE RECORDS SUMMARY | 2025-04-29 14:52 | XMS_ITS | Clinical Summary ---
Author Organization Healthcare Address [address] [place] [address] Care Team Providers Care Lead Systems Engineer Name Role Phone Marge Jovel SWAPNIL Primary Care Provider [phone] Allergies Active Allergy Reactions Criticality Noted Date Comments Morphine Unknown - Patient st ates they do not know rxn details Low 06/11/2023 Pentoxifylline Rash Low 11/25/2018 Medications cholecalciferol (Vitamin D3) 1.25 MG (65512 UT) capsule Take 1 capsule (50,000 Units) [...] Encounters Date Type Department Care Team Description 04/23/2025 Telephone [facility] Infusion [address] [place] [address] Slaud Mata, [facility] Feraheme Therapy 04/22/2025 Telephone [facility] Nephrology, Bone & Mineral Metabolism [address] [facility], [address] [place] [address] Fabi Tinajero APRN [facility] Infusion is requesting iron lab order 04/12/2025 Orders Only [facility] Nephrology [address] [place] [address] Fabi Tinajero APRN CKD (chronic kidney disease) stage 4, GFR 15-29 ml/min ([facility]) (Primary Dx); Other iron deficiency anemia 04/02/2025 11:00 AM EDT Office Visit [facility] [address] [address] Fabi Tinajero APRN CKD (chronic kidney disease) stage 4, GFR 15-29 ml/min ([facility]) (Primary Dx); Other iron deficiency anemia; Essential [...] AM EST Office Visit [facility] [place] [address] Fabi Tinajero, MALT SPECIFICATIONS CONTROL ASSISTANT [address] [address] Health Maintenance Due Date Last Done Comments [facility]-Bone Density Scan 1940 [facility]-Medicare Annual Wellness (AWV) 1942 [facility]-/Child/Adol SDOH Screenings 1942 [id number] Vaccine (#1) 1947 [facility]- SDOH Screenings 1960 [...] patient's age to complete this topic Insurance MAGDY MEDICARE Care Teams Lead Systems Engineer Relationship Specialty Start Date End Date Marge Jovel APRN [address] [place] [address] PCP - General 01/10/24
--- OUTSIDE RECORDS SUMMARY | 2025-04-29 14:52 | XMS_ITS | Encounter Summary ---
Author Organization [facility] Address [address] [place] [address] Care Team Providers Care Shirt Bander Name Role Phone Marge Jovel APRN Primary Care Provider [phone] Reason for Visit * Reason Onset Date Comments Feraheme Therapy 04/23/2025 Encounter Details Date Type Department Care Team (Late st Contact Info) Description 04/23/2025 Telephone [facility] Infusion [address] [place] [address] Salud Mata CPhT None None Feraheme Therapy Social History Tobacco Use Types Packs/Day Years [...] as of this encounter Miscellaneous Notes * Telephone Encounter - Aziza Donald PharmJose Angel - 04/23/2025 2:06 PM EST Patient has been approved to receive infusion treatment at outside facility. [facility] will follow up with facility to make sure patient has been scheduled and received first dose. Specialty Medication: Feraheme Filling Pharmacy/SOC: [facility] * Telephone Encounter - Salud Mata CPhT - 04/23/2025 1:31 PM EST Medicare B/Advantage Plan Authorization Information Specialty Medication: Prakash Diagnosis Code: N18.4 and D50.8 J-code/CPT code/S code: Q0138 Covered by Medicare B: Yes Does the diagnosis, dose, and frequency match an FDA approved dosing schedule? Yes, list prescribeddose/frequency: 510mg once every 7 days. Site of Care: [facility] Does patient have an Advantage Plan? Yes, NOTE Medicare B MUST cover for Advantage Plan to cover Advantage plan name: [employer] How was request submitted? Faxed Reference number: [id number] Follow-up phone: [phone] opt 5 Authorization number: [id number] Approval dates: 04/06/2025-07/05/2025 Insurance Type: Medicare SOC: [facility] documented in this encounter Plan of Treatment Upcoming Encounters Date Type Department Care Team (Late st Contact Info) Description 08/06/2025 11:00 AM EST Office Visit [facility] [address] [facility] [address] [address] Fabi Tinajero APRN [address] [address] documented as of this encounter Visit Diagnoses Not on filedocumented in this encounter Additional Health Concerns Assessment Noted Time A fall risk assessment has been complete d for the patient 02/12/2024 12:40 PM EDT A Body Mass Index follow-up plan has been documented for the patient 04/02/2025 11:58 AM EDT documented as of this encounter Care Teams Shirt Bander Relationship Specialty Start Date End Date Marge Jovel APRN [address] [place] [address] PCP - General 01/10/24 documented as of this encounter
--- OUTSIDE RECORDS SUMMARY | 2025-04-29 14:52 | XMS_ITS | Encounter Summary ---
Author Organization Healthcare Address [address] [place] [address] Care Team Providers Care Technical Support Internship Name Role Phone Gurpreet Jovelica SWAPNIL Primary Care Provider [phone] Reason for Visit * Reason Onset Date Comments [facility] is requesting iron la b order 04/22/2025 Encounter Details Date Type Department Care Team ([facility] st Contact Info) Description 04/22/2025 Telephone [facility] Nephrology, Bone & Mineral Metabolism [address], [address] [place] [address] Fabi Tinajero APRN [address] [place] [address] [facility] is requesting iron lab order Social History Tobacco Use Types Packs/Day Years [...] encounter Miscellaneous Notes * Telephone Encounter - Christine Melara, PharmD - 04/23/2025 9:51 AM EST Spoke with Chacha at [facility] Infusion. She states they obtained authorization for infusion but do not have an infusion order from Fabi Tinajero. Therapy plan was entered on 04/12/25. [facility]. Chacha provides fax # [phone]. Her phone number is [phone] if there are any questions/concerns. Christine Melara PharmD, BCACP Clinical Pharmacist Nephrology Clinic * Telephone Encounter - Christine Melara PharmD - 04/23/2025 8:50 AM EST Spoke with infusion department at [facility] to clarify what is needed, the nurse working on this patient just stepped out and the remaining team members are not sure. Nurse who initially placed call will call sign writer hand back to clarify what is needed, direct # provided. Christine Melara PharmD, EVECP Clinical Pharmacist Nephrology Clinic * Telephone Encounter - Titi Dangelo - 04/22/2025 10:29 AM EST Patient Phone Message Reason for Call: [facility] Infusion Dept is requesting a lab order for iron. Best contact number and optimal time of day to reach caller: [phone] Note: Please do not reply to this message. Follow-up communication and further actions as a result of this message need to be communicated with the patient directly, if the patient is not active onMyChart. If the patient is active on MyChart, they will receive notification of the communication/outcome via MyChart. documented in this encounter Plan of Treatment Upcoming Encounters Date Type Department Care Team (Late st Contact Info) Description 08/06/2025 11:00 AM EST Office Visit [facility] [address] [place] [address] Fabi Tinajero, SWAPNIL [address] [address] documented as of this encounter Visit Diagnoses Not on filedocumented in this encounter Additional Health Concerns Assessment Noted Time A fall risk assessment has been complete d for the patient 02/12/2024 12:40 PM EDT A Body Mass Index follow-up plan has been documented for the patient 04/02/2025 11:58 AM EDT documented as of this encounter Care Teams Technical Support Internship Relationship Specialty Start Date End Date Marge Jovel APRN [address] [place] [address] PCP - General 01/10/24 documented as of this encounter
--- OUTSIDE RECORDS SUMMARY | 2025-04-29 14:52 | XMS_ITS | Clinical Summary ---
Author Organization [facility] Address [address] [place] [address] Phone Care Team Providers Care Helicopter Utility Aircrewman Name Role Phone Moise Harris MD, [facility] Primary Care Provid er Allergies No [...] to complete this topic Insurance Care Teams Helicopter Utility Aircrewman Relationship Specialty Start Date End Date Vinayak Phipps Sr., MD [address] [place] [phone] PCP - General Stripper And Printer 12/15/12
--- OUTSIDE RECORDS SUMMARY | 2025-04-29 14:52 | XMS_ITS | Encounter Summary ---
Author Organization Healthcare Address [address] [place] [address] Care Team Providers Care Hims Manager Name Role Phone David Disla MD Primary Care Provider [phone] Marge Jovel APRN Primary Care Provider [phone] Reason for Visit * Reason Comments Med Refill Encounter Details Date Type Department Care Team (Late st Contact Info) Description 12/16/2023 Refill [facility] [address] [address] Alyce Lira MD [address] [address] Essential hypertension Social History Tobacco [...] Description 08/06/2025 11:00 AM EST Office Visit [facility] [address] [place] [address] Fab[facility]ero [facility]N [address] [facility] [address] [place] [address] documented as of this encounter Visit Diagnoses Diagnosis Essential hypertension Unspecified essential hypertension documented in this encounter Additional Health Concerns Assessment Noted Time A fall risk assessment has been complete d for the patient 10/14/2023 3:37 PM EDT A Body Mass Index follow-up plan has been documented for the patient 10/23/2023 11:27 AM EDT documented as of this encounter Care Teams Hims Manager Relationship Specialty Start Date End Date David Disla MD [address] [place] [address] PCP - General 10/21/20 01/09/24 Marge Jovel APRN [address] [place] [address] PCP - General 01/10/24 documented as of this encounter
--- OUTSIDE RECORDS SUMMARY | 2025-04-29 14:53 | XMS_ITS | Encounter Summary ---
Author Organization Healthcare Address [address] [place] [address] Care Team Providers Care Thai Masseur Name Role Phone Marge Jovel APRN Primary Care Provider [phone] Encounter Details Date Type Department Care Team [...] Description 08/06/2025 11:00 AM EST Office Visit [facility] [address] [place] [address] Fabi Tinajero APRN [address] [address] documented as of this encounter Visit Diagnoses Not on filedocumented in this encounter Additional Health Concerns Assessment Noted Time A fall risk assessment has been complete d for the patient 02/12/2024 12:40 PM EDT A Body Mass Index follow-up plan has been documented for the patient 04/02/2025 11:58 AM EDT documented as of this encounter Care Teams Thai Masseur Relationship Specialty Start Date End Date Marge Jovel APRN [address] [place] [address] PCP - General 01/10/24 documented as of this encounter
== END 2025-04-29 23:59 | disposition home or self-care (01) ==
PROVIDERS: PCP Family Medicine; Visit Provider Physician Assistant
DX: N18.4 Chronic kidney disease, stage 4 (severe) (principal); D50.8 Other iron deficiency anemias
CPT/HCPCS: 74176; 82565; 84520; 96374; J1642; Q0138

== ENCOUNTER 2025-05-04 11:45 | Outpatient (CLI) | payer MEDICARE, SELFPAY ==
--- OUTSIDE RECORDS SUMMARY | 2025-04-02 10:00 | XMS_ITS | Encounter Summary ---
Author Organization Healthcare Address [address] [place] [address] Care Team Providers Care Veneer Redrier Name Role Phone Marge Jovel APRN Primary Care Provider [phone] Reason for Referral * Consultation (Routine) - Authorized Specialty Diagnoses / Procedures Referred By Rocio t Referred To Contact Diagnoses CKD (chronic kidney disease) stage 4, GFR 15-29 ml/min (CMS/HCC) Fabi Tinajero APRN [address] [address] Phone: tel: fax: Referral ID Status Reason Start Date Expiration Date V isits Requested Visits Authorized [id number] Authorized 04/02/2025 10/02/2026 1 1 Reason for Visit * Reason Comments Follow-up * Consultation (Routine) - Closed Specialty Diagnoses / Procedures Referred By Contac t Referred To Contact Diagnoses CKD (chronic kidney disease) stage 4, GFR 15-29 ml/min (CMS/HCC) Fabi Tinajero APRN [address] [address] Phone: tel: fax: Referral ID Status Reason Start Date Expiration Date Visits Re quested Visits Authorized [id number] Closed 12/04/2024 06/05/2026 1 1 Encounter Details Date Type Department Care Team (Late st Contact Info) Description 04/02/2025 11:00 AM EDT Office Visit [facility] [address] [place] [address] Fabi Tinajero APRN [address] [address] CKD (chronic kidney disease) stage [...] 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 Wishes to [...] [address] [address] Fabi Tinajero, INDUSTRIAL METHODS CONSULTANT [address] [address] Scheduled Orders Name Type Priority [...] kidney disease) stage 4, GFR 15-29 ml/min ([facility])- Primary Chronic kidney disease, Stage IV (severe) [...] documented as of this encounter Care Teams Veneer Redrier Relationship Specialty Start Date End Date Marge Jovel APRN [address] [place] [address] PCP - General 01/10/24 documented as of this encounter
--- OUTSIDE RECORDS SUMMARY | 2025-05-04 11:48 | XMS_ITS | Encounter Summary ---
Author Organization Healthcare Address [address] [place] [address] Care Team Providers Care Print Finishing Worker Name Role Phone Marge Jovel APRN Primary Care Provider [phone] Encounter Details Date Type Department Care Team [...] Description 08/06/2025 11:00 AM EST Office Visit [facility] [address] [place] [address] Fabi Tinajero APRN [address] [address] documented as of this encounter Visit Diagnoses Not on filedocumented in this encounter Additional Health Concerns Assessment Noted Time A fall risk assessment has been complete d for the patient 02/12/2024 12:40 PM EDT A Body Mass Index follow-up plan has been documented for the patient 04/02/2025 11:58 AM EDT documented as of this encounter Care Teams Print Finishing Worker Relationship Specialty Start Date End Date Marge Jovel APRN [address] [place] [address] PCP - General 01/10/24 documented as of this encounter
--- OUTSIDE RECORDS SUMMARY | 2025-05-04 11:48 | XMS_ITS | Encounter Summary ---
Author Organization Healthcare Address [address] [place] [address] Care Team Providers Care Inside Trucker Name Role Phone David Disla MD Primary Care Provider [phone] Marge Jovel APRN Primary Care Provider [phone] Reason for Visit * Reason Comments Med Refill Encounter Details Date Type Department Care Team (Late st Contact Info) Description 12/16/2023 Refill [facility] [address] [address] Alyce Lira MD [address] [address] Essential hypertension Social History Tobacco [...] Description 08/06/2025 11:00 AM EST Office Visit [facility] [address] [place] [address] [facility]i [facility]ero [facility]N [address] [facility] [address] [place] [address] documented as of this encounter Visit Diagnoses Diagnosis Essential hypertension Unspecified essential hypertension documented in this encounter Additional Health Concerns Assessment Noted Time A fall risk assessment has been complete d for the patient 10/14/2023 3:37 PM EDT A Body Mass Index follow-up plan has been documented for the patient 10/23/2023 11:27 AM EDT documented as of this encounter Care Teams Inside Trucker Relationship Specialty Start Date End Date David Disla MD [address] [place] [address] PCP - General 10/21/20 01/09/24 Marge Jovel APRN [address] [place] [address] PCP - General 01/10/24 documented as of this encounter
--- OUTSIDE RECORDS SUMMARY | 2025-05-04 11:48 | XMS_ITS | Clinical Summary ---
Author Organization [facility] Address [address] [place] [address] Phone Care Team Providers Care Protective Service Specialist Name Role Phone Moise Harris MD, [facility] Primary Care Provid er Allergies No [...] to complete this topic Insurance Care Teams Protective Service Specialist Relationship Specialty Start Date End Date Vinayak Phipps Sr., MD [address] [place] [phone] PCP - General Service Associate 12/15/12
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
--- OUTSIDE RECORDS SUMMARY | 2025-05-04 11:48 | XMS_ITS | Encounter Summary ---
Author Organization [facility] Address [address] [place] [address] Care Team Providers Care Registered Safety Engineer Name Role Phone Marge Jovel APRN Primary Care Provider [phone] Reason for Visit * Reason Onset Date Comments Feraheme Therapy 04/23/2025 Encounter Details Date Type Department Care Team (Late st Contact Info) Description 04/23/2025 Telephone [facility] [address] [place] [address] Salud Mata CPhT None None [...] first dose. Specialty Medication: Feraheme Filling Pharmacy/SOC: [facility] * Telephone Encounter - Salud Mata CPhT - 04/23/2025 1:31 PM EST Medicare B/Advantage Plan Authorization Information Specialty Medication: Prakash Diagnosis Code: N18.4 and D50.8 J-code/CPT code/S code: Q0138 Covered by Medicare B: Yes Does the diagnosis, dose, and frequency match an FDA approved dosing schedule? Yes, list prescribeddose/frequency: 510mg once every 7 days. Site of Care: [facility] Does patient have an Advantage Plan? Yes, NOTE Medicare B MUST cover for Advantage Plan to cover Advantage plan name: Nicolas Merida [employer]! How was request submitted? Faxed Reference number: [id number] Follow-up phone: [phone] opt 5 Authorization number: [id number] Approval dates: 04/06/2025-07/05/2025 Insurance Type: Medicare SOC: [facility] documented in this encounter Plan of Treatment Upcoming Encounters Date Type Department Care Team (Late st Contact Info) Description 08/06/2025 11:00 AM EST Office Visit [facility] [address] [facility] [address] [address] Fabi Tinajero APRN [address] [address] documented as of this encounter Visit Diagnoses Not on filedocumented in this encounter Additional Health Concerns Assessment Noted Time A fall risk assessment has been complete d for the patient 02/12/2024 12:40 PM EDT A Body Mass Index follow-up plan has been documented for the patient 04/02/2025 11:58 AM EDT documented as of this encounter Care Teams Registered Safety Engineer Relationship Specialty Start Date End Date Marge Jovel APRN [address] [place] [address] PCP - General 01/10/24 documented as of this encounter
--- OUTSIDE RECORDS SUMMARY | 2025-05-04 11:48 | XMS_ITS | Encounter Summary ---
Author Organization Healthcare Address [address] [place] [address] Care Team Providers Care Sail Lay Out Worker Name Role Phone Med Marge SWAPNIL Primary Care Provider [phone] Encounter Details Date Type Department Care Team (Late st Contact Info) Description 04/12/2025 Orders Only [facility] Nephrology [address] [place] [address] Fabi Tinajero APRN [address] [address] CKD (chronic kidney disease) stage [...] venofer tolerated fereheme To have completed at [facility] documented in this encounter Plan of Treatment Upcoming Encounters Date Type Department Care Team (Late st Contact Info) Description 08/06/2025 11:00 AM EST Office Visit [facility] [address] [place] [id number] Fabi Tinajero, CNC LATHE MACHINE OPERATOR [address] [address] documented as of this encounter Visit Diagnoses Diagnosis CKD (chronic kidney disease) stage 4, GFR 15-29 ml/min ([facility])- Primary Chronic kidney disease, Stage IV (severe) Other iron deficiency anemia documented in this encounter Additional Health Concerns Assessment Noted Time A fall risk assessment has been complete d for the patient 02/12/2024 12:40 PM EDT A Body Mass Index follow-up plan has been documented for the patient 04/02/2025 11:58 AM EDT documented as of this encounter Care Teams Sail Lay Out Worker Relationship Specialty Start Date End Date Marge Jovel APRN [address] [facility] [place] [address] PCP - General 01/10/24 documented as of this encounter
--- OUTSIDE RECORDS SUMMARY | 2025-05-04 11:48 | XMS_ITS | Encounter Summary ---
Author Organization Healthcare Address [address] [place] [address] Care Team Providers Care Pharmaceutical Service Representative Name Role Phone Gurpreet Jovelica SWAPNIL Primary Care Provider [phone] Reason for Visit * Reason Onset Date Comments [facility] is requesting iron la b order 04/22/2025 Encounter Details Date Type Department Care Team ([facility] st Contact Info) Description 04/22/2025 Telephone [facility] Nephrology, Bone & Mineral Metabolism [address], [address] [place] [address] Fabi Tinajero APRN [address] [place] [address] [facility] is requesting [...] encounter Miscellaneous Notes * Telephone Encounter - Christnie Melara, PharmD - 04/23/2025 9:51 AM EST Spoke with Chacha at [facility]. She states they obtained authorization for infusion but do not have an infusion order from Fabi Tinajero. Therapy plan was entered on 04/12/25. [facility] teamassist with sending orders. Chacha provides fax # [phone]. Her phone number is [phone] if there are any questions/concerns. Christine Melara PharmD, BCACP Clinical Pharmacist Nephrology Clinic * Telephone Encounter - Christine Melara PharmD - 04/23/2025 8:50 AM EST Spoke with infusion department at [facility] to clarify what is needed, the nurse working on this patient just stepped out and the remaining team members are not sure. Nurse who initially placed call will call underwriter back to clarify what is needed, direct # provided. Christine Melara PharmD, EVECP Clinical Pharmacist Nephrology Clinic * Telephone Encounter - Titi Dangelo - 04/22/2025 10:29 AM EST Patient Phone Message Reason for Call: [facility] Dept is requesting a lab order for iron. Best contact number and optimal time of day to reach caller: [phone] Note: Please do not reply to this [...] Description 08/06/2025 11:00 AM EST Office Visit [facility] [address] [place] [address] Fabi Tinajero, SWAPNIL [address] [address] documented as of this encounter Visit Diagnoses Not on filedocumented in this encounter Additional Health Concerns Assessment Noted Time A fall risk assessment has been complete d for the patient 02/12/2024 12:40 PM EDT A Body Mass Index follow-up plan has been documented for the patient 04/02/2025 11:58 AM EDT documented as of this encounter Care Teams Pharmaceutical Service Representative Relationship Specialty Start Date End Date Marge Jovel APRN [address] [place] [address] PCP - General 01/10/24 documented as of this encounter
--- OUTSIDE RECORDS SUMMARY | 2025-05-04 11:48 | XMS_ITS | Clinical Summary ---
Author Organization Healthcare Address [address] [place] [address] Care Team Providers Care Oncology Radiation Physician Name Role Phone Marge Jovel SWAPNIL Primary Care Provider [phone] Allergies Active Allergy Reactions Criticality Noted Date Comments Morphine Unknown - Patient st ates they do not know rxn details Low 06/11/2023 Pentoxifylline Rash Low 11/25/2018 Medications cholecalciferol (Vitamin D3) 1.25 MG (85109 UT) capsule Take 1 capsule (50,000 Units) [...] Type Department Care Team Description 04/23/2025 Telephone [facility] [address] [place] [address] Salud Mata, [facility] Feraheme Therapy 04/22/2025 Telephone [facility] Nephrology, Bone & Mineral Metabolism [address] [facility], [address] [place] [address] Fabi Tinajero APRN [facility] is requesting iron lab order 04/12/2025 Orders Only [facility] Nephrology [address] [place] [address] Fabi Tinajero APRN CKD (chronic kidney disease) stage 4, GFR 15-29 ml/min ([facility]) (Primary Dx); Other iron deficiency anemia 04/02/2025 11:00 AM EDT Office Visit [facility] [address] [place] [address] Fabi Tinajero APRN CKD (chronic kidney disease) stage 4, GFR 15-29 ml/min ([facility]) (Primary Dx); Other iron deficiency anemia; Essential [...] Description 08/06/2025 11:00 AM EST Office Visit [facility] [place] [address] Fabi Tinajero, CONSERVATION SCIENTIST [address] [address] Health Maintenance Due Date Last Done Comments [facility]-Bone Density Scan 1940 [facility]-Medicare Annual Wellness (AWV) 1940 [facility]-/Child/Adol SDOH Screenings 1940 [id number] Vaccine (#1) 1947 [facility]- SDOH Screenings 1960 [...] this topic Insurance MAGDY MEDICARE Care Teams Oncology Radiation Physician Relationship Specialty Start Date End Date Marge Jovel APRN [address] [place] [address] PCP - General 01/10/24
[2025-05-04 12:25] VITALS: BP 150/76; BP 158/89; PULSE 76; PULSE 86; RESP 18; O2SAT 96
[2025-05-04] MEDS: ferumoxytoL 510 MG in 0.9 % SODIUM CHLORIDE 50 ML 268 MG IV (12:25)
[2025-05-04] MEDS: SODIUM CHLORIDE 0.9% 10ML FLUSH SYRINGE 10 ML IV (12:55)
== END 2025-05-04 23:59 | disposition home or self-care (01) ==
PROVIDERS: PCP Family Medicine; Visit Provider Internal Medicine Medical Oncology
DX: N18.4 Chronic kidney disease, stage 4 (severe) (principal); D50.8 Other iron deficiency anemias
CPT/HCPCS: 96374; J1642; Q0138